=== PATIENT | male | born 1955 | race Caucasian/White ===

== ENCOUNTER 2024-10-25 09:02 | Inpatient (IN) ==
[2024-10-25] MEDS: SODIUM CHLORIDE 0.9% 1,000 ML IV SCH ×2 (09:49→10:10)
--- NOTE | 2024-10-25 09:52 | Emergency Department Note ---
History of Present Illness General Chief complaint: Flu Like Symptoms Stated complaint: SICK FOR 8 DAYS Time Seen by Provider: 10/25/24 09:17 History of Present Illness Patient is a 69-year-old male with past medical history significant for hypertension, insulin requiring diabetes, allergies and dyslipidemia who presents to the emergency department for evaluation of nausea, vomiting and diarrhea x 1 week. His is currently at a rehab facility, he was visiting her last Friday, 8 days ago when he developed stomach upset and started vomiting at the rehab hospital. Diarrhea developed shortly after. He reports multiple episodes of vomiting and diarrhea since. He only had dry heaves yesterday, but vomited last on the way to the emergency department this morning and had diarrhea today. He reports generalized mid abdominal discomfort that he rates a 3/10. He denies any blood in his vomit or stool. No fever or chills. He did not have any medications at home to try. He has not been able to take his normal home medications. He is on an insulin pump and uses a Dexcom monitor and his BSG's have been reading "high" for most of the week. He states that this is over 400 on his machine. He has tried sipping on water, he did try to eat a hoagie a couple of days ago. 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 No sick contacts, foreign travel, food or water concerns. He has treated municipal water at home. He does have a history of ulcerative colitis that was treated with a bowel resection 30 years ago. He denies any chest pain or shortness of breath. No cough, or URI symptoms. Home Medications Medication Instructions Recorded Confirmed Type lisinopril 40 mg tablet 40 mg PO DAILY ##0 04/15/06 10/25/24 History montelukast 10 mg tablet 10 mg PO DAILY ##0 04/15/06 10/25/24 History amlodipine 10 mg tablet 10 mg PO DAILY 10/25/24 10/25/24 History atorvastatin 40 mg tablet 40 mg PO DAILY 10/25/24 10/25/24 History chlorthalidone 25 mg tablet 25 mg PO DAILY 10/25/24 10/25/24 History fluticasone 250 mcg-salmeterol 50 1 inh inhalation BID 10/25/24 10/25/24 History mcg/dose blistr powdr for inhalation (Advair Diskus) ipratropium bromide 17 2 puff inhalation QID PRN 10/25/24 10/25/24 History mcg/actuation HFA aerosol inhaler SOB/WHEEZING (Atrovent HFA) Allergies Allergy/AdvReac Type Severity Reaction Status Date / Time Sulfa (Sulfonamide Allergy Verified 10/25/24 11:00 Antibiotics) Past Med/Surg History Problem List (Updated 10/25/24 @ 18:26 by Rosa Draper) ARF (acute renal failure) (Acute) Hyperkalemia (Acute) High anion gap metabolic acidosis (Acute) Medical History (Updated 10/25/24 @ 18:26 by Rosa Draper) Acoustic neuroma Moderate non-proliferative diabetic retinopathy Type 2 diabetes mellitus Stage 3b chronic kidney disease (CKD) Mild persistent asthma Environmental and seasonal allergies Dyslipidemia Hypertension Ulcerative colitis Surgical History (Updated 10/25/24 @ 13:42 by Monika Collins PA-C) History of cataract surgery Status post total colectomy age 30 for UC, has a J pouch Social History Smoking Status: Former smoker Hx Alcohol Use: No Hx Substance Use: No Preferred Language: Ghanaian Communication Ability: Effective Real Estate 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: No Beliefs That Will Affect Care: None Current Living Situation: Spouse Other Information That Helps Us Care for You: Yes Feels Safe at Home: Yes Safety Concerns: Feels Safe At This Time Assistive Devices: Denture - Upper, Glasses and Hearing Aid - Bilateral Review of Systems A total of 10 systems reviewed and were otherwise negative Physical Exam Vital Signs Vital Signs - 24 hr 10/25/24 09:09 10/25/24 09:24 10/25/24 09:50 Temperature 36.6 C Temperature Source Oral Pulse Rate 54 L Pulse Rate [Apical] 48 L Pulse Rate from SpO2 Sensor Pulse Strength [Apical] Normal Respiratory Rate 20 19 Respiratory Effort / Characteristics SOB on Exertion Non-Labored Spontaneous Respiratory Depth Normal Respiratory Pattern Regular Blood Pressure 111/46 L Blood Pressure [Right Arm] 116/38 L Blood Pressure Mean 67 Blood Pressure Mean [Right Arm] 64 Pulse Oximetry 98 99 98 Oxygen Delivery Method Room Air Room Air Room Air Sepsis Recent Fever Within 48 Hours No Sepsis New/Unexplained Change in Mental Status No Sepsis Action Taken by Nursing No Action Required 10/25/24 10:13 10/25/24 10:40 10/25/24 11:00 Temperature Temperature Source Pulse Rate 39 L Pulse Rate [Apical] 70 Pulse Rate from SpO2 Sensor Pulse Strength [Apical] Respiratory Rate 18 Respiratory Effort / Characteristics Non-Labored Spontaneous Respiratory Depth Normal Respiratory Pattern Regular Blood Pressure 109/48 L Blood Pressure [Right Arm] 121/57 L Blood Pressure Mean 63 Blood Pressure Mean [Right Arm] 78 Pulse Oximetry 98 Oxygen Delivery Method Room Air Sepsis Recent Fever Within 48 Hours Sepsis New/Unexplained Change in Mental Status Sepsis Action Taken by Nursing 10/25/24 11:09 10/25/24 11:15 10/25/24 11:15 Temperature Temperature Source Pulse Rate 123 H Pulse Rate [Apical] Pulse Rate from SpO2 Sensor 60 Pulse Strength [Apical] Respiratory Rate 17 Respiratory Effort / Characteristics Respiratory Depth Respiratory Pattern Blood Pressure 129/54 L 129/54 L Blood Pressure [Right Arm] Blood Pressure Mean 93 93 Blood Pressure Mean [Right Arm] Pulse Oximetry 99 Oxygen Delivery Method Sepsis Recent Fever Within 48 Hours Sepsis New/Unexplained Change in Mental Status Sepsis Action Taken by Nursing 10/25/24 11:18 Temperature Temperature Source Pulse Rate 108 H Pulse Rate [Apical] Pulse Rate from SpO2 Sensor 63 Pulse Strength [Apical] Respiratory Rate 31 H Respiratory Effort / Characteristics Respiratory Depth Respiratory Pattern Blood Pressure Blood Pressure [Right Arm] Blood Pressure Mean Blood Pressure Mean [Right Arm] Pulse Oximetry 100 Oxygen Delivery Method Sepsis Recent Fever Within 48 Hours Sepsis New/Unexplained Change in Mental Status Sepsis Action Taken by Nursing CONSTITUTIONAL: Patient is a well-appearing 69-year-old male who is awake and alert and in no acute distress laying on the gurney. EYES: Pupils equal, round, reactive to light and accommodation. EOMs intact without nystagmus. Sclera are anicteric. CARDIOVASCULAR: Bradycardic, regular, no murmur appreciated RESPIRATORY: Breath sounds equal and clear to auscultation. GI: Bowel sounds are present. Well-healed surgical scars are noted. Abdomen is soft, nontender, nondistended. No organomegaly. No pulsatile masses. No guarding or rebound. Insulin pump in the left lower quadrant, Dexcom on the right lower quadrant. MUSCULOSKELETAL: Full range of motion of extremities x 4 with good strength. No cyanosis, edema, joint tenderness or swelling. No deformity. INTEGUMENTARY: No lesions or rash, normal skin turgor. Course Course The patient was seen and assessed as above. External medical records were reviewed. He presents to the emergency department for evaluation of nausea, vomiting and diarrhea. Vital signs in triage noted hypotension, and bradycardia, these worsened in the exam room while I was evaluating the patient and heart rate and rhythm was irregular on the air sampling and monitoring. IV lock was initiated and laboratory studies were collected. BSG was performed and was 429. Laboratory studies included a CBC with differential, CMP, lipase, urinalysis and stool studies were ordered. EKG was obtained. CT scan of the abdomen and pelvis with IV contrast was ordered. Patient immediately reviewed with Dr. Luna, who was involved with the patient's ED evaluation and treatment. Patient was given a total of 2 L of normal saline solution IV bolus and Zofran 4 mg IV. VBG was added to blood work. Early conversation with block and case maker initiated due to likely admission. Patient became bradycardic and a second EKG was performed, again, noting a junctional rhythm, but heart rate it was in the 40s. Pacing pads were placed. There was a significant delay in CMP results, and an i-STAT BMP was obtained. Critical findings are noted below in the laboratory section. Dr. Luna immediately notified of findings including hyperkalemia, MO and hyponatremia. He ordered an hour-long DuoNeb treatment, sodium bicarbonate, calcium gluconate, Plasma-Lyte IV hydration and insulin drip. Quesada catheter placed. [facility] high anion gap metabolic acidosis/DKA/hyperkalemia. Patient discussed with Cookie Collins PA-C/Dr. Corcoran. Patient was discussed with Dr. Melchor with nephrology regarding MO, he was concerned that the patient would need emergent dialysis, and [facility] Lab Analyst team was consulted for line placement and ICU management. Dr. Melchor evaluated the patient in the emergency department. Patient also seen by the [facility] Hospitalist team. The patient was reassessed frequently in the emergency department, and while condition was guarded, he did remain stable, pending admission. He was admitted to the ICU for further care and management. I have personally spent greater than 45 minutes of critical care time in the direct management of this patient. This includes bedside care, interpretation of diagnostic studies, and testing, discussion with consultants, patient, and family members, and other required patient management activities. This 45 minutes is in excess of all separately billable procedures. Diagnostics, as interpreted by me: Laboratory studies: Normal white count at 10,000, with neutrophilic predominance. H&H 9.2 and 27.7, normal platelet count. POC BMP notes sodium 129, potassium 8.4, chloride 109, BUN greater than 140 and creatinine 10.5. Urine microscopy without signs of infection. Stool BioFire positive for norovirus. ECG: EKG #1 at 0944 junctional rhythm 89 bpm, tall, peaked T waves. No acute ischemic changes. EKG #2 at 1037 junctional rhythm with PVCs, 46 bpm, tall, peaked T waves persist. Cardiac monitoring: An order was placed for continuous cardiac monitoring. The monitor shows a junctional/sinus bradycardia, in the 50s. Differential diagnosis: Infection, dehydration, metabolic abnormality, hypo/hyperglycemia, electrolyte disturbance, anemia, hypoxia, cardiac sources, toxicologic, as well as other pathologies. Administered Medications Dextrose (Dextrose 50% 50 Ml Syringe) 25 - 50 ml IV UD PRN; Protocol PRN Reason: Hypoglycemia Protocol Stop: 11/24/24 12:44 Last Admin: 10/25/24 16:16 Dose: 25 ml Documented By: NIKI Fluticasone/Vilanterol (Fluticasone/Vilanterol 200/25mcg 14 Puffs/Inhaler) 1 puffs INH DAILY DWAINE Stop: 11/25/24 08:59 Last Admin: 10/26/24 08:03 Dose: 1 puffs Documented By: CISCO Parenteral Electrolytes (Plasma-Lyte A Ph 7.4) 1,000 mls @ 125 mls/hr IV .Q8H DWAINE Stop: 10/26/24 23:14 Last Admin: 10/26/24 08:03 Dose: 125 mls/hr Documented By: Infusion: 10/26/24 08:03 Dose: Infused Documented By: Infusion: 10/26/24 01:55 Dose: 125 mls/hr Documented By: Admin: 10/25/24 23:34 Dose: 100 mls/hr Documented By: ASHLI Insulin Aspart (Insulin Aspart Per Unit Charge) 0 units SC ACHS DWAINE Stop: 11/24/24 20:59 Last Admin: 10/26/24 08:02 Dose: 6 units Documented By: CISCO Co-signed By: KD Admin: 10/25/24 21:19 Dose: Not Given Documented By: ASHLI Miscellaneous (Icu Protocol For Hyperglycemia) 1 each N/A ACHS DWAINE Stop: 10/27/24 20:59 Last Admin: 10/26/24 08:03 Dose: Not Given Documented By: Admin: 10/25/24 21:19 Dose: 1 each Documented By: ASHLI Sodium Zirconium Cyclosilicate (Sodium Zirconium Cyclosilicate 10 Gm Packet) 10 gm PO TID DWAINE Stop: 10/27/24 09:01 Last Admin: 10/26/24 08:03 Dose: 10 gm Documented By: Admin: 10/25/24 21:19 Dose: 10 gm Documented By: Admin: 10/25/24 14:26 Dose: 10 gm Documented By: NIKI Discontinued Medications Albuterol (Albuterol 0.083% Nebu Soln 3 Ml Vial) 10 mg NEB NOW STA; Protocol Stop: 10/25/24 10:48 Last Admin: 10/25/24 10:55 Dose: 10 mg Documented By: HOA Dextrose (Dextrose 50% 50 Ml Syringe) 50 ml IV NOW STA Stop: 10/25/24 10:49 Last Admin: 10/25/24 10:55 Dose: 25 ml Documented By: HOA Dextrose (Dextrose 50% 50 Ml Syringe) 50 ml IV NOW STA Stop: 10/26/24 00:26 Last Admin: 10/26/24 00:49 Dose: 50 ml Documented By: ASHLI Sodium Chloride (Nss) 1,000 mls @ 999 mls/hr IV .Q1H1M DWAINE Stop: 10/25/24 10:43 Last Infusion: 10/25/24 10:10 Dose: Infused Documented By: Admin: 10/25/24 09:49 Dose: 999 mls/hr Documented By: FRANK Sodium Chloride (Nss) 1,000 mls @ 999 mls/hr IV .Q1H1M DWAINE Stop: 10/25/24 10:55 Last Infusion: 10/25/24 11:18 Dose: Infused Documented By: Admin: 10/25/24 10:10 Dose: 999 mls/hr Documented By: FRANK Calcium Gluconate () 1,000 mg in 60 mls @ 240 mls/hr IV Q15M DWAINE Stop: 10/25/24 11:29 Last Infusion: 10/25/24 11:49 Dose: Infused Documented By: Admin: 10/25/24 11:22 Dose: 240 mls/hr Documented By: Infusion: 10/25/24 11:22 Dose: Infused Documented By: Admin: 10/25/24 10:55 Dose: 240 mls/hr Documented By: HOA Parenteral Electrolytes (Plasma-Lyte A Ph 7.4) 1,000 mls @ 999 mls/hr IV .Q1H1M ONE Stop: 10/25/24 11:55 Last Infusion: 10/25/24 12:15 Dose: Infused Documented By: Admin: 10/25/24 11:00 Dose: 999 mls/hr Documented By: HOA Insulin Human Regular 250 (units/ Sodium Chloride) 250 mls @ 2 mls/hr IV .Q24H DWAINE; Protocol Stop: 10/25/24 19:00 Last Titration: 10/25/24 19:03 Dose: Infused Documented By: NIKI Co-signed By: ASHLI Titration: 10/25/24 16:36 Dose: 2 units/hr, 2 mls/hr Documented By: WRS Co-signed By: OPAL Titration: 10/25/24 14:34 Dose: 0 units/hr, 0 mls/hr Documented By: NIKI Co-signed By: CB Titration: 10/25/24 14:03 Dose: 2.5 units/hr, 2.5 mls/hr Documented By: NIKI Co-signed By: CB Titration: 10/25/24 13:30 Dose: 0 units/hr, 0 mls/hr Documented By: WRS Co-signed By: DONNAL Titration: 10/25/24 13:05 Dose: 4.2 units/hr, 4.2 mls/hr Documented By: WRS Co-signed By: DONNAL Titration: 10/25/24 12:35 Dose: 0 units/hr, 0 mls/hr Documented By: WRS Co-signed By: CB Titration: 10/25/24 12:32 Dose: 7 units/hr, 7 mls/hr Documented By: NIKI Co-signed By: LEA Admin: 10/25/24 11:49 Dose: 7 units/hr, 7 mls/hr Documented By: LEA Co-signed By: EMILY Sodium Bicarbonate 75 meq/ (Sodium Chloride) 1,075 mls @ 150 mls/hr IV .Q7H10M DWAINE Stop: 11/24/24 11:59 Last Infusion: 10/25/24 15:59 Dose: Infused Documented By: Admin: 10/25/24 12:40 Dose: 150 mls/hr Documented By: NIKI Parenteral Electrolytes (Plasma-Lyte A Ph 7.4) 1,000 mls @ 100 mls/hr IV .Q10H DWAINE Stop: 10/26/24 12:59 Last Infusion: 10/25/24 16:22 Dose: Infused Documented By: Infusion: 10/25/24 13:33 Dose: 100 mls/hr Documented By: Admin: 10/25/24 13:00 Dose: 200 mls/hr Documented By: NIKI Dextrose/Sodium Chloride (D5w And 1/2nss) 1,000 mls @ 100 mls/hr IV .Q10H DWAINE Stop: 11/24/24 16:29 Last Infusion: 10/25/24 23:28 Dose: Infused Documented By: Admin: 10/25/24 16:21 Dose: 100 mls/hr Documented By: NIKI Calcium Gluconate () 1,000 mg in 60 mls @ 240 mls/hr IV NOW STA Stop: 10/26/24 00:39 Last Infusion: 10/26/24 01:18 Dose: Infused Documented By: Admin: 10/26/24 00:50 Dose: 240 mls/hr Documented By: ASHLI Insulin Human Regular 5 units/ (Syringe) 5 mls @ 3 mls/sec IV ONE STA Stop: 10/26/24 00:32 Last Admin: 10/26/24 00:49 Dose: 3 mls/sec Documented By: ASHLI Co-signed By: YOLA Parenteral Electrolytes (Plasma-Lyte A Ph 7.4) 1,000 mls @ 999 mls/hr IV .Q1H1M ONE Stop: 10/26/24 01:39 Last Infusion: 10/26/24 01:56 Dose: Infused Documented By: Admin: 10/26/24 00:50 Dose: 999 mls/hr Documented By: ASHLI Insulin Aspart (Insulin Aspart Per Unit Charge) 0 units SC ACHS DWAINE Stop: 10/25/24 19:00 Last Admin: 10/25/24 16:22 Dose: Not Given Documented By: Admin: 10/25/24 12:55 Dose: Not Given Documented By: NIKI Insulin Glargine (Lantus Per Unit Charge) 10 units SC NOW ONE Stop: 10/25/24 17:01 Last Admin: 10/25/24 17:17 Dose: 10 units Documented By: NIKI Co-signed By: MATTHIAS Insulin Human Regular (Novolin-R Insulin Per Unit Charge) 10 units IV NOW STA Stop: 10/25/24 10:49 Last Admin: 10/25/24 10:54 Dose: 10 units Documented By: HOA Co-signed By: FRANK Aviles (Stat Iv/Im) 1 each N/A NOW STA Stop: 10/25/24 11:49 Last Admin: 10/25/24 13:15 Dose: Not Given Documented By: NIKI Aviles (Stop Order: Insulin Gtt) 1 each N/A ONE ONE Stop: 10/25/24 19:01 Last Admin: 10/25/24 19:03 Dose: 1 each Documented By: NIKI Ondansetron HCl (Ondansetron Inj 2 Mg/Ml 2 Ml Vial) 4 mg IV NOW STA Stop: 10/25/24 09:42 Last Admin: 10/25/24 10:10 Dose: 4 mg Documented By: FRANK Sodium Bicarbonate (Sodium Bicarb 8.4% Inj 50 Meq/50 Ml Syr) 100 meq IV NOW STA Stop: 10/25/24 10:48 Last Admin: 10/25/24 10:54 Dose: 100 meq Documented By: HOA Critical Care Time Critical Care Time: Yes Total Critical Care Time: 45 Medical Decision Making Differential Diagnosis See ED Course. Medical Records Attestation: I reviewed the patient's medical records. Home Medications Current Medication List: was personally reviewed by me Laboratory Data Attestation: I reviewed the patient's lab results. 10/26/24 03:58 10/26/24 03:58 Lab Results 10/25/24 10/25/24 10/25/24 Range/Units 09:45 09:49 10:00 WBC 10.09 (4.8-10.8) K/ul RBC 3.30 L (4.70-6.10) M/uL Hgb 9.2 L (14.0-18.0) g/dl POC Hgb (14.0-18.0) g/dl Hct 27.7 L (42.0-52.0) % POC Hct (42-52) % MCV 83.9 (80.0-100.0) fL MCH 27.9 (25.0-34.0) pg MCHC 33.2 (32.0-36.0) g/dL RDW Std Deviation 41.6 (36.4-46.3) fL RDW Coeff of Aline 13.5 (11.5-14.5) % Plt Count 359 (130-400) K/uL MPV 9.8 (9.4-12.4) fL Immature Gran % (Auto) 0.4 % Neut % (Auto) 81.9 % Lymph % (Auto) 9.0 % [place] % (Auto) 7.4 % Eos % (Auto) 1.0 % Baso % (Auto) 0.3 % Neut # (Auto) 8.26 H (1.40-6.50) K/uL Lymph # (Auto) 0.91 L (1.20-3.40) K/uL [place] # (Auto) 0.75 H (0.11-0.59) K/uL Eos # (Auto) 0.10 (0.00-0.50) K/uL Baso # (Auto) 0.03 (0.00-0.20) K/uL Immature Gran # (Auto) 0.04 (0.01-0.20) K/uL VBG pH 7.20 L (7.36-7.41) VBG pCO2 28 L (38-50) mmHg VBG pO2 40 mmHg VBG HCO3 11 mmol/L VBG O2 Saturation 70.2 % VBG Base Excess -15.6 mEq/L POC Sodium (135-144) mmol/L Sodium Cancelled POC Potassium (3.3-5.0) mmol/L Potassium Cancelled POC Chloride (101-112) mmol/L Chloride Cancelled Carbon Dioxide Cancelled POC Total CO2 (24-31) mmol/L Anion Gap Cancelled POC Anion Gap (16-25) mmol/L POC BUN (7-18) mg/dl BUN Cancelled Creatinine Cancelled POC Creatinine (0.6-1.3) mg/dl Est Cr Clr Drug Dosing Cancelled eGFR Cancelled BUN/Creatinine Ratio Cancelled Glucose Cancelled POC Glucose 429 H* (70-99) mg/dl POC Glucose (other) (70-99) mg/dl Calcium Cancelled POC Ioniz Calcium Lamine (1.12-1.32) mmol/l Total Bilirubin Cancelled AST Cancelled ALT Cancelled Alkaline Phosphatase Cancelled Total Protein Cancelled Albumin Cancelled Globulin Cancelled Albumin/Globulin Ratio Cancelled Lipase Cancelled Urine Color Urine Appearance (Clear) Urine pH (4.5-7.5) Ur Specific [place] (1.000-1.030) Urine Protein (Negative) Urine Glucose (UA) (Negative) Urine Ketones (Negative) Urine Blood (Negative) Urine Nitrite (Negative) Urine Bilirubin (Negative) Urine Urobilinogen (Negative) Ur Leukocyte Esterase (Negative) Urine WBC (Auto) (0-5) /hpf Urine RBC (Auto) (0-2) /hpf U Hyaline Cast (Auto) (0-2) /lpf U Epithel Cells (Auto) (0-2) /hpf Urine Bacteria (Auto) (None Seen) Urine Osmolality (500-800) mOsm/kg Ur Random Creatinine mg/dl Ur Random Sodium mmol/L Ur Random Potassium mmol/L Ur Random Chloride mmol/L Urine Opiates Screen (Neg) Ur Methadone, Qual (Neg) Urine Fentanyl Screen (Neg) Urine Barbiturates (Neg) Ur Phencyclidine (PCP) (Neg) U Amphetamin/Meth Scrn (Neg) MDMA (Ecstasy) Screen (Neg) U Benzodiazepines Scrn (Neg) Ur Cocaine Metabolite (Neg) U Marijuana (THC) Screen (Neg) Adenovirus (PCR) (NotDetected) B. pertussis DNA (PCR) (NotDetected) B.parapertussis DNA PCR (NotDetected) C. pneumoniae DNA (PCR) (NotDetected) Coronavirus OC43 (PCR) (NotDetected) Coronavirus HKU1 (PCR) (NotDetected) Coronavirus 229E (PCR) (NotDetected) SARS-CoV-2 (PCR) (NotDetected) Coronavirus NL63 (PCR) (NotDetected) Human Metapneumovir PCR (NotDetected) Influenza Type A (PCR) (NotDetected) Influenza Type B (PCR) (NotDetected) M. pneumoniae (PCR) (NotDetected) Parainfluenza 1 (PCR) (NotDetected) Parainfluenza 2 (PCR) (NotDetected) Parainfluenza 3 (PCR) (NotDetected) Parainfluenza 4 (PCR) (NotDetected) RSV (PCR) (NotDetected) Entero/Rhino (PCR) (NotDetected) 10/25/24 10/25/24 10/25/24 Range/Units 10:42 11:00 11:14 WBC (4.8-10.8) K/ul RBC (4.70-6.10) M/uL Hgb (14.0-18.0) g/dl POC Hgb 7.1 L (14.0-18.0) g/dl Hct (42.0-52.0) % POC Hct 21 L (42-52) % MCV (80.0-100.0) fL MCH (25.0-34.0) pg MCHC (32.0-36.0) g/dL RDW Std Deviation (36.4-46.3) fL RDW Coeff of Aline (11.5-14.5) % Plt Count (130-400) K/uL MPV (9.4-12.4) fL Immature Gran % (Auto) % Neut % (Auto) % Lymph % (Auto) % [place] % (Auto) % Eos % (Auto) % Baso % (Auto) % Neut # (Auto) (1.40-6.50) K/uL Lymph # (Auto) (1.20-3.40) K/uL [place] # (Auto) (0.11-0.59) K/uL Eos # (Auto) (0.00-0.50) K/uL Baso # (Auto) (0.00-0.20) K/uL Immature Gran # (Auto) (0.01-0.20) K/uL VBG pH (7.36-7.41) VBG pCO2 (38-50) mmHg VBG pO2 mmHg VBG HCO3 mmol/L VBG O2 Saturation % VBG Base Excess mEq/L POC Sodium 129 L (135-144) mmol/L Sodium Cancelled POC Potassium 8.4 H* (3.3-5.0) mmol/L Potassium Cancelled POC Chloride 109 (101-112) mmol/L Chloride Cancelled Carbon Dioxide Cancelled POC Total CO2 12 L (24-31) mmol/L Anion Gap Cancelled POC Anion Gap 17.0 (16-25) mmol/L POC BUN > 140 H* (7-18) mg/dl BUN Cancelled Creatinine Cancelled POC Creatinine 10.5 H* (0.6-1.3) mg/dl Est Cr Clr Drug Dosing Cancelled eGFR Cancelled BUN/Creatinine Ratio Cancelled Glucose Cancelled POC Glucose (70-99) mg/dl POC Glucose (other) 358 H* (70-99) mg/dl Calcium Cancelled POC Ioniz Calcium Lamine 1.23 (1.12-1.32) mmol/l Total Bilirubin Cancelled AST Cancelled ALT Cancelled Alkaline Phosphatase Cancelled Total Protein Cancelled Albumin Cancelled Globulin Cancelled Albumin/Globulin Ratio Cancelled Lipase Cancelled Urine Color Yellow Urine Appearance Clear (Clear) Urine pH 5.0 (4.5-7.5) Ur Specific [place] 1.015 (1.000-1.030) Urine Protein Trace H (Negative) Urine Glucose (UA) Trace H (Negative) Urine Ketones Trace H (Negative) Urine Blood Negative (Negative) Urine Nitrite Negative (Negative) Urine Bilirubin Negative (Negative) Urine Urobilinogen Negative (Negative) Ur Leukocyte Esterase Negative (Negative) Urine WBC (Auto) 0-5 (0-5) /hpf Urine RBC (Auto) 0-2 (0-2) /hpf U Hyaline Cast (Auto) >20 H (0-2) /lpf U Epithel Cells (Auto) 0-2 (0-2) /hpf Urine Bacteria (Auto) None Seen (None Seen) Urine Osmolality 360 L (500-800) mOsm/kg Ur Random Creatinine 247.1 mg/dl Ur Random Sodium < 10 mmol/L Ur Random Potassium 60.7 mmol/L Ur Random Chloride < 15 mmol/L Urine Opiates Screen Neg (Neg) Ur Methadone, Qual Neg (Neg) Urine Fentanyl Screen Neg (Neg) Urine Barbiturates Neg (Neg) Ur Phencyclidine (PCP) Neg (Neg) U Amphetamin/Meth Scrn Neg (Neg) MDMA (Ecstasy) Screen Neg (Neg) U Benzodiazepines Scrn Neg (Neg) Ur Cocaine Metabolite Neg (Neg) U Marijuana (THC) Screen Neg (Neg) Adenovirus (PCR) (NotDetected) B. pertussis DNA (PCR) (NotDetected) B.parapertussis DNA PCR (NotDetected) C. pneumoniae DNA (PCR) (NotDetected) Coronavirus OC43 (PCR) (NotDetected) Coronavirus HKU1 (PCR) (NotDetected) Coronavirus 229E (PCR) (NotDetected) SARS-CoV-2 (PCR) (NotDetected) Coronavirus NL63 (PCR) (NotDetected) Human Metapneumovir PCR (NotDetected) Influenza Type A (PCR) (NotDetected) Influenza Type B (PCR) (NotDetected) M. pneumoniae (PCR) (NotDetected) Parainfluenza 1 (PCR) (NotDetected) Parainfluenza 2 (PCR) (NotDetected) Parainfluenza 3 (PCR) (NotDetected) Parainfluenza 4 (PCR) (NotDetected) RSV (PCR) (NotDetected) Entero/Rhino (PCR) (NotDetected) 10/25/24 Range/Units 11:27 WBC (4.8-10.8) K/ul RBC (4.70-6.10) M/uL Hgb (14.0-18.0) g/dl POC Hgb (14.0-18.0) g/dl Hct (42.0-52.0) % POC Hct (42-52) % MCV (80.0-100.0) fL MCH (25.0-34.0) pg MCHC (32.0-36.0) g/dL RDW Std Deviation (36.4-46.3) fL RDW Coeff of Aline (11.5-14.5) % Plt Count (130-400) K/uL MPV (9.4-12.4) fL Immature Gran % (Auto) % Neut % (Auto) % Lymph % (Auto) % [place] % (Auto) % Eos % (Auto) % Baso % (Auto) % Neut # (Auto) (1.40-6.50) K/uL Lymph # (Auto) (1.20-3.40) K/uL [place] # (Auto) (0.11-0.59) K/uL Eos # (Auto) (0.00-0.50) K/uL Baso # (Auto) (0.00-0.20) K/uL Immature Gran # (Auto) (0.01-0.20) K/uL VBG pH (7.36-7.41) VBG pCO2 (38-50) mmHg VBG pO2 mmHg VBG HCO3 mmol/L VBG O2 Saturation % VBG Base Excess mEq/L POC Sodium (135-144) mmol/L Sodium POC Potassium (3.3-5.0) mmol/L Potassium POC Chloride (101-112) mmol/L Chloride Carbon Dioxide POC Total CO2 (24-31) mmol/L Anion Gap POC Anion Gap (16-25) mmol/L POC BUN (7-18) mg/dl BUN Creatinine POC Creatinine (0.6-1.3) mg/dl Est Cr Clr Drug Dosing eGFR BUN/Creatinine Ratio Glucose POC Glucose (70-99) mg/dl POC Glucose (other) (70-99) mg/dl Calcium POC Ioniz Calcium Lamine (1.12-1.32) mmol/l Total Bilirubin AST ALT Alkaline Phosphatase Total Protein Albumin Globulin Albumin/Globulin Ratio Lipase Urine Color Urine Appearance (Clear) Urine pH (4.5-7.5) Ur Specific [place] (1.000-1.030) Urine Protein (Negative) Urine Glucose (UA) (Negative) Urine Ketones (Negative) Urine Blood (Negative) Urine Nitrite (Negative) Urine Bilirubin (Negative) Urine Urobilinogen (Negative) Ur Leukocyte Esterase (Negative) Urine WBC (Auto) (0-5) /hpf Urine RBC (Auto) (0-2) /hpf U Hyaline Cast (Auto) (0-2) /lpf U Epithel Cells (Auto) (0-2) /hpf Urine Bacteria (Auto) (None Seen) Urine Osmolality (500-800) mOsm/kg Ur Random Creatinine mg/dl Ur Random Sodium mmol/L Ur Random Potassium mmol/L Ur Random Chloride mmol/L Urine Opiates Screen (Neg) Ur Methadone, Qual (Neg) Urine Fentanyl Screen (Neg) Urine Barbiturates (Neg) Ur Phencyclidine (PCP) (Neg) U Amphetamin/Meth Scrn (Neg) MDMA (Ecstasy) Screen (Neg) U Benzodiazepines Scrn (Neg) Ur Cocaine Metabolite (Neg) U Marijuana (THC) Screen (Neg) Adenovirus (PCR) Not Detected (NotDetected) B. pertussis DNA (PCR) Not Detected (NotDetected) B.parapertussis DNA PCR Not Detected (NotDetected) C. pneumoniae DNA (PCR) Not Detected (NotDetected) Coronavirus OC43 (PCR) Not Detected (NotDetected) Coronavirus HKU1 (PCR) Not Detected (NotDetected) Coronavirus 229E (PCR) Not Detected (NotDetected) SARS-CoV-2 (PCR) Not Detected (NotDetected) Coronavirus NL63 (PCR) Not Detected (NotDetected) Human Metapneumovir PCR Not Detected (NotDetected) Influenza Type A (PCR) Not Detected (NotDetected) Influenza Type B (PCR) Not Detected (NotDetected) M. pneumoniae (PCR) Not Detected (NotDetected) Parainfluenza 1 (PCR) Not Detected (NotDetected) Parainfluenza 2 (PCR) Not Detected (NotDetected) Parainfluenza 3 (PCR) Not Detected (NotDetected) Parainfluenza 4 (PCR) Not Detected (NotDetected) RSV (PCR) Not Detected (NotDetected) Entero/Rhino (PCR) Not Detected (NotDetected) Imaging Data Attestation: I personally reviewed and interpreted this imaging study as follows: Radiologist's Impression: Chest X-Ray 10/25/24 11:00 XR chest 1V portable CLINICAL HISTORY: dka COMPARISON STUDY: None FINDINGS: Heart size and pulmonary vasculature are normal. No effusion, consolidation, or pneumothorax. IMPRESSION: No acute findings. ACT 112: Negative or not required by law. Electronically signed by: Jean Angela M.D. 10/25/2024 12:53 PM MDM Narrative See ED Course. Impression & Plan High anion gap metabolic acidosis, Hyperkalemia, ARF (acute renal failure) Discharge Plan Visit Data Chief Complaint: Flu Like Symptoms Stated Complaint: SICK FOR 8 DAYS ED Provider: Rod Luna ED Midlevel Provider: Rosa Draper Discharge Problem: High anion gap metabolic acidosis, Hyperkalemia, ARF (acute renal failure) Patient Disposition: Admitted As Inpatient Discharge Instructions Interventions: ED Discharge Assessment Last Done: 10/25/24 12:22
[2024-10-25] MEDS: ONDANSETRON INJ 2 MG/ML 2 ML VIAL IV STA (10:10)
[2024-10-25 10:14] LABS: Basophils # (auto) 0.03 K/uL (0.00-0.20); Basophils % (auto) 0.3 %; Hematocrit (blood only) 27.7 % (42.0-52.0); Hemoglobin 9.2 g/dl (14.0-18.0); Immature Granulocytes # (auto) 0.04 K/uL (0.01-0.20); Immature Granulocytes % (auto) 0.4 %; Lymphocytes # (auto) 0.91 K/uL (1.20-3.40); Mean Corpuscular Hemoglobin 27.9 pg (25.0-34.0); Mean Corpuscular Hgb Conc 33.2 g/dL (32.0-36.0); Mean Corpuscular Volume 83.9 fL (80.0-100.0); Mean Platelet Volume 9.8 fL (9.4-12.4); Monocytes # (auto) 0.75 K/uL (0.11-0.59); Monocytes % (auto) 7.4 %; Neutrophils # (auto) 8.26 K/uL (1.40-6.50); Neutrophils % (auto) 81.9 %; Platelet Count 359 K/uL (130-400); RDW Coefficient of Variation 13.5 % (11.5-14.5); RDW Standard Deviation 41.6 fL (36.4-46.3); White Blood Count 10.09 K/ul (4.8-10.8)
[2024-10-25 10:52] LABS: Base Excess VBG -15.6 mEq/L; HCO3 VBG 11 mmol/L; Oxygen Saturation VBG 70.2 %; PCO2 VBG 28 mmHg (38-50); PO2 VBG 40 mmHg
[2024-10-25] MEDS: NovoLIN-R INSULIN PER UNIT CHARGE IV STA (10:54)
[2024-10-25] MEDS: SODIUM BICARB 8.4% INJ 50 MEQ/50 ML SYR IV STA (10:54)
[2024-10-25 10:55] LABS: iSTAT Blood Urea Nitrogen > 140 mg/dl (7-18); iSTAT Carbon Dioxide 12 mmol/L (24-31); iSTAT Chloride 109 mmol/L (101-112); iSTAT Creatinine 10.5 mg/dl (0.6-1.3); iSTAT Glucose 358 mg/dl (70-99); iSTAT Hematocrit 21 % (42-52); iSTAT Hemoglobin 7.1 g/dl (14.0-18.0); iSTAT Ionized Calcium 1.23 mmol/l (1.12-1.32); iSTAT Potassium 8.4 mmol/L (3.3-5.0); iSTAT Sodium 129 mmol/L (135-144)
[2024-10-25] MEDS: DEXTROSE 50% 50 ML SYRINGE IV STA (10:55)
[2024-10-25] MEDS: CALCIUM GLUCONATE 1,000 MG/60 ML BAG IV SCH (10:55)
[2024-10-25] MEDS: ALBUTEROL 0.083% NEBU SOLN 3 ML VIAL NEB STA (10:55)
--- NOTE | 2024-10-25 10:55 | Emergency Department Note ---
ED Visit Note Patient is a 69-year-old male who presents ER for nausea vomiting and diarrhea which has been present for the past 8 days. He notes he is still making urine. IVs were established and blood work was obtained. EKG initial appeared to be junctional. Consequently I recommended to any obtaining a VBG and a POC BMP. This eventually resulted and showed a potassium of 8. At this time dextrose, insulin, albuterol nebs and bicarb and calcium gluconate were ordered. Additional IVs were obtained. Nephrology as well as the hospitalist were consul sahara per Yokasta's note. I spoke with the grievance and appeals coordinator and they will establish central line. Also discussed with the hospitalist at bedside patient was admitted and taken to the ICU for central line placement and dialysis. Bicarb drip was also started prior to transfer. Heart rate improved significantly following calcium x 2 and bicarb x 2. EXAM: GENERAL: Sitting up in bed, alert, slightly ill-appearing EYE EXAM: normal conjunctiva. OROPHARYNX: Dry mucous membranes LUNGS: Normal chest wall mechanics UPPER EXTREMITIES: upper extremities are grossly normal. LOWER EXTREMITIES: No pitting edema. NEURO EXAM: Normal sensorium, cranial nerves II-XII grossly intact, normal speech, no gross weakness of arms, no gross weakness of legs. I was consulted by the Advanced Practice Provider. I personally made or approved the management plan for the patient. I performed a substantive portion of the visit. This includes the aspects of: MDM. I have personally spent 55 minutes of critical care time in the direct management of this patient. This includes bedside care, interpretation of diagnostic studies, and testing, discussion with consultants, patient, and family members, and other required patient management activities. This 55 minutes is in excess of all separately billable procedures. .
[2024-10-25] MEDS: PLASMA-LYTE A 1,000 ML IV ONE (11:00)
--- NOTE | 2024-10-25 11:10 | History & Physical Report ---
<Statement entered by Ronnie Corcoran, DO - 10/25/24 15:17> I have seen and examined the patient and have discussed the case with the advance practice provider. I have reviewed the advanced practitioner's documentation, and I agree with, and take responsibility for that plan of care. Patient seen while in the ED. Patient continuing with diarrhea. Reviewed updated labs, potassium and kidney function improving. Stool BioFire positive for norovirus. Patient with severe DKA and metabolic acidosis and acute kidney failure on chronic renal failure due to prerenal state and possibly ATN in the setting of severe dehydration. Personally reviewed chest x-ray, no acute cardiac pulmonary abnormalities Personally reviewed EKG, junctional rhythm, peaked T waves, bradycardia consistent with his hyperkalemia Reviewed neurology recommendations Extensive review of plan of care with ROWAN as outlined below. Frequent laboratory monitoring. I spent a total of 20 minutes coordinating, documenting, and providing care for this patient excluding time spent by another provider/QHP. Date of Service October 25, 2024 Assessment & Plan (1) High anion gap metabolic acidosis: (2) Hyperkalemia: (3) ARF (acute renal failure): (4) Type 2 diabetes mellitus: (5) Stage 3b chronic kidney disease (CKD): (6) Mild persistent asthma: (7) Dyslipidemia: (8) Hypertension: Plan This is a 69 y/o male with insulin-requiring DM2, on insulin pump, HTN, CKDb3, hx of ulcerative colitis s/p total colectomy, hypercholesterolemia, and other history as outlined below who presented to the ED today with eight days of vomiting and diarrhea. Pt reports unable to tolerate oral intake, unsure of urine output since incontinent of diarrhea. Work-up in the ED showed elevated creatinine at 10.5, elevated glucose of 429, and elevated potassium of 8.4 EKG personally reviewed and c/w junctional rhythm, peaked T-waves c/w known hyperkalemia. VBG showed pH 7.20, pCO2 28. Pt given 2L of NSS in the ED as well as insulin, dextrose, calcium gluconate, and hour long neb. We have been consult to admit the patient for further work-up and management. #MO on CKD (last outpatient creatinine around 2.3) #Hyperkalemia #Metabolic acidosis #Hyperglycemia - Admit to ICU - discussed with public safety director MITRA, appreciate assistance - Consult nephrology who came to see pt in the ED - discussed case with Dr. Melchor. Will plan for placement of dialysis catheter now, defer decision on timing of dialysis to nephrology - Insulin gtt per protocol - Serial BMP, VBG, Mg, Phos - electrolyte correction PRN - Starting bicarb gtt per discussion with nephrology #Vomiting and Diarrhea of unclear etiology - Stool PCR, stool for C diff - BioFire ordered - PRN anti-emetics #Insulin-requiring DM2 - on DexCom, insulin pump at home - Insulin gtt per protocol as above #Hypertension - has not been able to tolerate meds for the past few days, initial BPs in the ED were not significant elevated - Holding lisinopril, chlorthalidone due to MO - Monitor BP with fluid resuscitation - amlodipine currently held but will monitor closely #Mild persistent asthma #Seasonal allergies - Chronic, stable - continue Advair - Resume montelukast once taking po Pt seen and reviewed with collaborating physician, Dr. Corcoran. Plan of care discussed and as outlined above Code status: full code Ning Collins PA-C History of Present Illness Chief Complaint: vomiting and diarrhea x 8 days Primary Care Provider: Luna Ahn MD This is a 69 y/o male with insulin-requiring DM2, on insulin pump, HTN, CKDb3, hx of ulcerative colitis s/p total colectomy, hypercholesterolemia, and other history as outlined below who presented to the ED today with eight days of vomiting and diarrhea. Pt reports visiting his at [facility] when he noticed an unsettled feeling in his stomach followed shortly by vomiting then diarrhea. Since then, the vomiting and diarrhea have continued with last episode of emesis being this morning, last episode of diarrhea this morning in the ED. Symptoms were most severe the first three days but have continued to wax and wane since then. +urgency, incontinence, and nocturnal stooling. Associated abdominal cramping but no severe abdominal pain. Denies melena, hematochezia, and hematemesis. He has not check his temperature at home but has noted chills and sweats. His oral intake has been limited as he cannot keep anything down. He has not been able to take his routine medications over the last few days. His Dexcom has shown high sugars (>400) over the last few days. He reports that his insulin pump has been functioning without issue. He changed both sides yesterday. He notes some head congestion and runny nose but no cough or dyspnea. Allergies Allergy/AdvReac Type Severity Reaction Status Date / Time Sulfa (Sulfonamide Allergy Verified 10/25/24 11:00 Antibiotics) Home Medications Medication Instructions Recorded Confirmed Type lisinopril 40 mg tablet 40 mg PO DAILY ##0 04/15/06 10/25/24 History montelukast 10 mg tablet 10 mg PO DAILY ##0 04/15/06 10/25/24 History amlodipine 10 mg tablet 10 mg PO DAILY 10/25/24 10/25/24 History atorvastatin 40 mg tablet 40 mg PO DAILY 10/25/24 10/25/24 History chlorthalidone 25 mg tablet 25 mg PO DAILY 10/25/24 10/25/24 History fluticasone 250 mcg-salmeterol 50 1 inh inhalation BID 10/25/24 10/25/24 History mcg/dose blistr powdr for inhalation (Advair Diskus) ipratropium bromide 17 2 puff inhalation QID PRN 10/25/24 10/25/24 History mcg/actuation HFA aerosol inhaler SOB/WHEEZING (Atrovent HFA) Past Med/Surg History Problem List (Updated 10/25/24 @ 13:43 by Monika Collins PA-C) ARF (acute renal failure) Hyperkalemia High anion gap metabolic acidosis Medical History (Updated 10/25/24 @ 13:43 by Monika Collins PA-C) Acoustic neuroma Moderate non-proliferative diabetic retinopathy Type 2 diabetes mellitus Stage 3b chronic kidney disease (CKD) Mild persistent asthma Environmental and seasonal allergies Dyslipidemia Hypertension Ulcerative colitis Surgical History (Updated 10/25/24 @ 13:42 by Monika Collins PA-C) History of cataract surgery Status post total colectomy age 30 for UC, has a J pouch Social History Smoking Status: Former smoker Feels Safe at Home: Yes Review of Systems Review of Systems: All systems reviewed & are unremarkable except as noted in Subjective Physical Exam Physical Exam: General: awake, alert, NAD HEENT: no scleral icterus, slightly dry oral mucosa Neck: supple, trachea midline Heart: regular but tachycardic Lungs: CTA bilaterally, no W/R/R Abdomen: soft, NTND, +BS Extremities: distal pulses intact and equal, no pedal edema Skin: warm, dry, no jaundice or cyanosis Neurologic: OX3, moving all extremities, no focal deficits, no confusion or dysarthria Results & Data Results & Data Vital Signs (Past 12 Hours) Vital Signs Temp Pulse Pulse Resp BP BP Pulse Ox 10/25/24 10:40 39 L 10/25/24 10:13 70 18 121/57 L 98 10/25/24 09:50 98 10/25/24 09:24 48 L 19 116/38 L 99 10/25/24 09:09 36.6 C 54 L 20 111/46 L 98 O2 Del Method 10/25/24 10:40 10/25/24 10:13 Room Air 10/25/24 09:50 Room Air 10/25/24 09:24 Room Air 10/25/24 09:09 Room Air Laboratory Results Lab Results 10/25/24 10/25/24 10/25/24 Range/Units 09:45 09:49 10:42 WBC 10.09 (4.8-10.8) K/ul RBC 3.30 L (4.70-6.10) M/uL Hgb 9.2 L (14.0-18.0) g/dl POC Hgb 7.1 L (14.0-18.0) g/dl Hct 27.7 L (42.0-52.0) % POC Hct 21 L (42-52) % MCV 83.9 (80.0-100.0) fL MCH 27.9 (25.0-34.0) pg MCHC 33.2 (32.0-36.0) g/dL RDW Std Deviation 41.6 (36.4-46.3) fL RDW Coeff of Aline 13.5 (11.5-14.5) % Plt Count 359 (130-400) K/uL MPV 9.8 (9.4-12.4) fL Immature Gran % (Auto) 0.4 % Neut % (Auto) 81.9 % Lymph % (Auto) 9.0 % [place] % (Auto) 7.4 % Eos % (Auto) 1.0 % Baso % (Auto) 0.3 % Neut # (Auto) 8.26 H (1.40-6.50) K/uL Lymph # (Auto) 0.91 L (1.20-3.40) K/uL [place] # (Auto) 0.75 H (0.11-0.59) K/uL Eos # (Auto) 0.10 (0.00-0.50) K/uL Baso # (Auto) 0.03 (0.00-0.20) K/uL Immature Gran # (Auto) 0.04 (0.01-0.20) K/uL VBG pH (7.36-7.41) VBG pCO2 (38-50) mmHg VBG pO2 mmHg VBG HCO3 mmol/L VBG O2 Saturation % VBG Base Excess mEq/L POC Sodium 129 L (135-144) mmol/L Sodium Cancelled POC Potassium 8.4 H* (3.3-5.0) mmol/L Potassium Cancelled POC Chloride 109 (101-112) mmol/L Chloride Cancelled Carbon Dioxide Cancelled POC Total CO2 12 L (24-31) mmol/L Anion Gap Cancelled POC Anion Gap 17.0 (16-25) mmol/L POC BUN > 140 H* (7-18) mg/dl BUN Cancelled Creatinine Cancelled POC Creatinine 10.5 H* (0.6-1.3) mg/dl Est Cr Clr Drug Dosing Cancelled eGFR Cancelled BUN/Creatinine Ratio Cancelled Glucose Cancelled POC Glucose 429 H* (70-99) mg/dl POC Glucose (other) 358 H* (70-99) mg/dl Calcium Cancelled POC Ioniz Calcium Lamine 1.23 (1.12-1.32) mmol/l Total Bilirubin Cancelled AST Cancelled ALT Cancelled Alkaline Phosphatase Cancelled Total Protein Cancelled Albumin Cancelled Globulin Cancelled Albumin/Globulin Ratio Cancelled Lipase Cancelled 10/25/24 Range/Units Unknown WBC (4.8-10.8) K/ul RBC (4.70-6.10) M/uL Hgb (14.0-18.0) g/dl POC Hgb (14.0-18.0) g/dl Hct (42.0-52.0) % POC Hct (42-52) % MCV (80.0-100.0) fL MCH (25.0-34.0) pg MCHC (32.0-36.0) g/dL RDW Std Deviation (36.4-46.3) fL RDW Coeff of Aline (11.5-14.5) % Plt Count (130-400) K/uL MPV (9.4-12.4) fL Immature Gran % (Auto) % Neut % (Auto) % Lymph % (Auto) % [place] % (Auto) % Eos % (Auto) % Baso % (Auto) % Neut # (Auto) (1.40-6.50) K/uL Lymph # (Auto) (1.20-3.40) K/uL [place] # (Auto) (0.11-0.59) K/uL Eos # (Auto) (0.00-0.50) K/uL Baso # (Auto) (0.00-0.20) K/uL Immature Gran # (Auto) (0.01-0.20) K/uL VBG pH 7.20 L (7.36-7.41) VBG pCO2 28 L (38-50) mmHg VBG pO2 40 mmHg VBG HCO3 11 mmol/L VBG O2 Saturation 70.2 % VBG Base Excess -15.6 mEq/L POC Sodium (135-144) mmol/L Sodium POC Potassium (3.3-5.0) mmol/L Potassium POC Chloride (101-112) mmol/L Chloride Carbon Dioxide POC Total CO2 (24-31) mmol/L Anion Gap POC Anion Gap (16-25) mmol/L POC BUN (7-18) mg/dl BUN Creatinine POC Creatinine (0.6-1.3) mg/dl Est Cr Clr Drug Dosing eGFR BUN/Creatinine Ratio Glucose POC Glucose (70-99) mg/dl POC Glucose (other) (70-99) mg/dl Calcium POC Ioniz Calcium Lamine (1.12-1.32) mmol/l Total Bilirubin AST ALT Alkaline Phosphatase Total Protein Albumin Globulin Albumin/Globulin Ratio Lipase Medications Administered Calcium Gluconate () 1,000 mg in 60 mls @ 240 mls/hr IV Q15M [facility] Stop: 10/25/24 11:29 Last Admin: 10/25/24 10:55 Dose: 240 mls/hr Documented By: ES Parenteral Electrolytes (Plasma-Lyte A Ph 7.4) 1,000 mls @ 999 mls/hr IV .Q1H1M ONE Stop: 10/25/24 11:55 Last Admin: 10/25/24 11:00 Dose: 999 mls/hr Documented By: HOA Discontinued Medications Albuterol (Albuterol 0.083% Nebu Soln 3 Ml Vial) 10 mg NEB NOW STA; Protocol Stop: 10/25/24 10:48 Last Admin: 10/25/24 10:55 Dose: 10 mg Documented By: HOA Dextrose (Dextrose 50% 50 Ml Syringe) 50 ml IV NOW STA Stop: 10/25/24 10:49 Last Admin: 10/25/24 10:55 Dose: 25 ml Documented By: HOA Sodium Chloride (Nss) 1,000 mls @ 999 mls/hr IV .Q1H1M DWAINE Stop: 10/25/24 10:43 Last Infusion: 10/25/24 10:10 Dose: Infused Documented By: Admin: 10/25/24 09:49 Dose: 999 mls/hr Documented By: FRANK Sodium Chloride (Nss) 1,000 mls @ 999 mls/hr IV .Q1H1M DWAINE Stop: 10/25/24 10:55 Last Admin: 10/25/24 10:10 Dose: 999 mls/hr Documented By: FRANK Insulin Human Regular (Novolin-R Insulin Per Unit Charge) 10 units IV NOW STA Stop: 10/25/24 10:49 Last Admin: 10/25/24 10:54 Dose: 10 units Documented By: HOA Co-signed By: FRANK Ondansetron HCl (Ondansetron Inj 2 Mg/Ml 2 Ml Vial) 4 mg IV NOW STA Stop: 10/25/24 09:42 Last Admin: 10/25/24 10:10 Dose: 4 mg Documented By: FRANK Sodium Bicarbonate (Sodium Bicarb 8.4% Inj 50 Meq/50 Ml Syr) 100 meq IV NOW STA Stop: 10/25/24 10:48 Last Admin: 10/25/24 10:54 Dose: 100 meq Documented By: HOA (3) ARF (acute renal failure) Acute renal failure type: unspecified Qualified Code(s): N17.9 - Acute kidney failure, unspecified (4) Type 2 diabetes mellitus Diabetes mellitus nurse informaticist insulin use: with jail use Diabetes mellitus complication status: with ophthalmic complications Diabetes mellitus complication detail: with diabetic retinopathy Diabetic retinopathy severity: with moderate nonproliferative retinopathy Diabetes mellitus macular edema: with macular edema Laterality: unspecified laterality Qualified Code(s): E11.3319 - Type 2 diabetes mellitus with moderate nonproliferative diabetic retinopathy with macular edema, unspecified eye; Z79.4 - terminal computer 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
[2024-10-25] MEDS ORDERED: PHARMACY GLYCEMIC MGMT CONSULT PRN (11:28)
[2024-10-25] MEDS ORDERED: STAT IV Infusion **Titration per Protocol STA (11:28)
[2024-10-25] MEDS: INSULIN REGULAR 250 UNITS in SODIUM CHLORIDE 0.9% 247.5 ML IV SCH (11:49)
--- NOTE | 2024-10-25 11:51 | Critical Care Consultation ---
Date of Consultation October 25, 2024 Assessment & Plan (1) High anion gap metabolic acidosis: (2) Hyperkalemia: (3) ARF (acute renal failure): (4) Hypertension: (5) Dyslipidemia: (6) Diabetes: Plan Reason Critically Ill: 69-year-old male coming to the hospital for nausea, vomiting, diarrhea and generalized weakness Past medical history: Hypertension, dyslipidemia Being transferred to the ICU for possible dialysis with acute renal failure Neuro - [facility] ICU: Negative Cardiac - -- History of hypertension On amlodipine 10,chlorthalidone 25 and lisinopril 40 at home Respiratory - -- COPD with emphysema Approximately [id number] smoking history Quit at the age of 40 On Advair 250-50 at home along with montelukast GI - -- Nausea vomiting diarrhea Likely from viral illness As needed Zofran RENAL/LYTES - -- Acute renal failure Does have history of CKD Likely dehydration from poor intake for more than a week Follow-up urine lites Monitor BUN/creatinine Avoid nephrotoxic medications Strict ins and outs -- HAGMA Delta-delta: 14.5, gap plus nongap Gap is likely from elevated BUN, nongap likely from urinary source Follow up serum osm, urine osm, urine lytes VBG shows a pH of 7.2 Monitor ENDO - -- DKA Continue with insulin drip until anion gap closes Decreasing blood glucose no more than 100 in an hour Replace potassium IV when potassium level between 3.3-5.3 BMP every 4 hours Continue with IV fluids HEME - -- Normocytic anemia Monitor H&H ID - -- No clear source of infection --Prophylaxis VTE: Heparin GI: None Lines: Peripheral Diet: Renal Plan: Strict in and outs Continue with bicarb drip Unfortunately there has been issues in the chemistry lab and we are not able to get the BMP back for more than 2 hours. Whether the patient is going to need dialysis for now will be decided on the repeat BMP. When I was examining the patient he was making good amount of urine so hopefully we will be able to avoid dialysis. Continue with insulin drip Case was discussed with nephrology. I have personally spent 58 minutes of critical care time in the direct management of this patient. This is a life/limb threatening event. This includes time spent evaluating patient, direct bedside care, chart review, placing orders, interpretation of diagnostic studies, discussion with consultants, patient, and family members, as well as other required patient management activities. This time is exclusive of all separately billable procedures, and teaching time and separate from and in addition to any other critical care service time. History of Present Illness History of Present Illness 69-year-old male coming to the hospital for nausea, vomiting, diarrhea and generalized weakness Past medical history: Hypertension, dyslipidemia Being transferred to the ICU for possible dialysis with acute renal failure At the time of examination patient was not in any respiratory distress He was breathing in the mid teens, heart rate was in the 80s, systolic blood pressure in the 110s Patient's brother was in the room. Patient stated that he has not been having anything to eat or drink for approximately 8-10 days because of nausea vomiting and diarrhea No blood in the stools Denied any hematemesis Subjective chills but no fever Denies any chest pain or shortness of breath No abdominal pain. No dizziness, no lightheadedness Social history: Approximately [id number] smoking history, quit at the age of 40, no alcohol, no illicit drug use Allergies Allergy/AdvReac Type Severity Reaction Status Date / Time Sulfa (Sulfonamide Allergy Verified 10/25/24 11:00 Antibiotics) Home Medications Medication Instructions Recorded Confirmed Type lisinopril 40 mg tablet 40 mg PO DAILY ##0 04/15/06 10/25/24 History montelukast 10 mg tablet 10 mg PO DAILY ##0 04/15/06 10/25/24 History amlodipine 10 mg tablet 10 mg PO DAILY 10/25/24 10/25/24 History atorvastatin 40 mg tablet 40 mg PO DAILY 10/25/24 10/25/24 History chlorthalidone 25 mg tablet 25 mg PO DAILY 10/25/24 10/25/24 History fluticasone 250 mcg-salmeterol 50 1 inh inhalation BID 10/25/24 10/25/24 History mcg/dose blistr powdr for inhalation (Advair Diskus) ipratropium bromide 17 2 puff inhalation QID PRN 10/25/24 10/25/24 History mcg/actuation HFA aerosol inhaler SOB/WHEEZING (Atrovent HFA) Patient History Medical History Environmental and seasonal allergies Dyslipidemia Diabetes Hypertension Ulcerative colitis Surgical History History of bowel resection Social History Smoking Status: Former smoker Feels Safe at Home: Yes Review of Systems 2 Review of Systems: All systems reviewed & are unremarkable except as noted in HPI & below Physical Exam 2 Physical Exam: Constitutional: No acute distress HEENT: EOMI, PERRLA Respiratory system: Decreased air entry bilaterally, no wheeze, no rhonchi, mild crackles bilateral lower lobes CVS: S1-S2 positive, no murmurs or gallops Abdomen: Soft, nontender, nondistended, positive bowel sounds x4 Extremities: +2 pulses bilaterally radialis/ dorsalis pedis, no cyanosis, no edema Neuro: Awake alert oriented x3 Psych: Normal mood and affect G/U: Positive Quesada Skin: no rashes, warm and dry Lymphatic: no cervical or axillary lymphadenopathy Results & Data Results & Data Vital Signs (Past 12 Hours) Vital Signs Temp Pulse Pulse Resp BP BP Pulse Ox 10/25/24 11:18 108 H 31 H 100 10/25/24 11:15 129/54 L 10/25/24 11:15 129/54 L 10/25/24 11:09 123 H 17 99 10/25/24 11:00 109/48 L 10/25/24 10:40 39 L 10/25/24 10:13 70 18 121/57 L 98 10/25/24 09:50 98 10/25/24 09:24 48 L 19 116/38 L 99 10/25/24 09:09 36.6 C 54 L 20 111/46 L 98 O2 Del Method 10/25/24 11:18 10/25/24 11:15 10/25/24 11:15 10/25/24 11:09 10/25/24 11:00 10/25/24 10:40 10/25/24 10:13 Room Air 10/25/24 09:50 Room Air 10/25/24 09:24 Room Air 10/25/24 09:09 Room Air Laboratory Results 10/25/24 09:45 Coding Level of Care Code 16819 CRITICAL CARE 1ST 30-74M Diagnoses High anion gap metabolic acidosis E87.29 Hyperkalemia E87.5 ARF (acute renal failure) N17.9 Hypertension I10 Dyslipidemia E78.5 Diabetes E11.9 Time Spent (min) 58
[2024-10-25 12:15] LABS: Appearance Urine Clear (Clear); Bacteria Urine Automated None Seen (None Seen); Bilirubin Urine Negative (Negative); Blood Urine Negative (Negative); Cast Urine Automated >20 /lpf (0-2); Color Urine Yellow; Epithelial Cell Urine Auto 0-2 /hpf (0-2); Glucose Urine UA Trace (Negative); Ketones Urine Trace (Negative); Leukocyte Esterase Urine Negative (Negative); Nitrite Urine Negative (Negative); Protein Urine Trace (Negative); RBC Urine Automated 0-2 /hpf (0-2); Specific Gravity Urine 1.015 (1.000-1.030); Urobilinogen Urine Negative (Negative); WBC Urine Automated 0-5 /hpf (0-5)
--- NOTE | 2024-10-25 12:27 | Nephrology Consultation ---
Date of Consultation October 25, 2024 Assessment & Plan (1) ARF (acute renal failure): severe acute kidney injury on background CKD 3B. Patient already has known CKD 3B secondary to combination of diabetes hypertension and does have moderate proteinuria as well as [id number] hyperkalemia in the recent blood work. given his symptoms of severe nausea vomiting diarrhea for the last 8 days I would have to assume this is severe prerenal type in etiology. However even if it is related with severe volume depletion a prolonged state of volume depletion especially in patient with CKD can progress to ATN and there is no guarantee that his kidney function will actually recover. given very abnormal labs as well as critical hyperkalemia with EKG changes I would proceed with dialysis catheter and do urgent dialysis. after that we will monitor for the response and make decision whether he will need to continue dialysis or not. given his severe GI symptoms severe anemia and hyperkalemia I would rather do CT abdomen without contrast. monitor input output do UA and urine culture consider doing stool studies also including Hemoccult as well as stool culture to find the etiology of his severe GI symptoms. patient does have severe anemia with could be related with renal failure but do need to rule out occult GI bleed. check iron studies and will consider using Procrit (2) Hyperkalemia: critical hyperkalemia with a potassium of 8.4 with EKG changes and very ab normal kidney function. Patient already has baseline hyperkalemia and CKD. given this I would not want to take chance and would rather do dialysis catheter and do dialysis urgently to control the potassium. discussed in detail with admitting service and Emergency Department about hyperkalemia management including---- bicarb drip continuous at 100 mL/hour, nebulizer calcium gluconate insulin drip. he can also have Lokelma but usually this takes time to work and the current potassium is too high continue input output charting and monitor urine output closely stop lisinopril and chlorthalidone for the time being Plan Case complexity high and I was involved with a discussion regarding the plan and management with the Emergency Department as well as admitting service as well as dialysis nurse. Total time spent 82 minutes History of Present Illness Reason for Consultation: Acute renal failure on background CKD 3B with critical hyperkalemia Attending Physician: Ronnie Corcoran, DO History of Present Illness 69-year-old male who is already followed in [facility] by Dr. Berenice Lowry with the last Nephrology visit August 2024. he has baseline CKD 3B with a creatinine around 2 point 3 with mild hyperkalemia in the recent blood work with the etiology attributed to diabetes and hypertension. his other medical problems includes ulcerative pancolitis and had total colectomy at age 17. even at baseline he does have Frequent lose stools. he comes in today after 8 days history of nausea vomiting severe diarrhea and very poor oral intake. despite these symptoms he had significantly delayed coming to the hospital till he got to the point where he could not even stand. only then he came to the hospital. He was taking his regular medications which does include lisinopril and chlorthalidone. no recent NSAIDs but in the past he did take lot of NSAIDs blood work done in the Emergency Department as extremely abnormal with a creatinine of 10.5 and a potassium of 8.4 low bicarb of 12 and glucose of 450+. since being admitted he has received calcium gluconate nebulizer bicarb injection. he does have a Quesada catheter also He initially had somewhat tall T-waves as well as junctional rhythm with bradycardia but most recently does not. at this very moment blood pressure and oxygen saturation and vitals appear good. repeat labs are pending review of systems------ he had severe nausea vomiting and diarrhea and poor oral intake for the last 8 days. He was extremely weak at the time of presentation. otherwise 12 systems reviewed and negative physical examination middle-aged white male who appears ill but does not appear to be in any respiratory distress. awake alert oriented and able to give detailed account of his medical problems mucous membrane is dry neck is supple no JVD chest bilateral clear to auscultation CVS S1 and S2 regular no obvious murmur heard abdomen is soft nontender extremities without edema Allergies Allergy/AdvReac Type Severity Reaction Status Date / Time Sulfa (Sulfonamide Allergy Verified 10/25/24 11:00 Antibiotics) Home Medications Medication Instructions Recorded Confirmed Type lisinopril 40 mg tablet 40 mg PO DAILY ##0 04/15/06 10/25/24 History montelukast 10 mg tablet 10 mg PO DAILY ##0 04/15/06 10/25/24 History amlodipine 10 mg tablet 10 mg PO DAILY 10/25/24 10/25/24 History atorvastatin 40 mg tablet 40 mg PO DAILY 10/25/24 10/25/24 History chlorthalidone 25 mg tablet 25 mg PO DAILY 10/25/24 10/25/24 History fluticasone 250 mcg-salmeterol 50 1 inh inhalation BID 10/25/24 10/25/24 History mcg/dose blistr powdr for inhalation (Advair Diskus) ipratropium bromide 17 2 puff inhalation QID PRN 10/25/24 10/25/24 History mcg/actuation HFA aerosol inhaler SOB/WHEEZING (Atrovent HFA) Patient History Medical History Environmental and seasonal allergies Dyslipidemia Diabetes Hypertension Ulcerative colitis Surgical History History of bowel resection Social History Smoking Status: Former smoker Feels Safe at Home: Yes Results & Data Vital Signs (Past 12 Hours) Vital Signs Temp Pulse Pulse Resp BP BP Pulse Ox 10/25/24 12:00 79 17 141/60 H 100 10/25/24 11:18 108 H 31 H 100 10/25/24 11:15 129/54 L 10/25/24 11:15 129/54 L 10/25/24 11:09 123 H 17 99 10/25/24 11:00 109/48 L 10/25/24 10:40 39 L 10/25/24 10:13 70 18 121/57 L 98 10/25/24 09:50 98 10/25/24 09:24 48 L 19 116/38 L 99 10/25/24 09:09 36.6 C 54 L 20 111/46 L 98 O2 Del Method 10/25/24 12:00 Room Air 10/25/24 11:18 10/25/24 11:15 10/25/24 11:15 10/25/24 11:09 10/25/24 11:00 10/25/24 10:40 10/25/24 10:13 Room Air 10/25/24 09:50 Room Air 10/25/24 09:24 Room Air 10/25/24 09:09 Room Air Laboratory Results CBC renal panel reviewed
[2024-10-25] MEDS: SODIUM BICARBONATE 8.4% 75 MEQ in SODIUM CHLORIDE 0.45 % 1,000 ML IV SCH (12:40)
[2024-10-25] MEDS ORDERED: CARBOHYDRATES FOR HYPOGLYCEMIA PO PRN (12:45)
[2024-10-25] MEDS ORDERED: GLUCAGON FOR INJ 1 MG VIAL SQ PRN (12:45)
[2024-10-25] MEDS ORDERED: GLUCOSE 10 TAB/TUBE PO PRN (12:45)
[2024-10-25] MEDS ORDERED: GLUCOSE 40% GEL 15 GM TUBE PO PRN (12:45)
--- NOTE | 2024-10-25 12:54 | XRay Report ---
XR chest 1V portable CLINICAL HISTORY: dka COMPARISON STUDY: None FINDINGS: Heart size and pulmonary vasculature are normal. No effusion, consolidation, or pneumothora x. IMPRESSION: No acute findings. ACT 112: Negative or not required by law. Electronically signed by: Jean Angela M.D. 10/25/2024 12:53 PM
[2024-10-25] MEDS: INSULIN ASPART PER UNIT CHARGE SC SCH ×2 (12:55→21:19)
[2024-10-25] MEDS: PLASMA-LYTE A 1,000 ML IV SCH ×2 (13:00→23:34)
[2024-10-25 13:12] LABS: Adenovirus PCR Not Detected (NotDetected); Bordetella parapertussis PCR Not Detected (NotDetected); Bordetella pertussis PCR Not Detected (NotDetected); Chlamydia pneumoniae PCR Not Detected (NotDetected); Coronavirus 229E PCR Not Detected (NotDetected); Coronavirus CoV-2 (COVID19)PCR Not Detected (NotDetected); Coronavirus HKU1 PCR Not Detected (NotDetected); Coronavirus NL63 PCR Not Detected (NotDetected); Coronavirus OC43PCR Not Detected (NotDetected); Human Metapneumovirus PCR Not Detected (NotDetected); Influenza A PCR Not Detected (NotDetected); Influenza B PCR Not Detected (NotDetected); Mycoplasma pneumoniae PCR Not Detected (NotDetected); Parainfluenza Virus 1 PCR Not Detected (NotDetected); Parainfluenza Virus 2 PCR Not Detected (NotDetected); Parainfluenza Virus 3 PCR Not Detected (NotDetected); Parainfluenza Virus 4 PCR Not Detected (NotDetected); Respiratory Syncytial VirusPCR Not Detected (NotDetected); Rhinovirus/Enterovirus PCR Not Detected (NotDetected)
[2024-10-25] MEDS: STAT IV/IM STA (13:15)
[2024-10-25 13:32] LABS: Albumin Globulin Ratio 1.5 (0.9-2); Albumin Level 3.3 gm/dl (3.4-5.0); BUN Creatinine Ratio 19.1 (10-20); Bilirubin,Total 0.3 mg/dl (0.2-1.0); Calcium 8.8 mg/dl (8.6-10.3); Creatinine Clr Calc Pharmacy 7.2 ml/min; Globulin 2.2 gm/dl (2.5-4.0); Magnesium 2.3 mg/dl (1.7-2.4); Phosphorus 5.4 mg/dl (2.5-4.9); Potassium 6.8 mmol/L (3.5-5.1); Total Protein 5.5 gm/dl (6.0-8.3)
[2024-10-25 13:36] LABS: Adenovirus F 40/41 PCR Not Detected (NotDetected); Astrovirus PCR Not Detected (NotDetected); Campylobacter PCR Not Detected (NotDetected); Cryptosporidium PCR Not Detected (NotDetected); Cyclospora cayetanensis PCR Not Detected (NotDetected); Entamoeba histolytica PCR Not Detected (NotDetected); Enteroaggregative E.coli(EAEC) Not Detected (NotDetected); Enteropathogenic E.coli (EPEC) Not Detected (NotDetected); Enterotoxigenic E.coli (ETEC) Not Detected (NotDetected); Giardia lamblia PCR Not Detected (NotDetected); Plesiomonas shigelloides PCR Not Detected (NotDetected); Rotavirus A PCR Not Detected (NotDetected); Salmonella PCR Not Detected (NotDetected); Sapovirus PCR Not Detected (NotDetected); Shiga-like Toxin E.coli (STEC) Not Detected (NotDetected); Shigella/Enteroinvasive E.coli Not Detected (NotDetected); Vibrio cholerae PCR Not Detected (NotDetected); Vibrio species PCR Not Detected (NotDetected); Yersinia enterocolitica PCR Not Detected (NotDetected)
--- NOTE | 2024-10-25 13:39 | Pharmacy Report ---
Pharmacy Glycemic Short Note 2 - Date of Service October 25, 2024 - Glycemic Short BSG Results (Last 24 hours): 10/25/24 10/25/24 10/25/24 09:45 09:49 10:42 Glucose Cancelled POC Glucose 429 H* POC Glucose (other) 358 H* 10/25/24 10/25/24 10/25/24 11:00 11:36 12:33 Glucose Cancelled POC Glucose 325 H* 237 H POC Glucose (other) OUTPATIENT ANTIDIABETIC REGIMEN: * Novolog Omnipod Insulin pump * ~40 units/day total via pump per last documented outpatient MTM visit note HbA1c: * 8.6% (08/17/24) ASSESSMENT: * 69 yo M admitted on 10/25/24 secondary to DKA. Pharmacy has been consulted to assist with inpatient glycemic management. Patient is a Type 2 diabetic as an outpatient. Please refer to outpatient regimen and most recent HbA1c above. * Admission labs: BSG 429 mg/dL, K 8.4, SCr 10.5, AG 17, CO2 12. Patient is NPO. Started on an insulin drip for DKA. Will require emergent dialysis today for high potassium and CKD. * Will plan to continue with insulin drip throughout this evening. No basal will be ordered at this time. Can reassess basal needs in the morning. * See below for transition to subcutaneous insulin recommendations should gap close this evening. PLAN FOR INPATIENT GLYCEMIC CONTROL: * Insulin drip - goal range 150-250 mg/dL - currently at 4.2 units/hr * Transition recommendations: * Anion gap must be 12 or below, CO2 must be 15 or above, and venous pH must be above 7.30 * 2 consecutive BSGs must be below 180 mg/dL * Insulin drip rate must be 2 units/hr or below * If all the follow criteria are met, can order Lantus 10 units SC x 1 (overlap with the insulin drip for at least 2 hours) as well as Novolog with goal range 110-140 mg/dL CF 30 CR 8 * Basal insulin * Lantus [] units SQ BID * Bolus insulin * NovoLog per scale ACHS or Q6hrs while NPO * Goal Range: Low [] mg/dL - High [] mg/dL * Correction Factor: [] mg/dL/unit * Nutritional / Prandial insulin per carb ratio of 1 unit per [] grams CHO consumed
[2024-10-25 13:48] LABS: Norovirus GI/GII PCR DETECTED (NotDetected)
[2024-10-25 14:19] LABS: Acetaminophen < 3 ug/ml (10-30); Salicylate < 3.0 mg/dl (3.0-30)
[2024-10-25] MEDS: SODIUM ZIRCONIUM CYCLOSILICATE 10 GM PACKET PO SCH (14:26)
--- NOTE | 2024-10-25 14:38 | Electrocardiogram Report ---
Test Reason : Blood Pressure : */* mmHG Vent. Rate : 89 BPM Atrial Rate : 72 BPM P-R Int : * ms QRS Dur : 114 ms QT Int : 202 ms P-R-T Axes : * -2 86 degrees QTcB Int : 245 ms Junctional rhythm Incomplete left bundle block Nonspecific T wave abnormality Abnormal ECG No previous ECGs available Confirmed by Nilo Reich [id number]) on 10/25/2024 2:38:00 PM Referred By: REFERRED SELF Confirmed By: Nilo Reich
[2024-10-25 14:42] LABS: Chloride Random Urine < 15 mmol/L; Potassium Random Urine 60.7 mmol/L; Sodium Random Urine < 10 mmol/L
--- NOTE | 2024-10-25 14:45 | CT Scan Report ---
ABDOMEN AND PELVIS CT WITHOUT CONTRAST CT DOSE: 928.75 mGy.cm HISTORY: Acute kidney injury with diarrhea MO, diarrhea TECHNIQUE: Multiaxial CT images of the abdomen and pelvis were performed without contrast. A dose lo wering technique was utilized adhering to the principles of ALARA. COMPARISON STUDY: None. FINDINGS: Coronary artery calcifications. Decreased attenuation of the cardiac blood pool suggestive of anemia. 5 mm subpleural solid nodule within the posterior basal segment left lower lobe. 4 mm pawan d nodule in the right lower lobe. No pneumatosis or pneumoperitoneum. The unenhanced spleen, pancreas and adrenal glands are within normal limits. Cholelithiasis without CT evidence of acute cholecystit is. Unremarkable liver. Nonspecific bilateral perinephric stranding. There is a 9 mm hyperdense focus of the interpolar right kidney, likely a complex cyst. Decompressed urinary bladder with Quesada catheter in place. Air in the bladder lumen is noted. Prostatomegaly. Atherosclerosis of the aorta. No lymphadenopathy. Total colectomy. There is circumferential wall thickening of the rectum with surgical suture material . Borderline enlarged lymph nodes in the sigmoid mesocolon measuring up to 10 mm. No bowel obstructio n. No acute fracture. IMPRESSION: 1. Prior colectomy with nonspecific wall thickening noted within the rectum. 2. Borderline enlarged lymph nodes within the lower mesentery. 3. No bowel obstruction or pneumoperitoneum. 4. Cholelithiasis. ACT 112: Negative or not required by law. The above report was generated using voice recognition software. It may contain grammatical, syntax o r spelling errors. Electronically signed by: Miguelangel Salamanca M.D. 10/25/2024 2:43 PM
[2024-10-25 14:50] LABS: Creatinine Urine Random 247.1 mg/dl
[2024-10-25 14:52] LABS: Amphetamines+Metham, Urine Neg (Neg); Barbiturates, Urine Neg (Neg); Benzodiazepine, Urine Neg (Neg); Cocaine, Urine Neg (Neg); Fentanyl, Urine Neg (Neg); MDMA (Ecstacy), Urine Neg (Neg); Marijuana, Urine Neg (Neg); Methadone, Urine Neg (Neg); Opiate, Urine Neg (Neg); Phencyclidine, Urine Neg (Neg)
[2024-10-25 15:50] LABS: Anion Gap 10 (3-11); Calcium 8.8 mg/dl (8.6-10.3); Carbon Dioxide 16 mmol/L (21-32); Chloride 112 mmol/L (98-107); Creatinine Clr Calc Pharmacy 7.5 ml/min; Glucose 117 mg/dl (70-99(Fasting)); Magnesium 2.3 mg/dl (1.7-2.4); Phosphorus 5.5 mg/dl (2.5-4.9); Sodium 138 mmol/L (136-145)
[2024-10-25] MEDS: DEXTROSE 50% 50 ML SYRINGE IV PRN (16:16)
[2024-10-25] MEDS: D5W AND 1/2NSS 1,000 ML IV SCH (16:21)
[2024-10-25] MEDS ORDERED: ICU Protocol for HYPERglycemia SCH (16:30)
[2024-10-25 16:38] LABS: Base Excess VBG -11.3 mEq/L; HCO3 VBG 14 mmol/L; Oxygen Saturation VBG 91.4 %; PCO2 VBG 30 mmHg (38-50); PO2 VBG 58 mmHg; pH VBG 7.28 (7.36-7.41)
[2024-10-25 16:47] LABS: Potassium 6.3 mmol/L (3.5-5.1)
[2024-10-25] MEDS: LANTUS PER UNIT CHARGE SC ONE (17:17)
[2024-10-25] MEDS: STOP ORDER: INSULIN GTT ONE (19:03)
[2024-10-25 20:08] LABS: Calcium 8.6 mg/dl (8.6-10.3); Creatinine Clr Calc Pharmacy 7.9 ml/min; Magnesium 2.2 mg/dl (1.7-2.4); Phosphorus 6.1 mg/dl (2.5-4.9); Potassium 5.5 mmol/L (3.5-5.1)
[2024-10-25 20:25] LABS: BUN Creatinine Ratio 18.9 (10-20)
[2024-10-25 20:28] LABS: Blood Urea Nitrogen 164 mg/dl (6-23)
[2024-10-25] MEDS: ICU Protocol for HYPERglycemia SCH (21:19)
--- OUTSIDE RECORDS SUMMARY | 2024-10-25 22:18 | External Medical Summary | Summary of Care ---
Author Name Unknown Organization [facility] Address [address] [place] [address] Phone [phone] Care Team Providers Care Fruit And Vegetable Packer Name Role Phone Luna Montemayor MD Primary Care Prov ider Reason for Visit * Reason Comments Diabetes Follow-Up Dosage Adjustment In Person (Anticoag Cl inic) Encounter Details Date Type Department Care Team (Late st Contact Info) Description 10/14/2024 8:00 AM EDT Telemedicine Pharmacy, [address] [place] [id number] [place] [id number] Type 2 diabetes mellitus with cataract (HCC)* Allergies Active Allergy Reactions Criticality Noted Date Comments Sulfa Antibiotics 05/01/2001 documented as of this encounter (statuses as of 10/14/2024) Medications ONETOUCH LANCETS MISCIndications:D M type 2, goal A1c below 7 test 4 times a day 125 Box 5 2 Active Insulin Infusion Pump (MINIMED 630G INSULIN PUMP) KIT Use as directed. 8 Active Cholecalciferol (VITAMIN D) 50 MCG (1999) Capsule Take 2,000 Units by mouth daily. Active Ketoconazole 2 % External Shampoo (Nizoral)Indicati ons:Seborrheic dermatitis Massage into scalp. Rinse after 5 minutes. Do this 3 times a week 120 mL 1 Active OneTouch Ultra Blue In Vitro Strip (Glucose Blood)Indications :Type 2 diabetes mellitus with hemoglobin A1c goal of less than 8.0% (HCC) Test BG up to 4 times daily 100 Strip 4 1 Active OneTouch Ultra Blue In Vitro Strip (Glucose Blood)Indications :Type 2 diabetes mellitus with cataract (HCC) test blood sugar up to 3 times daily Dx: E11.9 300 Strip 3 1 Active Ketone Test In Vitro StripIndications: Type 2 diabetes mellitus with cataract (HCC) Use as needed for sick days to test for Ketones in urine. If positive - seek medical attention 1 Strip 1 2 Active Albuterol Sulfate HFA 108 (90 Base) MCG/ACT Inhalation Aerosol Solution Inhale 2 Puffs by mouth every 6 hours as needed for Shortness of Breath. 18 g 1 3 Active Omnipod 5 G6 Intro (Gen 5) Kit Use as directed. 1 Kit 4 Active Omnipod 5 G6 Pod (Gen 5) Change pod every 3 days 6 Each 4 4 Active Multi-Vitamins Oral Tablet Take 1 Tablet by mouth in the morning. Active Atrovent HFA 17 MCG/ACT Inhalation Aerosol Solution (ipratropium)Celestina cations:Mild persistent asthma, uncomplicated inhale 2 puffs 4 times daily as needed. 12.9 g 3 4 Active Montelukast Sodium 10 MG Oral Tablet (Singulair)Indica tions:Mild persistent asthma without complication TAKE ONE TABLET BY MOUTH EVERY DAY 90 Tablet 3 4 Active Additional Information Patient taking differently: HS, Reported on 08/17/2024 Atorvastatin Calcium 40 MG Oral Tablet (Lipitor)Indicati ons:Type 2 DM with CKD stage 3 and hypertension (HCC) TAKE 1 TABLET BY MOUTH EVERY MORNING 90 Tablet 3 4 Active Dexcom G6 TransmitterIndica tions:Type 2 diabetes mellitus with cataract (HCC) USE TO CHECK GLUCOSE DXE11.9 3 Each 1 4 Active Lisinopril 40 MG Oral TabletIndications :Stage 3b chronic kidney disease (HCC) TAKE ONE TABLET BY MOUTH IN THE MORNING 90 Tablet 1 4 Active Fluticasone-Salme terol 250-50 MCG/ACT Inhalation Aerosol Powder Breath Activated (Advair Diskus)Indication s:Asthma, allergic INHALE ONE PUFF BY MOUTH TWICE DAILY 180 Each 2 4 Active amLODIPine Besylate 10 MG Oral Tablet (Norvasc) TAKE ONE TABLET BY MOUTH EVERY DAY 90 Tablet 3 4 Active Insulin Aspart 100 UNIT/ML Injection Solution (NovoLOG)Indicati ons:Type 2 diabetes mellitus with hemoglobin A1c goal of less than 7.0% ([facility] [facility]) inject up to 80 units per day with insulin pump 70 mL 4 Active B-12 50 MCG Oral Tablet Take by mouth. Activ e Dexcom G6 SensorIndications :Type 2 diabetes mellitus with cataract ([facility]) use to check glucose 9 Each 1 5 Active Chlorthalidone 25 MG Oral Tablet (Hygroton)Indicat ions:Hypertension associated with stage 3b chronic kidney disease due to type 2 diabetes mellitus (HCC) TAKE ONE TABLET BY MOUTH AT BEDTIME 30 Tablet 6 5 Active documented as of this encounter (statuses as of 10/14/2024) Active Problems Problem Noted Date Diagnosed Date Mild nonproliferative diabet ic retinopathy associated with type 2 diabetes mellitus 01/30/2022 Chronic kidney disease, stage 3b 01/16/2021 Overview: Per CKD protocol Hypertension associated with stage 3b chronic kidney disease due to type 2 diabetes mellitus 12/12/2020 Overview: Per CKD protocol H/O dysplastic nevus 09/09/2020 Overview (09/11/2020): Moderately atypical nevus (R lower abdomen 09/2020) Acoustic neuroma 04/17/2020 Asymmetrical hearing loss, right 04/17/2020 Type 2 diabetes mellitus with cataract 0 Mild persistent asthma, uncomplicated 08/25/2019 Ulcerative colitis without complications 020 Uncontrolled daytime somnolence 05/03/2019 Actinic keratosis 10/01/2018 Diabetic macular edema of diana th eyes with moderate nonproliferative retinopathy associated with diabetes mellitus due to underlying condition 02/05/2018 Moderate nonproliferative di abetic retinopathy of right eye without macular edema associated with type 2 diabetes mellitus 09/19/2016 Hx of nonmelanoma skin cancer 08/07/2016 Overview (09/28/2018): BCC (central posterior neck, L lateral distal neck) Pure hypercholesterolemia 02/21/2016 Nonproliferative diabetic retinopathy 02/28/2014 Overview (02/28/2014): On both eyes per eye exam 02/14/14 HTN, goal below 140/90 03/23/2012 Overview: Per HTN Protocol #27. BENIGN NEOPLASM THYROID 05/01/2006 Anemia 06/26/2005 documented as of this encounter (statuses as of 10/14/2024) Resolved Problems Problem Noted Date Diagnosed Date Resolved Date Ulcerative colitis 08/25/2019 0 Overview (05/03/2019): S/p total colectomy 2007 Pouchitis 08/25/2019 12/25/2021 AYO inhibitor intolerance 02/18/2016 Encounter for surveillance of abnormal nevi 07/26/2015 08/20/2019 Overview (08/20/2019): Historical Moderately-severely atypical nevus (R lateral mid back) Melanoma in situ of back 03/30/2014 Overview (03/30/2014): Central upper back- 12/2013 Kidney disease, chronic, sta ge III (GFR 30-59 ml/min) 09/27/2013 08/21/2018 Overview: Per CKD protocol #1 Asthma, mild persistent 01/25/201008/05 Overview (11/13/2015): Per Asthma Taxonomy ICD-10 update of inactive term HTN, GOAL BELOW 130/80 08/30/200903/26 Overview (08/30/2009): Per HTN Taxonomy. DM type 2 causing renal disease 06/01/2009 01/07/2013 Overview (06/01/2009): Per Diabetes Taxonomy. Added per DM w/ renal complications protocol #4 Type 2 diabetes mellitus wit h hemoglobin A1c goal of less than 7.0% 06/01/2009 01/07/2013 Overview (11/28/2015): Per Diabetes Taxonomy. ICD-10 update of inactive term History of nonadherence to medical treatment 05/02/2017 DIAB RENAL MANIF ADULT 02/24/200806/01 Overview (06/01/2009): Per Diabetes Taxonomy. Added per DM w/ renal complications protocol #4 HTN, goal below 140/90 08/18/200708/30 Overview (08/30/2009): Per HTN Taxonomy. ADVANCE DIRECTIVE INFORMATION 10/14/2005 06/07/2024 Overview (10/14/2005): No, Advance Directive brochure given to patient. Asthma, allergic 01/25/2010 Type 2 diabetes mellitus wit h hemoglobin A1c goal of less than 7.0% 06/01/2009 Overview (11/28/2015): Per Diabetes Taxonomy. ICD-10 update of inactive term Allergic rhinitis 08/20/2019 Overview (08/20/2019): Historical Type 2 DM with CKD stage 3 and hypertension 12/14/2020 Overview: Per CKD protocol documented as of this encounter (statuses as of 10/14/2024) Immunizations Name Administration Dates Next Due COVID-19 mRNA, LNP-s, No Pre serve, 2-Dose Series (Moderna) 10/10/2020,09/03/2020 COVID-19, MRNA-LNP, PF, 30 M CG/0.3 mL, 12 YRS AND ABOVE, IM (PFIZER-Comirnaty) 05/09/2023 COVID-19, MRNA-LNP, PF, 50 M CG/0.5 mL, 12 YRS AND ABOVE, IM (MODERNA-Spikevax) 06/28/2024 COVID-19, mRNA, LNP-s, PF, B ooster, 100mcg/0.5mg (Moderna) 07/05/2021 Covid-19, Mrna, Lnp-s, Pf, B ivalent, 30 Mcg, IM, 12 yrs and above (Pfizer) 06/04/2022 H1N1 2009 Influenza, IM 08/04/2009 HEP A - Hepatitis A (Adult > 18 yrs) 06/22/2010, 02/13/2010 Hepatitis B Vaccine 08/23/2010 Hepatitis B, 0-19 yrs 06/22/2010 Hepatitis B, 20+ yrs 09/24/2022,08/23/2010,02/13 Pneumococcal Conjugate Vacc, 13 Valent (Prevnar) 12/27/2016 Pneumococcal Polysaccharide PPV23 (Pneumovax) 12/25/2021,06/17/2007 RSV Vac., Recomb, Adjuvant, PF,0.5 Ml (Arexvy) 06/28/2024 Season Influenza, Quad, PF, Adjuvanted, 65+ Yrs, IM (FLUAD) 05/17/2020 Seasonal Influenza Vac., MDV , IM, 0.5 mL (Fluzone) 06/28/2024,05/10/2014,05/03/2013,04/28,06/04/2011,06/22/2010,05/29/2009 ,06/17/2007,05/28/2006 Seasonal Influenza, PF, 6 M & above, IM , (FluLaval or Fluzone) 05/03/2019,05/21/2018,05/02/2017 Seasonal Influenza, Quadriva lent Hd (Fluzone Hd) 04/17/2023,05/29/2022,05/10/2021 Seasonal Influenza, Quadriva lent, No Preserve, IM 05/29/2016,06/02/2015 TDAP (age 10 and older)(Boostrix) 12/31/2018 TDAP, Age 7 and older, IM (Adacel) 07/26/2008 Varicella Zoster Vaccine (Adult) 09/07/2015 Zoster Vaccine Recombinant (Shingrix) 02/28/2020 ,08/25/2019 documented as of this encounter Social History Tobacco Use Types Packs/Day Years Used Date Smoking Tobacco: Former Cigarettes Q uit: 1982 Smokeless Tobacco: Current Snuff Comments:1 can daily x 30 yr s Alcohol Use Standard Drinks/Week Comments No 0 (1 standard drink = 0.6 oz pur e alcohol) PHQ-2 Answer Date Recorded PHQ Adult Total Score 0 02/19/2024 Hunger Vital Sign Answer Date Recorded Within the past 12 months, y ou worried that your food would run out before you got the money to buy more. Patient declined Within the past 12 months, t he food you bought just didn't last and you didn't have money to get more. Patient declined Childcare Answer Date Recorded Do you feel overwhelmed with taking care of a child, family member or friend? No 02/19/2024 Does your family need help f inding childcare? (Household - for ages 0-17 years) Not on file 02/19/2024 Clothing Answer Date Recorded Have you been unable to get clothing when it was really needed? No 02/19/2024 Is your family able to get c lothes or diapers when needed? (Household - for ages 0-17 years) Not on file 02/19/2024 Personal Safety Answer Date Recorded Do you feel unsafe or have concerns for your saf ety? No 02/19/2024 Do you have concerns for you r family's safety? (Household - for ages 0-17 years) Not on file 02/19/2024 Utilities Answer Date Recorded Do you have trouble paying y our heating, water, or electric bill? No 02/19/2024 Is your family able to pay t he heat, water, or electric bill? (Household - for ages 0-17 years) Not on file 02/19/2024 Does your family have access to good internet? (Household - for ages 0-17 years) Not on file 02/19/2024 Employment Status Answer Date Recorded Are you unemployed or without regular income? No 02/19/2024 Does the household have a re gular source of income? (Household - for ages 0-17 years) Not on file 02/19/2024 Social Connections Answer Date Recorded How often do you feel lonely or isolated from th ose around you? Never 02/19/2024 Financial Resource Strain Answer Date R ecorded Do you have any trouble payi ng for your medications, or do you think you might in the future? No 02/19/2024 Does your family have troubl e paying for medicine? (Household - for ages 0-17 years) Not on file 02/19/2024 Transportation Needs Answer Date Record ed Do you have trouble getting a ride to medical visits or work? (Adult - for ages 18 years and over) Not on file 02/19/2024 Does your family have a hard time getting a ride to doctors visits? (Household - for ages 0-17 years) Not on file 02/19/2024 Has lack of transportation k ept you from medical appointments, meetings, work, or from getting things needed for daily living? Check all that apply. No 02/19/2024 Do you (or your family) have trouble finding or paying for a ride (transportation)? (Household - for ages 0-17 years) Not on file 02/19/2024 Housing Stability Answer Date Recorded Do you currently live in a s helter or have no steady place to sleep at night? No 02/19/2024 Do you think you are at risk of becoming homeless? (Adult - for ages 18 years and over) Not on file 02/19/2024 Does your family worry about paying for your home or becoming homeless? (Household - for ages 0-17 years) Not on file 0 02/19/2024 Are you homeless or worried that you might be in the future? No 02/19/2024 Are you (or your family) isak eless or worried that you might be in the future? (Household - for ages 0-17 years) Not on file Food Insecurity Answer Date Recorded Do you need food for this week? No 02/19/2024 Are you able to get enough f ood for your family? (Household - for ages 0-17 years) Not on file 02/19/2024 Does your family need food t his week? (Household - for ages 0-17 years) Not on file 02/19/2024 Do you always have enough fo od for your family? (Household - for ages 0-17 years) Not on file 02/19/2024 Food Insecurity Answer Date Recorded Within the past 12 months, y ou worried that your food would run out before you got the money to buy more. Patient declined Within the past 12 months, t he food you bought just didn't last and you didn't have money to get more. Patient declined Do you need food for this week? No 02/19/2024 Sex and Gender Information Value Date Recorded Sex Assigned at Male 02/19/2024 2:51 PM EDT Legal Sex Male 7:04 AM EST Gender Identity Male 02/19/2024 2:51 PM EDT Sexual Orientation Straight 02/19/2024 2: 51 PM EDT Occupation Industry Job Start Date Job End Date [employer] Not on file Not on file Not o n file documented as of this encounter Progress Notes * Sheng Sue, [facility] - 10/14/2024 8:01 AM EDT Images from the original note were not included. Medication Therapy Disease Management [facility] - Diabetes Management Progress Note Shay Ann, identified by name and date of , is a 69 year old male being seen for diabetesmanagement/education. Patient presents for return diabetic visit. Patient location: HOME. I was in a hospital or clinic location. After connecting through televideo,patient was verified with two unique identifiers. Patient (or authorized legal community health program representative) was then informed that this was a Telemedicine visit and being conducted confidentially over secure lines. Methods to assure confidentiality were taken. Patient acknowledged consent and understanding of pr ivacy and security of the Telemedicine visit. The patient agreed to participate. DIABETES: Current diabetic medications: Omnipod 5 Insulin Pump Insulin: Novolog Basal rate: Midnight: 0.95 unit/hr 2AM: 1.10 unit/hr 6AM: 0.2 unit/hr 11AM: 0.55 unit/hr 6PM: 1.0 units/hr Bolus: Bolus Calculator: on and using ICR: 12AM - 12PM: 11 12PM-3PM: 13 3PM - 12AM: 11 ISF: 40 Bolus Calculator: Target B Correct above: 160 Active Insulin Time: 4 hours Medication Injection Site: Abdomen Lifestyle: Diet: unchanged He eats 90-100gms of carbs per meal based on info he gave me. He needs more insulin at breakfast and dinner. He is only entering 100gms for the whole day. History of Treatment Barriers: Lifestyle: None Therapy considerations: Renal Function Medication: None Glucose Review/SMBG: Readings obtained from patient device Hypoglycemia: Does your blood sugar go below 70 mg/dL? Yes, see above. He needs to treat and probably overcorrects Hyperglycemia symptoms present: Need to ask Recent Labs Units 08/17/24 1501 03/29/24 1555 09/24/23 1339 HEMOGLOBIN A1C - [facility] % 8.6* 7.8* 9.0* Recent Labs Units 09/10/24 1229 08/17/24 1501 03/29/24 1555 ESTIMATED GLOMERULAR FILTRATION RATE - [facility] mL/min 30* 32* 25* CREATININE - [facility] mg/dL 2.3* 2.2* 2.7* Lab Results Component Value Date/Time CREATININE - [facility] 2.3 (H) 09/10/2024 12:29 PM CREATININE - [facility] 2.2 (H) 08/17/2024 03:01 PM CREATININE - [facility] 2.7 (H) 03/29/2024 03:55 PM CREATININE - [facility] 2.16 (A) 10/03/2022 12:00 AM CREATININE - [facility] 1.6 (H) 06/03/2020 10:05 AM CREATININE - [facility] 1.6 (H) 06/03/2020 10:04 AM CREATININE - [facility] 1.6 (H) 06/03/2020 10:04 AM CREATININE, 24 HOUR URINE - [facility] 1.704 11/23/2007 10:28 AM CREATININE, 24 HOUR URINE - [facility] 11/23/2007 10:28 AM CORRECTED ON 11/24 AT 1324: PREVIOUSLY REPORTED : 1.399 CREATININE, RANDOM URINE - [facility] 97 08/17/2024 03:01 PM CREATININE, RANDOM URINE - [facility] 91 09/24/2023 01:39 PM CREATININE, RANDOM URINE - [facility] 90 09/24/2023 01:39 PM CREATININE, RANDOM URINE - [facility] 83 06/03/2020 10:04 AM CREATININE, RANDOM URINE - [facility] 46 04/30/2019 08:06 AM CREATININE, RANDOM URINE - [facility] 47 01/09/2018 03:57 PM HYPERTENSION: Patient on ACEi/ARB: yes, Lisinopril 40mg daily BP Readings from Last 3 Encounters: 08/17/24 154/64 04/13/24 110/54 03/29/24 156/64 Blood pressure at goal: yes HYPERLIPIDEMIA: Does patient have clinical ASCVD? Yes, is patient LDL less than 55 mg/dL? Yes HEALTH MAINTENANCE REVIEW: Health Maintenance Due Topic Date Due Diabetic Foot Exam 12/25/2022 ASSESSMENT & PLAN: ICD-10-CM 1. Type 2 diabetes mellitus with cataract (HCC) E11.36 BG Readings - Blood sugars uncontrolled. See above Medications - Reviewed current regimen, patient is adherent to regimen. He does not enter enough carbs for his meals (1/2 of what he is eating) and as a result his BG rises significantly after breakfast and dinner. I strengthened his carb ratios and shortened his active insulin time so he can correct more. I weakened his basal rates to avoid overnight lows. These are all starting points for more adjustments next week, if needed. Diet, Exercise, Lifestyle - No significant lifestyle changes since last visit. Discussed with patient today. Patient is agreeable to wear Dexcom CGM. Patient aware to contact clinic if any hypoglycemia before next visit. MEDICATION CHANGES: yes, see below; preferred pharmacy: [facility] Medications: Omnipod 5 Insulin Pump Insulin: Novolog Basal rate: Midnight: 0.6 (weakened) Bolus: Bolus Calculator: on and using ICR: 12AM - 12PM: 8 (strengthened) 12PM-3PM: 10 (strengthened) 3PM - 12AM: 8 (strengthened) ISF: 40 Bolus Calculator: Target B Correct above: 160 Active Insulin Time: 3 hours (shortened) HEALTH MAINTENANCE INTERVENTIONS: Labs: Up to Date Immunizations: Up to Date Foot Exam: video visit - needs completed Eye Exam: Up to Date Annual Wellness Visit: Up to Date I spent a total of 30-39 minutes (exact time 35 mins) on the date of service in preparation, delivery, and documentation of the care provided to Shay Ann excluding any time spent in the performance of separately billed services or time spent by another provider/QHP. FOLLOW UP: Video to clinic in 1 weeks 11/11/2024 Sheng Perez RPh, [facility] Clinical Pharmacist - [facility] 10/14/2024, 8:01 AM documented in this encounter Plan of Treatment Upcoming Encounters Date Type Department Care Team (Late st Contact Info) Description 10/20/2024 7:30 AM EDT Telemedicine Pharmacy, [address] [place] [id number] [place] [id number] 11/11/2024 8:30 AM EDT Telemedicine Pharmacy, [address] [place] [address] [place] [id number] 04/14/2025 3:00 PM EDT Office Visit Nephrology [address] [place] [id number] Berenice Schroeder MD [address] [place], [place] [address] [id number] Scheduled Procedures Name Priority Associated Diagnoses Date/Ti me SIGMOIDOSCOPY FLEXIBLE DIAGNOSTIC Recall Ulcerative colitis (HCC) Health Maintenance Due Date Last Done Comments Cologuard 2000 Colonoscopy 2000 Fecal Occult Blood Test 2000 Diabetic Foot Exam 12/25/2022 12/25/2021, 0 09/04/2020 (Declined), 05/03/2019, Additional history exists COVID-19 Vaccine ( season) 2024 06/28/2024, 05/09/2023, 06/04/2022, Additional history exists Diabetic Eye Exam 01/18/2025 01/19/2024, , 02/03/2023, Additional history exists HbA1c 02/14/2025 08/17/2024, 03/05, 09/24/2023, Additional history exists Depression Screening 02/18/2025 02/19/2024 GFR 03/10/2025 09/10/2024, 08/04, 03/29/2024, Additional history exists CKD HGB USE SMARTSET 11092 03/29/202503/29, 12/03/2023, 10/03/2022, Additional history exists Albumin/Creatinine Ratio 08/17/2025 025, 09/24/2023, 03/10/2023, Additional history exists CKD PHOS USE SMARTSET 04464 08/17/202508/04, 09/24/2023, 06/04/2022, Additional history exists Colorectal Cancer Screening 11/12/2027 Sigmoidoscopy 11/12/2027 11/11/2022, 03/30/2004 DTap/Tdap Vaccines (3 - Td or Tdap) 12/31/2028 12/31/2018, 07/26/2008 Lipid Panel 08/17/2029 08/17/2024, 08/0 02/2023, 10/11/2021, Additional history exists AAA Screening Completed 09/01/2019, 09/02/2016 Zoster Vaccines Completed 02/28/2020, 08/05, 09/07/2015 Pneumococcal Vaccine: 50+ Years Completed 12/25/2021, 12/27/2016, 06/17/2007, Additional history exists Hepatitis B Vaccine Completed 09/24/2022, 08/23/2010, 08/23/2010, Additional history exists Influenza Vaccine (FLU shot) Completed 06/28/2024, 04/17/2023, 05/29/2022, Additional history exists DXA Scan Discontinued HPV (Gardasil) Vaccine Aged Out No lo nger eligible based on patient's age to complete this topic MENINGOCOCCAL (MENACTRA/MENVEO) Aged Out No longer eligible based on patient's age to complete this topic Meningitis B Vaccine (Bexsero/Trumemba) Aged Out No longer eligible based on patient's age to complete this topic documented as of this encounter Medical Devices Not on filedocumented as of this encounter Visit Diagnoses Diagnosis Type 2 diabetes mellitus with cataract (HCC)- Primary documented in this encounter Care Teams Fruit And Vegetable Packer Relationship Specialty Start Date End Date Luna Montemayor MD [address] [place] [address] [place] [phone] PCP - General Family Medicine 06/30/19 documented as of this encounter
--- OUTSIDE RECORDS SUMMARY | 2024-10-25 22:18 | External Medical Summary | Summary of Care ---
Author Name Unknown Organization [facility] Address [address] [place] [address] Phone [phone] Care Team Providers Care Television Repairer Name Role Phone Luna Montemayor MD Primary Care Prov ider Reason for Visit * Reason Comments Diabetes Follow-Up Dosage Adjustment Via Phone (anticoag Cl inic) Encounter Details Date Type Department Care Team (Late st Contact Info) Description 09/30/2024 8:30 AM [facility] Telemedicine Pharmacy, [address] [place] [address] [place] [address] Hypertension associated with stage 3b chronic kidney disease due to type 2 diabetes mellitus (HCC)* Allergies Active Allergy Reactions Criticality Noted Date Comments Sulfa Antibiotics 05/01/2001 documented as of this encounter (statuses as of 09/30/2024) Medications ONETOUCH LANCETS MISCIndications:D M type 2, goal A1c below 7 test 4 times a day 125 [address] 5 2 Active Insulin Infusion Pump (MINIMED 630G INSULIN PUMP) KIT Use as directed. 8 Active Cholecalciferol (VITAMIN D) 50 MCG (1999 UT) Capsule Take 2,000 Units by mouth daily. [...] hemoglobin A1c goal of less than 7.0% ([facility]) inject up to 80 units per day with insulin pump 70 mL 4 Active B-12 50 MCG Oral Tablet Take by mouth. Activ e Dexcom G6 SensorIndications :Type 2 diabetes mellitus with cataract ([facility]) use to check glucose 9 Each 1 5 Active Chlorthalidone 25 MG Oral Tablet (Hygroton)Indicat ions:Hypertension associated with stage 3b chronic kidney disease due to type 2 diabetes mellitus (HCC) TAKE ONE TABLET BY MOUTH AT BEDTIME 30 Tablet 6 5 Active documented as of this encounter (statuses as of 09/30/2024) Active Problems Problem Noted Date Diagnosed Date [...] as of this encounter (statuses as of 09/30/2024) Resolved Problems Problem Noted Date Diagnosed Date [...] as of this encounter (statuses as of 09/30/2024) Immunizations Name Administration Dates Next Due COVID-19 [...] Date Smoking Tobacco: Former Cigarettes Q uit: 1983 Smokeless Tobacco: Current Snuff Comments:1 can daily [...] 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 Spoke to patient at 8:36 AM As per patient preference, connection with the patient via audio only occurred. The patient was informed this was a phone call only visit and was identified by name and date of . The patient agreed to participate. Total call duration was 7 minutes. HPI: Shay Ann is a 69 year old year old male. Referred for HTN management by Dr. Russell Lopez. From Dr. Schroeder visit 09/15: Recommend: -veltassa 8.4 gm daily or lokelma 10 gm daily depending which is covered (had lokelma for a bit in past; never had veltassa that I can see > try lokelma first) -verify is he taking chlorthalidone or not?? If taking should continue; if not, resume it -if already on chlorthalidone, start also torsemide 5 mg daily; if not on chlorthal, do not start torse but resume chlor thal instead -ensure no high K salt substitutes -repeat bmp and SMBP log on 09/27 -pls f/u w/ [facility] around that time > follows w/ them for HTN Blood pressure goal: 140/90 Does patient monitor BP at home? yes Home BP log results: did mot have written down. From memory 137/57, 126/62 Does patient monitor HR at home? no Diet review: no changes Stress review: increased since is in the hospital. 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 retinopathy associated with diabetes mellitus due to underlying condition (HCC) Actinic keratosis Uncontrolled daytime somnolence Type 2 diabetes mellitus with cataract (HCC) Mild persistent asthma, uncomplicated Ulcerative colitis without complications (HCC) Acoustic neuroma (HCC) Asymmetrical hearing loss, right H/O dysplastic nevus Hypertension associated with stage 3b chronic kidney disease due to type 2 diabetes mellitus (HCC) Chronic kidney disease, stage 3b (HCC) Mild nonproliferative diabetic retinopathy associated with type 2 diabetes mellitus (HCC) Review of patient's allergies indicates: Allergen Reactions Sulfa Antibiotics Objective: BP Readings from Last 3 Encounters: 08/17/24 154/64 04/13/24 110/54 03/29/24 156/64 Pulse Readings from Last 3 Encounters: 08/17/24 68 04/13/24 71 03/29/24 65 Wt Readings from Last 3 Encounters: 08/17/24 75.8 kg (167 lb) 04/08/24 68.5 kg (151 lb) 03/29/24 73 kg (161 lb) No results found for: "MICROALBUMIN" Current Hypertension Medication(s): Lisinopril 40mg daily Chlorthalidone 25mg daily Amlodipine 10mg (increased by nephro 03/29) at night Assessment & Plan: Spoke to patient and he had limited BP - none written down. The ones he gave me were at goal. He will write down any he gets in the next 2 weeks and give them to me at DM appointment in 2 weeks. Medication Changes: None Labs Due: up to date Follow up: in 2 weeks and 6 weeks I spent a total of 20-29 minutes (exact time 25 mins) on the date of service in preparation, delivery, and documentation of the care provided to Shay Clark Marissa excluding any time spent in the performance of separately billed services or time spent by another provider/QHP. Sheng Perez [facility] Clinical Pharmacist 8:22 AM, 09/30/24 documented in this encounter Plan of Treatment Upcoming Encounters Date Type Department Care Team (Late st Contact Info) Description 10/14/2024 8:00 AM EDT Telemedicine Pharmacy, [address] [place] [address] [place] [address] 11/11/2024 8:30 AM EDT Telemedicine Pharmacy, [address] [place] [address] [place] [address] 04/14/2025 3:00 PM EDT Office Visit Nephrology [address] [place] [address] Berenice Schroeder MD [address] [facility] [place] [address] Scheduled Procedures Name Priority Associated Diagnoses Date/Ti [...] 02/03/2023, Additional history exists HbA1c 02/14/2025 08/17/2024, 08/01/2024, 09/24/2023, Additional history exists Depression Screening 02/18/2025 02/19/2024 GFR 03/10/2025 09/10/2024, 08/04, 03/29/2024, Additional history exists CKD HGB USE SMARTSET 66830 03/29/202503/29, 12/03/2023, 10/03/2022, Additional history exists Albumin/Creatinine Ratio 08/17/2025 025, 09/24/2023, 03/10/2023, Additional history exists CKD PHOS USE SMARTSET 31375 08/17/202508/04, 09/24/2023, 06/04/2022, Additional history exists Colorectal [...] as of this encounter Visit Diagnoses Diagnosis Hypertension associated with stage 3b chronic kidney disease due to type 2 diabetes mellitus (HCC)- Primary documented in this encounter Care Teams Television Repairer Relationship Specialty Start Date End Date Luna Montemayor MD [address] [place] [address] [place] [address] PCP - General Family Medicine 06/30/19 documented as of this encounter
--- OUTSIDE RECORDS SUMMARY | 2024-10-25 22:18 | External Medical Summary | Summary of Care ---
Author Name Unknown Organization [facility] Address [address] [place] [address] Phone [phone] Care Team Providers Care Manager Occupational Name Role Phone Luna Montemayor MD Primary Care Prov ider Reason for Visit * Reason Comments eRx-Medication Refill Encounter Details Date Type Department Care Team (Late st Contact Info) Description 09/28/2024 Refill Nephrology, [facility] [address] [place] [address] Radha Villareal MD [address] [place] [address] Hypertension associated with stage 3b chronic kidney disease due to type 2 diabetes mellitus (HCC) Allergies Active Allergy Reactions Criticality Noted Date Comments Sulfa Antibiotics 05/01/2001 documented as of this encounter (statuses as of 09/29/2024) Medications ONETOUCH LANCETS MISCIndications: DM type 2, goal A1c below 7 test 4 times a day 125 [address] 5 04/16/20 12 Active Insulin Infusion Pump (MINIMED 630G INSULIN PUMP) KIT Use as directed. 10/11/19 18 Active Cholecalciferol (VITAMIN D) 50 MCG (1999 UT) Capsule Take 2,000 Units by mouth daily. Active Ketoconazole 2 % External Shampoo (Nizoral)Indicat ions:Seborrheic dermatitis Massage into scalp. Rinse after 5 minutes. Do this 3 times a week 120 mL 05/02/20 21 Active OneTouch Ultra Blue In Vitro Strip (Glucose Blood)Indication s:Type 2 diabetes mellitus with hemoglobin A1c goal of less than 8.0% (HCC) Test BG up to 4 times daily 100 Strip 4 05/02/20 21 Active OneTouch Ultra Blue In Vitro Strip (Glucose Blood)Indication s:Type 2 diabetes mellitus with cataract (HCC) test blood sugar up to 3 times daily Dx: E11.9 300 Strip 3 05/02/20 21 Active Ketone Test In Vitro StripIndications :Type 2 diabetes mellitus with cataract (HCC) Use as needed for sick days to test for Ketones in urine. If positive - seek medical attention 1 Strip 1 11/16/19 22 Active Albuterol Sulfate HFA 108 (90 Base) MCG/ACT Inhalation Aerosol Solution Inhale 2 Puffs by mouth every 6 hours as needed for Shortness of Breath. 18 g 1 05/13/20 23 Active Omnipod 5 G6 Intro (Gen 5) Kit Use as directed. 1 Kit 09/03/19 24 Active Omnipod 5 G6 Pod (Gen 5) Change pod every 3 days 6 Each 4 09/03/19 24 Active Multi-Vitamins Oral Tablet Take 1 Tablet by mouth in the morning. Active Atrovent HFA 17 MCG/ACT Inhalation Aerosol Solution (ipratropium)Ind ications:Mild persistent asthma, uncomplicated inhale 2 puffs 4 times daily as needed. 12.9 g 3 11/18/19 24 Active Montelukast Sodium 10 MG Oral Tablet (Singulair)Indic ations:Mild persistent asthma without complication TAKE ONE TABLET BY MOUTH EVERY DAY 90 Tablet 3 12/09/19 24 Active Additional Information Patient taking differently: HS, Reported on 08/17/2024 Atorvastatin Calcium 40 MG Oral Tablet (Lipitor)Indicat ions:Type 2 DM with CKD stage 3 and hypertension (HCC) TAKE 1 TABLET BY MOUTH EVERY MORNING 90 Tablet 3 12/09/19 24 Active Dexcom G6 TransmitterIndic ations:Type 2 diabetes mellitus with cataract (HCC) USE TO CHECK GLUCOSE DXE11.9 3 Each 1 04/01/20 24 Active Lisinopril 40 MG Oral TabletIndication s:Stage 3b chronic kidney disease (HCC) TAKE ONE TABLET BY MOUTH IN THE MORNING 90 Tablet 1 05/12/20 24 Active Fluticasone-Salm eterol 250-50 MCG/ACT Inhalation Aerosol Powder Breath Activated (Advair Diskus)Indicatio ns:Asthma, allergic INHALE ONE PUFF BY MOUTH TWICE DAILY 180 Each 2 05/20/20 24 Active amLODIPine Besylate 10 MG Oral Tablet (Norvasc) TAKE ONE TABLET BY MOUTH EVERY DAY 90 Tablet 3 06/10/20 24 Active Insulin Aspart 100 UNIT/ML Injection Solution (NovoLOG)Indicat ions:Type 2 diabetes mellitus with hemoglobin A1c goal of less than 7.0% ([facility]) inject up to 80 units per day with insulin pump 70 mL 07/17/20 24 Active B-12 50 MCG Oral Tablet Take by mouth. Activ e Dexcom G6 SensorIndication s:Type 2 diabetes mellitus with cataract ([facility]) use to check glucose 9 Each 1 09/14/19 25 Active Chlorthalidone 25 MG Oral Tablet (Hygroton)Indica tions:Hypertensi on associated with stage 3b chronic kidney disease due to type 2 diabetes mellitus ([facility]) TAKE ONE TABLET BY MOUTH AT BEDTIME 30 Tablet 6 09/29/19 25 Active Chlorthalidone 25 MG Oral Tablet (Hygroton)Indica tions:in pm Take 1 Tablet by mouth at bedtime. 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 Not on file Not on file Not o n file documented as of this encounter Miscellaneous Notes * Telephone Encounter - Radha Villareal MD - 09/29/2024 1:25 PM ESTSigned Prescriptions: Disp Refills Chlorthalidone 25 MG Oral Tablet (Hygroton)30 Tab*6 Sig: TAKE ONE TABLET BY MOUTH AT BEDTIME Authorizing Provider: RADHA VILLAREAL * Telephone Encounter - Fatimah Manrique RN - 09/28/2024 12:20 PM ESTPending Prescriptions: Disp Refills Chlorthalidone 25 MG Oral Tablet (Hygroton)30 Tab*6 Sig: TAKE ONE TABLET BY MOUTH AT BEDTIME * Telephone Encounter - Fatimah Manrique RN - 09/28/2024 12:19 PM EST Prescription request received from pharmacy pending. Please authorize. Last OV 08/17/24 Next OV 04/14/25 documented in this encounter Plan of Treatment Upcoming Encounters Date Type Department Care Team (Late st Contact Info) Description 09/30/2024 8:30 AM EST Telemedicine Pharmacy, [address] [place] [address] [place] [address] 10/14/2024 8:00 AM EDT Telemedicine Pharmacy, [address] [place] [address] [place] [address] 04/14/2025 3:00 PM EDT Office Visit Nephrology [address] [place] [address] Radha Villareal MD [address] [place] [address] [place] [address] Scheduled Procedures Name Priority Associated Diagnoses Date/Ti [...] Additional history exists CKD HGB USE SMARTSET 66020 03/29/202503/29, 12/03/2023, 10/03/2022, Additional history exists Albumin/Creatinine Ratio 08/17/2025 025, 09/24/2023, 03/10/2023, Additional history exists CKD PHOS USE SMARTSET 74715 08/17/202508/04, 09/24/2023, 06/04/2022, Additional history exists Colorectal [...] due to type 2 diabetes mellitus (HCC) documented in this encounter Care Teams Manager Occupational Relationship Specialty Start Date End Date Luna Montemayor MD [address] [place] [address] [place] [address] PCP - General Family Medicine 06/30/19 documented as of this encounter
--- OUTSIDE RECORDS SUMMARY | 2024-10-25 22:19 | External Medical Summary | Summary of Care ---
Author Name Unknown Organization [facility] Address [address] [place] [address] Phone [phone] Care Team Providers Care [employer] Agriculture Teacher Name Role Phone Thelma Wilkinson MD Primary Care Prov ider Reason for Visit * Reason Comments eRx-Medication Refill Encounter Details Date Type Department Care Team (Late st Contact Info) Description 09/14/2024 Refill Pharmacy, [address] [place] [address] [place] [address] Type 2 diabetes mellitus with cataract (HCC) Allergies Active Allergy Reactions Criticality Noted Date Comments Sulfa Antibiotics 05/01/2001 documented as of this encounter (statuses as of 09/15/2024) Medications ONETOUCH LANCETS MISCIndications: DM type 2, [...] hemoglobin A1c goal of less than 8.0% ([facility]) Test BG up to 4 times daily 100 Strip 4 05/02/20 21 Active OneTouch Ultra Blue In Vitro Strip (Glucose Blood)Indication s:Type 2 diabetes mellitus with cataract (HCC) test blood sugar up to 3 times daily Dx: E11.9 300 Strip 3 05/02/20 21 Active Ketone Test In Vitro StripIndications :Type 2 diabetes mellitus with cataract ([facility]) Use as needed for sick days to [...] MORNING 90 Tablet 3 12/09/19 24 Active Chlorthalidone 25 MG Oral Tablet (Hygroton)Indica tions:in pm Take 1 Tablet by mouth at bedtime. 30 Tablet 5 03/30/20 24 Active Dexcom G6 TransmitterIndic ations:Type 2 [...] hemoglobin A1c goal of less than 7.0% (HCC) inject up to 80 units per day with insulin pump 70 mL 07/17/20 24 Active B-12 50 MCG Oral Tablet Take by mouth. Activ e Dexcom G6 SensorIndication s:Type 2 diabetes mellitus with cataract (HCC) use to check glucose 9 Each 1 09/14/19 25 Active Dexcom G6 SensorIndication s:Type 2 diabetes mellitus with cataract (HCC) use to check glucose 9 Each 1 03/19/20 24 2024 Discontinued documented as of this encounter (statuses as of 09/15/2024) Active Problems Problem Noted Date Diagnosed Date [...] as of this encounter (statuses as of 09/15/2024) Resolved Problems Problem Noted Date Diagnosed Date [...] as of this encounter (statuses as of 09/15/2024) Immunizations Name Administration Dates Next Due COVID-19 [...] 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 Not on file Not o n file documented as of this encounter Miscellaneous Notes * Telephone Encounter - hCuck Yun [facility] - 09/14/2024 4:46 PM ESTSigned Prescriptions: Disp Refills Dexcom G6 Sensor 9 Each 1 Sig: use to check glucoseAuthorizing Provider: THELMA WILKINSON User: CHUCK YUN documented in this encounter Plan of Treatment Upcoming Encounters Date Type Department Care Team (Late st Contact Info) Description 09/30/2024 8:30 AM EST Telemedicine Pharmacy, [address] [place] [address] [place] [address] 10/14/2024 8:00 AM EDT Telemedicine Pharmacy, [address] [place] [address] [place] [address] 04/14/2025 3:00 PM EDT Office Visit Nephrology [address] [place] [address] Berenice Schroeder MD [address] [place] [address] Scheduled Procedures Name Priority Associated Diagnoses Date/Ti me SIGMOIDOSCOPY FLEXIBLE DIAGNOSTIC Recall Ulcerative colitis (HCC) Health Maintenance Due Date Last Done Comments Cologuard 2000 Colonoscopy 2000 Fecal Occult Blood Test 2000 Adult Wellness Visit 2021 Diabetic Foot Exam 12/25/2022 12/25/2021, 0 09/04/2020 (Declined), 05/03/2019, Additional history exists Diabetic Eye Exam 01/18/2025 01/19/2024, , 02/03/2023, Additional history exists HbA1c 02/14/2025 08/17/2024, 03/05, 09/24/2023, Additional history exists Depression Screening 02/18/2025 02/19/2024 GFR 03/10/2025 09/10/2024, 08/04, 03/29/2024, Additional history exists CKD HGB USE SMARTSET 94137 03/29/202503/29, 12/03/2023, 10/03/2022, Additional history exists Albumin/Creatinine Ratio 08/17/2025 025, 09/24/2023, 03/10/2023, Additional history exists CKD PHOS USE SMARTSET 15080 08/17/202508/04, 09/24/2023, 06/04/2022, Additional history exists Colorectal [...] Completed 09/24/2022, 08/23/2010, 08/23/2010, Additional history exists COVID-19 Vaccine Completed 06/28/2024, 01/2023, 06/04/2022, Additional history exists Influenza Vaccine (FLU shot) [...] Diagnosis Type 2 diabetes mellitus with cataract (HCC) documented in this encounter Care Teams [employer] Agriculture Teacher Relationship Specialty Start Date End Date Thelma Wilkinson MD [address] [place] [address] [place] [id number] PCP - General Family Medicine 06/30/19 documented as of this encounter
--- OUTSIDE RECORDS SUMMARY | 2024-10-25 22:19 | External Medical Summary | Summary of Care ---
Author Name Unknown Organization [facility] Address [address] [place] [address] Phone [phone] Care Team Providers Care Pharmacy Technician Per Diem Name Role Phone Luna Montemayor MD Primary Care Prov ider Reason for Visit * Reason Comments Outpatient Testing Encounter Details Date Type Department Care Team (Late st Contact Info) Description 09/10/2024 12:30 PM EST Laboratory Laboratory [address] [place] [phone] [place] [address] Stage 3b chronic kidney disease (HCC) Allergies Active Allergy Reactions Criticality Noted Date Comments Sulfa Antibiotics 05/01/2001 documented as of this encounter (statuses as of 09/10/2024) Medications ONETOUCH LANCETS MISCIndications:D M type 2, [...] 90 Tablet 3 4 Active Dexcom G6 SensorIndications :Type 2 diabetes mellitus with cataract (HCC) use to check glucose 9 Each 1 4 Active Chlorthalidone 25 MG Oral Tablet (Hygroton)Indicat ions:in pm Take 1 Tablet by mouth at bedtime. 30 Tablet 5 4 Active Dexcom G6 TransmitterIndica tions:Type 2 [...] hemoglobin A1c goal of less than 7.0% ([facility]) inject up to 80 units per day with insulin pump 70 mL 4 Active B-12 50 MCG Oral Tablet Take by mouth. 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 on file Not on file Not o n file documented as of this encounter Plan of Treatment Upcoming Encounters Date Type Department Care Team (Late st Contact Info) Description 09/30/2024 8:30 AM EST Telemedicine Pharmacy, [address] [place] [address] [place] [address] 10/14/2024 8:00 AM EDT Telemedicine Pharmacy, [address] [place] [address] [place] [address] 04/14/2025 3:00 PM EDT Office Visit Nephrology [address] [place] [address] Berenice Schroeder MD [address] [place], [place] [address] [address] Pending Results Name Type Priority Associated Diagnoses Date /Time BASIC METABOLIC PANEL Lab Routine Stage 3b chronic kidney disease (HCC) 09/10/2024 12:29 PM EST Scheduled Procedures Name Priority Associated Diagnoses Date/Ti me SIGMOIDOSCOPY FLEXIBLE DIAGNOSTIC Recall Ulcerative colitis (HCC) Health Maintenance Due Date Last Done Comments Cologuard 2000 Colonoscopy 2000 Fecal Occult Blood Test 2000 Adult Wellness Visit 2021 Diabetic Foot Exam 12/25/2022 12/25/2021, 0 09/04/2020 (Declined), 05/03/2019, Additional history exists Diabetic Eye Exam 01/18/2025 01/19/2024, , 02/03/2023, Additional history exists GFR 02/14/2025 08/17/2024, 03/05, 12/03/2023, Additional history exists HbA1c 02/14/2025 08/17/2024, 03/05, 09/24/2023, Additional history exists Depression Screening 02/18/2025 02/19/2024 CKD HGB USE SMARTSET 92162 03/29/202503/29, 12/03/2023, 10/03/2022, Additional history exists Albumin/Creatinine Ratio 08/17/2025 025, 09/24/2023, 03/10/2023, Additional history exists CKD PHOS USE SMARTSET 84630 08/17/202508/04, 09/24/2023, 06/04/2022, Additional history exists Colorectal [...] as of this encounter Visit Diagnoses Diagnosis Stage 3b chronic kidney disease (HCC) documented in this encounter Care Teams Pharmacy Technician Per Diem Relationship Specialty Start Date End Date Luna Montemayor MD [address] [place] [address] [place] [address] PCP - General Family Medicine 06/30/19 documented as of this encounter
--- OUTSIDE RECORDS SUMMARY | 2024-10-25 22:19 | External Medical Summary | Summary of Care ---
Author Name Unknown Organization [facility] Address [address] [place] [address] Phone [phone] Care Team Providers Care Backup Administrator Name Role Phone Luna Montemayor MD Primary Care Prov ider Reason for Visit * Reason Comments Outpatient Testing Encounter Details Date Type Department Care Team (Late st Contact Info) Description 09/10/2024 12:30 PM EST Laboratory Laboratory [address] [place] [phone] [place] [address] Stage 3b chronic kidney disease (HCC) Allergies [...] hemoglobin A1c goal of less than 8.0% ([facility]) Test BG up to 4 times daily 100 Strip 4 05/02/20 21 Active OneTouch Ultra Blue In Vitro Strip (Glucose Blood)Indication s:Type 2 diabetes mellitus with cataract (HCC) test blood sugar up to 3 times daily Dx: E11.9 300 Strip 3 05/02/20 21 Active Ketone Test In Vitro StripIndications :Type 2 diabetes mellitus with cataract ([facility]) Use as needed for sick days to [...] hemoglobin A1c goal of less than 7.0% ([facility]) inject up to 80 units per day with insulin pump 70 mL 07/17/20 24 Active B-12 50 MCG Oral Tablet Take by mouth. Activ e Dexcom G6 SensorIndication s:Type 2 diabetes mellitus with cataract ([facility]) use to check glucose 9 Each 1 [...] yrs 06/22/2010 Hepatitis B, 20+ yrs 09/24/2022,08/23/2010,02/13 Influenza, Whole Virus 08/14/2000 Pneumococcal Conjugate Vacc, 13 Valent (Prevnar) 12/27/2016 Pneumococcal Polysaccharide PPV23 (Pneumovax) 12/25/2021,06/17/2007,04/22/2003 RSV Vac., Recomb, Adjuvant, PF,0.5 Ml (Arexvy) 06/28/2024 Season Influenza, Quad, PF, Adjuvanted, 65+ Yrs, IM (FLUAD) 05/17/2020 Seasonal Influenza Vac., MDV , IM, 0.5 mL (Fluzone) 06/28/2024,05/10/2014,05/03/2013,04/05,06/04/2011,06/22/2010,05/29/20 09,06/17/2007,05/28/2006,06/17/2005,1 ,06/24/2003,06/14/2002 06/24/2004 Seasonal Influenza, PF, 6 M & above, [...] Industry Job Start Date Job End Date [employer] Not on file Not on file Not o n file documented as of this encounter Progress Notes * Luna Montemayor MD - 09/15/2024 2:23 PM EST Labs show persistent hyperkalemia in setting of CKD 3b. Would you recommend reducing/stopping the lisinopril and/or alternative measures? documented in this encounter Plan of Treatment Upcoming Encounters Date Type Department Care Team (Late st Contact Info) Description 09/30/2024 8:30 AM EST Telemedicine Pharmacy, [address] [place] [phone] [place] [address] 10/14/2024 8:00 AM EDT Telemedicine Pharmacy, [address] [place] [address] [place] [address] 04/14/2025 3:00 PM EDT Office Visit Nephrology [address] [place] [phone] Berenice Schroeder MD [address] [place] [phone] Scheduled Procedures Name Priority Associated Diagnoses Date/Ti [...] Additional history exists CKD HGB USE SMARTSET 44691 03/29/202503/29, 12/03/2023, 10/03/2022, Additional history exists Albumin/Creatinine Ratio 08/17/2025 025, 09/24/2023, 03/10/2023, Additional history exists CKD PHOS USE SMARTSET 89880 08/17/202508/04, 09/24/2023, 06/04/2022, Additional history exists Colorectal Cancer Screening 11/12/2027 Sigmoidoscopy 11/12/2027 11/11/2022, 03/30/2004 DTap/Tdap Vaccines (3 - Td or Tdap) 12/31/2028 12/31/2018, 07/26/2008 Lipid Panel 08/17/2029 08/17/2024, 08/02/2023, 10/11/2021, Additional history exists AAA Screening Completed [...] Not on filedocumented as of this encounter Procedures Procedure Name Priority Date/Time Associated Diagnosis Comments BASIC METABOLIC PANEL Routine 09/10/2024 12:29 PM EST Stage 3b chronic kidney disease (HCC) documented in this encounter Results * (ABNORMAL) BASIC METABOLIC PANEL (09/10/2024 12:29 PM EST) BUN 36(H) 6 - 20 mg/dL 09/11/2024 6:49 AM EST [facility] CREATININE 2.3(H) 0.6 - 1.2 mg/dL 09/11/2024 6:49 AM EST [facility] EGFR 30(L) >=60 mL/min 09/11/2024 6:49 AM EST [facility] Comment:eGFR is calculated b ased on the CKD-EPI 2020 equation. SODIUM 137 135 - 146 mmol/L 09/11/2024 6:49 AM EST [facility] POTASSIUM 5.4(H) 3.5 - 5.1 mmol/L 09/11/2024 6:49 AM EST [facility] CHLORIDE 105 98 - 107 mmol/L 09/11/2024 6:49 AM EST [facility] CO2 22 22 - 32 mmol/L 09/11/2024 6:49 AM EST [facility] ANION GAP 10 7 - 15 mmol/L 09/11/2024 6:49 AM EST [facility] GLUCOSE 138(H) 70 - 120 mg/dL 09/11/2024 6:49 AM EST [facility] CALCIUM 9.0 8.4 - 10.2 mg/dL 09/11/2024 6:49 AM EST [facility]ORY [facility] Blood Venous blood specimen / Unknown Venipuncture / Unknown 09/10/2024 12:29 PM EST 09/10/2024 12:29 PM EST us Luna Lopez MD LAB BLOOD ORDERABL ES Final Result [facility] [address] [facility] [place] [id number] documented in this encounter Visit Diagnoses Diagnosis Stage 3b chronic kidney disease (HCC) documented in this encounter Care Teams Backup Administrator Relationship Specialty Start Date End Date Luna Montemayor MD [address] [place] [address] [place] [address] PCP - General Family Medicine 06/30/19 documented as of this encounter
--- OUTSIDE RECORDS SUMMARY | 2024-10-25 22:19 | External Medical Summary ---
Author Name Unknown Address Unknown Organization [id number]:[facility] - [address] [facility] [address] Laboratory Report Ordering Provider Test Date Status MARIPOSA RENEE 09/10/2024 12:29:21 Final Observation Date Value Abnormality Reference (Units ) Status BUN 09/10/2024 12:29:21 36 Above high normal 6-20 (mg/dL) Final Creatinine 09/10/2024 12:29:21 2.3 Above high normal 0.6-1.2 (mg/dL) Final Glomerular filtration rate/1.73 sq M.predicted [Volume Rate/Area] in Serum, Plasma or Blood by Creatinine-based formula (CKD-EPI) 09/10/2024 12:29:21 30 Below low normal >=60 (mL/min) Final eGFR is calculated based on the CKD-EPI 2020 equation. Sodium 09/10/2024 12:29:21 137 135-146 (m mol/L) Final Potassium 09/10/2024 12:29:21 5.4 Above high normal 3. 5-5.1 (mmol/L) Final Cl 09/10/2024 12:29:21 105 98-107 (mm ol/L) Final CO2 09/10/2024 12:29:21 22 22-32 (mmo l/L) Final Anion gap 09/10/2024 12:29:21 10 7-15 (mmol /L) Final Glucose 09/10/2024 12:29:21 138 Above high normal 70 -120 (mg/dL) Final Calcium 09/10/2024 12:29:21 9.0 8.4-10.2 ( mg/dL) Final Performing Location [facility] - [address] [place] [address]
--- OUTSIDE RECORDS SUMMARY | 2024-10-25 22:19 | External Medical Summary | Summary of Care ---
Author Name Unknown Organization [facility] Address [address] [place] [address] Phone [phone] Care Team Providers Care Car Icer Name Role Phone Luna Montemayor MD Primary Care Prov ider Reason for Visit * Reason Comments Chronic Kidney Disease (CKD) Encounter Details Date Type Department Care Team (Late st Contact Info) Description 08/17/2024 2:30 PM EST Office Visit Nephrology [address] [place] [phone] Marilee Blackwood PA-C [address] [facility] [place] [address] Uncontrolled hypertension*; Stage 3b chronic kidney disease (HCC); Hypertension associated with stage 3b chronic kidney disease due to type 2 diabetes mellitus (HCC); Hyperkalemia; Hyponatremia Allergies Active Allergy Reactions Criticality Noted Date Comments Sulfa Antibiotics 05/01/2001 documented as of this encounter (statuses as of 08/27/2024) Medications ONETOUCH LANCETS MISCIndications:D M type 2, goal A1c below 7 test 4 times a day [address] 2 Active Insulin Infusion Pump ([employer] 630G INSULIN PUMP) KIT Use as directed. 8 Active Cholecalciferol (VITAMIN D) 50 MCG (2000 UT) Capsule Take 2,000 Units by mouth daily. Active Ketoconazole 2 % External Shampoo (Nizoral)Indicati ons:Seborrheic dermatitis Massage into scalp. Rinse after 5 minutes. Do this 3 times a week 120 mL 1 Active OneTouch Ultra Blue In Vitro Strip (Glucose Blood)Indications :Type 2 diabetes mellitus with hemoglobin A1c goal of less than 8.0% ([facility]) Test BG up to 4 times daily 100 Strip 4 1 Active OneTouch Ultra Blue In Vitro Strip (Glucose Blood)Indications :Type 2 diabetes mellitus with cataract (HCC) test blood sugar up to 3 times daily Dx: E11.9 300 Strip 3 1 Active Ketone Test In Vitro StripIndications: Type 2 diabetes mellitus with cataract ([facility]) Use as needed for sick [...] hemoglobin A1c goal of less than 7.0% ([facility]) inject up to 80 units per day with insulin pump 70 mL 4 Active B-12 50 MCG Oral Tablet Take by mouth. Activ e documented as of this encounter (statuses as of 08/27/2024) Active Problems Problem Noted Date Diagnosed Date [...] as of this encounter (statuses as of 08/27/2024) Resolved Problems Problem Noted Date Diagnosed Date Resolved Date Ulcerative colitis 08/25/2019 0 Overview (05/03/2019): S/p total colectomy 2007 Pouchitis 08/25/2019 12/25/2021 TANO inhibitor intolerance 02/18/2016 Encounter for surveillance of [...] as of this encounter (statuses as of 08/27/2024) Immunizations Name Administration Dates Next Due COVID-19 [...] ages 0-17 years) Not on file 02/19/2024 Sex and Gender Information Value Date Recorded Sex Assigned at Male 02/19/2024 2:51 PM EDT Legal Sex Male 7:04 AM EST Gender Identity Male 02/19/2024 2:51 PM EDT Sexual Orientation Straight 02/19/2024 2: 51 PM EDT Occupation Industry Job Start Date Job End Date [employer] Not on file Not on file Not o n file documented as of this encounter Last Filed Vital Signs Vital Sign Reading Time Taken Comments Blood Pressure 154/64 08/17/2024 2:33 PM EST Pulse 68 08/17/2024 2:33 PM EST Temperature 36.9 C (98.4 F) 08/17/2024 2:29 PM ES T Respiratory Rate 18 08/17/2024 2:29 PM EST Oxygen Saturation 99% 08/17/2024 2:29 PM EST Inhaled Oxygen Concentration - - Weight 75.8 kg (167 lb) 08/17/2024 2:29 PM EST Height - - Body Mass Index 26.95 04/08/2024 8:38 AM EDT documented in this encounter Progress Notes * Marilee Blackwood PA-C - 08/17/2024 2:30 PM EST NEPHROLOGY CLINIC NOTE Nephrology [address] [place] [address] Patient Name: Shay Ann Patient Active Problem List Diagnosis Anemia BENIGN [...] associated with type 2 diabetes mellitus (HCC) BACKGROUND: 69 year old male presents for f/u o CKD 3B with 100-500mg albuminuria attributed to HTN, DM and Nsaid Past Medical history includes HTN since 2002. DM since early with mild retinopathy and has underlying proteinuria. Pt with ulcerative pancolitis and had total colectomy at age 17. Frequent stools with loose bowels chronic. Needs no meds; did have flex sig 08/2019 and no acitve issues for repeat scan in 2021. 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 Previously taking Aleve about every 2 weeks for his back pain Chews tobacco daily. Remote 35 pk yr hx. Drinks a lot of water >> about 1-1.5 gallons/day [employer]; active doing this. Works 2 jobs. Averages 14-15 K steps/day Home blood pressure checks: does have a cuff at home NSAID use: no Herbals/supplements: Vit D , MV History of stones: no TODAY 03/29/2024: no acute interval events. Still avergeing 14K steps / day; 25 K on Friday while mowing. BP high today ; had some high sodium diet yesterday Follows w/ [facility] for DM; has yumiko Today 08/17/24 Denies any recent hospitalizations, procedures or infections. BP at home has been doing well. Continues to follow up with [facility] Current Hypertension Medication(s): Lisinopril 40mg daily Chlorthalidone 25mg daily Amlodipine 10mg (increased by nephro 03/29) at night Patient reports drinking 1 G of water daily. Drinks coffee. Milk at super. No soda intake REVIEW OF SYSTEMS General: No fatigue, Head: No significant headache Respiratory: No wheezing, No shortness of breath Cardiovascular:No chest pain, No palpitations, and No syncope, no falls Gastrointestinal: No nausea, vomiting, diarrhea No blood in stools Urinary: No dysuira, No hematuria. No flank pain Musculoskeletal: No edema Skin: No itching Current Outpatient Medications Medication Sig Dispense Refill Cholecalciferol (VITAMIN D) 50 MCG (2000 UT) Capsule Take 2,000 Units by mouth daily. Multi-Vitamins Oral Tablet Take 1 Tablet by mouth in the morning. Montelukast Sodium 10 MG Oral Tablet (Singulair) TAKE ONE TABLET BY MOUTH EVERY DAY (Patient takingdifferently: at bedtime.) 90 Tablet 3 Atorvastatin Calcium 40 MG Oral Tablet (Lipitor) TAKE 1 TABLET BY MOUTH EVERY MORNING 90 Tablet 3 Chlorthalidone 25 MG Oral Tablet (Hygroton) Take 1 Tablet by mouth at bedtime. 30 Tablet 5 Lisinopril 40 MG Oral Tablet TAKE ONE TABLET BY MOUTH IN THE MORNING 90 Tablet 1 Fluticasone-Salmeterol 250-50 MCG/ACT Inhalation Aerosol Powder Breath Activated (Advair Diskus) INHALE ONE PUFF BY MOUTH TWICE DAILY 180 Each 2 amLODIPine Besylate 10 MG Oral Tablet (Norvasc) TAKE ONE TABLET BY MOUTH EVERY DAY 90 Tablet 3 Insulin Aspart 100 UNIT/ML Injection Solution (NovoLOG) inject up to 80 units per day with insulin pump 70 mL 0 B-12 50 MCG Oral Tablet Take by mouth. ONETOUCH LANCETS MISC test 4 times a day 125 Box 5 Insulin Infusion Pump ([employer] 630G INSULIN PUMP) KIT Use as directed. Ketoconazole 2 % External Shampoo (Nizoral) Massage into scalp. Rinse after 5 minutes. Do this 3 times a week 120 mL 0 OneTouch Ultra Blue In Vitro Strip (Glucose Blood) Test BG up to 4 times daily 100 Strip 4 OneTouch Ultra Blue In Vitro Strip (Glucose Blood) test blood sugar up to 3 times daily Dx: E11.9 300 Strip 3 Ketone Test In Vitro Strip Use as needed for sick days to test for Ketones in urine. If positive - seek medical attention 1 Strip 1 Albuterol Sulfate HFA 108 (90 Base) MCG/ACT Inhalation Aerosol Solution Inhale 2 Puffs by mouth every 6 hours as needed for Shortness of Breath. 18 g 1 Omnipod 5 G6 Intro (Gen 5) Kit Use as directed. 1 Kit 0 Omnipod 5 G6 Pod (Gen 5) Change pod every 3 days 6 Each 4 Atrovent HFA 17 MCG/ACT Inhalation Aerosol Solution (ipratropium) inhale 2 puffs 4 times daily as needed. 12.9 g 3 Dexcom G6 Sensor use to check glucose 9 Each 1 Dexcom G6 Transmitter USE TO CHECK GLUCOSE DXE11.9 3 Each 1 No current facility-administered medications for this visit. PHYSICAL EXAMINATION Last 4 BP Readings: BP Readings from Last 4 Encounters: 08/17/24 154/64 04/13/24 110/54 03/29/24 156/64 02/19/24 120/60 Last 3 Weights: Wt Readings from Last 3 Encounters: 08/17/24 75.8 kg (167 lb) 04/08/24 68.5 kg (151 lb) 03/29/24 73 kg (161 lb) BP 154/64 | Pulse 68 | Temp 36.9 C (98.4 F) | Resp 18 | Wt 75.8 kg (167 lb) | SpO2 99% | BMI 26.95 kg/m | BSA 1.88 m Wt Readings from Last 1 Encounters: 08/17/24 75.8 kg (167 lb) General appearance: alert, no apparent distress. HEAD: Normocephalic, No masses, lesions, tenderness Respiratory: clear to auscultation, no wheezes, and no crackles Heart: regular rate and regular rhythm Abdomen: abdomen soft, non-tender, and no CVA tenderness EXTREMITIES: No cyanosis or clubbing Skin: skin color, texture, turgor are normal NEURO: alert & oriented x 3 with fluent speech, no focal motor/sensory deficits No tremor Patient is a reliable historian of events LABS: Latest Reference Range & Units 10/11/21 15:58 06/04/22 08:51 10/03/22 00:00 03/10/23 08:38 09/24/23 13:39 12/03/23 15:39 03/29/24 15:55 SODIUM 135 - 146 mmol/L 137 138 137 133 (L) 138 136 POTASSIUM 3.5 - 5.1 mmol/L 5.2 (H) 4.9 4.6 (E) 5.0 5.0 5.3 (H) 5.5 (H) CHLORIDE 98 - 107 mmol/L 107 104 105 101 108 (H) 105 CO2 22 - 32 mmol/L 21 (L) 25 21 (L) 18 (L) 20 (L) 22 BUN 6 - 20 mg/dL 37 (H) 31 (H) 38 (H) 72 (H) 49 (H) 34 (H) CREATININE 0.6 - 1.2 mg/dL 2.1 (H) 1.9 (H) 2.16 ! (E) 2.2 (H) 2.7 (H) 2.2 (H) 2.7 (H) EGFR >=60 mL/min 34 (L) 39 (L) 33 (E) 33 (L) 25 (L) 32 (L) 25 (L) ANION GAP 7 - 15 mmol/L 9 9 11 14 10 9 GLUCOSE 70 - 120 mg/dL 54 (L) 252 (H) 191 ! (E) 222 (H) 296 (H) 64 (L) 186 (H) CALCIUM 8.4 - 10.2 mg/dL 8.9 9.1 9.1 8.7 9.1 9.4 (L): Data is abnormally low (H): Data is abnormally high !: Data is abnormal (E): External lab result Latest Reference Range & Units 01/09/18 15:57 04/30/19 08:06 10/11/21 15:58 09/24/22 18:27 03/10/23 08:38 09/24/23 13:39 Albumin / Creatinine Ratio, Urine <30 mg/g Creat 173 (H) 864 (H) 81 (H) 140 (H) 97 (H) 141 (H) Protein/ Creatinine Ratio, Urine <150 mg/g 145 275 (H) (H): Data is abnormally high IMAGING: EXAM 09/01/2019 3:23 pmUS RENAL HISTORY CKD TECHNIQUE Sonographic images were obtained. COMPARISON Renal ultrasound 09/02/2016 FINDINGS Right Kidney: Renal parenchyma is diffusely increased in echogenicity. No hydronephrosis or nephrolithiasis. The right kidney measures 10.7 x 5.3 x 4.8 cm. Left Kidney: Renal parenchyma is diffusely increased in echogenicity. No hydronephrosis or nephrolithiasis. The left kidney measures 10.4 x 4.9 x 5.3 cm. Bladder: Partially distended. No evidence of intraluminal mass. Aorta: Limited visualization. Imaged abdominal aorta is normal in caliber. IMPRESSION IMPRESSION 1. Increased echogenicity of renal parenchyma bilaterally is suggestive of medical renal disease. Kidneys are normal in size. 2. No hydronephrosis or nephrolithiasis. 3. Limited evaluation of abdominal aorta. ASSESSMENT/PLAN: The patient's most recent labs (from 5+ months ago) were reviewed and the assessment/plan is as follows: CKD w/ eGFR hovering at about 30 ml/min based and ACR about 200 Pt at high risk in setting of uncontrolled HTN. Volume status good. Chemistries with ongoing hx of hyponatremia Stage 3b chronic kidney disease (HCC) - RENAL FUNCTION PANEL; Future; Expected date: 08/17/2024 Uncontrolled hypertension (Primary) Hypertension associated with stage 3b chronic kidney disease due to type 2 diabetes mellitus (HCC) - RENAL FUNCTION PANEL; Future; Expected date: 08/17/2024 - NEPHROLOGY FOLLOW UP APPT (DEPARTMENT USE ONLY); Future; Expected date: 02/14/2025 - URINALYSIS WITH MICROSCOPIC EXAM; Future; Expected date: 08/17/2024 - ALBUMIN / CREATININE RATIO, URINE; Future; Expected date: 08/17/2024 Hyperkalemia Elevated in the pass few months pt with Tano but also with Chlorthalidone Will discuss monitoring potassium diet - RENAL FUNCTION PANEL; Future; Expected date: 08/17/2024 Hyponatremia Ongoing hx stable with most recent labs- will cont to monitor and discuss fluid levels - RENAL FUNCTION PANEL; Future; Expected date: 08/17/2024 Labs placed for further evaluation No changes to meds Cont to monitor fluids Monitor potassium rich foods lifestyle measures strongly encouraged vicki low Na diet; stay active Avoid medicines like aleve, advil, ibuprofen, aspirin more than 81 mg daily and other NSAIDS which are not good for kidney patients. Take only tylenol (acetaminophen) up to 2000 mg daily as needed for pain or as directed by your primary care provider. Reviewed previous status of kidney function and goals of care. All questions were answered. Marilee Blackwood PA-C Nephrology [address] [place] [address] documented in this encounter Nursing Notes * Fatimah Manrique RN - 08/17/2024 2:32 PM EST Follow up visit today. Monitors blood pressures at home and states they are running 130s/60s. documented in this encounter Plan of Treatment Upcoming Encounters Date Type Department Care Team (Late st Contact Info) Description 09/30/2024 8:30 AM EST Telemedicine Pharmacy, [address] [place] [address] [place] [address] 10/14/2024 8:00 AM EDT Telemedicine Pharmacy, [address] [place] [address] [place] [address] 04/14/2025 3:00 PM EDT Office Visit Nephrology [address] [place] [address] Berenice Schroeder MD [address] [place] [address] Scheduled Procedures Name Priority Associated Diagnoses Date/Ti [...] Screening 02/18/2025 02/19/2024 CKD HGB USE SMARTSET 36025 03/29/202503/29, 12/03/2023, 10/03/2022, Additional history exists Albumin/Creatinine Ratio 08/17/2025 025, 09/24/2023, 03/10/2023, Additional history exists CKD PHOS USE SMARTSET 53942 08/17/202508/04, 09/24/2023, 06/04/2022, Additional history exists Colorectal Cancer Screening 11/12/2027 Sigmoidoscopy 11/12/2027 11/11/2022, 03/30/2004 DTap/Tdap Vaccines (3 - Td or Tdap) 12/31/2028 12/31/2018, 07/26/2008 Lipid Panel 08/17/2029 08/17/2024, 02/2023, 10/11/2021, Additional history exists AAA Screening [...] Not on filedocumented as of this encounter Results * (ABNORMAL) ALBUMIN / CREATININE RATIO, URINE (08/17/2024 3:01 PM EST) Albumin, Random Urine 20.00 mg/dL 08/18/2024 12:15 AM EST [facility] Creatinine, Random Urine 97 mg/dL 08/18/2024 12:15 AM EST [facility] Albumin / Creatinine Ratio, Urine 206(H) <30 mg/g Creat 08/18/2024 12:15 AM EST [facility] Urine Urine specimen / Unknown Non-blood Collection / Unknown 08/17/2024 3:01 PM EST 08/17/2024 3:01 PM EST [facility] - 08/18/2024 12:15 AM EST Normal: <30 mg/g creatinine High: 30-300 mg/g creatinine Very High: >300 mg/g creatinine Nephrotic: >2200 mg/g creatinine Marilee Blackwood PA-C LAB URINE ORDERABLES Final Result [facility] [address] [place] [address] * (ABNORMAL) URINALYSIS WITH MICROSCOPIC EXAM (08/17/2024 3:01 PM EST) Color, Urine Light Yellow Colorless, Light Yellow, Yellow, Dark Yellow 08/17/2024 11:53 PM EST [facility] Clarity, Urine Clear Clear 08/17/2024 11:53 PM EST [facility] Glucose, Urine Negative Negative mg/dL 08/17/2024 11:53 PM EST [facility] Bilirubin, Urine Negative Negative 08/17/2024 11:53 PM EST [facility] Ketone, Urine Negative Negative mg/dL 08/17/2024 11:53 PM EST [facility] Specific [place], Urine 1.014 1.003 - 1.030 08/17/2024 11:53 PM EST [facility] Blood, Urine Negative Negative 08/17/2024 11:53 PM EST [facility] pH, Urine 5.5 5.0 - 7.5 Units 08/17/2024 11:53 PM EST [facility] Protein, Urine 30(A) Negative mg/dL 08/17/2024 11:53 PM EST [facility] Urobilinogen, Urine Normal Normal mg/dL 08/17/2024 11:53 PM EST [facility] Nitrite, Urine Negative Negative 08/17/2024 11:53 PM EST [facility] Esterase, Urine Negative Negative 08/17/2024 11:53 PM EST [facility] RBC, Urine 0-2 0 - 2 /HPF 08/17/2024 11:53 PM EST [facility] WBC, Urine 0-2 0 - 2 /HPF 08/17/2024 11:53 PM EST [facility] Bacteria, Urine 0-25 0 - 25 /HPF 08/17/2024 11:53 PM EST [facility] Hyaline, Cast, Urine 5-9(A) None /LPF 08/17/2024 11:53 PM EST [facility] Urine Urine specimen / Unknown Non-blood Collection / Unknown 08/17/2024 3:01 PM EST 08/17/2024 3:01 PM EST Marilee Blackwood PA-C LAB URINE ORDERABLES Final Result [facility] [address] [facility] [address] [place] [address] documented in this encounter Visit Diagnoses Diagnosis Uncontrolled hypertension- Primary Unspecified essential hypertension Stage 3b chronic kidney disease (HCC) Hypertension associated with stage 3b chronic kidney disease due to type 2 diabetes mellitus (HCC) Hyperkalemia Hyperpotassemia Hyponatremia Hyposmolality and/or hyponatremia documented in this encounter Care Teams Car Icer Relationship Specialty Start Date End Date Luna Montemayor MD [address] [place] [address] [place] [id number] PCP - General Family Medicine 06/30/19 documented as of this encounter"
--- OUTSIDE RECORDS SUMMARY | 2024-10-25 22:19 | External Medical Summary | Summary of Care ---
Author Name Unknown Organization [facility] Address [address] [place] [address] Phone [phone] Care Team Providers Care Form Coverer Name Role Phone Luna Montemayor MD Primary Care Prov ider Encounter Details Date Type Department Care Team (Late st Contact Info) Description 09/15/2024 Telephone Family [address] [address] Luna Montemayor MD [address] [place] [address] [place] [address] Allergies Active Allergy Reactions Criticality Noted Date Comments Sulfa Antibiotics 05/01/2001 documented as of this encounter (statuses as of 09/20/2024) Medications ONETOUCH LANCETS MISCIndications:D M type 2, [...] hemoglobin A1c goal of less than 8.0% ([facility]) Test BG up to 4 times daily 100 Strip 4 1 Active OneTouch Ultra Blue In Vitro Strip (Glucose Blood)Indications :Type 2 diabetes mellitus with cataract ([facility]) test blood sugar up to 3 times daily Dx: E11.9 300 Strip 3 1 Active Ketone Test In Vitro StripIndications: Type 2 diabetes mellitus with cataract ([facility]) Use as needed for sick days [...] EVERY MORNING 90 Tablet 3 4 Active Chlorthalidone 25 MG Oral Tablet (Hygroton)Indicat ions:in pm Take 1 Tablet by mouth at bedtime. 30 Tablet 5 4 Active Dexcom G6 TransmitterIndica tions:Type 2 diabetes mellitus with cataract ([facility]) USE TO CHECK GLUCOSE DXE11.9 3 Each [...] goal of less than 7.0% ([facility]) inject up to 80 units per day with insulin pump 70 mL 4 Active B-12 50 MCG Oral Tablet Take by mouth. 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 Will plan to follow up 09/30 as scheduled. If K binder is needed, patient currently has [facility] Commercial insurance. Can look towards utilizing copay/savings card. Isaura Herzog RPh, PharmD Clinical Pharmacist - Assistant Sales Manager [facility] 09/20/2024, 10:27 AM [phone] * Telephone Encounter - Berenice Schroeder MD - 09/17/2024 3:22 PM EST 200 mg albuminuria, CKD 3B; K 5.4; bp consistently uncontrolled; BG ok mostly On amlodipine 10, lisinopril 40, chlorthalidone 25 Has valid home cuff Recommend: -veltassa 8.4 gm daily or lokelma [...] time > follows w/ them for HTN >>MTDM pt may need help getting K binder Dr JIMENEZ, [facility] FYI * Telephone Encounter - Luna Montemayor MD - 09/15/2024 2:25 PM EST Labs show persistent hyperkalemia in setting of CKD 3b. Would you recommend reducing/stopping the lisinopril and/or alternative measures? documented in this encounter Plan of Treatment Upcoming Encounters Date Type Department Care Team (Late st Contact Info) Description 09/30/2024 8:30 AM EST Telemedicine Pharmacy, [address] [place] [address] [place] [address] 10/14/2024 8:00 AM EDT Telemedicine Pharmacy, [address] [place] [address] [place] [address] 04/14/2025 3:00 PM EDT Office Visit Nephrology [address] [place] [address] Berenice Schroeder MD [address] [place] [address] [place] [address] Scheduled Procedures Name Priority Associated Diagnoses Date/Ti [...] Additional history exists CKD HGB USE SMARTSET 47272 03/29/202503/29, 12/03/2023, 10/03/2022, Additional history exists Albumin/Creatinine Ratio 08/17/2025 025, 09/24/2023, 03/10/2023, Additional history exists CKD PHOS USE SMARTSET 98781 08/17/202508/04, 09/24/2023, 06/04/2022, Additional history exists Colorectal [...] as of this encounter Visit Diagnoses Diagnosis Uncontrolled hypertension- Primary Unspecified essential hypertension Hyperkalemia Hyperpotassemia Albuminuria Proteinuria documented in this encounter Care Teams Form Coverer Relationship Specialty Start Date End Date Luna Montemayor MD [address] [place] [address] [place] [phone] PCP - General Family Medicine 06/30/19 documented as of this encounter
--- OUTSIDE RECORDS SUMMARY | 2024-10-25 22:19 | External Medical Summary | Summary of Care ---
Author Name Unknown Organization [facility] Address [address] [place] [address] Phone [phone] Care Team Providers Care School Transportation Supervisor Name Role Phone Luna Montemayor MD Primary Care Prov ider Encounter Details Date Type Department Care Team (Late st Contact Info) Description 09/15/2024 Telephone Family [address] [address] Luna Montemayor MD [address] [place] [address] [place] [address] Allergies Active Allergy Reactions Criticality Noted Date Comments Sulfa Antibiotics 05/01/2001 documented as of this encounter (statuses as of 09/23/2024) Medications ONETOUCH LANCETS MISCIndications:D M type 2, [...] hemoglobin A1c goal of less than 8.0% ([facility]) Test BG up to 4 times daily 100 Strip 4 1 Active OneTouch Ultra Blue In Vitro Strip (Glucose Blood)Indications :Type 2 diabetes mellitus with cataract ([facility]) test blood sugar up to 3 times daily Dx: E11.9 300 Strip 3 1 Active Ketone Test In Vitro StripIndications: Type 2 diabetes mellitus with cataract ([facility]) Use as needed for sick days to [...] TransmitterIndica tions:Type 2 diabetes mellitus with cataract ([facility]) USE TO CHECK GLUCOSE DXE11.9 3 Each [...] hemoglobin A1c goal of less than 7.0% ([facility]) inject up to 80 units per day with insulin pump 70 mL 4 Active B-12 50 MCG Oral Tablet Take by mouth. 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 Will plan to follow up 09/30 as scheduled. If K binder is needed, patient currently has P Commercial insurance. Can look towards utilizing copay/savings card. Isaura Herzog RPh, PharmD Clinical Pharmacist - Public Health Technologist [facility] 09/20/2024, 10:27 AM [phone] * Telephone Encounter - Berenice Schroeder MD [...] need help getting K binder Dr JIMENEZ, [facility] FYI * Telephone Encounter - Luna Montemayor MD - 09/15/2024 2:25 PM EST Labs show persistent hyperkalemia in setting of CKD 3b. Would you recommend reducing/stopping the lisinopril and/or alternative measures? documented in this encounter Plan of Treatment Upcoming Encounters Date Type Department Care Team (Late st Contact Info) Description 09/30/2024 8:30 AM EST Telemedicine Pharmacy, [address] [place] [address] [place] [address] 10/14/2024 8:00 AM EDT Telemedicine Pharmacy, [address] [place] [address] [place] [address] 04/14/2025 3:00 PM EDT Office Visit Nephrology [place] [address] [place] [address] Berenice Schroeder MD [address] [place] [address] Scheduled Orders Name Type Priority Associated Diagnoses Orde r Schedule BASIC METABOLIC PANEL Lab Routine Uncontrolled hypertension Hyperkalemia Albuminuria Expected: 09/23/2024 (Approximate), Expires: 09/23/2025 Scheduled Procedures Name Priority Associated Diagnoses Date/Ti [...] Additional history exists CKD HGB USE SMARTSET 93793 03/29/202503/29, 12/03/2023, 10/03/2022, Additional history exists Albumin/Creatinine Ratio 08/17/2025 025, 09/24/2023, 03/10/2023, Additional history exists CKD PHOS USE SMARTSET 61064 08/17/202508/04, 09/24/2023, 06/04/2022, Additional history exists Colorectal [...] Proteinuria documented in this encounter Care Teams School Transportation Supervisor Relationship Specialty Start Date End Date Luna Montemayor MD [address] [place] [address] [place] [address] PCP - General Family Medicine 06/30/19 documented as of this encounter
--- OUTSIDE RECORDS SUMMARY | 2024-10-25 22:19 | External Medical Summary | Summary of Care ---
Author Name Unknown Organization [facility] Address [address] [place] [address] Phone [phone] Care Team Providers Care Biochemistry Technologist Name Role Phone Luna Montemayor MD Primary Care Prov ider Reason for Visit * Reason Comments Outpatient Testing Encounter Details Date Type Department Care Team (Late st Contact Info) Description 09/10/2024 12:30 PM EST Laboratory Laboratory [address] [place] [phone] [place] [address] Stage 3b chronic kidney disease (HCC) Allergies [...] goal of less than 8.0% ([facility]) Test BG up to 4 times daily 100 Strip 4 05/02/20 21 Active OneTouch Ultra Blue In Vitro Strip (Glucose Blood)Indication s:Type 2 diabetes mellitus with cataract (HCC) test blood sugar up to 3 times daily Dx: E11.9 300 Strip 3 05/02/20 21 Active Ketone Test In Vitro StripIndications :Type 2 diabetes mellitus with cataract ([facility]) Use as needed for sick days [...] goal of less than 7.0% ([facility]) inject up to 80 units per day with insulin pump 70 mL 07/17/20 24 Active B-12 50 MCG Oral Tablet Take by mouth. 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 Not on [...] Description 09/30/2024 8:30 AM EST Telemedicine Pharmacy, [address] [place] [address] [place] [address] 10/14/2024 8:00 AM EDT Telemedicine Pharmacy, [address] [place] [address] [place] [address] 04/14/2025 3:00 PM EDT Office Visit Nephrology [address] [place] [address] Berenice Schroeder MD [address] [place] [address] Scheduled Procedures Name Priority Associated Diagnoses Date/Ti [...] Additional history exists CKD HGB USE SMARTSET 81342 03/29/202503/29, 12/03/2023, 10/03/2022, Additional history exists Albumin/Creatinine Ratio 08/17/2025 025, 09/24/2023, 03/10/2023, Additional history exists CKD PHOS USE SMARTSET 43411 08/17/202508/04, 09/24/2023, 06/04/2022, Additional history exists Colorectal [...] ES Final Result [facility] [address] [facility] [place] [address] documented in this encounter Visit Diagnoses Diagnosis Stage 3b chronic kidney disease (HCC) documented in this encounter Care Teams Biochemistry Technologist Relationship Specialty Start Date End Date Luna Montemayor MD [address] [place] [address] [place] [address] PCP - General Family Medicine 06/30/19 documented as of this encounter
--- OUTSIDE RECORDS SUMMARY | 2024-10-25 22:19 | External Medical Summary | Summary of Care ---
Author Name Unknown Organization [facility] Address [address] [place] [address] Phone [phone] Care Team Providers Care Cokeman Name Role Phone Luna Montemayor MD Primary Care Prov ider Encounter Details Date Type Department Care Team (Late st Contact Info) Description 09/15/2024 Telephone Family [address] [address] Luna Montemayor MD [address] [place] [address] [place] [address] Allergies Active Allergy Reactions Criticality [...] goal of less than 8.0% ([facility]) Test BG up to 4 times daily 100 Strip 4 1 Active OneTouch Ultra Blue In Vitro Strip (Glucose Blood)Indications :Type 2 diabetes mellitus with cataract ([facility]) test blood sugar up to 3 times daily Dx: E11.9 300 Strip 3 1 Active Ketone Test In Vitro StripIndications: Type 2 diabetes mellitus with cataract ([facility]) Use as needed for sick days [...] 2 diabetes mellitus with cataract ([facility]) USE TO CHECK GLUCOSE DXE11.9 3 [...] goal of less than 7.0% ([facility]) inject up to 80 units per day with insulin pump 70 mL 4 Active B-12 50 MCG Oral Tablet Take by mouth. 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 Will plan to follow up 09/30 as scheduled. If K binder is needed, patient currently has [facility] Commercial insurance. Can look towards utilizing copay/savings card. Isaura Herzog RPh, PharmD Clinical Pharmacist - Recreational Resort Manager [facility] 09/20/2024, 10:27 AM [phone] * Telephone Encounter - Berenice Schroeder MD [...] need help getting K binder Dr JIMENEZ, [facility] FYI * Telephone Encounter - Luna Montemayor MD - 09/15/2024 2:25 PM EST Labs show persistent hyperkalemia in setting of CKD 3b. Would you recommend reducing/stopping the lisinopril and/or alternative measures? documented in this encounter Plan of Treatment Upcoming Encounters Date Type Department Care Team (Late st Contact Info) Description 09/30/2024 8:30 AM EST Telemedicine Pharmacy, [address] [place] [address] [place] [address] 10/14/2024 8:00 AM EDT Telemedicine Pharmacy, [address] [place] [address] [place] [address] 04/14/2025 3:00 PM EDT Office Visit Nephrology [address] [place] [address] Berenice Schroeder MD [address] [place] [address] [place] [address] Scheduled Procedures Name Priority Associated Diagnoses Date/Ti [...] Additional history exists CKD HGB USE SMARTSET 02535 03/29/202503/29, 12/03/2023, 10/03/2022, Additional history exists Albumin/Creatinine Ratio 08/17/2025 025, 09/24/2023, 03/10/2023, Additional history exists CKD PHOS USE SMARTSET 99335 08/17/202508/04, 09/24/2023, 06/04/2022, Additional history exists Colorectal [...] Proteinuria documented in this encounter Care Teams Cokeman Relationship Specialty Start Date End Date Luna Montemayor MD [address] [place] [address] [place] [phone] PCP - General Family Medicine 06/30/19 documented as of this encounter
--- OUTSIDE RECORDS SUMMARY | 2024-10-25 22:20 | External Medical Summary ---
Author Name Unknown Address Unknown Organization K01:[facility] [address] [facility] [address] Laboratory Report Ordering Provider Test Date Status NAVDEEP TOLBERTITIS 08/17/2024 15:01:18 Final Observation Date Value Abnormality Reference (Units ) Status Color of Urine by Auto 08/17/2024 15:01:18 Light Yellow Colorless, Light Yellow, Yellow, Dark Yellow Final Clarity, Urine 08/17/2024 15:01:18 Clear Clear Final Glucose [Mass/volume] in Urine by Automated test strip 08/17/2024 15:01:18 Negative Negative (mg/dL) Final Bilirubin.total [Presence] in Urine by Automated test strip 08/17/2024 15:01:18 Negative Negative Final Ketones [Mass/volume] in Urine by Automated test strip 08/17/2024 15:01:18 Negative Negative (mg/dL) Final Specific gravity, Urine 08/17/2024 15:01:18 1.014 1.003-1.030 Final Hemoglobin [Presence] in Urine by Automated test strip 08/17/2024 15:01:18 Negative Negative Final pH, Urine 08/17/2024 15:01:18 5.5 5.0-7.5 (Units) Final Protein [Mass/volume] in Urine by Automated test strip 08/17/2024 15:01:18 30 Abnormal Negative (mg/dL) Final Urobilinogen [Mass/volume] in Urine by Automated test strip 08/17/2024 15:01:18 Normal Normal (mg/dL) Final Nitrite [Presence] in Urine by Automated test strip 08/17/2024 15:01:18 Negative Negative Final Leukocyte esterase [Presence] in Urine by Automated test strip 08/17/2024 15:01:18 Negative Negative Final RBC, Urine 08/17/2024 15:01:18 0-2 0-2 (/HPF) Final WBC, Urine 08/17/2024 15:01:18 0-2 0-2 (/HPF) Final Bacteria [#/area] in Urine sediment by Microscopy high power field 08/17/2024 15:01:18 0-25 0-25 (/HPF) Final Hyaline casts, Urine 08/17/2024 15:01:18 5-9 Abnormal None (/LPF) Final Performing Location [facility] [place] [address] [facility] [address]
--- OUTSIDE RECORDS SUMMARY | 2024-10-25 22:20 | External Medical Summary ---
Author Name Unknown Address Unknown Organization : Laboratory Report Ordering Provider Test Date Status MARIPOSA RENEE 08/17/2024 15:01:18 Final Observation Date Value Abnormality Reference (Units ) Status ERYTHROPOIETIN (EPO) 08/17/2024 15:01:18 7.0 2.6-18.5 (mIU/mL) Final Test Performed at:
[employer] [facility]
[address] [facility]
[place] [address]
Jose Ferrera M.D., Ph.D.,Director of Laboratories Performing Location
--- OUTSIDE RECORDS SUMMARY | 2024-10-25 22:20 | External Medical Summary ---
Author Name Unknown Address Unknown Organization K01:[facility] - [address] [place] [address] Laboratory Report Ordering Provider Test Date Status WILFRED TOLBERT 08/17/2024 15:01:18 Final Normal: <30 mg/g creatinine< br/>High: 30-300 mg/g creatinine
Very High: >300 mg/g creatinine
Nephrotic: >2200 mg/g creatinine Observation Date Value Abnormality Reference (Units ) Status Albumin, Urine 08/17/2024 15:01:18 20.00 (mg/dL) Final Creatinine, Urine 08/17/2024 15:01:18 97 (mg/dL) Final Albumin/Creatinine [Mass Ratio] in Urine 08/17/2024 15:01:18 206 Above high normal <30 (mg/g Creat) Final Performing Location [facility] - [address] [place] [address]
--- OUTSIDE RECORDS SUMMARY | 2024-10-25 22:20 | External Medical Summary | Summary of Care ---
Author Name Unknown Organization [facility] Address [address] [place] [address] Phone [phone] Care Team Providers Care Supervisor Bakery Sanitation Name Role Phone Luna Montemayor MD Primary Care Prov ider Reason for Visit * Reason Comments Dosage Adjustment In Person (Anticoag Cl inic) Diabetes Follow-Up Encounter Details Date Type Department Care Team (Late st Contact Info) Description 08/11/2024 8:00 AM [facility] Telemedicine Pharmacy, [address] [place] [address] [place] [address] Type 2 diabetes mellitus with cataract (HCC)* Allergies Active Allergy Reactions Criticality Noted Date Comments Sulfa Antibiotics 05/01/2001 documented as of this encounter (statuses as of 08/11/2024) Medications ONETOUCH LANCETS MISCIndications:D M type 2, [...] Information Patient taking differently: HS, Reported on 04/08/2024 Atorvastatin Calcium 40 MG Oral Tablet (Lipitor)Indicati [...] hemoglobin A1c goal of less than 7.0% ([facility]) inject up to 80 units per day with insulin pump 70 mL 4 Active documented as of this encounter (statuses as of 08/11/2024) Active Problems Problem Noted Date Diagnosed Date [...] as of this encounter (statuses as of 08/11/2024) Resolved Problems Problem Noted Date Diagnosed Date [...] as of this encounter (statuses as of 08/11/2024) Immunizations Name Administration Dates Next Due COVID-19 [...] 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 Patient location: HOME. I was in a hospital or clinic location. After connecting through [employer],patient was verified with two unique identifiers. Patient (or authorized legal service representative) was then informed that this was a Telemedicine visit and being conducted confidentially over secure lines. Methods to assure confidentiality were taken. Patient acknowledged consent and understanding of pr ivacy and security of the Telemedicine visit. The patient agreed to participate. Medication Therapy Disease Management - CSII Follow-up Interval History: Shay Ann is an 69 year old year old male returning to the [facility] for a diabetes insulin pump follow-up visit. Blood glucose control since last visit: Discussed below Medication intolerance: no Medication compliance: yes Hospitalization or ED Utilization since last visit: no Hypoglycemia requiring assistance since last visit: no Activity mode Breakfast for supper Pizza Current Diabetes Medications: Omnipod 5 Insulin Pump Insulin: Novolog Basal rate: Midnight: 0.95 unit/hr 2AM: 1.10 unit/hr 6AM: 0.225 unit/hr 11AM: 0.575 unit/hr 6PM: 1.0 units/hr Bolus: Bolus Calculator: on and using ICR: 12AM - 12PM: 11 12PM-3PM: 13 3PM - 12AM: 11 ISF: 40 Bolus Calculator: Target B Correct above: 160 Active Insulin Time: 4 hours [place] Blood Glucose Review: s (mg/dL) Hypoglycemia Assessment: 1. Do you know what the symptoms of hypoglycemia are? Yes 2. How often can you tell by your symptoms if your blood sugar is low? Often 3. In a typical week, how many times will your blood sugar go below 70 mg/dL? Patient Active Problem List Diagnosis Anemia BENIGN [...] patient's allergies indicates: Allergen Reactions Sulfa Antibiotics Current Outpatient Medications Medication Sig Dispense Refill ONETOUCH LANCETS MISC test 4 times a day 125 Box 5 Insulin Infusion Pump (MINIMCustomcells 630G INSULIN PUMP) KIT Use as directed. Cholecalciferol (VITAMIN D) 50 MCG (2000 UT) Capsule Take 2,000 Units by mouth daily. Ketoconazole 2 % External Shampoo (Nizoral) Massage [...] pod every 3 days 6 Each 4 Multi-Vitamins Oral Tablet Take 1 Tablet by mouth in the morning. Atrovent HFA 17 MCG/ACT Inhalation Aerosol Solution (ipratropium) inhale 2 puffs 4 times daily as needed. 12.9 g 3 Montelukast Sodium 10 MG Oral Tablet (Singulair) TAKE ONE TABLET BY MOUTH EVERY DAY (Patient takingdifferently: at bedtime.) 90 Tablet 3 Atorvastatin Calcium 40 MG Oral Tablet (Lipitor) TAKE 1 TABLET BY MOUTH EVERY MORNING 90 Tablet 3 Dexcom G6 Sensor use to check glucose 9 Each 1 Chlorthalidone 25 MG Oral Tablet (Hygroton) Take 1 Tablet by mouth at bedtime. 30 Tablet 5 Dexcom G6 Transmitter USE TO CHECK GLUCOSE DXE11.9 3 Each 1 Lisinopril 40 MG Oral Tablet TAKE ONE [...] day with insulin pump 70 mL 0 No current facility-administered medications for this visit. Objective: The 10-year ASCVD risk score (Priya DK, et al., 2019) is: 22% Values used to calculate the score: Age: 69 years Sex: Male Is Non- : No Diabetic: Yes Tobacco smoker: No Systolic Blood Pressure: 110 mmHg Is BP treated: Yes HDL Cholesterol: 51 mg/dL Total Cholesterol: 131 mg/dL Estimated body mass index is 24.37 kg/m as calculated from the following: Height as of 04/08/24: 1.676 m (5' 6"). Weight as of 04/08/24: 68.5 kg (151 lb). BP Readings from Last 3 Encounters: 04/13/24 110/54 03/29/24 156/64 02/19/24 120/60 No components found for: "[id number]" No results found for: "MICROALBUMIN" Lab Results Component Value Date/Time LDL CHOLESTEROL (CALCULATED) - [facility] 03/10/2023 08:38 AM LDL CHOLESTEROL (CALCULATED) - [facility] 71 06/03/2020 10:05 AM LDL CHOLESTEROL (DIRECT MEASURE) - [facility] NOT APPLICABLE 06/03/2020 10:05 AM LDL CHOLESTEROL (DIRECT MEASURE) - [facility] 111 12/06/2010 01:34 PM Lab Results Component Value Date/Time ALT - [facility] 21 06/03/2020 10:05 AM Assessment & Plan: Reviewed BG readings with patient. Improvement in overall average noted, specifically throughout the day. However increased in hypoglycemia observed. Reviewed with patient who attributes this to dayswhen he was out shoveling snow all day. Reviewed activity mode. Reviewed how to navigate to this onOmnipod candy cooker helper with patient over video. Encouraged to utilize when working hard outside. Patient expressed understanding and was agreeable. Patient averaging about 1.7 entries/day. Reviewed the importance of entering each meal into insulinpump. Of note, patient often eating 50-70 grams of carbs with supper. Usually goes to bed right after, leading to overnight hyperglycemia and early AM hypoglycemia. Explained the plate method in detail and discussed the importance of eating a balanced diet with CHO and protein. Discussed how CHO, proteins and fats effect her blood sugar. Patient expressed understanding and is agreeable to work onthis. Patient to SMBG at least 4 times daily, before each meal and at bedtime. Patient aware to contact clinic if any hypoglycemia before next visit. Reviewed rule of 15s. Reviewed appropriate management of hyperglycemia as noted in pump start documentation. Diabetes Medications: Omnipod 5 Insulin Pump Insulin: Novolog Basal rate: Midnight: 0.95 unit/hr 2AM: 1.10 unit/hr 6AM: 0.225 unit/hr 11AM: 0.575 unit/hr 6PM: 1.0 units/hr Bolus: Bolus Calculator: on and using ICR: 12AM - 12PM: 11 12PM-3PM: 13 3PM - 12AM: 11 ISF: 40 Bolus Calculator: Target B Correct above: 160 Active Insulin Time: 4 hours Diabetes Health Maintenance: Updated labs ordered for patient to obtain, expressed understanding Return to Clinic: 8 week(s) (video visit, patient preference) 09/30/24 Isaura Herzog RPh, PharmD Clinical Pharmacist - Sterile Technician [facility] 08/11/2024, 2:44 PM [phone] documented in this encounter Plan of Treatment Upcoming Encounters Date Type Department Care Team (Late st Contact Info) Description 08/17/2024 2:30 PM EST Office Visit Nephrology [address] [place] [address] Marilee Blackwood PA-C [facility] [place] [address] 09/30/2024 8:30 AM EST Telemedicine Pharmacy, [address] [place] [address] [place] [address] 10/14/2024 8:00 AM EDT Telemedicine Pharmacy, [address] [place] [address] [place] [address] Scheduled Procedures Name Priority Associated Diagnoses Date/Ti me SIGMOIDOSCOPY FLEXIBLE DIAGNOSTIC Recall Ulcerative colitis (HCC) Health Maintenance Due Date Last Done Comments Cologuard 2000 Colonoscopy 2000 Fecal Occult Blood Test 2000 Adult Wellness Visit 2021 Diabetic Foot Exam 12/25/2022 12/25/2021, 0 09/04/2020 (Declined), 05/03/2019, Additional history exists Albumin/Creatinine Ratio 09/24/2024 024, 03/10/2023, 09/24/2022, Additional history exists CKD PHOS USE SMARTSET 68493 09/24/202409/05, 06/04/2022, 10/11/2021, Additional history exists GFR 09/29/2024 03/29/2024, 05/0 08/2023, 09/24/2023, Additional history exists HbA1c 09/29/2024 03/29/2024, 09/05, 03/10/2023, Additional history exists Diabetic Eye Exam 01/18/2025 01/19/2024, , 02/03/2023, Additional history exists Depression Screening 02/18/2025 02/19/2024 CKD HGB USE SMARTSET 57408 03/29/202503/29, 12/03/2023, 10/03/2022, Additional history exists Colorectal Cancer Screening 11/12/2027 Sigmoidoscopy 11/12/2027 11/11/2022, 03/30/2004 Lipid Panel 03/10/2028 03/10/2023, 10/02, 06/03/2020, Additional history exists DTap/Tdap Vaccines (3 - Td or Tdap) 12/31/2028 12/31/2018, 07/26/2008 AAA Screening Completed 09/01/2019, 09/02/2016 Zoster Vaccines [...] Primary documented in this encounter Care Teams Supervisor Bakery Sanitation Relationship Specialty Start Date End Date Luna Montemayor MD [address] [place] [address] [place] [address] PCP - General Family Medicine 06/30/19 documented as of this encounter
--- OUTSIDE RECORDS SUMMARY | 2024-10-25 22:20 | External Medical Summary ---
Author Name Unknown Address Unknown Organization [id number][place] [place] [address] [facility] [address] Laboratory Report Ordering Provider Test Date Status MARIPOSA RENEE 08/17/2024 15:01:18 Final Observation Date Value Abnormality Reference (Units ) Status BUN 08/17/2024 15:01:18 40 Above high normal 6-20 (mg/dL) Final Creatinine 08/17/2024 15:01:18 2.2 Above high normal 0.6-1.2 (mg/dL) Final Glomerular filtration rate/1.73 sq M.predicted [Volume Rate/Area] in Serum, Plasma or Blood by Creatinine-based formula (CKD-EPI) 08/17/2024 15:01:18 32 Below low normal >=60 (mL/min) Final eGFR is calculated based on the CKD-EPI 2020 equation. Sodium 08/17/2024 15:01:18 133 Below low normal 135 -146 (mmol/L) Final Potassium 08/17/2024 15:01:18 5.6 Above high normal 3. 5-5.1 (mmol/L) Final Cl 08/17/2024 15:01:18 104 98-107 (mm ol/L) Final CO2 08/17/2024 15:01:18 19 Below low normal 22- 32 (mmol/L) Final Anion gap 08/17/2024 15:01:18 10 7-15 (mmol /L) Final Glucose 08/17/2024 15:01:18 225 Above high normal 70 -120 (mg/dL) Final Albumin 08/17/2024 15:01:18 3.9 3.8-5.0 (g /dL) Final AST (Aspartate aminotransferase) 08/17/2024 15:01:18 17 10-50 (U/L) Fin al Alk Phos 08/17/2024 15:01:18 81 35-130 (U/ L) Final Bilirubin, Total 08/17/2024 15:01:18 <0.2 <=1 .2 (mg/dL) Final Calcium 08/17/2024 15:01:18 9.0 8.4-10.2 ( mg/dL) Final Protein 08/17/2024 15:01:18 6.4 6.0-8.3 (g /dL) Final ALT (Alanine aminotransferase) 08/17/2024 15:01:18 18 10-50 (U/L) Zan hauser Performing Location [facility] [place] [address] [facility] [address]
--- OUTSIDE RECORDS SUMMARY | 2024-10-25 22:20 | External Medical Summary | Summary of Care ---
Author Name Unknown Organization [facility] Address [address] [place] [address] Phone [phone] Care Team Providers Care Distance Education Teacher Name Role Phone Luna Montemayor MD Primary Care Prov ider Encounter Details Date Type Department Care Team (Late st Contact Info) Description 08/21/2024 Telephone Family [address] [address] Luna Montemayor MD [address] [place] [address] [place] [address] Allergies Active Allergy Reactions Criticality Noted Date Comments Sulfa Antibiotics 05/01/2001 documented as of this encounter (statuses as of 08/23/2024) Medications ONETOUCH LANCETS MISCIndications:D M type 2, [...] hemoglobin A1c goal of less than 8.0% ([facility]) Test BG up to 4 times daily 100 Strip 4 1 Active OneTouch Ultra Blue In Vitro Strip (Glucose Blood)Indications :Type 2 diabetes mellitus with cataract ([facility]) test blood sugar up to 3 times daily Dx: E11.9 300 Strip 3 1 Active Ketone Test In Vitro StripIndications: Type 2 diabetes mellitus with cataract ([facility]) Use as needed for sick [...] hemoglobin A1c goal of less than 7.0% ([facility]) inject up to 80 units per day with insulin pump 70 mL 4 Active B-12 50 MCG Oral Tablet Take by mouth. 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 As discussed at previous visits, recommend patient to continue to work on entering CHOs consumed into insulin pump in order to bolus appropriately. Isaura Herzog RPh, PharmD Clinical Pharmacist - Motor Vehicle Escort Driver [facility] 08/23/2024, 12:20 PM [phone] * Telephone Encounter - Luna Montemayor MD - 08/21/2024 1:18 PM EST See recent lab results: MTM: A1C 8.6 Electrolytes are also abnormal and I will have him repeat before adjusting meds. Just sending a heads up on his A1C so you can adjust insulin accordingly. NURSING: Please advise patient to return for repeat labs. documented in this encounter Plan of Treatment Upcoming Encounters Date Type Department Care Team (Late st Contact Info) Description 09/30/2024 8:30 AM EST Telemedicine Pharmacy, [address] [place] [address] [place] [address] 10/14/2024 8:00 AM EDT Telemedicine Pharmacy, [address] [place] [address] [place] [address] 04/14/2025 3:00 PM EDT Office Visit Nephrology [address] [place] [address] Berenice Schroeder MD 200 [facility] [place] [address] Scheduled Orders Name Type Priority Associated Diagnoses Orde r Schedule BASIC METABOLIC PANEL Lab Routine Stage 3b chronic kidney disease (HCC) Expected: 08/21/2024 (Approximate), Expires: 08/21/2025 Scheduled Procedures Name Priority Associated Diagnoses Date/Ti [...] 12/03/2023, Additional history exists HbA1c 02/14/2025 08/17/2024, 0801/2024, 09/24/2023, Additional history exists Depression Screening 02/18/2025 02/19/2024 CKD HGB USE SMARTSET 34266 03/29/202503/29, 12/03/2023, 10/03/2022, Additional history exists Albumin/Creatinine Ratio 08/17/2025 025, 09/24/2023, 03/10/2023, Additional history exists CKD PHOS USE SMARTSET 04813 08/17/202508/04, 09/24/2023, 06/04/2022, Additional history exists Colorectal [...] Diagnoses Diagnosis Stage 3b chronic kidney disease (HCC)- Primary documented in this encounter Care Teams Distance Education Teacher Relationship Specialty Start Date End Date Luna Montemayor MD [address] [place] [address] [place] [address] PCP - General Family Medicine 06/30/19 documented as of this encounter
--- OUTSIDE RECORDS SUMMARY | 2024-10-25 22:20 | External Medical Summary | Summary of Care ---
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 Not on file Not o n file documented as of this encounter Plan of Treatment Upcoming Encounters Date Type Department Care Team (Late st Contact Info) Description 09/30/2024 8:30 AM EST Telemedicine Pharmacy, [address] [place] [address] [place] [address] 10/14/2024 8:00 AM EDT Telemedicine Pharmacy, [address] [place] [address] [place] [address] 04/14/2025 3:00 PM EDT Office Visit Nephrology [address] [place] [address] Berenice Schroeder MD 200 [facility] [place] [address] Scheduled Procedures Name Priority Associated Diagnoses Date/Ti [...] Screening 02/18/2025 02/19/2024 CKD HGB USE SMARTSET 43962 03/29/202503/29, 12/03/2023, 10/03/2022, Additional history exists Albumin/Creatinine Ratio 08/17/2025 025, 09/24/2023, 03/10/2023, Additional history exists CKD PHOS USE SMARTSET 50967 08/17/202508/04, 09/24/2023, 06/04/2022, Additional history exists Colorectal [...] Not on filedocumented as of this encounter Care Teams Edging Catcher Relationship Specialty Start Date End Date Luna Montemayor MD [address] [place] [address] [place] [address] PCP - General Family Medicine 06/30/19 documented as of this encounter
--- OUTSIDE RECORDS SUMMARY | 2024-10-25 22:20 | External Medical Summary ---
Author Name Unknown Address Unknown Organization K01:[facility] [place] [address] [place] [address] Laboratory Report Ordering Provider Test Date Status MARIPOSA RENEE 08/17/2024 15:01:18 Final Observation Date Value Abnormality Reference (Units ) Status LDL, (direct) 08/17/2024 15:01:18 58 <=129 (mg/dL) Final LDL Cholesterol Reference Ra nges (mg/dL):
<70 Target level for high risk ASCVD patient
<100 Optimal for general population
100-129 Near optimal for general population
130-159 Borderline high
160-189 High
>=190 Very high Performing Location LABORATORY [facility] - [address] [place] [address]
--- OUTSIDE RECORDS SUMMARY | 2024-10-25 22:20 | External Medical Summary ---
Author Name Unknown Address Unknown Organization K01:[facility] [place] - [address] [facility] [address] [facility] [address] Laboratory Report Ordering Provider Test Date Status MARIPOSA RENEE 08/17/2024 15:01:18 Final Observation Date Value Abnormality Reference (Units ) Status Triglyceride 08/17/2024 15:01:18 195 Above high normal <=174 (mg/dL) Final Triglyceride Reference Range s (mg/dL):
<150 Acceptable
150-174 Borderline high
175-499 High
>=500 Very high Cholesterol 08/17/2024 15:01:18 115 <200 (mg /dL) Final Total Cholesterol Reference Ranges (mg/dL):
<200 Desirable
200-239 Borderline high
>=240 High HDL 08/17/2024 15:01:18 38 Below low normal >39 (mg/dL) Final HDL Cholesterol Reference Ra nges (mg/dL):
>=60 High (Desirable)
<50 Low (Undesirable) For Females
<40 Low (Undesirable) For Males NON-HDL CHOLESTEROL 08/17/2024 15:01:18 77 <=159 (mg/dL) Final Non-HDL Cholesterol Referenc e Range (mg/dL):
<100 Target level for high risk ASCVD patient
<130 Optimal for general population
130-159 Near optimal for general population
160-189 Borderline High
190-219 High
>=220 Very High Performing Location LAB[facility] [place] - [address] [place] [address]
--- OUTSIDE RECORDS SUMMARY | 2024-10-25 22:20 | External Medical Summary ---
Author Name Unknown Address Unknown Organization K01:[facility] [place] - [address] [facility] [address] [facility] [address] Laboratory Report Ordering Provider Test Date Status THELMAMARIPOSA 08/17/2024 15:01:18 Final Observation Date Value Abnormality Reference (Units ) Status HbA1C 08/17/2024 15:01:18 8.6 Above high normal 4. 0-5.6 (%) Final The use of HbA1c to monitor glycemic status is based on normal hemoglobin and HbA composition. This test should not be used in patients with abnormal hemoglobin that affects the half life of the red blood cell or the in vivo glycation rates. Glucose, estimated average 08/17/2024 15:01:18 200 Above high normal <126 (mg/dL) Zan hauser Performing Location [facility] [place] - [address] [facility] [address]
--- OUTSIDE RECORDS SUMMARY | 2024-10-25 22:20 | External Medical Summary | Summary of Care ---
Author Name Unknown Organization [facility] Address [address] [place] [address] Phone [phone] Care Team Providers Care Workforce Specialist Name Role Phone Luna Montemayor MD Primary Care Prov ider Reason for Visit * Reason Comments Dosage Adjustment Via Phone (anticoag Cl inic) Hypertension Encounter Details Date Type Department Care Team (Late st Contact Info) Description 08/05/2024 8:00 AM [facility] Telemedicine Pharmacy, [address] [place] [address] [place] [address] Hypertension associated with stage 3b chronic kidney disease due to type 2 diabetes mellitus (HCC)* Allergies Active Allergy Reactions Criticality Noted Date Comments Sulfa Antibiotics 05/01/2001 documented as of this encounter (statuses as of 08/05/2024) Medications ONETOUCH LANCETS MISCIndications:D M type 2, [...] StripIndications: Type 2 diabetes mellitus with cataract ([facility]) Use as needed for sick [...] hemoglobin A1c goal of less than 7.0% ([facility]) inject up to 80 units per day with insulin pump 70 mL 4 Active documented as of this encounter (statuses as of 08/05/2024) Active Problems Problem Noted Date Diagnosed Date [...] as of this encounter (statuses as of 08/05/2024) Resolved Problems Problem Noted Date Diagnosed Date [...] as of this encounter (statuses as of 08/05/2024) Immunizations Name Administration Dates Next Due COVID-19 [...] Industry Job Start Date Job End Date [employer] Not on file Not on file Not o n file documented as of this encounter Progress Notes * Isaura Herzog, [facility] - 08/05/2024 8:00 AM EST After connecting to the patient via telephone, the patient was identified by name and date of . Patient was then informed that this was a telephone call only visit. The patient agreed to participate. Visit Disposition: Routine follow-up Total call duration was 15 minutes. PHARMACY CHRONIC DISEASE MANAGEMENT - HYPERTENSION HPI: Shay Ann is a 69 year old year old male. Referred for HTN management by Luna Ahn MD . Blood pressure goal: < 130/80 Diet review: Low sodium diet education completed Exercise review: Extremely busy/active during the day The 10-year ASCVD risk score (Priya MINAYA, et al., 2019) is: 22% Values used to calculate the score: Age: 69 years Sex: Male Is Non- : No Diabetic: Yes Tobacco smoker: No Systolic Blood Pressure: 110 mmHg Is BP treated: Yes HDL Cholesterol: 51 mg/dL Total Cholesterol: 131 mg/dL Does patient monitor BP at home? Yes Home BP log results: See below Systolic Diastolic Pulse Systolic Diastolic 138 73 Average 138 73 High 73 73 Low 73 73 Range 0 0 Count 1 1 Does patient monitor HR at home? no Home HR log results: Patient Active Problem List Diagnosis Anemia BENIGN [...] Objective: BP Readings from Last 3 Encounters: 04/13/24 110/54 03/29/24 156/64 02/19/24 120/60 Pulse Readings from Last 3 Encounters: 04/13/24 71 03/29/24 65 02/19/24 74 Wt Readings from Last 3 Encounters: 04/08/24 68.5 kg (151 lb) 03/29/24 73 kg (161 lb) 02/19/24 71.2 kg (157 lb) No results found for: "MICROALBUMIN" Current Hypertension Medication(s): Lisinopril 40mg daily Chlorthalidone 25mg daily Amlodipine 10mg (increased by nephro 03/29) at night Assessment & Plan: Recent BMP showed mild potassium elevation. Per 04/07 TE, patient had been out of chlorthalidone while labs were obtained. Successfully restarted, updated BMP ordered to obtain. This was discussed at last visit however patient has still not obtained. Encouraged to have drawn prior to 08/17 nephrology OV. BP log limited. Singular reading slightly above goal. Of note, last BP in clinic 110/54. Reviewed with patient. Continuing to work on limiting caffeine intake as able. Encouraged to continue. Confirmed medications as well as adherence. Upcoming nephrology OV on 08/17. Will defer changes until this time when inperson BP and labs can be obtained. Telephonic f/u scheduled x8 weeks. Medication Changes: None Labs Due: Repeat BMP ordered Follow up: 8 weeks I spent a total of 20-29 minutes (exact time 25 mins) on the date of service in preparation, delivery, and documentation of the care provided to Shay Ann excluding any time spent in the performance of separately billed services or time spent by another provider/QHP. Isaura Herzog RPh, PharmD Clinical Pharmacist - Shake Out Worker Medication Therapy [facility] 08/05/2024, 3:59 PM [phone] documented in this encounter Plan of Treatment Upcoming Encounters Date Type Department Care Team (Late st Contact Info) Description 08/11/2024 8:00 AM EST Telemedicine Pharmacy, [address] [place] [address] [place] [address] 08/17/2024 2:30 PM EST Office Visit Nephrology [address] [place] [address] Zemaitis, Marilee Bishop PA-C [address] [place] [address] 09/30/2024 8:30 AM EST Telemedicine Pharmacy, [address] [place] [address] [place] [address] Scheduled Procedures Name Priority Associated Diagnoses Date/Ti me SIGMOIDOSCOPY FLEXIBLE DIAGNOSTIC Recall Ulcerative colitis (HCC) Health Maintenance Due Date Last Done Comments Cologuard 2000 Colonoscopy 2000 Fecal Occult Blood Test 2000 Adult Wellness Visit 2021 Diabetic Foot Exam 12/25/2022 12/25/2021, 0 09/04/2020 (Declined), 05/03/2019, Additional history exists Albumin/Creatinine Ratio 09/24/2024 024, 03/10/2023, 09/24/2022, Additional history exists CKD PHOS USE SMARTSET 03512 09/24/202409/05, 06/04/2022, 10/11/2021, Additional history exists GFR 09/29/2024 03/29/2024, 05/0 08/2023, 09/24/2023, Additional history exists HbA1c 09/29/2024 03/29/2024, 09/05, 03/10/2023, Additional history exists Diabetic Eye Exam 01/18/2025 01/19/2024, , 02/03/2023, Additional history exists Depression Screening 02/18/2025 02/19/2024 CKD HGB USE SMARTSET 29937 03/29/202503/29, 12/03/2023, 10/03/2022, Additional history exists Colorectal [...] Primary documented in this encounter Care Teams Workforce Specialist Relationship Specialty Start Date End Date Luna Montemayor MD [address] [place] [address] [place] [address] PCP - General Family Medicine 06/30/19 documented as of this encounter
--- OUTSIDE RECORDS SUMMARY | 2024-10-25 22:20 | External Medical Summary ---
Author Name Unknown Address Unknown Organization K01:[facility] [address] [place] [address] Laboratory Report Ordering Provider Test Date Status NAVDEEP TOLBERTITIS 08/17/2024 15:01:18 Final Observation Date Value Abnormality Reference (Units ) Status Phosphate 08/17/2024 15:01:18 3.3 2.5-4.8 (m g/dL) Final Performing Location [facility] [address] [place] [address]
--- OUTSIDE RECORDS SUMMARY | 2024-10-25 22:20 | External Medical Summary | Summary of Care ---
Author Name Unknown Organization [facility] Address [address] [place] [address] Phone [phone] Care Team Providers Care Presentation Specialist Name Role Phone Luna Montemayor MD Primary Care Prov ider Reason for Visit * Reason Comments Outpatient Testing Encounter Details Date Type Department Care Team (Late st Contact Info) Description 08/17/2024 3:00 PM EST Laboratory Laboratory [address] [place] [phone] [place] [address] Type 2 diabetes mellitus with cataract (HCC); Stage 3b chronic kidney disease (HCC); Iron deficiency anemia, unspecified iron deficiency anemia type; Hypertension associated with stage 3b chronic kidney disease due to type 2 diabetes mellitus (HCC); Hyperkalemia Allergies Active Allergy Reactions Criticality Noted Date Comments Sulfa Antibiotics 05/01/2001 documented as of this encounter (statuses as of 08/17/2024) Medications ONETOUCH LANCETS MISCIndications:D M type 2, goal A1c below 7 test 4 times a day [address] 2 Active Insulin Infusion Pump (MINIMTelePharm 630G INSULIN PUMP) KIT Use as directed. [...] as of this encounter (statuses as of 08/17/2024) Active Problems Problem Noted Date Diagnosed Date [...] as of this encounter (statuses as of 08/17/2024) Resolved Problems Problem Noted Date Diagnosed Date [...] as of this encounter (statuses as of 08/17/2024) Immunizations Name Administration Dates Next Due COVID-19 [...] Industry Job Start Date Job End Date [employer] Not on file Not on file Not o n file documented as of this encounter Plan of Treatment Upcoming Encounters Date Type Department Care Team (Late st Contact Info) Description 09/30/2024 8:30 AM EST Telemedicine Pharmacy, [address] [place] [address] [place] [address] 10/14/2024 8:00 AM EDT Telemedicine Pharmacy, [address] [place] [address] [place] [address] 04/14/2025 3:00 PM EDT Office Visit Nephrology [address] [place] [address] Berenice Schroeder MD [address] [place], [place] [address] [address] Pending Results Name Type Priority Associated Diagnoses Date /Time COMPREHENSIVE METABOLIC PANEL Lab Routine Type 2 diabetes mellitus with cataract (HCC) 08/17/2024 3:01 PM EST LIPID PANEL WITH DIRECT LDL IF TG IS HIGH Lab Routine Type 2 diabetes mellitus with cataract (HCC) 08/17/2024 3:01 PM EST HEMOGLOBIN A1C Lab Routine Type 2 diabetes mellitus with cataract ([facility]) 08/17/2024 3:01 PM EST ERYTHROPOIETIN (EPO) Lab Routine Stage 3b chronic kidney disease (HCC) Iron deficiency anemia, unspecified iron deficiency anemia type 08/17/2024 3:01 PM EST URINALYSIS WITH MICROSCOPIC EXAM Lab Routine Hypertension associated with stage 3b chronic kidney disease due to type 2 diabetes mellitus (HCC) 08/17/2024 3:01 PM EST ALBUMIN / CREATININE RATIO, URINE Lab Routine Hypertension associated with stage 3b chronic kidney disease due to type 2 diabetes mellitus (HCC) 08/17/2024 3:01 PM EST PHOSPHORUS Lab Routine Stage 3b chronic kidney disease (HCC) Hyperkalemia 08/17/2024 3:01 PM EST Scheduled Procedures Name Priority Associated Diagnoses Date/Ti me SIGMOIDOSCOPY FLEXIBLE DIAGNOSTIC Recall Ulcerative colitis (HCC) Health Maintenance Due Date Last Done Comments Cologuard 2000 Colonoscopy 2000 Fecal Occult Blood Test 2000 Adult Wellness Visit 2021 Diabetic Foot Exam 12/25/2022 12/25/2021, 0 09/04/2020 (Declined), 05/03/2019, Additional history exists Albumin/Creatinine Ratio 09/24/2024 024, 03/10/2023, 09/24/2022, Additional history exists CKD PHOS USE SMARTSET 97231 09/24/202409/05, 06/04/2022, 10/11/2021, Additional history exists GFR 09/29/2024 03/29/2024, 05/0 08/2023, 09/24/2023, Additional history exists HbA1c 09/29/2024 03/29/2024, 09/05, 03/10/2023, Additional history exists Diabetic Eye Exam 01/18/2025 01/19/2024, , 02/03/2023, Additional history exists Depression Screening 02/18/2025 02/19/2024 CKD HGB USE SMARTSET 25659 03/29/202503/29, 12/03/2023, 10/03/2022, Additional history exists Colorectal [...] Type 2 diabetes mellitus with cataract (HCC) Stage 3b chronic kidney disease (HCC) Iron deficiency anemia, unspecified iron deficiency anemia type Hypertension associated with stage 3b chronic kidney disease due to type 2 diabetes mellitus (HCC) Hyperkalemia Hyperpotassemia documented in this encounter Care Teams Presentation Specialist Relationship Specialty Start Date End Date Luna Montemayor MD [address] [place] [address] [place] [phone] PCP - General Family Medicine 06/30/19 documented as of this encounter
--- OUTSIDE RECORDS SUMMARY | 2024-10-25 22:20 | External Medical Summary | Summary of Care ---
Author Name Unknown Organization [facility] Address [address] [place] [address] Phone [phone] Care Team Providers Care Printer'S Devil Name Role Phone Luna Montemayor MD Primary Care Prov ider Encounter Details Date Type Department Care Team (Late st Contact Info) Description 08/23/2024 Orders Only PATIENT PORTAL DO NOT DELETE THIS DEPT USED BY [place] [id number] Allergies Active Allergy Reactions Criticality Noted Date Comments Sulfa Antibiotics 05/01/2001 documented as of this encounter (statuses as of 08/23/2024) Medications ONETOUCH LANCETS MISCIndications:D M type 2, goal A1c below 7 test 4 times a day [address] 2 Active Insulin Infusion Pump (MINIMroomlinx 630G INSULIN PUMP) KIT Use as directed. [...] times daily 100 Strip 4 1 Active Kloudcouch Ultra Blue In Vitro Strip (Glucose Blood)Indications [...] No 02/19/2024 Does the household have a [facility] source of income? (Household - for ages [...] Industry Job Start Date Job End Date [employer] Not on file Not on file Not o n file documented as of this encounter Plan of Treatment Upcoming Encounters Date Type Department Care Team (Late st Contact Info) Description 09/30/2024 8:30 AM EST Telemedicine Pharmacy, [address] [place] [address] [place] [address] 10/14/2024 8:00 AM EDT Telemedicine Pharmacy, [address] [place] [address] [place] [address] 04/14/2025 3:00 PM EDT Office Visit Nephrology [address] [place] [address] Berenice Schroeder MD [address] [place] [address] Scheduled Procedures Name Priority Associated Diagnoses Date/Ti [...] Screening 02/18/2025 02/19/2024 CKD HGB USE SMARTSET 24791 03/29/202503/29, 12/03/2023, 10/03/2022, Additional history exists Albumin/Creatinine Ratio 08/17/2025 025, 09/24/2023, 03/10/2023, Additional history exists CKD PHOS USE SMARTSET 16575 08/17/202508/04, 09/24/2023, 06/04/2022, Additional history exists Colorectal [...] filedocumented as of this encounter Care Teams Printer'S Devil Relationship Specialty Start Date End Date Luna Montemayor MD [address] [place] [address] [place] [address] PCP - General Family Medicine 06/30/19 documented as of this encounter
--- OUTSIDE RECORDS SUMMARY | 2024-10-25 22:20 | External Medical Summary | Summary of Care ---
Author Name Unknown Organization [facility] Address [address] [place] [address] Phone [phone] Care Team Providers Care Marketing Research Analyst Name Role Phone Thelma Wilkinson MD Primary Care Prov ider Reason for Visit * Reason Comments eRx-Medication Refill Encounter Details Date Type Department Care Team (Late st Contact Info) Description 07/16/2024 Refill Family Medicine [address] [phone] Thelma Wilkinson MD [address] [place] [address] [place] [id number] Type 2 diabetes mellitus with hemoglobin A1c goal of less than 7.0% ([facility]) Allergies Active Allergy Reactions Criticality Noted Date Comments Sulfa Antibiotics 05/01/2001 documented as of this encounter (statuses as of 07/17/2024) Medications ONETOUCH LANCETS MISCIndications: DM type 2, [...] 3 times a week 120 mL 05/02/20 Active OneTouch Ultra Blue In Vitro Strip (Glucose Blood)Indication s:Type 2 diabetes mellitus with hemoglobin A1c goal of less than 8.0% ([facility]) Test BG up to 4 times daily 100 Strip 4 05/02/20 21 Active OneTouch Ultra Blue In Vitro Strip (Glucose Blood)Indication s:Type 2 diabetes mellitus with cataract ([facility]) test blood sugar up to 3 times daily Dx: E11.9 300 Strip 3 05/02/20 21 Active Ketone Test In Vitro StripIndications :Type 2 diabetes mellitus with cataract ([facility]) Use as needed for sick days to [...] 04/08/2024 Atorvastatin Calcium 40 MG Oral Tablet (Lipitor)Indicat ions:Type 2 DM with CKD stage 3 and hypertension (HCC) TAKE 1 TABLET BY MOUTH EVERY MORNING 90 Tablet 3 12/09/19 24 Active Dexcom G6 SensorIndication s:Type 2 diabetes mellitus with cataract ([facility]) use to check glucose 9 Each 1 03/19/20 24 Active Chlorthalidone 25 MG Oral Tablet [...] insulin pump 70 mL 07/17/20 24 Active Insulin Aspart 100 UNIT/ML Injection Solution (NovoLOG)Indicat ions:Type 2 diabetes mellitus with hemoglobin A1c goal of less than 7.0% (HCC) inject up to 80 units per day with insulin pump 70 mL 1 11/04/19 24 2023 Discontinued documented as of this encounter (statuses as of 07/17/2024) Active Problems Problem Noted Date Diagnosed Date [...] as of this encounter (statuses as of 07/17/2024) Resolved Problems Problem Noted Date Diagnosed Date [...] as of this encounter (statuses as of 07/17/2024) Immunizations Name Administration Dates Next Due COVID-19 [...] encounter Miscellaneous Notes * Telephone Encounter - Luna Stokes RPh - 07/17/2024 6:43 PM ESTSigned Prescriptions: Disp Refills Insulin Aspart 100 UNIT/ML Injection Solut*70 mL 0 Sig: inject up to 80 units per day with insulin pumpAuthorizing Provider: THELMA WILKINSON User: LUNA STOKES * Telephone Encounter - Luna Stokes RPh - 07/17/2024 6:42 PM EST Patient managed by [facility]. Refills authorized. Luna Stokes RPH Clinical Pharmacist 07/17/2024, 6:43 PM documented in this encounter Plan of Treatment Upcoming Encounters Date Type Department Care Team (Late st Contact Info) Description 07/21/2024 8:30 AM EST Telemedicine Pharmacy, [address] [place] [address] [place] [address] 08/11/2024 8:00 AM EST Telemedicine Pharmacy, [address] [place] [address] [place] [address] 08/17/2024 2:30 PM EST Office Visit Nephrology [address] [place] [address] ZeMarilee jack PA-C [address] [place] [address] Scheduled Procedures Name Priority Associated Diagnoses Date/Ti me SIGMOIDOSCOPY FLEXIBLE DIAGNOSTIC Recall Ulcerative colitis (HCC) Health Maintenance Due Date Last Done Comments Cologuard 2000 Colonoscopy 2000 Fecal Occult Blood Test 2000 Adult Wellness Visit 2021 Diabetic Foot Exam 12/25/2022 12/25/2021, 0 09/04/2020 (Declined), 05/03/2019, Additional history exists Albumin/Creatinine Ratio 09/24/2024 024, 03/10/2023, 09/24/2022, Additional history exists CKD PHOS USE SMARTSET 65475 09/24/202409/05, 06/04/2022, 10/11/2021, Additional history exists GFR 09/29/2024 03/29/2024, 05/0 08/2023, 09/24/2023, Additional history exists HbA1c 09/29/2024 03/29/2024, 09/05, 03/10/2023, Additional history exists Diabetic Eye Exam 01/14/2025 01/15/2024, , 11/05/2022, Additional history exists Depression Screening 02/18/2025 02/19/2024 CKD HGB USE SMARTSET 10451 03/29/202503/29, 12/03/2023, 10/03/2022, Additional history exists Colorectal Cancer Screening 11/12/2027 Sigmoidoscopy 11/12/2027 11/11/2022, 03/30/2004 Lipid Panel 03/10/2028 03/10/2023, 10/02, 06/03/2020, Additional history exists DTap/Tdap Vaccines (3 - Td or Tdap) 12/31/2028 12/31/2018, 07/26/2008 AAA Screening Completed 09/01/2019, 09/02/2016 Zoster Vaccines Completed 02/28/2020, 08/05, 09/07/2015 Pneumococcal Vaccine: 65+ Years Completed 12/25/2021, 12/27/2016, 06/17/2007, Additional history [...] Diagnoses Diagnosis Type 2 diabetes mellitus with hemoglobin A1c goal of less than 7.0% (HCC) documented in this encounter Care Teams Marketing Research Analyst Relationship Specialty Start Date End Date Thelma Wilkinson MD [address] [place] [address] [place] [address] PCP - General Family Medicine 06/30/19 documented as of this encounter
--- OUTSIDE RECORDS SUMMARY | 2024-10-25 22:21 | External Medical Summary | Summary of Care ---
Author Name Unknown Organization [facility] Address [address] [place] [address] Phone [phone] Care Team Providers Care Home Health Lpn Name Role Phone Thelma Wilkinson MD Primary Care Prov ider Reason for Visit * Reason Comments eRx-Medication Refill Encounter Details Date Type Department Care Team (Late st Contact Info) Description 05/10/2024 Refill Family Medicine [address] [phone] Thelma Wilkinson MD [address] [place] [address] [place] [phone] Stage 3b chronic kidney disease (HCC) Allergies Active Allergy Reactions Criticality Noted Date Comments Sulfa Antibiotics 05/01/2001 documented as of this encounter (statuses as of 05/12/2024) Medications Medication Sig Dispensed Refills Start Date End Date Status ONETOUCH LANCETS MISCIndications:DM type 2, goal A1c below 7 test 4 times a day 125 [address] 04/16/2012 Active Insulin Infusion Pump (MINIMED 630G INSULIN PUMP) KIT Use as directed. 10/10/2017 A ctive Cholecalciferol (VITAMIN D) 50 MCG (2000 UT) Capsule Take 2,000 Units by mouth daily. Active Ketoconazole 2 % External Shampoo (Nizoral)Indicatio ns:Seborrheic dermatitis Massage into scalp. Rinse after 5 minutes. 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 If positive - seek medical attention 1 Strip 1 11/15/2021 Active Albuterol Sulfate HFA 108 (90 Base) MCG/ACT Inhalation Aerosol Solution Inhale 2 Puffs by mouth every 6 hours as needed for Shortness of Breath. 18 g 1 05/13/2023 Active Omnipod 5 G6 Intro (Gen 5) Kit Use as directed. 1 Kit 09/03/2023 Active Omnipod 5 G6 Pod (Gen 5) Change pod every 3 days 6 Each 4 09/03/2023 Active Insulin Aspart 100 UNIT/ML Injection Solution (NovoLOG)Indicatio ns:Type 2 diabetes mellitus with hemoglobin A1c goal of less than 7.0% (HCC) inject up to 80 units per day with insulin pump 70 mL 1 11/04/2023 Active Multi-Vitamins Oral Tablet Take 1 Tablet by mouth in the morning. Active Atrovent HFA 17 MCG/ACT Inhalation Aerosol Solution (ipratropium)Indic ations:Mild persistent asthma, uncomplicated inhale 2 puffs 4 times daily as needed. 12.9 g 3 11/18/2023 Active Fluticasone-Salmet pat 250-50 MCG/ACT Inhalation Aerosol Powder Breath Activated (Advair Diskus)Indications :Asthma, allergic INHALE ONE PUFF BY MOUTH TWICE DAILY 180 Each 1 11/24/2023 Active Montelukast Sodium 10 MG Oral Tablet (Singulair)Indicat ions:Mild persistent asthma without complication TAKE ONE TABLET BY MOUTH EVERY DAY 90 Tablet 3 12/09/2023 Active Additional Information Patient taking differently: HS, Reported on 04/08/2024 Atorvastatin Calcium 40 MG Oral Tablet (Lipitor)Indicatio ns:Type 2 DM with CKD stage 3 and hypertension (HCC) TAKE 1 TABLET BY MOUTH EVERY MORNING 90 Tablet 3 12/09/2023 Active Dexcom G6 SensorIndications: 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 03/29/2024 Active Chlorthalidone 25 MG Oral Tablet (Hygroton)Indicati ons:in pm Take 1 Tablet by mouth at bedtime. 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) USE TO CHECK GLUCOSE DXE11.9 3 Each 1 04/01/2024 Active Lisinopril 40 MG Oral TabletIndications: Stage 3b chronic kidney disease (HCC) TAKE ONE TABLET BY MOUTH IN THE MORNING 90 Tablet 1 05/12/2024 Active Lisinopril 40 MG Oral TabletIndications: Stage 3b chronic kidney disease (HCC) TAKE ONE TABLET BY MOUTH IN THE MORNING 90 Tablet 1 11/18/2023 05/12/20 24 Discontinued documented as of this encounter (statuses as of 05/12/2024) Active Problems Problem Noted Date Diagnosed Date Mild nonproliferative diabet ic retinopathy associated with type 2 diabetes mellitus 01/30/2022 Chronic kidney disease, stage 3b 01/16/2021 Overview: Per CKD protocol Hypertension associated with stage 3b chronic kidney disease due to type 2 diabetes mellitus 12/12/2020 Overview: Per CKD protocol H/O dysplastic nevus 09/09/2020 Overview: Moderately atypical nevus (R lower abdomen 09/2020) [...] 09/19/2016 Hx of nonmelanoma skin cancer 08/07/2016 Overview: BCC (central posterior neck, L lateral distal neck) Pure hypercholesterolemia 02/21/2016 Nonproliferative diabetic retinopathy 02/28/2014 Overview: On both eyes per eye exam 02/14/14 HTN, goal below 140/90 03/23/2012 Overview: Per HTN Protocol #27. BENIGN NEOPLASM THYROID 05/01/2006 ADVANCE DIRECTIVE INFORMATION 10/14/2005 Overview: No, Advance Directive brochure given to patient. Anemia 06/26/2005 documented as of this encounter (statuses as of 05/12/2024) Resolved Problems Problem Noted Date Diagnosed Date Resolved Date Ulcerative colitis 08/25/2019 0 Overview: S/p total colectomy 2007 Pouchitis 08/25/2019 12/25/2021 AYO inhibitor intolerance 02/18/2016 Encounter for surveillance of abnormal nevi 07/26/2015 08/20/2019 Overview: Historical Moderately-severely atypical nevus (R lateral mid back) Melanoma in situ of back 03/30/2014 Overview: Central upper back- 12/2013 Kidney disease, chronic, sta ge III (GFR 30-59 ml/min) 09/27/2013 08/21/2018 Overview: Per CKD protocol #1 Asthma, mild persistent 01/25/201008/05 Overview: Per Asthma Taxonomy ICD-10 update of inactive term HTN, GOAL BELOW 130/80 08/30/200903/26 Overview: Per HTN Taxonomy. DM type 2 causing renal disease 06/01/2009 01/07/2013 Overview: Per Diabetes Taxonomy. Added per DM w/ renal complications protocol #4 Type 2 diabetes mellitus wit h hemoglobin A1c goal of less than 7.0% 06/01/2009 01/07/2013 Overview: Per Diabetes Taxonomy. ICD-10 update of inactive term History of nonadherence to medical treatment 9 05/02/2017 DIAB RENAL MANIF ADULT 02/24/200806/01 Overview: Per Diabetes Taxonomy. Added per DM w/ renal complications protocol #4 HTN, goal below 140/90 08/18/200708/30 Overview: Per HTN Taxonomy. Asthma, allergic 01/25/2010 Type 2 diabetes mellitus wit h hemoglobin A1c goal of less than 7.0% 06/01/2009 Overview: Per Diabetes Taxonomy. ICD-10 update of inactive term Allergic rhinitis 08/20/2019 Overview: Historical Type 2 DM with CKD stage 3 and hypertension 12/14/2020 Overview: Per CKD protocol documented as of this encounter (statuses as of 05/12/2024) Immunizations Name Administration Dates Next Due COVID-19 mRNA, LNP-s, No Pre serve, 2-Dose Series (Moderna) 10/10/2020,09/03/2020 COVID-19, MRNA-LNP, 23-24, P F, 30 MCG/0.3 mL, 12 YRS AND ABOVE, IM (PFIZER-Comirnaty) 05/09/2023 COVID-19, mRNA, LNP-s, PF, B ooster, 100mcg/0.5mg [...] (Prevnar) 12/27/2016 Pneumococcal Polysaccharide PPV23 (Pneumovax) 12/25/2021,06/17/2007 Season Influenza, Quad, PF, Adjuvanted, 65+ Yrs, IM (FLUAD) 05/17/2020 Seasonal Influenza Vac., MDV , IM, 0.5 mL (Fluzone) 05/10/2014,05/03/2013,04/28/2012,06/04,06/22/2010,05/29/2009,06/17/2007 ,05/28/2006 Seasonal Influenza, PF, 6 M & above, [...] 02/19/2024 Does the household have a re lar source of income? (Household - for ages [...] Assigned at Male 02/19/2024 2:51 PM EDT Gender Identity Male 02/19/2024 2:51 PM EDT Sexual Orientation Straight 02/19/2024 2: 51 PM EDT Job Start Date Occupation Industry Not on file Not on file Not on file documented as of this encounter Miscellaneous Notes * Telephone Encounter - Thelma Wilkinson MD - 05/12/2024 1:06 PM EDT Signed Prescriptions: Disp Refills Lisinopril 40 MG Oral Tablet 90 Tab*1 Sig: TAKE ONE TABLET BY MOUTH IN THE MORNING Authorizing Provider: THELMA WILKINSON * Telephone Encounter - [facility] - 05/12/2024 6:01 AM EDT Pending Prescriptions: Disp Refills Lisinopril 40 MG Oral Tablet 90 Tab*1 Sig: TAKE ONE TABLET BY MOUTH IN THE MORNING * Telephone Encounter - [facility] - 05/11/2024 5:31 PM EDTPending Prescriptions: Disp Refills Lisinopril 40 MG Oral Tablet 90 Tab*1 Sig: TAKE ONE TABLET BY MOUTH IN THE MORNING * Telephone Encounter - [facility] - 05/11/2024 5:31 PM EDT Pending Prescriptions: Disp Refills Lisinopril 40 MG Oral Tablet 90 Tab*1 Sig: TAKE ONE TABLET BY MOUTH IN THE MORNING Last Visit: 02/19/2024 (in office), Visit date not found (telemedicine) Next Visit: Visit date not found If no future appointments scheduled, and last appointment is greater than a year ago, please schedule patient for a follow-up appointment Last date the medication was ordered: 11-18-23 Pharmacy: [facility] [id number] Is this request for a controlled substance?No Urine Drug Screen:No results found. However, due to the size of the patient record, not all encounters were searched. Please check Results Review for a complete set of results. Patient Phone Numbers Labs: Lab Results Component Value Date/Time CREAT 2.7 (H) 03/29/2024 03:55 PM CREAT 2.16 (A) 10/03/2022 12:00 AM CREAT 1.6 (H) 06/03/2020 10:05 AM POTASSIUM 5.5 (H) 03/29/2024 03:55 PM POTASSIUM 4.6 10/03/2022 12:00 AM POTASSIUM 5.4 (H) 06/03/2020 10:05 AM TSH 2.51 03/10/2023 08:38 AM TSH 1.87 04/30/2019 08:06 AM LDL 66 03/10/2023 08:38 AM LDL 71 06/03/2020 10:05 AM LDL NOT APPLICABLE 06/03/2020 10:05 AM ALT 21 06/03/2020 10:05 AM HGBA1C 7.8 (H) 03/29/2024 03:55 PM HGBA1C 7.8 (H) 06/03/2020 10:05 AM Fely SwansonPh. Clinical Pharmacist [facility] [address] [place] [address], [address] [address] MC: [phone] [id number] 05/11/2024,5:31 PM documented in this encounter Plan of Treatment Upcoming Encounters Date Type Department Care Team (Late st Contact Info) Description 05/19/2024 8:00 AM EDT Telemedicine Pharmacy, [address] [place] [address] [place] [address] 06/07/2024 8:30 AM EST Telemedicine Pharmacy, [address] [place] [address] [place] [address] 08/17/2024 2:30 PM EST Office Visit Nephrology Rica Mahmood[address] [place] [address] Marilee Blackwood PA-C [address] [place] [address] Scheduled Procedures Name Priority Associated Diagnoses Date/Ti me SIGMOIDOSCOPY FLEXIBLE DIAGNOSTIC Recall Ulcerative colitis (HCC) Health Maintenance Due Date Last Done Comments Cologuard 2000 Colonoscopy 2000 Fecal Occult Blood Test 2000 Adult Wellness Visit 2021 Diabetic Foot Exam 12/25/2022 12/25/2021, 0 09/04/2020 (Declined), 05/03/2019, Additional history exists COVID-19 Vaccine ( season) 2024 05/09/2023, 06/04/2022, 07/05/2021, Additional history exists Influenza Vaccine (FLU shot) (#1) 2024 04/17/2023, 05/29/2022, 05/10/2021, Additional history exists Albumin/Creatinine Ratio 09/24/2024 024, 03/10/2023, 09/24/2022, Additional history exists CKD PHOS USE SMARTSET 07633 09/24/202409/05, 06/04/2022, 10/11/2021, Additional history exists GFR 09/29/2024 03/29/2024, 05/0 08/2023, 09/24/2023, Additional history exists HbA1c 09/29/2024 03/29/2024, 09/05, 03/10/2023, Additional history exists Diabetic Eye Exam 01/14/2025 01/15/2024, , 11/05/2022, Additional history exists Depression Screening 02/18/2025 02/19/2024 CKD HGB USE SMARTSET 91045 03/29/202503/29, 12/03/2023, 10/03/2022, Additional history exists Colorectal [...] Completed 09/24/2022, 08/23/2010, 08/23/2010, Additional history exists DXA Scan Discontinued HPV [...] (HCC) documented in this encounter Care Teams Home Health Lpn Relationship Specialty Start Date End Date Thelma Wilkinson MD [address] [place] [address] [place] [address] PCP - General Family Medicine 06/30/19 documented as of this encounter
--- OUTSIDE RECORDS SUMMARY | 2024-10-25 22:21 | External Medical Summary | Summary of Care ---
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)* Allergies Active Allergy Reactions Criticality Noted Date Comments Sulfa Antibiotics 05/01/2001 documented as of this encounter (statuses as of 06/30/2024) Medications ONETOUCH LANCETS MISCIndications:D M type 2, [...] 3 days 6 Each 4 4 Active Insulin Aspart 100 UNIT/ML Injection Solution (NovoLOG)Indicati ons:Type 2 diabetes mellitus with hemoglobin A1c goal of less than 7.0% ([facility]) inject up to 80 units per day with insulin pump 70 mL 1 4 Active Multi-Vitamins Oral Tablet Take 1 [...] EVERY DAY 90 Tablet 3 4 Active documented as of this encounter (statuses as of 06/30/2024) Active Problems Problem Noted Date Diagnosed Date [...] as of this encounter (statuses as of 06/30/2024) Resolved Problems Problem Noted Date Diagnosed Date [...] as of this encounter (statuses as of 06/30/2024) Immunizations Name Administration Dates Next Due COVID-19 [...] this encounter Progress Notes * Isaura Herzog, [facility] - 06/30/2024 8:02 AM EST Images from the original note were not included. Patient location: HOME. I was in a hospital or clinic location. After connecting through [employer],patient was verified with two unique identifiers. 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) was then informed that this was [...] Hypoglycemia requiring assistance since last visit: no Current Diabetes Medications: Omnipod 5 Insulin Pump [...] retinopathy associated with type 2 diabetes mellitus ([facility]) Review of patient's allergies indicates: Allergen Reactions Sulfa Antibiotics Current Outpatient Medications Medication Sig Dispense Refill ONETOUCH LANCETS MISC test 4 times a day 125 [address] 5 Insulin Infusion Pump (MINIMED 630G INSULIN PUMP) [...] pod every 3 days 6 Each 4 Insulin Aspart 100 UNIT/ML Injection Solution (NovoLOG) inject up to 80 units per day with insulin pump 70 mL 1 Multi-Vitamins Oral Tablet Take 1 Tablet by [...] BY MOUTH EVERY DAY 90 Tablet 3 No current facility-administered medications for this visit. [...] 156/64 02/19/24 120/60 No components found for: "[id number]" No results found for: "MICROALBUMIN" Lab Results Component Value Date/Time LDL CHOLESTEROL (CALCULATED) - [facility] 66 03/10/2023 08:38 AM LDL CHOLESTEROL (CALCULATED) - [facility] 71 06/03/2020 10:05 AM LDL CHOLESTEROL (DIRECT MEASURE) - [facility] NOT APPLICABLE 06/03/2020 10:05 AM LDL CHOLESTEROL (DIRECT MEASURE) - [facility] 111 12/06/2010 01:34 PM Lab Results Component Value Date/Time ALT - [facility] 21 06/03/2020 10:05 AM Assessment & Plan: BG readings continuing to remain uncontrolled. Significantly variable. Of note, patient rising overnight. Specifically reviewed this weekend. Reviewed that readings become significantly elevated, pump then switching into manual mode. Patient states Friday night his daughter made cake, he did not bolus. Reviewed importance of inputting CHOs every time he eats. Patient expressed understanding. Patient to SMBG at least 4 times [...] to obtain, expressed understanding Return to Clinic: 6 week(s) (video visit, patient preference) 08/11/2024 Isaura Herzog RPh, PharmD Clinical Pharmacist - Web Producer Medication Therapy [facility] 06/30/2024, 8:29 AM [phone] documented in this encounter Plan of Treatment Upcoming Encounters Date Type Department Care Team (Late st Contact Info) Description 07/21/2024 8:30 AM EST Telemedicine Pharmacy, [address] [place] [address] [place] [address] 08/11/2024 8:00 AM EST Telemedicine Pharmacy, [address] [place] [address] [place] [address] 08/17/2024 2:30 PM EST Office Visit Nephrology [address] [place] [address] Marilee Blackwood PA-C [address] [place] [address] [place] [address] Scheduled Procedures Name Priority Associated Diagnoses Date/Ti me SIGMOIDOSCOPY FLEXIBLE DIAGNOSTIC Recall Ulcerative colitis (HCC) Health Maintenance Due Date Last Done Comments Cologuard 2000 Colonoscopy 2000 Fecal Occult Blood Test 2000 Adult Wellness Visit 2021 Diabetic Foot Exam 12/25/2022 12/25/2021, 0 09/04/2020 (Declined), 05/03/2019, Additional history exists Albumin/Creatinine Ratio 09/24/2024 024, 03/10/2023, 09/24/2022, Additional history exists CKD PHOS USE SMARTSET 64119 09/24/202409/05, 06/04/2022, 10/11/2021, Additional history exists GFR 09/29/2024 03/29/2024, 05/0 08/2023, 09/24/2023, Additional history exists HbA1c 09/29/2024 03/29/2024, 09/05, 03/10/2023, Additional history exists Diabetic Eye Exam 01/14/2025 01/15/2024, , 11/05/2022, Additional history exists Depression Screening 02/18/2025 02/19/2024 CKD HGB USE SMARTSET 64870 03/29/202503/29, 12/03/2023, 10/03/2022, Additional history exists Colorectal [...] Primary documented in this encounter Care Teams Transformer Tester Relationship Specialty Start Date End Date Luna Montemayor MD [address] [place] [address] [place] [address] PCP - General Family Medicine 06/30/19 documented as of this encounter
--- OUTSIDE RECORDS SUMMARY | 2024-10-25 22:21 | External Medical Summary | Summary of Care ---
Author Name Unknown Organization [facility] Address [address] [place] [address] Phone [phone] Care Team Providers Care Pathology Technician Name Role Phone Luna Montemayor MD Primary Care Prov ider Reason for Visit * Reason Comments eRx-Medication Refill Encounter Details Date Type Department Care Team (Late st Contact Info) Description 05/19/2024 Refill Family Medicine [address] [phone] Luna Montemayor MD [address] [place] [address] [phone] EXT ASTHMA W/O STATUS ASTHMATIC OR AC EXACER Allergies Active Allergy Reactions Criticality Noted Date Comments Sulfa Antibiotics 05/01/2001 documented as of this encounter (statuses as of 05/20/2024) Medications Medication Sig Dispensed Refills Start Date End Date Status ONETOUCH LANCETS MISCIndications:DM type 2, goal A1c below 7 test 4 times a day 125 [address] 04/16/2012 Active Insulin Infusion Pump (MINIMED 630G INSULIN PUMP) KIT Use as directed. 10/10/2017 A ctive Cholecalciferol (VITAMIN D) 50 MCG (1999 UT) Capsule Take 2,000 Units by mouth daily. Active Ketoconazole 2 % External Shampoo (Nizoral)Indicatio ns:Seborrheic dermatitis Massage into scalp. Rinse after 5 minutes. Do this 3 times a week 120 mL 05/02/2021 Active OneTouch Ultra Blue In Vitro Strip (Glucose Blood)Indications: Type 2 diabetes mellitus with hemoglobin A1c goal of less than 8.0% ([facility]) Test BG up to 4 times daily 100 Strip 4 05/02/2021 Active OneTouch Ultra Blue In Vitro Strip (Glucose Blood)Indications: Type 2 diabetes mellitus with cataract ([facility]) test blood sugar up to 3 times [...] as needed. 12.9 g 3 11/18/2023 Active Montelukast Sodium 10 MG Oral Tablet [...] THE MORNING 90 Tablet 1 05/12/2024 Active Fluticasone-Salmet pat 250-50 MCG/ACT Inhalation Aerosol Powder Breath Activated (Advair Diskus)Indications :Asthma, allergic INHALE ONE PUFF BY MOUTH TWICE DAILY 180 Each 2 05/20/2024 Active Fluticasone-Salmet pat 250-50 MCG/ACT Inhalation Aerosol Powder Breath Activated (Advair Diskus)Indications :Asthma, allergic INHALE ONE PUFF BY MOUTH TWICE DAILY 180 Each 1 11/24/2023 05/20/20 24 Discontinued documented as of this encounter (statuses as of 05/20/2024) Active Problems Problem Noted Date Diagnosed Date [...] as of this encounter (statuses as of 05/20/2024) Resolved Problems Problem Noted Date Diagnosed Date [...] treatment 05/02/2017 DIAB RENAL MANIF ADULT 02/24/200806/01 Overview: [...] as of this encounter (statuses as of 05/20/2024) Immunizations Name Administration Dates Next Due COVID-19 [...] encounter Miscellaneous Notes * Telephone Encounter - Melvin Craft [facility] - 05/20/2024 1:19 PM EDTSigned Prescriptions: Disp Refills Fluticasone-Salmeterol 250-50 MCG/ACT Inha*180 Ea*2 Sig: INHALE ONE PUFF BY MOUTH TWICE DAILYAuthorizing Provider: JHONY GRIMALDO User: MELVIN CRAFT documented in this encounter Plan of Treatment Upcoming Encounters Date Type Department Care Team (Late st Contact Info) Description 06/07/2024 8:30 AM EST Telemedicine Pharmacy, [address] [place] [address] [place] [address] 06/30/2024 8:00 AM EST Telemedicine Pharmacy, [address] [place] [address] [place] [address] 08/17/2024 2:30 PM EST Office Visit Nephrology [address] [place] [address] ZemaMarilee gary PA-C [address] [facility] [place] [address] Scheduled Procedures Name Priority Associated Diagnoses Date/Ti [...] Additional history exists CKD PHOS USE SMARTSET 18900 09/24/202409/05, 06/04/2022, 10/11/2021, Additional history exists GFR 09/29/2024 03/29/2024, 05/0 08/2023, 09/24/2023, Additional history exists HbA1c 09/29/2024 03/29/2024, 09/05, 03/10/2023, Additional history exists Diabetic Eye Exam 01/14/2025 01/15/2024, , 11/05/2022, Additional history exists Depression Screening 02/18/2025 02/19/2024 CKD HGB USE SMARTSET 51497 03/29/202503/29, 12/03/2023, 10/03/2022, Additional history exists Colorectal [...] as of this encounter Visit Diagnoses Diagnosis EXT ASTHMA W/O STATUS ASTHMATIC OR AC EXACER Unspecified asthma documented in this encounter Care Teams Pathology Technician Relationship Specialty Start Date End Date Luna Montemayor MD [address] [place] [address] [place] [phone] PCP - General Family Medicine 06/30/19 documented as of this encounter
--- OUTSIDE RECORDS SUMMARY | 2024-10-25 22:21 | External Medical Summary | Summary of Care ---
Author Name Unknown Organization [facility] Address [address] [place] [address] Phone [phone] Care Team Providers Care Tower Excavator Operator Name Role Phone Thelma Wilkinson MD Primary Care Prov ider Reason for Visit * Reason Comments eRx-Medication Refill Encounter Details Date Type Department Care Team (Late st Contact Info) Description 06/09/2024 Refill Family Medicine [address] [phone] Thelma Wilkinson MD [address] [place] [address] [id number] Allergies Active Allergy Reactions Criticality Noted Date Comments Sulfa Antibiotics 05/01/2001 documented as of this encounter (statuses as of 06/10/2024) Medications Medication Sig Dispensed Refills Start Date [...] hemoglobin A1c goal of less than 8.0% ([facility]) Test BG up to 4 times daily 100 Strip 4 05/02/2021 Active OneTouch Ultra Blue In Vitro Strip (Glucose Blood)Indications: Type 2 diabetes mellitus with cataract ([facility]) test blood sugar up to 3 times daily Dx: E11.9 300 Strip 3 05/02/2021 Active Ketone Test In Vitro StripIndications:T ype 2 diabetes mellitus with cataract ([facility]) Use as needed for sick days to [...] hemoglobin A1c goal of less than 7.0% ([facility]) inject up to 80 units per day [...] DM with CKD stage 3 and hypertension ([facility]) TAKE 1 TABLET BY MOUTH EVERY MORNING 90 Tablet 3 12/09/2023 Active Dexcom G6 SensorIndications: Type 2 diabetes mellitus with cataract (HCC) use to check glucose 9 Each 1 03/19/2024 Active Chlorthalidone 25 MG Oral Tablet (Hygroton)Indicati [...] TWICE DAILY 180 Each 2 05/20/2024 Active amLODIPine Besylate 10 MG Oral Tablet (Norvasc) TAKE ONE TABLET BY MOUTH EVERY DAY 90 Tablet 3 06/10/2024 Active amLODIPine Besylate 10 MG Oral Tablet (Norvasc) Take 1 Tablet by mouth in the morning. 03/29/2024 06/10/20 24 Discontinued documented as of this encounter (statuses as of 06/10/2024) Active Problems Problem Noted Date Diagnosed Date [...] as of this encounter (statuses as of 06/10/2024) Resolved Problems Problem Noted Date Diagnosed Date [...] below 140/90 08/18/200708/30 Overview: Per HTN Taxonomy. ADVANCE DIRECTIVE INFORMATION 10/14/2005 06/07/2024 Overview: No, Advance Directive brochure given to patient. Asthma, allergic 01/25/2010 Type 2 diabetes mellitus wit h hemoglobin A1c goal of less than 7.0% 06/01/2009 Overview: Per Diabetes Taxonomy. ICD-10 update of inactive term Allergic rhinitis 08/20/2019 Overview: Historical Type 2 DM with CKD stage 3 and hypertension 12/14/2020 Overview: Per CKD protocol documented as of this encounter (statuses as of 06/10/2024) Immunizations Name Administration Dates Next Due COVID-19 [...] No 02/19/2024 Does the household have a [facility] source [facility] income? (Household - for ages [...] Telephone Encounter - Thelma Wilkinson MD - 06/10/2024 10:26 AM ESTSigned Prescriptions: Disp Refills amLODIPine Besylate 10 MG Oral Tablet (Nor*90 Tab*3 Sig: TAKE ONE TABLET BY MOUTH EVERY DAY Authorizing Provider: THELMA WILKINSON * Telephone Encounter - Ana Maria Botello [facility] - 06/10/2024 9:40 AM EST Pending Prescriptions: Disp Refills amLODIPine Besylate 10 MG Oral Tablet (Nor*90 Tab*3 Sig: TAKE ONE TABLET BY MOUTH EVERY DAY * Telephone Encounter - Ana Maria Botello [facility] - 06/10/2024 9:40 AM EST Pharmacists cannot authorize refills for meds listed as "historical" in chart. Please approve if appropriate. Pending Prescriptions: Disp Refills amLODIPine Besylate 10 MG Oral Tablet (Nor*90 Tab*3 Sig: TAKE ONE TABLET BY MOUTH EVERY DAY Last Visit: 02/19/2024 (in office), Visit date not found (telemedicine) Visit date not found If no future appointments scheduled, and last appointment is greater than a year ago, please schedule patient for a follow-up appointment Last date the medication was ordered: historical Pharmacy: [facility] [id number] Is this request for a controlled [...] PM HGBA1C 7.8 (H) 06/03/2020 10:05 AM Ana Maria Brooks PharmD Clinical Pharmacist [facility] ([facility]) (formerly Telepharmacy) [phone] 06/10/2024,9:40 AM documented in this encounter Plan of Treatment Upcoming Encounters Date Type Department Care Team (Late st Contact Info) Description 06/30/2024 8:00 AM EST Telemedicine Pharmacy, [address] [place] [id number] [place] [address] 08/17/2024 2:30 PM EST Office Visit Nephrology [address] [place] [address] ZemaitisMarilee PA-C [facility] [place] [address] Scheduled Procedures Name Priority Associated Diagnoses Date/Ti [...] Additional history exists CKD PHOS USE SMARTSET 83480 09/24/202409/05, 06/04/2022, 10/11/2021, Additional history exists GFR 09/29/2024 03/29/2024, 05/0 08/2023, 09/24/2023, Additional history exists HbA1c 09/29/2024 03/29/2024, 09/05, 03/10/2023, Additional history exists Diabetic Eye Exam 01/14/2025 01/15/2024, , 11/05/2022, Additional history exists Depression Screening 02/18/2025 02/19/2024 CKD HGB USE SMARTSET 39139 03/29/202503/29, 12/03/2023, 10/03/2022, Additional history exists Colorectal [...] filedocumented as of this encounter Care Teams Tower Excavator Operator Relationship Specialty Start Date End Date Thelma Wilkinson MD [address] [place] [address] [place] [address] PCP - General Family Medicine 06/30/19 documented as of this encounter
--- OUTSIDE RECORDS SUMMARY | 2024-10-25 22:21 | External Medical Summary | Summary of Care ---
Author Name Unknown Organization [facility] Address [address] [place] [address] Phone [phone] Care Team Providers Care Valuation Consultant Name Role Phone Luna Montemayor MD Primary Care Prov ider Reason for Visit * Reason Comments Dosage Adjustment In Person (Anticoag Cl inic) Diabetes Follow-Up Encounter Details Date Type Department Care Team (Late st Contact Info) Description 05/19/2024 8:00 AM EDT Telemedicine Pharmacy, [address] [place] [id number] [place] [address] Type 2 diabetes mellitus with cataract (HCC)* Allergies Active Allergy Reactions Criticality Noted Date Comments Sulfa Antibiotics 05/01/2001 documented as of this encounter (statuses as of 05/19/2024) Medications Medication Sig Dispensed Refills Start Date End Date Status ONETOUCH LANCETS MISCIndications:DM type 2, goal A1c below 7 test 4 times a day [address] 04/16/2012 Active Insulin Infusion Pump (MINIMED 630G INSULIN PUMP) KIT Use as directed. 10/10/2017 A ctive Cholecalciferol (VITAMIN D) 50 MCG (1999 UT) Capsule Take 2,000 Units by mouth daily. Active Ketoconazole 2 % External Shampoo (Nizoral)Indications :Seborrheic dermatitis Massage into scalp. Rinse after 5 minutes. Do this 3 times a week 120 mL 05/02/2021 Active OneTouch Ultra Blue In Vitro Strip (Glucose Blood)Indications:Ty pe 2 diabetes mellitus with hemoglobin A1c goal of less than 8.0% ([facility]) Test BG up to 4 times daily 100 Strip 4 05/02/2021 Active OneTouch Ultra Blue In Vitro Strip (Glucose Blood)Indications:Ty pe 2 diabetes mellitus with cataract ([facility]) test blood sugar up to 3 times daily Dx: E11.9 300 Strip 3 05/02/2021 Active Ketone Test In Vitro StripIndications:Typ e 2 diabetes mellitus with cataract ([facility]) Use as needed for sick [...] Active Insulin Aspart 100 UNIT/ML Injection Solution (NovoLOG)Indications :Type 2 diabetes mellitus with hemoglobin A1c goal of less than 7.0% ([facility]) inject up to 80 units per day with insulin pump 70 mL 1 11/04/2023 Active Multi-Vitamins Oral Tablet Take 1 Tablet by mouth in the morning. Active Atrovent HFA 17 MCG/ACT Inhalation Aerosol Solution (ipratropium)Indicat ions:Mild persistent asthma, uncomplicated inhale 2 puffs 4 times daily as needed. 12.9 g 3 11/18/2023 Active Fluticasone-Salmeter ol 250-50 MCG/ACT Inhalation Aerosol Powder Breath Activated (Advair Diskus)Indications:A sthma, allergic INHALE ONE PUFF BY MOUTH TWICE DAILY 180 Each 1 11/24/2023 Active Montelukast Sodium 10 MG Oral Tablet (Singulair)Indicatio ns:Mild persistent asthma without complication TAKE ONE TABLET BY MOUTH EVERY DAY 90 Tablet 3 12/09/2023 Active Additional Information Patient taking differently: HS, Reported on 04/08/2024 Atorvastatin Calcium 40 MG Oral Tablet (Lipitor)Indications :Type 2 DM with CKD stage 3 and hypertension (HCC) TAKE 1 TABLET BY MOUTH EVERY MORNING 90 Tablet 3 12/09/2023 Active Dexcom G6 SensorIndications:Ty pe 2 diabetes mellitus with cataract (HCC) use to check glucose 9 Each 1 03/19/2024 Active amLODIPine Besylate 10 MG Oral Tablet (Norvasc) Take 1 Tablet by mouth in the morning. 03/29/2024 Active Chlorthalidone 25 MG Oral Tablet (Hygroton)Indication s:in pm Take 1 Tablet by mouth at bedtime. 30 Tablet 5 03/30/2024 Active Dexcom G6 TransmitterIndicatio ns:Type 2 diabetes mellitus with cataract (HCC) USE TO CHECK GLUCOSE DXE11.9 3 Each 1 04/01/2024 Active Lisinopril 40 MG Oral TabletIndications:St age 3b chronic kidney disease (HCC) TAKE ONE TABLET BY MOUTH IN THE MORNING 90 Tablet 1 05/12/2024 Active documented as of this encounter (statuses as of 05/19/2024) Active Problems Problem Noted Date Diagnosed Date [...] as of this encounter (statuses as of 05/19/2024) Resolved Problems Problem Noted Date Diagnosed Date [...] as of this encounter (statuses as of 05/19/2024) Immunizations Name Administration Dates Next Due COVID-19 [...] No 02/19/2024 Does the household have [facility]? (Household - for [...] on file documented as of this encounter Progress Notes * Isaura Herzog, [facility] - 05/19/2024 8:02 AM EDT Images from the original note were not included. Patient location: HOME. I was in a hospital or clinic location. After connecting through televideo,patient was verified with two unique identifiers. Patient (or authorized legal factory representative) was then informed that this was a Telemedicine visit and being conducted confidentially over secure lines. Methods to assure confidentiality were taken. Patient acknowledged consent and understanding of pr ivacy and security of the Telemedicine visit. The patient agreed to participate. Medication Therapy Disease Management - CSII Follow-up Interval History: Shay Kellysathish is an 69 year old year old [...] ICR: 12AM - 12PM: 11 12PM-3PM: 13 (weakened) 3PM - 12AM: 11 ISF: 40 Bolus [...] mg/dL? Patient Active Problem List Diagnosis Anemia ADVANCE DIRECTIVE INFORMATION BENIGN NEOPLASM THYROID HTN, goal below 140/90 [...] times daily as needed. 12.9 g 3 Fluticasone-Salmeterol 250-50 MCG/ACT Inhalation Aerosol Powder Breath Activated (Advair Diskus) INHALE ONE PUFF BY MOUTH TWICE DAILY 180 Each 1 Montelukast Sodium 10 MG Oral Tablet (Singulair) TAKE ONE TABLET BY MOUTH EVERY DAY (Patient takingdifferently: at bedtime.) 90 Tablet 3 Atorvastatin Calcium 40 MG Oral Tablet (Lipitor) TAKE 1 TABLET BY MOUTH EVERY MORNING 90 Tablet 3 Dexcom G6 Sensor use to check glucose 9 Each 1 amLODIPine Besylate 10 MG Oral Tablet (Norvasc) Take 1 Tablet by mouth in the morning. Chlorthalidone 25 MG Oral Tablet (Hygroton) Take 1 Tablet by mouth at bedtime. 30 Tablet 5 Dexcom G6 Transmitter USE TO CHECK GLUCOSE DXE11.9 3 Each 1 Lisinopril 40 MG Oral Tablet TAKE ONE TABLET BY MOUTH IN THE MORNING 90 Tablet 1 No current facility-administered medications for this visit. Objective: The 10-year ASCVD risk score (Priya MINAYA, [...] 156/64 02/19/24 120/60 No components found for: "[id number]" No results found for: "MICROALBUMIN" Lab Results Component Value Date/Time LDL CHOLESTEROL (CALCULATED) - [facility] 66 03/10/2023 08:38 AM LDL CHOLESTEROL (CALCULATED) - [facility] 71 06/03/2020 10:05 AM LDL CHOLESTEROL (DIRECT MEASURE) - [facility] NOT APPLICABLE 06/03/2020 10:05 AM LDL CHOLESTEROL (DIRECT MEASURE) - [facility] 111 12/06/2010 01:34 PM Lab Results Component Value Date/Time ALT - [facility] 21 06/03/2020 10:05 AM Assessment & Plan: BG readings continuing to remain uncontrolled. Significantly variable. Of note, several lows still occurring. Patient has struggled with appropriate bolus timing in the past. Notes that he is still struggling with this. Often giving once already into meal leading to hypoglycemia after the meal. Further discussed and reviewed the importance of this with patient. He expressed understanding. Additionally, patient often bolusing for CHO > 70g. Reviewed DM diet. Patient to SMBG at least 4 times [...] Insulin Time: 4 hours Diabetes Health Maintenance: up-to-date Return to Clinic: 6 week(s) (video visit, patient preference) 06/30/24 Isaura Herzog [facility], PharmD Clinical Pharmacist - [employer] Techn[employer] Medication Therapy Disease Management Clinic 05/19/2024, 4:16 PM [phone] documented in this encounter Plan of Treatment Upcoming Encounters Date Type Department Care Team (Late st Contact Info) Description 06/07/2024 8:30 AM EST Telemedicine Pharmacy, [address] [place] [address] [place] [address] 06/30/2024 8:00 AM EST Telemedicine Pharmacy, [address] [place] [address] [place] [address] 08/17/2024 2:30 PM EST Office Visit Nephrology [address] [place] [address] ZemaitisMarilee PA-C [facility] [place] [address] Scheduled Procedures Name Priority Associated Diagnoses Date/Ti [...] Additional history exists CKD PHOS USE SMARTSET 02283 09/24/202409/05, 06/04/2022, 10/11/2021, Additional history exists GFR 09/29/2024 03/29/2024, 05/0 08/2023, 09/24/2023, Additional history exists HbA1c 09/29/2024 03/29/2024, 09/05, 03/10/2023, Additional history exists Diabetic Eye Exam 01/14/2025 01/15/2024, , 11/05/2022, Additional history exists Depression Screening 02/18/2025 02/19/2024 CKD HGB USE SMARTSET 43223 03/29/202503/29, 12/03/2023, 10/03/2022, Additional history exists Colorectal [...] Primary documented in this encounter Care Teams Valuation Consultant Relationship Specialty Start Date End Date Luna Montemayor MD [address] [place] [address] [place] [phone] PCP - General Family Medicine 06/30/19 documented as of this encounter
[2024-10-26 00:09] LABS: BUN Creatinine Ratio 19.3 (10-20); Calcium 8.3 mg/dl (8.6-10.3); Creatinine Clr Calc Pharmacy 8.2 ml/min; Magnesium 2.1 mg/dl (1.7-2.4); Phosphorus 6.5 mg/dl (2.5-4.9)
[2024-10-26] MEDS: DEXTROSE 50% 50 ML SYRINGE IV STA (00:49)
[2024-10-26] MEDS: INSULIN HUMAN REGULAR PER UNIT 5 UNITS in SYRINGE 4.95 ML IV STA (00:49)
[2024-10-26] MEDS: CALCIUM GLUCONATE 1,000 MG/60 ML BAG IV STA (00:50)
[2024-10-26] MEDS: PLASMA-LYTE A 1,000 ML IV ONE (00:50)
[2024-10-26 04:39] LABS: Hematocrit (blood only) 20.9 % (42.0-52.0); Hemoglobin 7.3 g/dl (14.0-18.0); Mean Corpuscular Hemoglobin 28.7 pg (25.0-34.0); Mean Corpuscular Hgb Conc 34.9 g/dL (32.0-36.0); Mean Corpuscular Volume 82.3 fL (80.0-100.0); Mean Platelet Volume 9.8 fL (9.4-12.4); Platelet Count 271 K/uL (130-400); RDW Coefficient of Variation 13.4 % (11.5-14.5); RDW Standard Deviation 40.8 fL (36.4-46.3); Red Blood Count 2.54 M/uL (4.70-6.10); White Blood Count 6.32 K/ul (4.8-10.8)
[2024-10-26 04:42] LABS: Basophils # (auto) 0.02 K/uL (0.00-0.20); Basophils % (auto) 0.3 %; Eosinophils # (auto) 0.21 K/uL (0.00-0.50); Eosinophils % (auto) 3.3 %; Immature Granulocytes # (auto) 0.02 K/uL (0.01-0.20); Immature Granulocytes % (auto) 0.3 %; Lymphocytes # (auto) 1.11 K/uL (1.20-3.40); Lymphocytes % (auto) 17.6 %; Monocytes # (auto) 0.58 K/uL (0.11-0.59); Monocytes % (auto) 9.2 %; Neutrophils # (auto) 4.38 K/uL (1.40-6.50); Neutrophils % (auto) 69.3 %; RBC Morphology Unremarkable
[2024-10-26 04:46] LABS: BUN Creatinine Ratio 19.5 (10-20); Calcium 8.4 mg/dl (8.6-10.3); Creatinine Clr Calc Pharmacy 8.9 ml/min; Magnesium 2.1 mg/dl (1.7-2.4); Phosphorus 6.3 mg/dl (2.5-4.9); Potassium 5.7 mmol/L (3.5-5.1)
--- NOTE | 2024-10-26 07:33 | Critical Care Progress Note ---
Date of Service October 26, 2024 Assessment & Plan (1) High anion gap metabolic acidosis: (2) Hyperkalemia: (3) ARF (acute renal failure): (4) Hypertension: (5) Dyslipidemia: (6) Diabetes: Plan Reason Critically Ill: 69-year-old male coming to the hospital for nausea, vomiting, diarrhea and generalized weakness Past medical history: Hypertension, dyslipidemia Being transferred to the ICU for possible dialysis with acute renal failure Neuro - [facility] ICU: Negative Cardiac - -- History of hypertension On amlodipine 10,chlorthalidone 25 and lisinopril 40 at home Respiratory - -- COPD with emphysema Approximately 96-cbfp-iwsk smoking history Quit at the age of 40 On Advair 250-50 at home along with montelukast GI - -- Nausea vomiting diarrhea Likely from viral illness As needed Zofran -- History of ulcerative colitis S/p colectomy Does have chronic loose stools because of the RENAL/LYTES - -- Acute renal failure --> improving Does have history of CKD Likely dehydration from poor intake for more than a week Follow-up urine lites Monitor BUN/creatinine Avoid nephrotoxic medications Strict ins and outs -- S/p HAGMA Delta-delta: 14.5, gap plus nongap Gap is likely from elevated BUN, nongap likely from urinary source Serum osmolality 349 VBG shows a pH of 7.2 Monitor ENDO - -- Status post DKA Insulin drip has been off HEME - -- Normocytic anemia Monitor H&H ID - -- No clear source of infection --Prophylaxis VTE: IPC GI: None Lines: Peripheral Diet: Renal Plan: In/out: +4 L, urine output 2027 Patient's urine output is decent, his BUN and creatinine are trending down, potassium is 5.7 Continue with Lokelma Hemoglobin is trending down, repeat H&H later today If it is less than 7 then transfuse 1 unit of PRBC Patient hemodynamically stable to be downgraded to medical floor Case was discussed with primary team Please note the above document was generated using voice recognition software. It may contain grammatical, syntax or spelling errors.Any formal questions or concerns about the content, text or information contained within the body of this dictation should be directly addressed to the provider for clarification. Admission and Anticipated Discharge Date Admission Date: October 25, 2024 Subjective Patient seen and examined at bedside. No acute distress, no dose events overnight Has been diuresing well Denies any nausea vomiting Is diarrhea has also decreased in frequency He does have chronic diarrhea because of colectomy from ulcerative colitis Denies any chest pain, no shortness of breath Review of Systems 2 Review of Systems: All systems reviewed & are unremarkable except as noted in Subjective Physical Exam 2 Physical Exam: Constitutional: No acute distress HEENT: EOMI, PERRLA Respiratory system: Decreased air entry bilaterally, no wheeze, no rhonchi, no crackles CVS: S1-S2 positive, no murmurs or gallops Abdomen: Soft, nontender, nondistended, positive bowel sounds x4 Extremities: +2 pulses bilaterally radialis/ dorsalis pedis, no cyanosis, no edema Neuro: Awake alert oriented x3 Psych: Normal mood and affect G/U: Positive [place] Skin: no rashes, warm and dry Lymphatic: no cervical or axillary lymphadenopathy Results & Data Results & Data Vital Signs (Past 12 Hours) Vital Signs Temp Pulse Resp BP Pulse Ox O2 Del Method 10/26/24 06:09 75 15 98 10/26/24 06:00 121/59 L 10/26/24 06:00 121/59 L 10/26/24 06:00 121/59 L 10/26/24 06:00 121/59 L 10/26/24 06:00 121/59 L 10/26/24 06:00 121/59 L 10/26/24 06:00 121/59 L 10/26/24 05:54 68 10 L 97 10/26/24 05:09 67 11 L 97 10/26/24 05:00 124/58 L 10/26/24 05:00 124/58 L 10/26/24 05:00 124/58 L 10/26/24 05:00 124/58 L 10/26/24 05:00 124/58 L 10/26/24 05:00 124/58 L 10/26/24 05:00 124/58 L 10/26/24 05:00 124/58 L 10/26/24 05:00 124/58 L 10/26/24 05:00 124/58 L 10/26/24 05:00 124/58 L 10/26/24 05:00 124/58 L 10/26/24 05:00 124/58 L 10/26/24 05:00 124/58 L 10/26/24 05:00 124/58 L 10/26/24 04:36 70 5 L 98 10/26/24 04:18 71 2 L 97 10/26/24 04:00 127/59 L 10/26/24 04:00 127/59 L 10/26/24 04:00 127/59 L 10/26/24 04:00 127/59 L 10/26/24 04:00 127/59 L 10/26/24 04:00 127/59 L 10/26/24 04:00 127/59 L 10/26/24 04:00 127/59 L 10/26/24 04:00 36.9 C 10/26/24 03:51 71 14 96 10/26/24 03:09 73 16 91 10/26/24 03:00 106/49 L 10/26/24 03:00 106/49 L 10/26/24 03:00 106/49 L 10/26/24 03:00 106/49 L 10/26/24 03:00 106/49 L 10/26/24 03:00 106/49 L 10/26/24 03:00 106/49 L 10/26/24 03:00 106/49 L 10/26/24 03:00 106/49 L 10/26/24 03:00 106/49 L 10/26/24 03:00 106/49 L 10/26/24 03:00 106/49 L 10/26/24 03:00 106/49 L 10/26/24 03:00 106/49 L 10/26/24 03:00 106/49 L 10/26/24 03:00 106/49 L 10/26/24 03:00 106/49 L 10/26/24 03:00 106/49 L 10/26/24 03:00 106/49 L 10/26/24 03:00 106/49 L 10/26/24 03:00 106/49 L 10/26/24 03:00 106/49 L 10/26/24 03:00 106/49 L 10/26/24 02:57 79 20 90 10/26/24 02:21 71 15 94 10/26/24 02:00 111/48 L 10/26/24 02:00 111/48 L 10/26/24 02:00 111/48 L 10/26/24 02:00 111/48 L 10/26/24 02:00 111/48 L 10/26/24 02:00 111/48 L 10/26/24 02:00 111/48 L 10/26/24 02:00 111/48 L 10/26/24 02:00 111/48 L 10/26/24 02:00 111/48 L 10/26/24 02:00 111/48 L 10/26/24 02:00 111/48 L 10/26/24 02:00 111/48 L 10/26/24 02:00 111/48 L 10/26/24 00:25 74 10/26/24 00:12 85 20 95 10/26/24 00:00 131/67 10/26/24 00:00 131/67 10/26/24 00:00 131/67 10/26/24 00:00 131/67 10/26/24 00:00 131/67 10/26/24 00:00 131/67 10/26/24 00:00 131/67 10/26/24 00:00 131/67 10/26/24 00:00 131/67 10/26/24 00:00 131/67 10/26/24 00:00 131/67 10/26/24 00:00 131/67 10/26/24 00:00 131/67 10/26/24 00:00 131/67 10/26/24 00:00 131/67 10/26/24 00:00 131/67 10/26/24 00:00 131/67 10/26/24 00:00 131/67 10/26/24 00:00 131/67 10/26/24 00:00 36.8 C 10/25/24 23:54 76 10 L 97 10/25/24 23:44 77 10/25/24 23:15 69 3 L 96 10/25/24 23:00 12110/25/24 23:00 121/10/25/24 23:00 121/10/25/24 23:00 121/10/25/24 23:00 121/10/25/24 23:00 121/10/25/24 23:00 121/10/25/24 23:00 121/10/25/24 23:00 121/69 10/25/24 23:00 121/69 10/25/24 23:00 121/69 10/25/24 23:00 121/69 10/25/24 23:00 121/69 10/25/24 23:00 121/69 10/25/24 23:00 121/69 10/25/24 22:57 78 18 88 L 10/25/24 22:03 73 10 L 96 10/25/24 22:00 118/53 L 10/25/24 22:00 118/53 L 10/25/24 22:00 118/53 L 10/25/24 22:00 118/53 L 10/25/24 22:00 118/53 L 10/25/24 22:00 118/53 L 10/25/24 22:00 118/53 L 10/25/24 22:00 118/53 L 10/25/24 22:00 118/53 L 10/25/24 22:00 118/53 L 10/25/24 22:00 118/53 L 10/25/24 22:00 118/53 L 10/25/24 22:00 118/53 L 10/25/24 22:00 118/53 L 10/25/24 22:00 118/53 L 10/25/24 22:00 118/53 L 10/25/24 22:00 118/53 L 10/25/24 22:00 118/53 L 10/25/24 22:00 118/53 L 10/25/24 21:57 74 6 L 97 10/25/24 21:03 80 19 100 10/25/24 21:00 143/60 H 10/25/24 21:00 143/60 H 10/25/24 21:00 143/60 H 10/25/24 21:00 143/60 H 10/25/24 21:00 143/60 H 10/25/24 21:00 143/60 H 10/25/24 21:00 143/60 H 10/25/24 20:57 82 14 99 10/25/24 20:00 Room Air 10/25/24 20:00 149/67 H 10/25/24 20:00 149/67 H 10/25/24 20:00 149/67 H 10/25/24 20:00 149/67 H 10/25/24 20:00 149/67 H 10/25/24 20:00 149/67 H 10/25/24 20:00 149/67 H 10/25/24 20:00 149/67 H 10/25/24 20:00 149/67 H 10/25/24 20:00 149/67 H 10/25/24 20:00 149/67 H 10/25/24 20:00 149/67 H 10/25/24 20:00 149/67 H 10/25/24 20:00 149/67 H 10/25/24 20:00 149/67 H 10/25/24 20:00 149/67 H 10/25/24 20:00 149/67 H 10/25/24 20:00 149/67 H 10/25/24 20:00 149/67 H 10/25/24 20:00 149/67 H 10/25/24 20:00 149/67 H 10/25/24 20:00 149/67 H 10/25/24 20:00 149/67 H 10/25/24 20:00 149/67 H 10/25/24 20:00 149/67 H 10/25/24 20:00 149/67 H 10/25/24 20:00 149/67 H 10/25/24 20:00 149/67 H 10/25/24 20:00 149/67 H 10/25/24 20:00 149/67 H 10/25/24 20:00 149/67 H 10/25/24 20:00 149/67 H 10/25/24 20:00 149/67 H 10/25/24 20:00 77 17 100 10/25/24 20:00 36.8 C Laboratory Results 10/26/24 03:58 10/26/24 03:58 Coding Level of Care Code 97872 SUB INP/OBS CARE 3/50MIN Diagnoses High anion gap metabolic acidosis E87.29 Hyperkalemia E87.5 Acute renal failure, unspecified acute renal failure type N17.9 Hypertension, unspecified type I10 Hypertension type: unspecified Dyslipidemia E78.5 Diabetes E11.9 (4) Hypertension Hypertension type: unspecified Qualified Code(s): I10 - Essential (primary) hypertension
[2024-10-26] MEDS: FLUTICASONE/VILANTEROL 200/25MCG 14 PUFFS/INHALER INH SCH (08:03)
[2024-10-26 09:12] LABS: Estimated Average Glucose 223 mg/dl; Hemoglobin A1C 9.4 % (4.5-5.6)
[2024-10-26 09:14] LABS: Calcium 8.4 mg/dl (8.6-10.3); Magnesium 2.2 mg/dl (1.7-2.4); Potassium 5.5 mmol/L (3.5-5.1)
[2024-10-26 09:23] LABS: Creatinine Clr Calc Pharmacy 9.3 ml/min; Phosphorus 6.2 mg/dl (2.5-4.9)
[2024-10-26 09:58] LABS: BUN Creatinine Ratio 19.6 (10-20)
--- NOTE | 2024-10-26 11:09 | Pharmacy Report ---
Pharmacy Glycemic Short Note 2 - Date of Service October 26, 2024 - Glycemic Short BSG Results (Last 24 hours): 10/25/24 10/25/24 10/25/24 11:00 11:36 12:02 Glucose Cancelled 254 H POC Glucose 325 H* 10/25/24 10/25/24 10/25/24 12:33 13:30 14:34 Glucose POC Glucose 237 H 171 H 122 H 10/25/24 10/25/24 10/25/24 14:40 14:50 15:49 Glucose 117 H POC Glucose 121 H 93 10/25/24 10/25/24 10/25/24 16:05 16:31 17:27 Glucose POC Glucose 94 153 H 145 H 10/25/24 10/25/24 10/25/24 18:24 19:29 20:26 Glucose 119 H POC Glucose 134 H 91 10/25/24 10/25/24 10/26/24 23:01 23:15 00:53 Glucose 165 H POC Glucose 190 H 172 H 10/26/24 10/26/24 10/26/24 01:16 03:56 03:58 Glucose 167 H POC Glucose 275 H 183 H 10/26/24 10/26/24 10/26/24 07:23 07:41 10:55 Glucose 113 H POC Glucose 125 H 174 H OUTPATIENT ANTIDIABETIC REGIMEN: * Novolog Omnipod Insulin pump * ~40 units/day total via pump per last documented outpatient MTM visit note HbA1c: * 8.6% (08/17/24) ASSESSMENT: 10/26: * Transitioned off insulin drip last evening. BSGs [phone]/dL the last 24h. Received 10 units SQ basal last evening for transition. * Tolerating diet, SCr down-trending (8.69-->7.66-->6.75mg/dL, HD held). * Lantus 13 units daily (~80% pump basal rate) to begin today at lunch. Continue Novolog 02/04 home parameters ACHS. 10/25: * 69 yo M admitted on 10/25/24 secondary to DKA. Pharmacy has been consulted to assist with inpatient glycemic management. Patient is a Type 2 diabetic as an outpatient. Please refer to outpatient regimen and most recent HbA1c above. * Admission labs: BSG 429 mg/dL, K 8.4, SCr 10.5, AG 17, CO2 12. Patient is NPO. Started on an insulin drip for DKA. Will require emergent dialysis today for high potassium and CKD. * Will plan to continue with insulin drip throughout this evening. No basal will be ordered at this time. Can reassess basal needs in the morning. * See below for transition to subcutaneous insulin recommendations should gap close this evening. PLAN FOR INPATIENT GLYCEMIC CONTROL: * Basal insulin * Lantus 13 units SQ daily * Bolus insulin * NovoLog per scale ACHS or Q6hrs while NPO * Goal Range: Low 110 mg/dL - High 140 mg/dL * Correction Factor: 30 mg/dL/unit * Nutritional / Prandial insulin per carb ratio of 1 unit per 8 grams CHO consumed
--- NOTE | 2024-10-26 11:16 | Nephrology Progress Note ---
Date of Service October 26, 2024 Assessment & Plan Admission and Anticipated Discharge Date Admission Date: October 25, 2024 Subjective Assessment & Plan (1) ARF (acute renal failure): severe acute kidney injury on background CKD 3B. Patient already has known CKD 3B secondary to combination of diabetes hypertension and does have moderate proteinuria as well as [id number] hyperkalemia in the recent blood work. given his symptoms of severe nausea vomiting diarrhea for the last 8 days I would have to assume this is severe prerenal type in etiology. However even if it is related with severe volume depletion a prolonged state of volume depletion especially in patient with CKD can progress to ATN and there is no guarantee that his kidney function will actually recover. renal function and K started to improve right on time to avoid dialysis.Now good urine output creat coming down and K down also. NO need of Dialysis and likely will not need . Will do full irons studies in AM tomorrow. consider doing stool studies also including Hemoccult as well as stool culture to find the etiology of his severe GI symptoms. patient does have severe anemia which could be related with renal failure but do need to rule out occult GI bleed. check iron studies and will consider using Procrit +/- IV iron. (2) Hyperkalemia: critical hyperkalemia with a potassium of 8.4 with EKG changes and very abnormal kidney function. Patient already has baseline hyperkalemia and CKD. given this I would not want to take chance and would rather do dialysis catheter and do dialysis urgently to control the potassium. discussed in detail with admitting service and Emergency Department about hyperkalemia management including---- bicarb drip continuous at 100 mL/hour, nebulizer calcium gluconate insulin drip. Continue Lokelma continue input output charting and monitor urine output closely stop lisinopril and chlorthalidone for the time being time spent 38 mins S--feels much better. Diarrhea is less. very good dilute urine now and labs much better. physical examination middle-aged white male who appears ill but does not appear to be in any respiratory distress. awake alert oriented and able to give detailed account of his medical problems mucous membrane is dry neck is supple no JVD chest bilateral clear to auscultation CVS S1 and S2 regular no obvious murmur heard abdomen is soft nontender extremities without edema Results & Data Vital Signs (Past 12 Hours) Vital Signs Temp Pulse Pulse Resp BP BP Pulse Ox 10/26/24 11:03 36.4 C L 62 20 129/68 99 10/26/24 09:09 68 14 98 10/26/24 09:00 144/60 H 10/26/24 08:19 129/55 L 10/26/24 08:19 129/55 L 10/26/24 08:00 70 27 H 96 10/26/24 08:00 36.9 C 10/26/24 07:12 66 12 97 10/26/24 07:00 139/69 10/26/24 06:09 75 15 98 10/26/24 06:00 121/59 L 10/26/24 06:00 121/59 L 10/26/24 06:00 121/59 L 10/26/24 06:00 121/59 L 10/26/24 06:00 121/59 L 10/26/24 06:00 121/59 L 10/26/24 06:00 121/59 L 10/26/24 05:54 68 10 L 97 10/26/24 05:09 67 11 L 97 10/26/24 05:00 124/58 L 10/26/24 05:00 124/58 L 10/26/24 05:00 124/58 L 10/26/24 05:00 124/58 L 10/26/24 05:00 124/58 L 10/26/24 05:00 124/58 L 10/26/24 05:00 124/58 L 10/26/24 05:00 124/58 L 10/26/24 05:00 124/58 L 10/26/24 05:00 124/58 L 10/26/24 05:00 124/58 L 10/26/24 05:00 124/58 L 10/26/24 05:00 124/58 L 10/26/24 05:00 124/58 L 10/26/24 05:00 124/58 L 10/26/24 04:36 70 5 L 98 10/26/24 04:18 71 2 L 97 10/26/24 04:00 127/59 L 10/26/24 04:00 127/59 L 10/26/24 04:00 127/59 L 10/26/24 04:00 127/59 L 10/26/24 04:00 127/59 L 10/26/24 04:00 127/59 L 10/26/24 04:00 127/59 L 10/26/24 04:00 127/59 L 10/26/24 04:00 36.9 C 10/26/24 03:51 71 14 96 10/26/24 03:09 73 16 91 10/26/24 03:00 106/49 L 10/26/24 03:00 106/49 L 10/26/24 03:00 106/49 L 10/26/24 03:00 106/49 L 10/26/24 03:00 106/49 L 10/26/24 03:00 106/49 L 10/26/24 03:00 106/49 L 10/26/24 03:00 106/49 L 10/26/24 03:00 106/49 L 10/26/24 03:00 106/49 L 10/26/24 03:00 106/49 L 10/26/24 03:00 106/49 L 10/26/24 03:00 106/49 L 10/26/24 03:00 106/49 L 10/26/24 03:00 106/49 L 10/26/24 03:00 106/49 L 10/26/24 03:00 106/49 L 10/26/24 03:00 106/49 L 10/26/24 03:00 106/49 L 10/26/24 03:00 106/49 L 10/26/24 03:00 106/49 L 10/26/24 03:00 106/49 L 10/26/24 03:00 106/49 L 10/26/24 02:57 79 20 90 10/26/24 02:21 71 15 94 10/26/24 02:00 111/48 L 10/26/24 02:00 111/48 L 10/26/24 02:00 111/48 L 10/26/24 02:00 111/48 L 10/26/24 02:00 111/48 L 10/26/24 02:00 111/48 L 10/26/24 02:00 111/48 L 10/26/24 02:00 111/48 L 10/26/24 02:00 111/48 L 10/26/24 02:00 111/48 L 10/26/24 02:00 111/48 L 10/26/24 02:00 111/48 L 10/26/24 02:00 111/48 L 10/26/24 02:00 111/48 L 10/26/24 00:25 74 10/26/24 00:12 85 20 95 10/26/24 00:00 10/26/24 00:00 10/26/24 00:00 10/26/24 00:00 10/26/24 00:00 10/26/24 00:00 10/26/24 00:00 10/26/24 00:00 10/26/24 00:00 10/26/24 00:00 10/26/24 00:00 10/26/24 00:00 10/26/24 00:00 10/26/24 00:00 10/26/24 00:00 10/26/24 00:00 10/26/24 00:00 10/26/24 00:00 10/26/24 00:00 10/26/24 00:00 36.8 C 10/25/24 23:54 76 10 L 97 10/25/24 23:44 77 10/25/24 23:15 69 3 L 96 O2 Del Method 10/26/24 11:03 Room Air 10/26/24 09:09 10/26/24 09:00 10/26/24 08:19 10/26/24 08:19 10/26/24 08:00 10/26/24 08:00 10/26/24 07:12 10/26/24 07:00 10/26/24 06:09 10/26/24 06:00 10/26/24 06:00 10/26/24 06:00 10/26/24 06:00 10/26/24 06:00 10/26/24 06:00 10/26/24 06:00 10/26/24 05:54 10/26/24 05:09 10/26/24 05:00 10/26/24 05:00 10/26/24 05:00 10/26/24 05:00 10/26/24 05:00 10/26/24 05:00 10/26/24 05:00 10/26/24 05:00 10/26/24 05:00 10/26/24 05:00 10/26/24 05:00 10/26/24 05:00 10/26/24 05:00 10/26/24 05:00 10/26/24 05:00 10/26/24 04:36 10/26/24 04:18 10/26/24 04:00 10/26/24 04:00 10/26/24 04:00 10/26/24 04:00 10/26/24 04:00 10/26/24 04:00 10/26/24 04:00 10/26/24 04:00 10/26/24 04:00 10/26/24 03:51 10/26/24 03:09 10/26/24 03:00 10/26/24 03:00 10/26/24 03:00 10/26/24 03:00 10/26/24 03:00 10/26/24 03:00 10/26/24 03:00 10/26/24 03:00 10/26/24 03:00 10/26/24 03:00 10/26/24 03:00 10/26/24 03:00 10/26/24 03:00 10/26/24 03:00 10/26/24 03:00 10/26/24 03:00 10/26/24 03:00 10/26/24 03:00 10/26/24 03:00 10/26/24 03:00 10/26/24 03:00 10/26/24 03:00 10/26/24 03:00 10/26/24 02:57 10/26/24 02:21 10/26/24 02:00 10/26/24 02:00 10/26/24 02:00 10/26/24 02:00 10/26/24 02:00 10/26/24 02:00 10/26/24 02:00 10/26/24 02:00 10/26/24 02:00 10/26/24 02:00 10/26/24 02:00 10/26/24 02:00 10/26/24 02:00 10/26/24 02:00 10/26/24 00:25 10/26/24 00:12 10/26/24 00:00 10/26/24 00:00 10/26/24 00:00 10/26/24 00:00 10/26/24 00:00 10/26/24 00:00 10/26/24 00:00 10/26/24 00:00 10/26/24 00:00 10/26/24 00:00 10/26/24 00:00 10/26/24 00:00 10/26/24 00:00 10/26/24 00:00 10/26/24 00:00 10/26/24 00:00 10/26/24 00:00 10/26/24 00:00 10/26/24 00:00 10/26/24 00:00 10/25/24 23:54 10/25/24 23:44 10/25/24 23:15
[2024-10-26] MEDS: LANTUS PER UNIT CHARGE SC SCH (11:49)
[2024-10-26 12:12] LABS: Hematocrit (blood only) 23.5 % (42.0-52.0); Hemoglobin 8.2 g/dl (14.0-18.0)
--- NOTE | 2024-10-26 14:21 | Electrocardiogram Report ---
Test Reason : Blood Pressure : */* mmHG Vent. Rate : 71 BPM Atrial Rate : 71 BPM P-R Int : 266 ms QRS Dur : 98 ms QT Int : 360 ms P-R-T Axes : 90 21 46 degrees QTcB Int : 391 ms Sinus rhythm with 1st degree A-V block Otherwise normal ECG When compared with ECG of 25-Oct-2024 10:37, (unconfirmed) Sinus rhythm has replaced Junctional rhythm Vent. rate has increased by 25 bpm Incomplete left bundle block is no longer Present Confirmed by Nilo Reich ([id number]) on 10/26/2024 2:20:58 PM Referred By: REFERRED SELF Confirmed By: Nilo Reich
--- NOTE | 2024-10-26 14:56 | Hospitalist Progress Note ---
Date of Service October 26, 2024 Assessment & Plan (1) High anion gap metabolic acidosis: (2) Hyperkalemia: (3) ARF (acute renal failure): (4) Type 2 diabetes mellitus: (5) Stage 3b chronic kidney disease (CKD): (6) Mild persistent asthma: (7) Dyslipidemia: (8) Hypertension: Plan 69 y/o male with insulin-requiring DM2, on insulin pump, HTN, CKDb3, hx of ulcerative colitis s/p total colectomy, hypercholesterolemia, and other history as outlined below who presented to the ED with eight days of vomiting and diarrhea. Pt reports unable to tolerate oral intake, unsure of urine output since incontinent of diarrhea. Work-up in the ED showed elevated creatinine at 10.5, elevated glucose of 429, and elevated potassium of 8.4 EKG c/w junctional rhythm, peaked T-waves c/w known hyperkalemia. VBG showed pH 7.20, pCO2 28. Pt was admitted in ICU. He is being managed for the following: #MO on CKD (last outpatient creatinine around 2.3) #Hyperkalemia #Metabolic acidosis;likely High anion gap metabolic acidosis (iso renal failure) without DKA #Hyperglycemia Severe acute kidney injury ISO CKD stage IIIb, likely prerenal etiology given nausea and vomiting and diarrhea for 8 days prior to arrival. Potassium level and creatinine getting better, on Lokelma. Nephrology on board, patient getting IV fluids and lokelma. Chlorthalidone and lisinopril on hold. Status post insulin drip, glycemic pharmacy on board to help with hyperglycemia/diabetes. 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 Patient does have baseline diarrhea due to history of total colectomy. continue with supportive care, patient reports decreasing frequency of diarrhea. Monitor and replete electrolytes. Likely acute on chronic anemia: Admitting hemoglobin of 9.2, hemoglobin dropped to 7.3 today and repeat hemoglobin of 8.2. chronic anemia in the setting of CKD likely acutely exacerbated by GI bleed. FOBT positive. Will get iron studies tomorrow. Monitor H&H closely. Blood transfusion consent obtained. Will get GI consult, IV PPI twice daily. Insulin-requiring DM2 - on DexCom, insulin pump at home, Glycemic pharmacy on board to help with management. 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 #Mild persistent asthma #Seasonal allergies - Chronic, stable - continue Advair - Resumed montelukast Code status: full code Admission and Anticipated Discharge Date Admission Date: October 25, 2024 Subjective Patient seen and examined at bedside. No acute distress, no acute events overnight Has been diuresing well, denies N, V, abd pain. Reports decreasing freq of diarrhea. Denies any chest pain, no shortness of breath Of note, he does have chronic diarrhea because of colectomy from ulcerative colitis Physical Exam Physical Exam: General: awake, alert, NAD HEENT: no scleral icterus, moist oral mucosa Neck: supple, trachea midline Heart: RRR, no murmur Lungs: CTA bilaterally, no W/R/R Abdomen: soft, NTND, +BS Extremities: distal pulses intact and equal, no pedal edema Skin: warm, dry, no jaundice or cyanosis Neurologic: OX3, moving all extremities, no focal deficits, no confusion or dysarthria Results & Data Results & Data Vital Signs (Past 12 Hours) Vital Signs Temp Pulse Pulse Resp BP BP Pulse Ox 10/26/24 11:03 36.4 C L 62 20 129/68 99 10/26/24 09:09 68 14 98 10/26/24 09:00 144/60 H 10/26/24 08:45 10/26/24 08:19 129/55 L 10/26/24 08:19 129/55 L 10/26/24 08:00 70 10/26/24 08:00 10/26/24 08:00 70 27 H 96 10/26/24 08:00 36.9 C 10/26/24 07:12 66 12 97 10/26/24 07:00 139/69 10/26/24 06:09 75 15 98 10/26/24 06:00 121/59 L 10/26/24 06:00 121/59 L 10/26/24 06:00 121/59 L 10/26/24 06:00 121/59 L 10/26/24 06:00 121/59 L 10/26/24 06:00 121/59 L 10/26/24 06:00 121/59 L 10/26/24 05:54 68 10 L 97 10/26/24 05:09 67 11 L 97 10/26/24 05:00 124/58 L 10/26/24 05:00 124/58 L 10/26/24 05:00 124/58 L 10/26/24 05:00 124/58 L 10/26/24 05:00 124/58 L 10/26/24 05:00 124/58 L 10/26/24 05:00 124/58 L 10/26/24 05:00 124/58 L 10/26/24 05:00 124/58 L 10/26/24 05:00 124/58 L 10/26/24 05:00 124/58 L 10/26/24 05:00 124/58 L 10/26/24 05:00 124/58 L 10/26/24 05:00 124/58 L 10/26/24 05:00 124/58 L 10/26/24 04:36 70 5 L 98 10/26/24 04:18 71 2 L 97 10/26/24 04:00 127/59 L 10/26/24 04:00 127/59 L 10/26/24 04:00 127/59 L 10/26/24 04:00 127/59 L 10/26/24 04:00 127/59 L 10/26/24 04:00 127/59 L 10/26/24 04:00 127/59 L 10/26/24 04:00 127/59 L 10/26/24 04:00 36.9 C 10/26/24 03:51 71 14 96 10/26/24 03:09 73 16 91 10/26/24 03:00 106/49 L 10/26/24 03:00 106/49 L 10/26/24 03:00 106/49 L 10/26/24 03:00 106/49 L 10/26/24 03:00 106/49 L 10/26/24 03:00 106/49 L 10/26/24 03:00 106/49 L 10/26/24 03:00 106/49 L 10/26/24 03:00 106/49 L 10/26/24 03:00 106/49 L 10/26/24 03:00 106/49 L 10/26/24 03:00 106/49 L 10/26/24 03:00 106/49 L 10/26/24 03:00 106/49 L 10/26/24 03:00 106/49 L 10/26/24 03:00 106/49 L 10/26/24 03:00 106/49 L 10/26/24 03:00 106/49 L 10/26/24 03:00 106/49 L 10/26/24 03:00 106/49 L 10/26/24 03:00 106/49 L 10/26/24 03:00 106/49 L 10/26/24 03:00 106/49 L 10/26/24 02:57 79 20 90 O2 Del Method 10/26/24 11:03 Room Air 10/26/24 09:09 10/26/24 09:00 10/26/24 08:45 Room Air 10/26/24 08:19 10/26/24 08:19 10/26/24 08:00 10/26/24 08:00 Room Air 10/26/24 08:00 10/26/24 08:00 10/26/24 07:12 10/26/24 07:00 10/26/24 06:09 10/26/24 06:00 10/26/24 06:00 10/26/24 06:00 10/26/24 06:00 10/26/24 06:00 10/26/24 06:00 10/26/24 06:00 10/26/24 05:54 10/26/24 05:09 10/26/24 05:00 10/26/24 05:00 10/26/24 05:00 10/26/24 05:00 10/26/24 05:00 10/26/24 05:00 10/26/24 05:00 10/26/24 05:00 10/26/24 05:00 10/26/24 05:00 10/26/24 05:00 10/26/24 05:00 10/26/24 05:00 10/26/24 05:00 10/26/24 05:00 10/26/24 04:36 10/26/24 04:18 10/26/24 04:00 10/26/24 04:00 10/26/24 04:00 10/26/24 04:00 10/26/24 04:00 10/26/24 04:00 10/26/24 04:00 10/26/24 04:00 10/26/24 04:00 10/26/24 03:51 10/26/24 03:09 10/26/24 03:00 10/26/24 03:00 10/26/24 03:00 10/26/24 03:00 10/26/24 03:00 10/26/24 03:00 10/26/24 03:00 10/26/24 03:00 10/26/24 03:00 10/26/24 03:00 10/26/24 03:00 10/26/24 03:00 10/26/24 03:00 10/26/24 03:00 10/26/24 03:00 10/26/24 03:00 10/26/24 03:00 10/26/24 03:00 10/26/24 03:00 10/26/24 03:00 10/26/24 03:00 10/26/24 03:00 10/26/24 03:00 10/26/24 02:57 (4) Type 2 diabetes mellitus Diabetes mellitus termite helper insulin use: with custodial use Diabetes mellitus complication status: with ophthalmic complications Diabetes mellitus complication detail: with diabetic retinopathy Diabetic retinopathy severity: with moderate nonproliferative retinopathy Diabetes mellitus macular edema: with macular edema Laterality: unspecified laterality Qualified Code(s): E11.3319 - Type 2 diabetes mellitus with moderate nonproliferative diabetic retinopathy with macular edema, unspecified eye; Z79.4 - terminal computer 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
--- NOTE | 2024-10-26 15:06 | Gastrointestinal Consultation ---
Date of Consultation October 26, 2024 Assessment & Plan (1) Anemia: -Iron panel ordered given suspicion for chronic iron deficiency anemia -Currently without overt GI bleeding and just with heme positive stool. In the setting of high anion gap metabolic acidosis with hyperkalemia/peaked T waves, acute renal failure, & norovirus--would not plan any acute GI intervention at present. He does have scopes to monitor his pouch every 2 years with [facility]. Supervising Physician Co-Signing Physician Notes Patient with a history of UC. Post proctocolectomy and ileoanal pouch. 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 The thickening of the rectum actually is his J-pouch. He has a small anal strip of mucosa left which gets surveillance about every 2 years. This is typical, ..... he is currently admitted with multiple medical problems as well outlined above. Patient with a J-pouch history of pouchitis and remaining anal strip negative mucosa, heme positivity is somewhat expected. His anemia is likely mult ifactorial including his renal failure and acute illness. We should rule out iron deficiency. At this point we do not plan any endoscopic intervention. History of Present Illness Reason for Consultation: Anemia, fecal occult blood positive Attending Physician: Alena Naranjo MD History of Present Illness Patient is a 69 yo male currently admitted to the ICU for high anion gap metabolic acidosis and acute on chronic renal failure in the setting of Norovirus. H/H 8.2/23.5. MCV 82.3. No overt GI bleeding. Unclear when last colonoscopy/EGD occurred as patient has not been scoped in our system but he does note that he had a scope of his rectum within 6 months. Of note, due to a history of UC, patient had a colectomy. No pertinent family history. BUN 19.6, Cr 6.75. Nephrology following. Hgb was 9.2 on 10/25/24. K has been elevated and he has had peaked T waves on EKG. CT scan abdomen/pelvis as follows: 1. Prior colectomy with nonspecific wall thickening noted within the rectum. 2. Borderline enlarged lymph nodes within the lower mesentery. 3. No bowel obstruction or pneumoperitoneum. 4. Cholelithiasis. Allergies Allergy/AdvReac Type Severity Reaction Status Date / Time Sulfa (Sulfonamide Allergy Verified 10/25/24 11:00 Antibiotics) Home Medications Medication Instructions Recorded Confirmed Type lisinopril 40 mg tablet 40 mg PO DAILY ##0 04/15/06 10/25/24 History montelukast 10 mg tablet 10 mg PO DAILY ##0 04/15/06 10/25/24 History amlodipine 10 mg tablet 10 mg PO DAILY 10/25/24 10/25/24 History atorvastatin 40 mg tablet 40 mg PO DAILY 10/25/24 10/25/24 History chlorthalidone 25 mg tablet 25 mg PO DAILY 10/25/24 10/25/24 History fluticasone 250 mcg-salmeterol 50 1 inh inhalation BID 10/25/24 10/25/24 History mcg/dose blistr powdr for inhalation (Advair Diskus) ipratropium bromide 17 2 puff inhalation QID PRN 10/25/24 10/25/24 History mcg/actuation HFA aerosol inhaler SOB/WHEEZING (Atrovent HFA) Patient History Medical History Acoustic neuroma Moderate non-proliferative diabetic retinopathy Type 2 diabetes mellitus Stage 3b chronic kidney disease (CKD) Mild persistent asthma Environmental and seasonal allergies Dyslipidemia Hypertension Ulcerative colitis Surgical History History of cataract surgery Status post total colectomy age 30 for UC, has a J pouch Social History Smoking Status: Former smoker Hx Alcohol Use: No Hx Substance Use: No Preferred Language: Danish Communication Ability: Effective Investigator Operator Required: No Beliefs That Will Affect Care: None Current Living Situation: Spouse Other Information That Helps Us Care for You: Yes Feels Safe at Home: Yes Safety Concerns: Feels Safe At This Time Assistive Devices: None Results & Data Vital Signs (Past 12 Hours) Vital Signs Temp Pulse Pulse Resp BP BP Pulse Ox 10/26/24 11:03 36.4 C L 62 20 129/68 99 10/26/24 09:09 68 14 98 10/26/24 09:00 144/60 H 10/26/24 08:45 10/26/24 08:19 129/55 L 10/26/24 08:19 129/55 L 10/26/24 08:00 70 10/26/24 08:00 10/26/24 08:00 70 27 H 96 10/26/24 08:00 36.9 C 10/26/24 07:12 66 12 97 10/26/24 07:00 139/69 10/26/24 06:09 75 15 98 10/26/24 06:00 121/59 L 10/26/24 06:00 121/59 L 10/26/24 06:00 121/59 L 10/26/24 06:00 121/59 L 10/26/24 06:00 121/59 L 10/26/24 06:00 121/59 L 10/26/24 06:00 121/59 L 10/26/24 05:54 68 10 L 97 10/26/24 05:09 67 11 L 97 10/26/24 05:00 124/58 L 10/26/24 05:00 124/58 L 10/26/24 05:00 124/58 L 10/26/24 05:00 124/58 L 10/26/24 05:00 124/58 L 10/26/24 05:00 124/58 L 10/26/24 05:00 124/58 L 10/26/24 05:00 124/58 L 10/26/24 05:00 124/58 L 10/26/24 05:00 124/58 L 10/26/24 05:00 124/58 L 10/26/24 05:00 124/58 L 10/26/24 05:00 124/58 L 10/26/24 05:00 124/58 L 10/26/24 05:00 124/58 L 10/26/24 04:36 70 5 L 98 10/26/24 04:18 71 2 L 97 10/26/24 04:00 127/59 L 10/26/24 04:00 127/59 L 10/26/24 04:00 127/59 L 10/26/24 04:00 127/59 L 10/26/24 04:00 127/59 L 10/26/24 04:00 127/59 L 10/26/24 04:00 127/59 L 10/26/24 04:00 127/59 L 10/26/24 04:00 36.9 C 10/26/24 03:51 71 14 96 10/26/24 03:09 73 16 91 O2 Del Method 10/26/24 11:03 Room Air 10/26/24 09:09 10/26/24 09:00 10/26/24 08:45 Room Air 10/26/24 08:19 10/26/24 08:19 10/26/24 08:00 10/26/24 08:00 Room Air 10/26/24 08:00 10/26/24 08:00 10/26/24 07:12 10/26/24 07:00 10/26/24 06:09 10/26/24 06:00 10/26/24 06:00 10/26/24 06:00 10/26/24 06:00 10/26/24 06:00 10/26/24 06:00 10/26/24 06:00 10/26/24 05:54 10/26/24 05:09 10/26/24 05:00 10/26/24 05:00 10/26/24 05:00 10/26/24 05:00 10/26/24 05:00 10/26/24 05:00 10/26/24 05:00 10/26/24 05:00 10/26/24 05:00 10/26/24 05:00 10/26/24 05:00 10/26/24 05:00 10/26/24 05:00 10/26/24 05:00 10/26/24 05:00 10/26/24 04:36 10/26/24 04:18 10/26/24 04:00 10/26/24 04:00 10/26/24 04:00 10/26/24 04:00 10/26/24 04:00 10/26/24 04:00 10/26/24 04:00 10/26/24 04:00 10/26/24 04:00 10/26/24 03:51 10/26/24 03:09 PG Care Time/CCT Total # of Minutes Spent Total Time Spent with Patient: Total time spent is greater than 50% in coordination of care (as documented) at patient's floor/unit and/or counseling patient: Coding Level of Care Code 96352 INT INP/OBS CARE 2/55MIN Diagnoses Anemia D64.9
[2024-10-26 16:30] LABS: Iron 130 mcg/dl (35-175); Total Iron Binding Cap Calc 288 mcg/dl (250-450); Transferrin 206 mg/dl (200-360); Transferrin (FE) Percent Satur 45 % (20-50)
[2024-10-26 21:01] LABS: Hemoglobin 7.7 g/dl (14.0-18.0)
[2024-10-27 07:34] LABS: Hematocrit (blood only) 25.8 % (42.0-52.0); Hemoglobin 9.1 g/dl (14.0-18.0); Mean Corpuscular Hemoglobin 28.9 pg (25.0-34.0); Mean Corpuscular Hgb Conc 35.3 g/dL (32.0-36.0); Mean Corpuscular Volume 81.9 fL (80.0-100.0); Mean Platelet Volume 9.7 fL (9.4-12.4); Platelet Count 314 K/uL (130-400); RDW Coefficient of Variation 13.5 % (11.5-14.5); RDW Standard Deviation 40.4 fL (36.4-46.3); Red Blood Count 3.15 M/uL (4.70-6.10); White Blood Count 7.51 K/ul (4.8-10.8)
[2024-10-27 07:58] LABS: Albumin Level 3.4 gm/dl (3.4-5.0); BUN Creatinine Ratio 21.2 (10-20); Calcium 8.6 mg/dl (8.6-10.3); Magnesium 1.9 mg/dl (1.7-2.4); Phosphorus 5.4 mg/dl (2.5-4.9); Potassium 5.3 mmol/L (3.5-5.1)
[2024-10-27 08:21] LABS: Folate (Folic Acid),Ser orPlas > 22.30 ng/ml (>5.38); Vitamin B12 > 1500 pg/ml (180-914)
[2024-10-27] MEDS: ATORVASTATIN 40 MG TAB PO SCH (08:37)
[2024-10-27] MEDS: amLODIPine BESYLATE 5 MG TAB PO SCH (08:37)
[2024-10-27] MEDS: MONTELUKAST SODIUM 10 MG TABLET PO SCH (08:37)
--- NOTE | 2024-10-27 10:32 | Nephrology Progress Note ---
Date of Service October 27, 2024 Assessment & Plan Admission and Anticipated Discharge Date Admission Date: October 25, 2024 Subjective Assessment & Plan (1) ARF (acute renal failure): severe acute kidney injury on background CKD 3B. Patient already has known CKD 3B secondary to combination of diabetes hypertension and does have moderate proteinuria as well as [id number] hyperkalemia in the recent blood work. given his symptoms of severe nausea vomiting diarrhea for the last 8 days I would have to assume this is severe prerenal type in etiology. However even if it is related with severe volume depletion a prolonged state of volume depletion especially in patient with CKD can progress to ATN and there is no guarantee that his kidney function will actually recover or fully reover renal function and K started to improve right on time to avoid dialysis. Now good urine output creat coming down and K down also. No need of Dialysis and likely will not need . Reviewed GI note--patient has Norovirus as the cause of Severe Diarrhea Will do procrit 40507 units sub q x 1 today. Also Venofer 300 mg x 1 to help anemia. he will need Anemia clinic referral post discharge. BP starting to be high so Amlodipine already added. If still high tomorrow will add hydralazine. Avoid AYO/ARB/Diuretics for now. (2) Hyperkalemia: critical hyperkalemia with a potassium of 8.4 with EKG changes and very abnormal kidney function. Patient already has baseline hyperkalemia and CKD. Luckily he recovered just in time to avoid Dialysis Continue Lokelma for 6 more doses as K is still 5.3 continue input output charting and monitor urine output closely stop lisinopril and chlorthalidone for the time being. time spent 38 mins S--feels much better. Diarrhea is less. very good dilute urine now and labs much better. physical examination middle-aged white male who appears ill but does not appear to be in any respiratory distress. awake alert oriented and able to give detailed account of his medical problems mucous membrane is dry neck is supple no JVD chest bilateral clear to auscultation CVS S1 and S2 regular no obvious murmur heard abdomen is soft nontender extremities without edema Results & Data Vital Signs (Past 12 Hours) Vital Signs Temp Pulse Pulse Resp BP Pulse Ox O2 Del Method 10/27/24 08:00 71 10/27/24 06:59 36.6 C 72 18 162/67 H 98 Room Air 10/27/24 02:38 36.6 C 68 18 140/64 96 Room Air 10/26/24 22:50 74 10/26/24 22:35 36.9 C 70 18 143/68 H 96 Room Air
[2024-10-27] MEDS: IRON SUCROSE 300 MG in SODIUM CHLORIDE 0.9% 250 ML IV ONE (11:08)
[2024-10-27] MEDS: EPOETIN ALFA 10,000 UNITS/ML VIAL SQ ONE (11:08)
[2024-10-27] MEDS: INSULIN ASPART PER UNIT CHARGE SC SCH (12:37)
--- NOTE | 2024-10-27 14:45 | Pharmacy Report ---
Pharmacy Glycemic Short Note 2 - Date of Service October 27, 2024 - Glycemic Short BSG Results (Last 24 hours): 10/26/24 10/26/24 10/26/24 15:33 16:24 20:01 Glucose POC Glucose 74 107 H 97 10/27/24 10/27/24 10/27/24 07:02 07:06 11:06 Glucose 159 H POC Glucose 159 H 228 H OUTPATIENT ANTIDIABETIC REGIMEN: * Novolog Omnipod Insulin pump * ~40 units/day total via pump per last documented outpatient MTM visit note HbA1c: * 8.6% (08/17/24) ASSESSMENT: 10/27 * Shay received 29 units of insulin yesterday (13 were basal) * Fasting BSG this AM within goal range, continue current basal regimen * Novolog CF loosened as BSGs slightly below goal range yesterday evening, tightened CR with breakfast starting tomorrow as lunchtime BSGs tend to be elevated 10/26: * Transitioned off insulin drip last evening. BSGs [id number]/dL the last 24h. Received 10 units SQ basal last evening for transition. * Tolerating diet, SCr down-trending (8.69-->7.66-->6.75mg/dL, HD held). * Lantus 13 units daily (~80% pump basal rate) to begin today at lunch. Continue Novolog 30/ home parameters ACHS. 10/25: * 69 yo M admitted on 10/25/24 secondary to DKA. Pharmacy has been consulted to assist with inpatient glycemic management. Patient is a Type 2 diabetic as an outpatient. Please refer to outpatient regimen and most recent HbA1c above. * Admission labs: BSG 429 mg/dL, K 8.4, SCr 10.5, AG 17, CO2 12. Patient is NPO. Started on an insulin drip for DKA. Will require emergent dialysis today for high potassium and CKD. * Will plan to continue with insulin drip throughout this evening. No basal will be ordered at this time. Can reassess basal needs in the morning. * See below for transition to subcutaneous insulin recommendations should gap close this evening. PLAN FOR INPATIENT GLYCEMIC CONTROL: * Basal insulin * Lantus 13 units SQ daily * Bolus insulin- with breakfast * NovoLog per scale QDL, QDD, and HS or Q6hrs while NPO * Goal Range: Low 120 mg/dL - High 160 mg/dL * Correction Factor: 30 mg/dL/unit * Nutritional / Prandial insulin per carb ratio of 1 unit per 7 grams CHO consumed * Bolus insulin- with lunch, dinner and bedtime * NovoLog per scale QDL, QDD, and HS or Q6hrs while NPO * Goal Range: Low 120 mg/dL - High 160 mg/dL * Correction Factor: 35 mg/dL/unit * Nutritional / Prandial insulin per carb ratio of 1 unit per 8 grams CHO consumed
--- NOTE | 2024-10-27 15:31 | Hospitalist Progress Note ---
Date of Service October 27, 2024 Assessment & Plan (1) High anion gap metabolic acidosis: (2) Hyperkalemia: (3) ARF (acute renal failure): (4) Type 2 diabetes mellitus: (5) Stage 3b chronic kidney disease (CKD): (6) Mild persistent asthma: (7) Dyslipidemia: (8) Hypertension: Plan 69 y/o male with insulin-requiring DM2, on insulin pump, HTN, CKDb3, hx of ulcerative colitis s/p total colectomy, hypercholesterolemia, and other history as outlined below who presented to the ED with eight days of vomiting and diarrhea. Pt reports unable to tolerate oral intake, unsure of urine output since incontinent of diarrhea. Work-up in the ED showed elevated creatinine at 10.5, elevated glucose of 429, and elevated potassium of 8.4 EKG c/w junctional rhythm, peaked T-waves c/w known hyperkalemia. VBG showed pH 7.20, pCO2 28. Pt was admitted in ICU. He is being managed for the following: #MO on CKD (last outpatient creatinine around 2.3) #Hyperkalemia #Metabolic acidosis;likely High anion gap metabolic acidosis (iso renal failure) without DKA #Hyperglycemia Severe acute kidney injury ISO CKD stage IIIb, likely prerenal etiology given nausea and vomiting and diarrhea for 8 days prior to arrival. Potassium level and creatinine getting better, on Lokelma. Nephrology on board, patient getting IV fluids and lokelma. Chlorthalidone and lisinopril on hold. Status post insulin drip, glycemic pharmacy on board to help with hyperglycemia/diabetes. Potassium remains elevated to 5.3 Discussed with the automotive parts counter associate and will give Lokelma 6 more doses as per recommendation from the automotive parts counter associate Will monitor PRP- creatinine has been improving and as of today it is 103 over/4.85 Norovirus related gastroenteritis: Patient with increased episodes of diarrhea per day for 8 days [employer]. Patient does have baseline diarrhea due to history of total colectomy. continue with supportive care, patient reports decreasing frequency of diarrhea. Monitor and replete electrolytes. Denies any abdominal pain and/or diarrhea Likely acute on chronic anemia: Admitting hemoglobin of 9.2, hemoglobin dropped to 7.3 today and repeat hemoglobin of 8.2. chronic anemia in the setting of CKD likely acutely exacerbated by GI bleed. FOBT positive. Iron level has been normal but he will receive 1 dose of Venofer as per nephrologistMonitor H&H closely. Blood transfusion consent obtained. Will get GI consult, IV PPI twice daily. Insulin-requiring DM2 - on DexCom, insulin pump at home, Glycemic pharmacy on board to help with management. [id number] at 9.4 Hypertension - has not been able to tolerate meds for the past few days [employer], initial BPs in the ED were not significant elevated - Holding lisinopril, chlorthalidone due to MO - Monitor BP with fluid resuscitation - c/w home amlodipine. #Mild persistent asthma #Seasonal allergies - Chronic, stable - continue Advair - Resumed montelukast DVT -Prophylaxis SCDs Code status: full code Admission and Anticipated Discharge Date Admission Date: October 25, 2024 Subjective 10/27/2024 The patient was seen and examined in telemetry unit He has been feeling much better and making out enough urine with improvement of kidney function Has been drinking enough fluid and denies any significant symptoms even with ambulation He will likely need to observe for the next day or 2 before discharge Review of Systems Review of Systems: All systems reviewed and are unremarkable except as noted below Physical Exam Physical Exam: Sitting at the edge of the bed without any acute distress Constitutional: well developed, well nourished and + ill appearing Eyes: PERRL, conjunctivae normal, anicteric sclerae ENMT: external ear and nose normal, oropharynx normal Neck: trachea midline, no thyromegaly Respiratory: normal respiratory effort; no respiratory distress Auscultation: lungs clear to auscultation bilaterally Cardiovascular: Rate/Rhythm: regular rate and regular rhythm; not tachycardic Heart Sounds: normal S1 and normal S2; no murmur Gastrointestinal (Abdomen): Inspection/Auscultation: abdomen normal to inspection and normal bowel sounds; abdomen not distended Percussion/Palpation: abdomen soft; abdomen nontender Musculoskeletal: No acute arthritis involving hip joint Neurologic: normal touch/pain/proprioception and moves all extremities; no focal motor deficits Psychiatric: A+Ox3, euthymic affect Lymphatic: no cervical or axillary lymphadenopathy Results & Data Results & Data Vital Signs (Past 12 Hours) Vital Signs Temp Pulse Pulse Resp BP Pulse Ox O2 Del Method 10/27/24 15:17 36.4 C L 73 18 164/70 H 97 Room Air 10/27/24 14:07 75 10/27/24 10:29 36.5 C 71 17 144/73 H 97 Room Air 10/27/24 08:00 71 10/27/24 06:59 36.6 C 72 18 162/67 H 98 Room Air Laboratory Results Short CBC 10/26/24 10/27/24 Range/Units 20:11 07:02 WBC 7.51 (4.8-10.8) K/ul Hgb 7.7 L 9.1 L (14.0-18.0) g/dl Hct 22.0 L 25.8 L (42.0-52.0) % Plt Count 314 (130-400) K/uL BMP 10/27/24 07:02 Sodium 141 Potassium 5.3 H Chloride 111 H Carbon Dioxide 22 BUN 103 H D Creatinine 4.85 H* D Glucose 159 H Calcium 8.6 Liver Function 10/27/24 Range/Units 07:02 Albumin 3.4 (3.4-5.0) gm/dl Medications Administered Current Inpatient Medications Amlodipine Besylate (Amlodipine Besylate 5 Mg Tab) 10 mg PO DAILY DWAINE Stop: 11/26/24 08:59 Last Admin: 10/27/24 08:37 Dose: 10 mg Atorvastatin Calcium (Atorvastatin 40 Mg Tab) 40 mg PO DAILY DWAINE Stop: 11/26/24 08:59 Last Admin: 10/27/24 08:37 Dose: 40 mg Dextrose (Dextrose 50% 50 Ml Syringe) 25 - 50 ml IV UD PRN; Protocol PRN Reason: Hypoglycemia Protocol Stop: 11/24/24 12:44 Last Admin: 10/25/24 16:16 Dose: 25 ml Fluticasone/Vilanterol (Fluticasone/Vilanterol 200/25mcg 14 Puffs/Inhaler) 1 puffs INH DAILY DWAINE Stop: 11/25/24 08:59 Last Admin: 10/27/24 08:36 Dose: 1 puffs Glucagon (Glucagon For Inj 1 Mg Vial) 1 mg SQ UD PRN; Protocol PRN Reason: Hypoglycemia Protocol Stop: 11/24/24 12:44 Glucose (Glucose 40% Gel 15 Gm Tube) 15 - 30 gm PO UD PRN; Protocol PRN Reason: Hypoglycemia Protocol Stop: 11/24/24 12:44 Glucose (Glucose 10 Tab/Tube) 4 - 8 tab PO UD PRN; Protocol PRN Reason: Hypoglycemia Protocol Stop: 11/24/24 12:44 Insulin Aspart (Insulin Aspart Per Unit Charge) 0 units SC TID@1130,1630,2100 [facility] Stop: 11/26/24 11:29 Last Admin: 10/27/24 12:37 Dose: 7 units Insulin Aspart (Insulin Aspart Per Unit Charge) 0 units SC QDB [facility] Stop: 11/27/24 07:29 Insulin Glargine (Lantus Per Unit Charge) 13 units SC DAILY [facility] Stop: 11/25/24 11:29 Last Admin: 10/27/24 08:30 Dose: 13 units Miscellaneous (Carbohydrates For Hypoglycemia ) 15 - 30 gm PO UD PRN PRN Reason: Hypoglycemia Treatment Stop: 11/24/24 12:44 Miscellaneous Information (Pharmacy Glycemic Mgmt Consult) 1 each N/A UD PRN PRN Reason: Consult Stop: 11/24/24 11:27 Montelukast Sodium (Montelukast Sodium 10 Mg Tablet) 10 mg PO DAILY [facility] Stop: 11/26/24 08:59 Last Admin: 10/27/24 08:37 Dose: 10 mg (4) Type 2 diabetes mellitus 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 Diabetes mellitus complication status: with ophthalmic complications Diabetes mellitus complication detail: with diabetic retinopathy Diabetic retinopathy severity: with moderate nonproliferative retinopathy Diabetes mellitus macular edema: with macular edema Laterality: unspecified laterality Qualified Code(s): E11.3319 - Type 2 diabetes mellitus with moderate nonproliferative diabetic retinopathy with macular edema, unspecified eye; Z79.4 - FDC (current) use of insulin (6) Mild persistent asthma Asthma complication type: uncomplicated Qualified Code(s): J45.30 - Mild persistent asthma, uncomplicated (8) Hypertension Hypertension type: unspecified Qualified Code(s): I10 - Essential (primary) hypertension
[2024-10-27] MEDS: SODIUM ZIRCONIUM CYCLOSILICATE 10 GM PACKET PO SCH (20:06)
[2024-10-28 07:57] LABS: Albumin Level 3.7 gm/dl (3.4-5.0); BUN Creatinine Ratio 20.4 (10-20); Calcium 8.8 mg/dl (8.6-10.3); Creatinine Clr Calc Pharmacy 15.8 ml/min; Magnesium 1.7 mg/dl (1.7-2.4); Phosphorus 4.7 mg/dl (2.5-4.9); Potassium 4.8 mmol/L (3.5-5.1)
[2024-10-28] MEDS: INSULIN ASPART PER UNIT CHARGE SC SCH (08:06)
[2024-10-28] MEDS: hydrALAZINE HCL 25 MG TAB PO SCH (09:34)
[2024-10-28] MEDS: COUGH DROP (SUGAR FREE) LOZ 24 LOZ/1 BOX BUCCAL ONE (09:42)
--- NOTE | 2024-10-28 09:56 | Nephrology Progress Note ---
Date of Service October 28, 2024 Assessment & Plan Admission and Anticipated Discharge Date Admission Date: October 25, 2024 Subjective Assessment & Plan (1) ARF (acute renal failure): severe acute kidney injury on background CKD 3B. Patient already has known CKD 3B secondary to combination of diabetes hypertension and does have moderate proteinuria as well as [id number] hyperkalemia in the recent blood work. given his symptoms of severe nausea vomiting diarrhea for the last 8 days I would have to assume this is severe prerenal type in etiology. However even if it is related with severe volume depletion a prolonged state of volume depletion especially in patient with CKD can progress to ATN and there is no guarantee that his kidney function will actually recover or fully recover renal function and K started to improve right on time to avoid dialysis. Now good urine output creat coming down and K down also. Reviewed GI note--patient has Norovirus as the cause of Severe Diarrhea I did give procrit 75341 units sub q x 1 and also Venofer 300 mg x 1 to help anemia. he will need Anemia clinic referral post discharge. BP starting to be high so Amlodipine already added. Will add hydralazine 25 tid. Avoid AYO/ARB/Diuretics for now. Hopefully can be discharged tomorrow based on the current trend. For D/c recommend: Will need nephrology within 1-[address] Schroeder as she has seen him in clinic before. Will need CBC, renal Panel, Iron screen, PTH and Vit D and ACR next week as outpt. Discharge on Hydralazine and Amlodipine for BP. stop lisinopril and chlorthalidone for the time being. (2) Hyperkalemia: critical hyperkalemia with a potassium of 8.4 with EKG changes and very abnormal kidney function. Patient already has baseline hyperkalemia and CKD. Luckily he recovered just in time to avoid Dialysis Will Continue Lokelma while inpatient. continue input output charting and monitor urine output closely stop lisinopril and chlorthalidone for the time being. time spent 38 mins S--feels much better. Diarrhea is less. very good dilute urine now and labs much better. physical examination middle-aged white male who appears ill but does not appear to be in any respiratory distress. awake alert oriented and able to give detailed account of his medical problems mucous membrane is dry neck is supple no JVD chest bilateral clear to auscultation CVS S1 and S2 regular no obvious murmur heard abdomen is soft nontender extremities without edema Results & Data Vital Signs (Past 12 Hours) Vital Signs Temp Pulse Pulse Resp BP Pulse Ox O2 Del Method 10/28/24 07:08 72 10/28/24 07:02 36.6 C 80 19 176/85 H 96 Room Air 10/28/24 03:59 36.7 C 76 18 146/70 H 95 Room Air 10/27/24 23:08 36.7 C 76 18 154/75 H 95 Room Air 10/27/24 22:00 74
[2024-10-28] MEDS: LANTUS PER UNIT CHARGE SC SCH (11:50)
[2024-10-29 07:58] LABS: Albumin Level 3.3 gm/dl (3.4-5.0); BUN Creatinine Ratio 19.6 (10-20); Calcium 8.3 mg/dl (8.6-10.3); Magnesium 1.5 mg/dl (1.7-2.4); Phosphorus 4.3 mg/dl (2.5-4.9)
[2024-10-29] MEDS ORDERED: INSULIN ASPART 100 UNITS/ML VIAL SC PRN (10:15)
--- NOTE | 2024-10-29 10:28 | Nephrology Progress Note ---
Date of Service October 29, 2024 Assessment & Plan Admission and Anticipated Discharge Date Admission Date: October 25, 2024 Subjective Assessment & Plan (1) ARF (acute renal failure): severe acute kidney injury on background CKD 3B. Patient already has known CKD 3B secondary to combination of diabetes hypertension and does have moderate proteinuria as well as [id number] hyperkalemia in the recent blood work. given his symptoms of severe nausea vomiting diarrhea for the last 8 days I would have to assume this is severe prerenal type in etiology. However even if it is related with severe volume depletion a prolonged state of volume depletion especially in patient with CKD can progress to ATN and there is no guarantee that his kidney function will actually recover or fully recover renal function and K started to improve right on time to avoid dialysis. Now good urine output creat coming down and K down also. Reviewed GI note--patient has Norovirus as the cause of Severe Diarrhea I did give procrit 59696 units sub q x 1 and also Venofer 300 mg x 1 to help anemia. he will need Anemia clinic referral post discharge. BP starting to be high so Amlodipine already added. Will add hydralazine 25 tid. Avoid AYO/ARB/Diuretics for now. Hopefully can be discharged tomorrow based on the current trend. For D/c recommend: Can be discharged today. Renal function getting close to baseline. Creat is 3.3 now and downtrending nicely but baseline is 2.3 Will need nephrology within 1-[address] Schroeder In [place] as she has seen him in clinic before. Will need CBC, renal Panel, Iron screen, PTH and Vit D and ACR next week as outpt. Discharge on Hydralazine and Amlodipine for BP. stop lisinopril and chlorthalidone for the time being. (2) Hyperkalemia: critical hyperkalemia with a potassium of 8.4 with EKG changes and very abnormal kidney function. Patient already has baseline hyperkalemia and CKD. Luckily he recovered just in time to avoid Dialysis Will Continue Lokelma while inpatient. Decide outpt use based on labs next week. continue input output charting and monitor urine output closely stop lisinopril and chlorthalidone for the time being. time spent 38 mins S--feels much better. Diarrhea is less. very good dilute urine now and labs much better. physical examination middle-aged white male who appears ill but does not appear to be in any respiratory distress. awake alert oriented and able to give detailed account of his medical problems mucous membrane is dry neck is supple no JVD chest bilateral clear to auscultation CVS S1 and S2 regular no obvious murmur heard abdomen is soft nontender extremities without edema Results & Data Vital Signs (Past 12 Hours) Vital Signs Temp Pulse Pulse Resp BP Pulse Ox O2 Del Method 10/29/24 07:25 74 10/29/24 06:59 36.6 C 81 16 128/67 96 Room Air 10/29/24 02:58 36.7 C 69 18 132/67 96 Room Air
[2024-10-29 10:58] VITALS: BP 114/67; RESP 19; TEMP 98.2; O2SAT 98
[2024-10-29] MEDS ORDERED: INSULIN, Rapid-Acting PUMP SCH (11:30)
--- NOTE | 2024-10-29 13:08 | Hospitalist Progress Note ---
Date of Service October 29, 2024 Delayed note for 10/28/2024 Assessment & Plan (1) High anion gap metabolic acidosis: (2) Hyperkalemia: (3) ARF (acute renal failure): (4) Type 2 diabetes mellitus: (5) Stage 3b chronic kidney disease (CKD): (6) Mild persistent asthma: (7) Dyslipidemia: (8) Hypertension: Plan 69 y/o male with insulin-requiring DM2, on insulin pump, HTN, CKDb3, hx of ulcerative colitis s/p total colectomy, hypercholesterolemia, and other history as outlined below who presented to the ED with eight days of vomiting and diarrhea. Pt reports unable to tolerate oral intake, unsure of urine output since incontinent of diarrhea. Work-up in the ED showed elevated creatinine at 10.5, elevated glucose of 429, and elevated potassium of 8.4 EKG c/w junctional rhythm, peaked T-waves c/w known hyperkalemia. VBG showed pH 7.20, pCO2 28. Pt was admitted in ICU. He is being managed for the following: #MO on CKD (last outpatient creatinine around 2.3) #Hyperkalemia #Metabolic acidosis;likely High anion gap metabolic acidosis (iso renal failure) without DKA #Hyperglycemia Severe acute kidney injury ISO CKD stage IIIb, likely prerenal etiology given nausea and vomiting and diarrhea for 8 days prior to arrival. Potassium level and creatinine getting better, on Lokelma. Nephrology on board, patient getting IV fluids and lokelma. Chlorthalidone and lisinopril on hold. Status post insulin drip, glycemic pharmacy on board to help with hyperglycemia/diabetes. 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 Patient does have baseline diarrhea due to history of total colectomy. continue with supportive care, patient reports decreasing frequency of diarrhea. Monitor and replete electrolytes. Denies any abdominal pain and/or diarrhea Likely acute on chronic anemia: Admitting hemoglobin of 9.2, hemoglobin dropped to 7.3 today and repeat hemoglobin of 8.2. chronic anemia in the setting of CKD likely acutely exacerbated by GI bleed. FOBT positive. Iron level has been normal but he will receive 1 dose of Venofer as per nephrologistMonitor H&H closely. Blood transfusion consent obtained. Will get GI consult, IV PPI twice daily. Hemoglobin remained stable Insulin-requiring DM2 - on DexCom, insulin pump at home, Glycemic pharmacy on board to help with management. 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 #Mild persistent asthma #Seasonal allergies - Chronic, stable - continue Advair - Resumed montelukast DVT -Prophylaxis SCDs Code status: full code Admission and Anticipated Discharge Date Admission Date: October 25, 2024 Subjective 10/27/2024 The patient was seen and examined in telemetry unit He has been feeling much better and making out enough urine with improvement of kidney function Has been drinking enough fluid and denies any significant symptoms even with ambulation He will likely need to observe for the next day or 2 before discharge 10/28/2024 The patient was seen and examined in telemetry unit He has been feeling much better and has been ambulating without any difficulties Review of Systems Review of Systems: All systems reviewed and are unremarkable except as noted below Physical Exam Physical Exam: Sitting at the edge of the bed without any acute distress Constitutional: well developed, well nourished and + ill appearing Eyes: PERRL, conjunctivae normal, anicteric sclerae ENMT: external ear and nose normal, oropharynx normal Neck: trachea midline, no thyromegaly Respiratory: normal respiratory effort; no respiratory distress Auscultation: lungs clear to auscultation bilaterally Cardiovascular: Rate/Rhythm: regular rate and regular rhythm; not tachycardic Heart Sounds: normal S1 and normal S2; no murmur Gastrointestinal (Abdomen): Inspection/Auscultation: abdomen normal to inspection and normal bowel sounds; abdomen not distended Percussion/Palpat ion: abdomen soft; abdomen nontender Neurologic: normal touch/pain/proprioception and moves all extremities; no focal motor deficits Psychiatric: A+Ox3, euthymic affect Lymphatic: no cervical or axillary lymphadenopathy Results & Data Results & Data Vital Signs (Past 12 Hours) Vital Signs Temp Pulse Pulse Resp BP Pulse Ox O2 Del Method 10/29/24 10:57 36.8 C 77 19 114/67 98 Room Air 10/29/24 07:25 74 10/29/24 06:59 36.6 C 81 16 128/67 96 Room Air 10/29/24 02:58 36.7 C 69 18 132/67 96 Room Air (4) Type 2 diabetes mellitus Diabetes mellitus complication detail: with diabetic retinopathy Diabetes mellitus complication status: with ophthalmic complications Diabetes mellitus prison insulin use: with prison use Diabetes mellitus macular edema: with macular edema Diabetic retinopathy severity: with moderate nonproliferative retinopathy Laterality: unspecified laterality Qualified Code(s): E11.3319 - Type 2 diabetes mellitus with moderate nonproliferative diabetic retinopathy with macular edema, unspecified eye; Z79.4 - watermelon inspector (current) use of insulin (6) Mild persistent asthma Asthma complication type: uncomplicated Qualified Code(s): J45.30 - Mild persistent asthma, uncomplicated (8) Hypertension Hypertension type: unspecified Qualified Code(s): I10 - Essential (primary) hypertension
--- NOTE | 2024-10-29 13:12 | Hospitalist Progress Note ---
Date of Service October 29, 2024 Assessment & Plan (1) High anion gap metabolic acidosis: (2) Hyperkalemia: (3) ARF (acute renal failure): (4) Type 2 diabetes mellitus: (5) Stage 3b chronic kidney disease (CKD): (6) Mild persistent asthma: (7) Dyslipidemia: (8) Hypertension: Plan 69 y/o male with insulin-requiring DM2, on insulin pump, HTN, CKDb3, hx of ulcerative colitis s/p total colectomy, hypercholesterolemia, and other history as outlined below who presented to the ED with eight days of vomiting and diarrhea. Pt reports unable to tolerate oral intake, unsure of urine output since incontinent of diarrhea. Work-up in the ED showed elevated creatinine at 10.5, elevated glucose of 429, and elevated potassium of 8.4 EKG c/w junctional rhythm, peaked T-waves c/w known hyperkalemia. VBG showed pH 7.20, pCO2 28. Pt was admitted in ICU. He is being managed for the following: #MO on CKD (last outpatient creatinine around 2.3) #Hyperkalemia #Metabolic acidosis;likely High anion gap metabolic acidosis (iso renal failure) without DKA #Hyperglycemia Severe acute kidney injury ISO CKD stage IIIb, likely prerenal etiology given nausea and vomiting and diarrhea for 8 days prior to arrival. Potassium level and creatinine getting better, on Lokelma. Nephrology on board, patient getting IV fluids and lokelma. Chlorthalidone and lisinopril on hold. Status post insulin drip, glycemic pharmacy on board to help with hyperglycemia/diabetes. 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 Patient does have baseline diarrhea due to history of total colectomy. continue with supportive care, patient reports decreasing gia quency of diarrhea. Monitor and replete electrolytes. Denies any abdominal pain and/or diarrhea Likely acute on chronic anemia: Admitting hemoglobin of 9.2, hemoglobin dropped to 7.3 today and repeat hemoglobin of 8.2. chronic anemia in the setting of CKD likely acutely exacerbated by GI bleed. FOBT positive. Iron level has been normal but he will receive 1 dose of Venofer as per nephrologistMonitor H&H closely. Blood transfusion consent obtained. Will get GI consult, IV PPI twice daily. Hemoglobin remained stable Insulin-requiring DM2 - on DexCom, insulin pump at home, Glycemic pharmacy on board to help with management. [id number] at 9.4 Blood sugar is maintaining He cannot have his insulin pump to bring by somebody into the hospital The risk of not having insulin following discharge was explained to him and he is willing to take the risk of not having insulin following discharge and skilled application of his insulin pump This was expressed and was advised for the patient to stay in the hospital for another night until somebody can bring the pump He was adamant to go and took the risk of not having insulin as mentioned earlier He will be discharged this afternoon Hypertension - has not been able to tolerate meds for the past few days 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 #Mild persistent asthma #Seasonal allergies - Chronic, stable - continue Advair - Resumed montelukast DVT -Prophylaxis SCDs Code status: full code Admission and Anticipated Discharge Date Admission Date: October 25, 2024 Subjective 10/27/2024 The patient was seen and examined in telemetry unit He has been feeling much better and making out enough urine with improvement of kidney function Has been drinking enough fluid and denies any significant symptoms even with ambulation He will likely need to observe for the next day or 2 before discharge 10/28/2024 The patient was seen and examined in telemetry unit He has been feeling much better and has been ambulating without any difficulties 10/29/2024 The patient was seen and examined in telemetry unit He has been feeling much better and is not having any symptoms Ambulating in the hallway without difficulties He wants to go home today Review of Systems Review of Systems: All systems reviewed and are unremarkable except as noted below Physical Exam Physical Exam: Sitting at the edge of the bed without any acute distress Constitutional: well developed, well nourished and + ill appearing Eyes: PERRL, conjunctivae normal, anicteric sclerae ENMT: external ear and nose normal, oropharynx normal Neck: trachea midline, no thyromegaly Respiratory: normal respiratory effort; no respiratory distress Au scultation: lungs clear to auscultation bilaterally Cardiovascular: Rate/Rhythm: regular rate and regular rhythm; not tachycardic Heart Sounds: normal S1 and normal S2; no murmur Gastrointestinal (Abdomen): Inspection/Auscultation: abdomen normal to ins pection and normal bowel sounds; abdomen not distended Percussion/Palpation: abdomen soft; abdomen nontender Neurologic: normal touch/pain/proprioception and moves all extremities; no focal motor deficits Psychiatric: A+Ox3, euthymic affect Lymphatic: no cervical or axillary lymphadenopathy Results & Data Results & Data Vital Signs (Past 12 Hours) Vital Signs Temp Pulse Pulse Resp BP Pulse Ox O2 Del Method 10/29/24 10:57 36.8 C 77 19 114/67 98 Room Air 10/29/24 07:25 74 10/29/24 06:59 36.6 C 81 16 128/67 96 Room Air 10/29/24 02:58 36.7 C 69 18 132/67 96 Room Air Laboratory Results [facility] 10/29/24 06:20 Sodium 140 Potassium 4.0 Chloride 106 Carbon Dioxide 24 BUN 65 H Creatinine 3.31 H D Glucose 112 H Calcium 8.3 L Liver Function 10/29/24 Range/Units 06:20 Albumin 3.3 L (3.4-5.0) gm/dl Medications Administered Current Inpatient Medications Amlodipine Besylate (Amlodipine Besylate 5 Mg Tab) 10 mg PO DAILY DWAINE Stop: 11/26/24 08:59 Last Admin: 10/29/24 09:37 Dose: 10 mg Atorvastatin Calcium (Atorvastatin 40 Mg Tab) 40 mg PO DAILY DWAINE Stop: 11/26/24 08:59 Last Admin: 10/29/24 09:38 Dose: 40 mg Dextrose (Dextrose 50% 50 Ml Syringe) 25 - 50 ml IV UD PRN; Protocol PRN Reason: Hypoglycemia Protocol Stop: 11/24/24 12:44 Last Admin: 10/25/24 16:16 Dose: 25 ml Fluticasone/Vilanterol (Fluticasone/Vilanterol 200/25mcg 14 Puffs/Inhaler) 1 puffs INH DAILY DWAINE Stop: 11/25/24 08:59 Last Admin: 10/29/24 09:35 Dose: 1 puffs Glucagon (Glucagon For Inj 1 Mg Vial) 1 mg SQ UD PRN; Protocol PRN Reason: Hypoglycemia Protocol Stop: 11/24/24 12:44 Glucose (Glucose 40% Gel 15 Gm Tube) 15 - 30 gm PO UD PRN; Protocol PRN Reason: Hypoglycemia Protocol Stop: 11/24/24 12:44 Glucose (Glucose 10 Tab/Tube) 4 - 8 tab PO UD PRN; Protocol PRN Reason: Hypoglycemia Protocol Stop: 11/24/24 12:44 Hydralazine HCl (Hydralazine Hcl 25 Mg Tab) 25 mg PO TID [facility] Stop: 11/27/24 09:29 Last Admin: 10/29/24 13:49 Dose: 25 mg Insulin Aspart (Insulin Aspart Per Unit Charge) 0 units SC TID@1130,1630,2100 [facility] Stop: 11/26/24 11:29 Last Admin: 10/28/24 20:38 Dose: Not Given Insulin Aspart (Insulin Aspart Per Unit Charge) 0 units SC QDB [facility] Stop: 11/27/24 07:29 Last Admin: 10/29/24 09:34 Dose: Not Given Insulin Aspart (Insulin, Rapid-Acting Pump) 1 each N/A ACHS [facility]; Protocol Stop: 11/28/24 11:29 Insulin Aspart (Insulin Aspart 100 Units/Ml Vial) 0 units SC PRN PRN PRN Reason: Pump Refill Use ONLY Stop: 11/28/24 10:14 Miscellaneous (Carbohydrates For Hypoglycemia ) 15 - 30 gm PO UD PRN PRN Reason: Hypoglycemia Treatment Stop: 11/24/24 12:44 Montelukast Sodium (Montelukast Sodium 10 Mg Tablet) 10 mg PO DAILY [facility] Stop: 11/26/24 08:59 Last Admin: 10/29/24 09:37 Dose: 10 mg (4) Type 2 diabetes mellitus Diabetes mellitus complication detail: with diabetic retinopathy Diabetes mellitus complication status: with ophthalmic complications Diabetes mellitus salvage determiner insulin use: with salvage determiner use Diabetes mellitus macular edema: with macular edema Diabetic retinopathy severity: with moderate nonproliferative retinopathy Laterality: unspecified laterality Qualified Code(s): E11.3319 - Type 2 diabetes mellitus with moderate nonproliferative diabetic retinopathy with macular edema, unspecified eye; Z79.4 - half-way (current) use of insulin (6) Mild persistent asthma Asthma complication type: uncomplicated Qualified Code(s): J45.30 - Mild persistent asthma, uncomplicated (8) Hypertension Hypertension type: unspecified Qualified Code(s): I10 - Essential (primary) hypertension
[2024-10-29] MEDS: INSULIN ASPART PER UNIT CHARGE SC STA (13:47)
[2024-10-29 15:13] VITALS: PULSE 88
--- NOTE | 2024-10-30 07:22 | Discharge Summary ---
Date of Service October 30, 2024 Admission HPI Per Admitting Provider This is a 69 y/o male with insulin-requiring DM2, on insulin pump, HTN, CKDb3, hx of ulcerative colitis s/p total colectomy, hypercholesterolemia, and other history as outlined below who presented to the ED today with eight days of vomiting and diarrhea. Pt reports visiting his at [facility] when he noticed an unsettled feeling in his stomach followed shortly by vomiting then diarrhea. Since then, the vomiting and diarrhea have continued with last episode of emesis being this morning, last episode of diarrhea this morning in the ED. Symptoms were most severe the first three days but have continued to wax and wane since then. +urgency, incontinence, and nocturnal stooling. Associated abdominal cramping but no severe abdominal pain. Denies melena, hematochezia, and hematemesis. He has not check his temperature at home but has noted chills and sweats. His oral intake has been limited as he cannot keep anything down. He has not been able to take his routine medications over the last few days. His Dexcom has shown high sugars (>400) over the last few days. He reports that his insulin pump has been functioning without issue. He changed both sides yesterday. He notes some head congestion and runny nose but no cough or dyspnea. Admission Exam Per Admitting Provider Physical Exam: General: awake, alert, NAD HEENT: no scleral icterus, slightly dry oral mucosa Neck: supple, trachea midline Heart: regular but tachycardic Lungs: CTA bilaterally, no W/R/R Abdomen: soft, NTND, +BS Extremities: distal pulses intact and equal, no pedal edema Skin: warm, dry, no jaundice or cyanosis Neurologic: OX3, moving all extremities, no focal deficits, no confusion or dysarthria Principal Diagnosis MO on CKD, chronic anemia, uncontrolled diabetes with hyperglycemia Discharge Exam Sitting at the edge of the bed without any acute distress Constitutional well developed, well nourished and + ill appearing Eyes PERRL, conjunctivae normal, anicteric sclerae ENMT external ear and nose normal, oropharynx normal Neck trachea midline, no thyromegaly Respiratory normal respiratory effort; no respiratory distress Auscultation: lungs clear to auscultation bilaterally Cardiovascular Rate/Rhythm: regular rate and regular rhythm; not tachycardic Heart Sounds: normal S1 and normal S2; no murmur Gastrointestinal (Abdomen) Inspection/Auscultation: abdomen normal to inspection and normal bowel sounds; abdomen not distended Percussion/Palpation: abdomen soft; abdomen nontender Neurologic normal touch/pain/proprioception and moves all extremities; no focal motor deficits Psychiatric A+Ox3, euthymic affect Lymphatic no cervical or axillary lymphadenopathy Discharge Data Allergies Allergy/AdvReac Type Severity Reaction Status Date / Time Sulfa (Sulfonamide Allergy Verified 10/25/24 11:00 Antibiotics) Consultations 10/25/24 11:19 ED Decision to Admit Stat 10/25/24 11:43 Consult Nephrology Stat 10/25/24 12:14 Consult Sample Shoe Inspector And Reworker Routine 10/26/24 14:52 Consult Gastroenterology Routine Ordered Studies 10/25/24 11:45 US point of care ultrasound Urgent 10/25/24 12:35 CT Abd and Pelvis [CT abd pelvis wo con] Stat Hospital Course (1) High anion gap metabolic acidosis: (2) Hyperkalemia: (3) ARF (acute renal failure): (4) Type 2 diabetes mellitus: (5) Stage 3b chronic kidney disease (CKD): (6) Mild persistent asthma: (7) Dyslipidemia: (8) Hypertension: Plan 69 y/o male with insulin-requiring DM2, on insulin pump, HTN, CKDb3, hx of ulcerative colitis s/p total colectomy, hypercholesterolemia, and other history as outlined below who presented to the ED with eight days of vomiting and diarrhea. Pt reports unable to tolerate oral intake, unsure of urine output since incontinent of diarrhea. Work-up in the ED showed elevated creatinine at 10.5, elevated glucose of 429, and elevated potassium of 8.4 EKG c/w junctional rhythm, peaked T-waves c/w known hyperkalemia. VBG showed pH 7.20, pCO2 28. Pt was admitted in ICU. He is being managed for the following: #MO on CKD (last outpatient creatinine around 2.3) #Hyperkalemia #Metabolic acidosis;likely High anion gap metabolic acidosis (iso renal failure) without DKA #Hyperglycemia Severe acute kidney injury ISO CKD stage IIIb, likely prerenal etiology given nausea and vomiting and diarrhea for 8 days prior to arrival. Potassium level and creatinine getting better, on Lokelma. Nephrology on board, patient getting IV fluids and lokelma. Chlorthalidone and lisinopril on hold. Status post insulin drip, glycemic pharmacy on board to help with hyperglycemia/diabetes. Potassium remains elevated to 5.3 Discussed with the green energy marketing analyst and will give Lokelma 6 more doses as per recommendation from the green energy marketing analyst Will monitor PRP- creatinine has been improving and as of today it is 103 over/4.85 Creatinine has been improving gradually Creatinine has improved almost to his baseline and the potassium level is normalized He will be discharged this afternoon and with the follow-up of lab in 1 week and will see green energy marketing analyst as an outpatient Norovirus related gastroenteritis: Patient with increased episodes of diarrhea per day for 8 days 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 Patient does have baseline diarrhea due to history of total colectomy. continue with supportive care, patient reports decreasing frequency of diarrhea. Monitor and replete electrolytes. Denies any abdominal pain and/or diarrhea Likely acute on chronic anemia: Admitting hemoglobin of 9.2, hemoglobin dropped to 7.3 today and repeat hemoglobin of 8.2. chronic anemia in the setting of CKD likely acutely exacerbated by GI bleed. FOBT positive. Iron level has been normal but he will receive 1 dose of Venofer as per nephrologistMonitor H&H closely. Blood transfusion consent obtained. Will get GI consult, IV PPI twice daily. Hemoglobin remained stable Insulin-requiring DM2 - on DexCom, insulin pump at home, Glycemic pharmacy on board to help with management. [id number] at 9.4 Blood sugar is maintaining He cannot have his insulin pump to bring by somebody into the hospital The risk of not having insulin following discharge was explained to him and he is willing to take the risk of not having insulin following discharge and skil led application of his insulin pump This was expressed and was advised for the patient to stay in the hospital for another night until somebody can bring the pump He was adamant to go and took the risk of not having insulin as mentioned earlier He will be discharged this afternoon Hypertension - has not been able to tolerate meds for the past few days PSYCHOLOGY TECHNICIAN, initial BPs in the ED were not significant elevated - Holding lisinopril, chlorthalidone due to MO - Monitor BP with fluid resuscitation - c/w home amlodipine. #Mild persistent asthma #Seasonal allergies - Chronic, stable - continue Advair - Resumed montelukast DVT -Prophylaxis SCDs Code status: full code Total Time Total Time Spent Total Time Spent (In Minutes): 45 minutes Discharge Plan Discharge Items Patient Disposition: Home - Self-Care Reason For Visit: DKA, MO Discharge Diagnosis: MO on CKD, chronic anemia, uncontrolled diabetes with hyperglycemia Condition on Discharge: Good Activity: Resume your previous activity Non-emergency contact: Primary Care Provider Call non-emergency contact if: you have any medication questions and your symptoms worsen Follow-up/Referrals: Berenice Schroeder MD, PhD [Physician] - (The office will call you with a follow up appointment.) Luna Ahn MD [Primary Care Provider] - (Date & Time 11/03/2024 9:20 AM Provider: Luna Montemayor MD [facility] ) Diet: Carb Consistent or DM2 Addtl Attending Provider Instructions: Please take precautions to avoid falls Take your medications as advised- your lisinopril and chlorthalidone have been discontinued. Hydralazine is being your new medicine Please have your CBC, renal panel, iron screen, PTH level, vitamin D and ACR next week when you see your primary care provider and the report should go to the green energy marketing analyst Dr. Lowry Please follow diabetic diet strictly and try to drink more fluid Continue insulin pump as before Keep appointments with the healthcare providers Pending Studies at Discharge: No Stand-Alone Forms: My [facility] [employer], Smoking Cessation Medications and DC Order Prescriptions: New hydralazine 25 mg Tablet 25 mg PO TID Qty: 90 0RF Continued montelukast 10 mg Tablet 10 mg PO DAILY Qty: 0 atorvastatin 40 mg Tablet 40 mg PO DAILY fluticasone propion-salmeterol [Advair Diskus] 250-50 mcg/dose Blister With Device 1 inh INHALATION BID amlodipine 10 mg Tablet 10 mg PO DAILY Atrovent HFA 17 mcg/actuation Hfa Aerosol Inhaler 2 puff INHALATION QID PRN (Reason: SOB/WHEEZING) Discontinued lisinopril 40 mg Tablet 40 mg PO DAILY Qty: 0 chlorthalidone 25 mg Tablet 25 mg PO DAILY Discharge Orders: Discharge Order (Routine); Ordered 10/29/24 Ordered By: Casandra Padgett Admission Data Admit Date/Time: 10/25/24 11:33 Attending Provider: Casandra Padgett Admit Provider: Ronnie Corcoran Primary Care Provider: Luna Ahn Other Providers: Ronnie Corcoran; Rickie Melchor; Frederick Sin; Jimenez Verduzco; Alena Naranjo Other Interventions: Discharge Summary Assessment (RN) Last Done: 10/29/24 14:38
== END 2024-10-29 15:46 | disposition home or self-care (01) | DRG 641 ==
LOC: ED 09:02 → SUATTDRO 11:33 → 1E 11:33 → 2S 10-26 16:06

== ENCOUNTER 2024-11-04 10:20 | Inpatient (IN) ==
--- NOTE | 2024-11-04 10:53 | Emergency Department Note ---
Impression & Plan ARF (acute renal failure), Anemia, Hyperkalemia, Acute hyperglycemia ED Provider Note NAME: ABHIJEET GONZALEZ AGE: 69 SEX: M : 1955 ARRIVES VIA: Walk-In INFORMANT: Patient ED PROVIDER(S): Rod Luna DO CHIEF COMPLAINT: Chest pain and back pain HPI: Patient is a 69-year-old male who presents to the ER with a past medical history of hypertension and hyperlipidemia for chest pain and back pain which has been present since Friday. He notes is worse with twisting, turning, and bending. It is also worse when he pushes on his sternum. He denies any headache or change in vision. No weakness or numbness in the arms or legs. No belly pain. No nausea, vomiting, or diarrhea. No dysuria, urgency, or frequency. No other exacerbating or remitting factors. ADDITIONAL HISTORY OBTAINED: Per HPI Chronic Medical/Social Conditions Affecting Care: Per HPI PAST MEDICAL HISTORY:See Below PAST SURGICAL HISTORY:See Below FAMILY HISTORY:See Below SOCIAL HISTORY:See Below HOME MEDICATIONS:See Below ALLERGIES:See Below VITALS:See Below PHYSICAL EXAMINATION: GENERAL: Sitting up in bed, alert, well appearing, well nourished, no distress, non-toxic EYE EXAM: normal conjunctiva. PERRL and EOM's grossly intact. OROPHARYNX: no exudate, no erythema, lips, buccal mucosa, and tongue normal and mucous membranes are moist NECK: supple, no nuchal rigidity, no adenopathy, non-tender CHEST: Reproducible tenderness of the mid sternum. LUNGS: Clear to auscultation. Normal chest wall mechanics HEART: no murmurs, S1 normal and S2 normal ABDOMEN: abdomen soft, non-tender, normo-active bowel sounds, no masses, no rebound or guarding. BACK: Back is symmetrical on inspection and there is no deformity, no midline tenderness, no CVA tenderness. UPPER EXTREMITIES: upper extremities are grossly normal. LOWER EXTREMITIES: No pitting edema. Calves are equal bilaterally NEURO EXAM: Normal sensorium, cranial nerves II-XII grossly intact, normal speech, no gross weakness of arms, no gross weakness of legs. MEDICAL DECISION MAKING: Patient is a 69-year-old male who presents ER with above-stated complaint. Recently just recovering from norovirus. IV was established and blood work was obtained. Labs show no significant leukocytosis. Anemia at 7.5 down from 9. BMP with a creatinine of 4.1 up from a baseline of 3.3. Glucose was slightly elevated at 309. LFTs and bilirubin were unremarkable. Bicarb was low at 18 which I favor secondary to the CKD. There is no Gap to suggest DKA. Chest x- ray was clean. Patient was given IV fluids updated at bedside and discussed with the hospitalist for further evaluation management treatment. Consults/Care Managements Discussions: Per MDM Triage Nursing notes reviewed. Limited review of prior medical records performed Vital Signs: reviewed and remarkable for no significant abnormalities Differential diagnosis: Cardiac ischemia, aortic dissection, pulmonary embolism, pneumothorax, pneumonia, pericarditis, myocarditis, esophageal rupture, GERD, cholecystitis, pancreatitis, musculoskeletal, as well as other pathologies. ER treatment provided: See below Diagnostics interpreted by me include EKG and cardiac monitoring as listed below: -Cardiac Monitoring: An order was placed for continuous cardiac monitoring. The monitor shows a rate of 80 with sinus rhythm. -ECG: Sinus rhythm rate is 85 Normal axis No PVCs QTc 411 -Laboratory studies:Interpreted by me as stated above in MDM and shown below. Imaging studies: Xrays: As interpreted by me: Portable AP upright 1 view of the chest shows no focal infiltrate CTs show: none Procedures:none Critical Care: None Past Med/Surg History Problem List (Updated 11/04/24 @ 13:33 by Rod Luna DO) Acute hyperglycemia (Acute) Anemia (Acute) ARF (acute renal failure) (Acute) Hyperkalemia (Acute) High anion gap metabolic acidosis (Acute) Medical History Acoustic neuroma Moderate non-proliferative diabetic retinopathy Type 2 diabetes mellitus Stage 3b chronic kidney disease (CKD) Mild persistent asthma Environmental and seasonal allergies Dyslipidemia Hypertension Ulcerative colitis Surgical History History of cataract surgery Status post total colectomy age 30 for UC, has a J pouch Social History Smoking Status: Former smoker Hx Alcohol Use: No Hx Substance Use: No Preferred Language: Croatian Communication Ability: Effective General Helper Required: No Beliefs That Will Affect Care: None Current Living Situation: Spouse Feels Safe at Home: Yes Assistive Devices: None Allergies Allergies Allergy/AdvReac Type Severity Reaction Status Date / Time Sulfa (Sulfonamide Allergy Verified 11/04/24 11:45 Antibiotics) Home Meds Home Medications Medication Instructions Recorded Confirmed montelukast 10 mg tablet 10 mg PO DAILY ##0 04/15/06 11/04/24 amlodipine 10 mg tablet 10 mg PO DAILY 10/25/24 11/04/24 atorvastatin 40 mg tablet 40 mg PO DAILY 10/25/24 11/04/24 fluticasone 250 mcg-salmeterol 50 1 inh inhalation BID 10/25/24 11/04/24 mcg/dose blistr powdr for inhalation (Advair Diskus) ipratropium bromide 17 2 puff inhalation QID PRN 10/25/24 11/04/24 mcg/actuation HFA aerosol inhaler SOB/WHEEZING (Atrovent HFA) insulin aspart U-100 100 unit/mL 1 sliding scale dose subcut 11/04/24 11/04/24 subcutaneous solution (Novolog USEASDIRECTD U-100 Insulin aspart) Previous Rx's Medication Instructions Recorded hydralazine 25 mg tablet 25 mg PO TID #90 tabs 10/29/24 Results & Data (ED) Vital Signs Vital Signs - 24 hr 11/04/24 10:22 11/04/24 10:36 11/04/24 10:36 Temperature 37.3 C Temperature Source Temporal Artery Scan Pulse Rate 88 Pulse Rate from SpO2 Sensor Respiratory Rate 18 Blood Pressure 129/58 L 126/57 L 126/57 L Blood Pressure Mean 81 88 88 Pulse Oximetry 95 Oxygen Delivery Method Room Air Sepsis New/Unexplained Change in Mental Status No Sepsis Action Taken by Nursing No Action Required 11/04/24 10:36 11/04/24 10:36 11/04/24 10:36 Temperature Temperature Source Pulse Rate Pulse Rate from SpO2 Sensor Respiratory Rate Blood Pressure 126/57 L 126/57 L 126/57 L Blood Pressure Mean 88 88 88 Pulse Oximetry Oxygen Delivery Method Sepsis New/Unexplained Change in Mental Status Sepsis Action Taken by Nursing 11/04/24 10:36 11/04/24 10:36 11/04/24 10:36 Temperature Temperature Source Pulse Rate Pulse Rate from SpO2 Sensor Respiratory Rate Blood Pressure 126/57 L 126/57 L 126/57 L Blood Pressure Mean 88 88 88 Pulse Oximetry Oxygen Delivery Method Sepsis New/Unexplained Change in Mental Status Sepsis Action Taken by Nursing 11/04/24 10:38 11/04/24 10:39 11/04/24 10:39 Temperature Temperature Source Pulse Rate 84 84 Pulse Rate from SpO2 Sensor 85 Respiratory Rate 21 Blood Pressure Blood Pressure Mean Pulse Oximetry 97 Oxygen Delivery Method Room Air Sepsis New/Unexplained Change in Mental Status Sepsis Action Taken by Nursing 11/04/24 10:41 11/04/24 10:42 11/04/24 10:51 Temperature Temperature Source Pulse Rate 85 79 Pulse Rate from SpO2 Sensor 85 79 Respiratory Rate 17 15 Blood Pressure Blood Pressure Mean Pulse Oximetry 97 96 Oxygen Delivery Method Room Air Sepsis New/Unexplained Change in Mental Status Sepsis Action Taken by Nursing 11/04/24 10:57 11/04/24 11:00 11/04/24 11:00 Temperature Temperature Source Pulse Rate 80 Pulse Rate from SpO2 Sensor 80 Respiratory Rate 23 Blood Pressure 128/56 L 128/56 L Blood Pressure Mean 89 89 Pulse Oximetry 98 Oxygen Delivery Method Sepsis New/Unexplained Change in Mental Status Sepsis Action Taken by Nursing 11/04/24 11:00 11/04/24 11:00 11/04/24 11:00 Temperature Temperature Source Pulse Rate Pulse Rate from SpO2 Sensor Respiratory Rate Blood Pressure 128/56 L 128/56 L 128/56 L Blood Pressure Mean 89 89 89 Pulse Oximetry Oxygen Delivery Method Sepsis New/Unexplained Change in Mental Status Sepsis Action Taken by Nursing 11/04/24 11:09 11/04/24 11:12 11/04/24 11:30 Temperature Temperature Source Pulse Rate 81 78 Pulse Rate from SpO2 Sensor 81 78 Respiratory Rate 16 16 Blood Pressure 130/55 L Blood Pressure Mean 89 Pulse Oximetry 96 97 Oxygen Delivery Method Sepsis New/Unexplained Change in Mental Status Sepsis Action Taken by Nursing 11/04/24 11:30 11/04/24 11:30 11/04/24 11:30 Temperature Temperature Source Pulse Rate Pulse Rate from SpO2 Sensor Respiratory Rate Blood Pressure 130/55 L 130/55 L 130/55 L Blood Pressure Mean 89 89 89 Pulse Oximetry Oxygen Delivery Method Sepsis New/Unexplained Change in Mental Status Sepsis Action Taken by Nursing 11/04/24 11:30 11/04/24 11:30 11/04/24 11:30 Temperature Temperature Source Pulse Rate Pulse Rate from SpO2 Sensor Respiratory Rate Blood Pressure 130/55 L 130/55 L 130/55 L Blood Pressure Mean 89 89 89 Pulse Oximetry Oxygen Delivery Method Sepsis New/Unexplained Change in Mental Status Sepsis Action Taken by Nursing 11/04/24 11:57 11/04/24 12:00 11/04/24 12:00 Temperature Temperature Source Pulse Rate 77 Pulse Rate from SpO2 Sensor Respiratory Rate 20 Blood Pressure 115/57 L 115/57 L Blood Pressure Mean 83 83 Pulse Oximetry Oxygen Delivery Method Sepsis New/Unexplained Change in Mental Status Sepsis Action Taken by Nursing 11/04/24 12:00 11/04/24 12:00 11/04/24 12:00 Temperature Temperature Source Pulse Rate Pulse Rate from SpO2 Sensor Respiratory Rate Blood Pressure 115/57 L 115/57 L 115/57 L Blood Pressure Mean 83 83 83 Pulse Oximetry Oxygen Delivery Method Sepsis New/Unexplained Change in Mental Status Sepsis Action Taken by Nursing 11/04/24 12:00 11/04/24 12:00 11/04/24 12:00 Temperature Temperature Source Pulse Rate Pulse Rate from SpO2 Sensor Respiratory Rate Blood Pressure 115/57 L 115/57 L 115/57 L Blood Pressure Mean 83 83 83 Pulse Oximetry Oxygen Delivery Method Sepsis New/Unexplained Change in Mental Status Sepsis Action Taken by Nursing 11/04/24 12:00 11/04/24 12:00 11/04/24 12:09 Temperature Temperature Source Pulse Rate 79 Pulse Rate from SpO2 Sensor 80 Respiratory Rate 12 Blood Pressure 115/57 L 115/57 L Blood Pressure Mean 83 83 Pulse Oximetry 97 Oxygen Delivery Method Sepsis New/Unexplained Change in Mental Status Sepsis Action Taken by Nursing 11/04/24 12:15 11/04/24 12:27 11/04/24 12:30 Temperature Temperature Source Pulse Rate 77 76 Pulse Rate from SpO2 Sensor 77 76 Respiratory Rate 18 19 Blood Pressure 121/57 L Blood Pressure Mean 86 Pulse Oximetry 98 98 Oxygen Delivery Method Sepsis New/Unexplained Change in Mental Status Sepsis Action Taken by Nursing 11/04/24 12:30 11/04/24 12:30 11/04/24 12:30 Temperature Temperature Source Pulse Rate Pulse Rate from SpO2 Sensor Respiratory Rate Blood Pressure 121/57 L 121/57 L 121/57 L Blood Pressure Mean 86 86 86 Pulse Oximetry Oxygen Delivery Method Sepsis New/Unexplained Change in Mental Status Sepsis Action Taken by Nursing 11/04/24 12:30 11/04/24 12:30 11/04/24 12:30 Temperature Temperature Source Pulse Rate Pulse Rate from SpO2 Sensor Respiratory Rate Blood Pressure 121/57 L 121/57 L 121/57 L Blood Pressure Mean 86 86 86 Pulse Oximetry Oxygen Delivery Method Sepsis New/Unexplained Change in Mental Status Sepsis Action Taken by Nursing 11/04/24 12:30 11/04/24 12:30 11/04/24 12:30 Temperature Temperature Source Pulse Rate Pulse Rate from SpO2 Sensor Respiratory Rate Blood Pressure 121/57 L 121/57 L 121/57 L Blood Pressure Mean 86 86 86 Pulse Oximetry Oxygen Delivery Method Sepsis New/Unexplained Change in Mental Status Sepsis Action Taken by Nursing 11/04/24 12:30 11/04/24 12:30 11/04/24 12:33 Temperature Temperature Source Pulse Rate 75 Pulse Rate from SpO2 Sensor 75 Respiratory Rate 14 Blood Pressure 121/57 L 121/57 L Blood Pressure Mean 86 86 Pulse Oximetry 98 Oxygen Delivery Method Sepsis New/Unexplained Change in Mental Status Sepsis Action Taken by Nursing 11/04/24 12:42 11/04/24 12:48 11/04/24 13:00 Temperature Temperature Source Pulse Rate 75 75 Pulse Rate from SpO2 Sensor 75 75 Respiratory Rate 23 18 Blood Pressure 129/78 Blood Pressure Mean 104 Pulse Oximetry 98 99 Oxygen Delivery Method Sepsis New/Unexplained Change in Mental Status Sepsis Action Taken by Nursing 11/04/24 13:00 11/04/24 13:00 11/04/24 13:03 Temperature Temperature Source Pulse Rate 78 Pulse Rate from SpO2 Sensor 78 Respiratory Rate Blood Pressure 129/78 129/78 Blood Pressure Mean 104 104 Pulse Oximetry 99 Oxygen Delivery Method Sepsis New/Unexplained Change in Mental Status Sepsis Action Taken by Nursing 11/04/24 13:12 Temperature Temperature Source Pulse Rate 79 Pulse Rate from SpO2 Sensor 80 Respiratory Rate Blood Pressure Blood Pressure Mean Pulse Oximetry 98 Oxygen Delivery Method Sepsis New/Unexplained Change in Mental Status Sepsis Action Taken by Nursing Laboratory Data 11/04/24 10:37 11/04/24 10:37 Lab Results 11/04/24 11/04/24 Range/Units 10:37 13:11 WBC 10.32 (4.8-10.8) K/ul RBC 2.63 L (4.70-6.10) M/uL Hgb 7.5 L (14.0-18.0) g/dl Hct 22.0 L (42.0-52.0) % MCV 83.7 (80.0-100.0) fL MCH 28.5 (25.0-34.0) pg MCHC 34.1 (32.0-36.0) g/dL RDW Std Deviation 39.2 (36.4-46.3) fL RDW Coeff of Aline 12.9 (11.5-14.5) % Plt Count 413 H (130-400) K/uL MPV 9.3 L (9.4-12.4) fL Immature Gran % (Auto) 0.3 % Neut % (Auto) 81.8 % Lymph % (Auto) 5.9 % [place] % (Auto) 10.0 % Eos % (Auto) 1.6 % Baso % (Auto) 0.4 % Neut # (Auto) 8.44 H (1.40-6.50) K/uL Lymph # (Auto) 0.61 L (1.20-3.40) K/uL [place] # (Auto) 1.03 H (0.11-0.59) K/uL Eos # (Auto) 0.17 (0.00-0.50) K/uL Baso # (Auto) 0.04 (0.00-0.20) K/uL Immature Gran # (Auto) 0.03 (0.01-0.20) K/uL Ovalocytes 1+ Schistocytes 1+ Sodium 131 L (136-145) mmol/L Potassium 4.5 (3.5-5.1) mmol/L Chloride 103 (98-107) mmol/L Carbon Dioxide 18 L (21-32) mmol/L Anion Gap 10 (3-11) BUN 105 H (6-23) mg/dl Creatinine 4.14 H (0.6-1.4) mg/dl Est Cr Clr Drug Dosing 15.2 ml/min eGFR 14.81 BUN/Creatinine Ratio 25.4 H (10-20) Glucose 309 H* (70-99(Fasting)) mg/dl POC Glucose 209 H (70-99) mg/dl Calcium 8.6 (8.6-10.3) mg/dl Total Bilirubin 0.3 (0.2-1.0) mg/dl AST 13 (13-39) U/L ALT 14 (7-52) U/L Alkaline Phosphatase 51 (34-104) U/L Troponin I High Sens 12.1 (0-20) pg/ml Total Protein 6.4 (6.0-8.3) gm/dl Albumin 3.3 L (3.4-5.0) gm/dl Globulin 3.1 (2.5-4.0) gm/dl Albumin/Globulin Ratio 1.1 (0.9-2) Lipase 21 (11-82) U/L Administered Medications Discontinued Medications Sodium Chloride (Nss) 1,000 mls @ 999 mls/hr IV .Q1H1M ONE Stop: 11/04/24 12:40 Last Infusion: 11/04/24 13:13 Dose: Infused Documented By: Admin: 11/04/24 11:42 Dose: 999 mls/hr Documented By: CHARISSE Imaging Data Radiologist's Impression: Chest X-Ray 11/04/24 10:40 XR chest 1V portable CLINICAL HISTORY: Chest pain, nonspecific COMPARISON STUDY: 10/25/2024 FINDINGS: Single view portable chest is unchanged. There is no acute cardiopulmonary process identified. There is no airspace opacity or pleural effusion. There is no pneumothorax. Heart size and pulmonary vascularity are unremarkable for technique. IMPRESSION: Stable exam; no acute findings ACT 112: Negative or not required by law. Electronically signed by: Naila Coleman M.D. 11/04/2024 11:06 AM Discharge Plan Visit Data Chief Complaint: Chest Pain Stated Complaint: CHEST/BACK PAIN ED Provider: Rod Luna Discharge Problem: ARF (acute renal failure), Anemia, Hyperkalemia, Acute hyperglycemia Forms Stand Alone Forms: My [facility] [employer] Prescriptions Prescriptions: No Action montelukast 10 mg Tablet 10 mg PO DAILY Qty: 0 atorvastatin 40 mg Tablet 40 mg PO DAILY fluticasone propion-salmeterol [Advair Diskus] 250-50 mcg/dose Blister With Device 1 inh INHALATION BID amlodipine 10 mg Tablet 10 mg PO DAILY Atrovent HFA 17 mcg/actuation Hfa Aerosol Inhaler 2 puff INHALATION QID PRN (Reason: SOB/WHEEZING) hydralazine 25 mg Tablet 25 mg PO TID Qty: 90 0RF insulin aspart U-100 [Novolog U-100 Insulin aspart] 100 unit/mL Solution 1 sliding scale dose SUBCUT USEASDIRECTD Rx Instructions: Pt on insulin pump, pt unsure of max daily units. Referrals Referrals: Luna Ahn MD [Primary Care Provider] - Discharge Problem: ARF (acute renal failure) Qualifiers: Acute renal failure type: unspecified Qualified Code(s): N17.9 - Acute kidney failure, unspecified Anemia Qualifiers: Anemia type: unspecified type Qualified Code(s): D64.9 - Anemia, unspecified
[2024-11-04 10:55] LABS: Basophils # (auto) 0.04 K/uL (0.00-0.20); Basophils % (auto) 0.4 %; Eosinophils # (auto) 0.17 K/uL (0.00-0.50); Eosinophils % (auto) 1.6 %; Hemoglobin 7.5 g/dl (14.0-18.0); Immature Granulocytes # (auto) 0.03 K/uL (0.01-0.20); Immature Granulocytes % (auto) 0.3 %; Lymphocytes # (auto) 0.61 K/uL (1.20-3.40); Lymphocytes % (auto) 5.9 %; Mean Corpuscular Hemoglobin 28.5 pg (25.0-34.0); Mean Corpuscular Hgb Conc 34.1 g/dL (32.0-36.0); Mean Corpuscular Volume 83.7 fL (80.0-100.0); Mean Platelet Volume 9.3 fL (9.4-12.4); Monocytes # (auto) 1.03 K/uL (0.11-0.59); Neutrophils # (auto) 8.44 K/uL (1.40-6.50); Neutrophils % (auto) 81.8 %; Platelet Count 413 K/uL (130-400); RDW Coefficient of Variation 12.9 % (11.5-14.5); RDW Standard Deviation 39.2 fL (36.4-46.3); Red Blood Count 2.63 M/uL (4.70-6.10); White Blood Count 10.32 K/ul (4.8-10.8)
--- NOTE | 2024-11-04 11:08 | XRay Report ---
XR chest 1V portable CLINICAL HISTORY: Chest pain, nonspecific COMPARISON STUDY: 10/25/2024 FINDINGS: Single view portable chest is unchanged. There is no acute cardiopulmonary process identifi ed. There is no airspace opacity or pleural effusion. There is no pneumothorax. Heart size and pulmon jennifer vascularity are unremarkable for technique. IMPRESSION: Stable exam; no acute findings ACT 112: Negative or not required by law. Electronically signed by: Naila Coleman M.D. 11/04/2024 11:06 AM
[2024-11-04 11:17] LABS: Albumin Globulin Ratio 1.1 (0.9-2); Albumin Level 3.3 gm/dl (3.4-5.0); BUN Creatinine Ratio 25.4 (10-20); Bilirubin,Total 0.3 mg/dl (0.2-1.0); Calcium 8.6 mg/dl (8.6-10.3); Creatinine Clr Calc Pharmacy 15.2 ml/min; Globulin 3.1 gm/dl (2.5-4.0); Potassium 4.5 mmol/L (3.5-5.1); Total Protein 6.4 gm/dl (6.0-8.3)
[2024-11-04 11:20] LABS: Troponin I High Sensitivity 12.1 pg/ml (0-20)
[2024-11-04 11:23] LABS: Ovalocytes 1+; Schistocytes 1+
[2024-11-04] MEDS: SODIUM CHLORIDE 0.9% 1,000 ML IV ONE (11:42)
--- NOTE | 2024-11-04 11:50 | History & Physical Report ---
Date of Service November 04, 2024 Assessment & Plan (1) ARF (acute renal failure): (2) Anemia: Plan Pt is a 69 y/o male with insulin-requiring DM2, on insulin pump, HTN, CKDb3, hx of ulcerative colitis s/p total colectomy, hypercholesterolemia, asthma, chronic anemia presenting from home with concerning chest pain and back pain. Pt was recently discharged after an extended hospital course. Atypical chest Pain Back pain EKG without signs of ischemia Trop normal, continue trend Chest XRAY unremarkable Suspect MSK in nature PRN pain meds Continue to monitor Acute on Chronic Anemia Pt's hemoglobin on discharge was 9.1 Hgb back down to 7.5 notes he's been having nosebleeds recently, not on anticoagulation. No current nosebleeds. AM anemia panel FOBT pending Evaluated by GI during the last admission, GI consulted once more, appreciate further recs H and h q4h transfuse as needed for hgb <7 Consider hematology consult Continue to monitor Acute on Chronic Kidney Disease Cr 4.14 on admission Avoid nephrotoxins as able- holding home AYO Nephrology consulted, pt's Cr was as high as 8 during the prior recent admission Appreciate further nephro recs Hypertension Continue home amlodipine Hold home lisinopril as above Hold home chlorthalidone nephrology consulted as above Monitor BP Hx of UC s/p colectomy Pt notes chronic diarrhea as a result States BMs are not bloody GI consulted as above, appreciate recs DMII hgba1c of 9.4 on 10/26/24 Glucose levels appear uncontrolled Pt with insulin pump but agreeable to basal/bolus per protocol Glycemic consult Continue other home meds as ordered Diet: NPO at this time DVT prophylaxis: SCDs at this time Dispo: admit to PCU/tele History of Present Illness Chief Complaint: Chest pain Primary Care Provider: Luna Ahn MD Pt is a 69 y/o male with insulin-requiring DM2, on insulin pump, HTN, CKDb3, hx of ulcerative colitis s/p total colectomy, hypercholesterolemia, asthma, chronic anemia presenting from home with concerning chest pain and back pain. Pt was recently discharged after an extended hospital course. pt states he has not yet had hospital followup after his last admission. States that the pain feels like it starts in the back and goes to his chest. Worse with positioning. Denies chest pain or SOB or palpitations. States the pain is constant Has chronic diarrhea symptoms, states non bloody. Notes he has been having frequent nosebleeds recently but thought the air was just dry. Denies melena/ hematochezia, hematuria, hemoptysis or hematemesis episodes. Agreeable to a blood transfusion if needed. Allergies Allergy/AdvReac Type Severity Reaction Status Date / Time Sulfa (Sulfonamide Allergy Verified 11/04/24 11:45 Antibiotics) Home Medications Medication Instructions Recorded Confirmed Type montelukast 10 mg tablet 10 mg PO DAILY ##0 04/15/06 11/04/24 History amlodipine 10 mg tablet 10 mg PO DAILY 10/25/24 11/04/24 History atorvastatin 40 mg tablet 40 mg PO DAILY 10/25/24 11/04/24 History fluticasone 250 mcg-salmeterol 50 1 inh inhalation BID 10/25/24 11/04/24 History mcg/dose blistr powdr for inhalation (Advair Diskus) ipratropium bromide 17 2 puff inhalation QID PRN 10/25/24 11/04/24 History mcg/actuation HFA aerosol inhaler SOB/WHEEZING (Atrovent HFA) chlorthalidone 25 mg tablet 25 mg PO DAILY 11/04/24 11/04/24 History insulin aspart U-100 100 unit/mL 1 sliding scale dose subcut 11/04/24 11/04/24 History subcutaneous solution (Novolog USEASDIRECTD U-100 Insulin aspart) lisinopril 40 mg tablet 40 mg PO DAILY 11/04/24 11/04/24 History Past Med/Surg History Problem List (Updated 11/04/24 @ 13:33 by Rod Luna DO) Acute hyperglycemia (Acute) Anemia (Acute) ARF (acute renal failure) (Acute) Hyperkalemia (Acute) High anion gap metabolic acidosis (Acute) Medical History Acoustic neuroma Moderate non-proliferative diabetic retinopathy Type 2 diabetes mellitus Stage 3b chronic kidney disease (CKD) Mild persistent asthma Environmental and seasonal allergies Dyslipidemia Hypertension Ulcerative colitis Surgical History History of cataract surgery Status post total colectomy age 30 for UC, has a J pouch Social History Smoking Status: Former smoker Hx Alcohol Use: No Hx Substance Use: No Preferred Language: Kyrgyz Communication Ability: Effective Multi Site 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 No acute distress Psych: Appropriate mood and affect HEENT: NC/AT CV: RRR Resp: Breath sounds clear bilaterally, no increased effort of breathing Abdomen: Soft, nontender Extremities: No edema in lower extremities bilaterally. Results & Data Results & Data Vital Signs (Past 12 Hours) Vital Signs Temp Pulse Resp BP Pulse Ox O2 Del Method 11/04/24 11:09 81 16 96 11/04/24 11:00 128/56 L 11/04/24 11:00 128/56 L 11/04/24 11:00 128/56 L 11/04/24 11:00 128/56 L 11/04/24 11:00 128/56 L 11/04/24 10:57 80 23 98 11/04/24 10:51 79 15 96 11/04/24 10:42 85 17 97 11/04/24 10:41 Room Air 11/04/24 10:39 84 21 97 11/04/24 10:39 Room Air 11/04/24 10:38 84 11/04/24 10:36 126/57 L 11/04/24 10:36 126/57 L 11/04/24 10:36 126/57 L 11/04/24 10:36 126/57 L 11/04/24 10:36 126/57 L 11/04/24 10:36 126/57 L 11/04/24 10:36 126/57 L 11/04/24 10:36 126/57 L 11/04/24 10:22 37.3 C 88 18 129/58 L 95 Room Air Diagnostic Findings Chest X-Ray 11/04/24 10:40 XR chest 1V portable CLINICAL HISTORY: Chest pain, nonspecific COMPARISON STUDY: 10/25/2024 FINDINGS: Single view portable chest is unchanged. There is no acute cardiop ulmonary process identified. There is no airspace opacity or pleural effusion. There is no pneumothorax. Heart size and pulmonary vascularity are unremarkable for technique. IMPRESSION: Stable exam; no acute findings ACT 112: Negative or not required by law. Electronically signed by: Naila Coleman M.D. 11/04/2024 11:06 AM (1) ARF (acute renal failure) Acute renal failure type: unspecified Qualified Code(s): N17.9 - Acute kidney failure, unspecified (2) Anemia Anemia type: unspecified type Qualified Code(s): D64.9 - Anemia, unspecified
--- NOTE | 2024-11-04 14:46 | Electrocardiogram Report ---
Test Reason : Blood Pressure : */* mmHG Vent. Rate : 85 BPM Atrial Rate : 85 BPM P-R Int : 222 ms QRS Dur : 94 ms QT Int : 346 ms P-R-T Axes : 76 29 49 degrees QTcB Int : 411 ms Sinus rhythm with 1st degree A-V block Otherwise normal ECG When compared with ECG of 26-Oct-2024 06:11, No significant change was found Confirmed by Lio Thompson ([id number]) on 11/04/2024 2:45:47 PM Referred By: Confirmed By: Lio Thompson
[2024-11-04] MEDS ORDERED: IPRATROPIUM BROMIDE HFA INHALER INH PRN (14:59)
[2024-11-04] MEDS ORDERED: MoRPHine SULFATE 2 MG/ML CARP IV PRN (15:05)
[2024-11-04] MEDS ORDERED: PHARMACY GLYCEMIC MGMT CONSULT PRN (15:23)
[2024-11-04 15:30] LABS: Hematocrit (blood only) 20.7 % (42.0-52.0)
[2024-11-04 16:21] LABS: Prothrombin Time 10.8 Seconds (9.0-12.0)
--- NOTE | 2024-11-04 16:24 | Pharmacy Report ---
Pharmacy Glycemic Short Note 2 - Date of Service November 04, 2024 - Glycemic Short BSG Results (Last 24 hours): 11/04/24 11/04/24 10:37 13:11 Glucose 309 H* POC Glucose 209 H OUTPATIENT ANTIDIABETIC REGIMEN: * Novolog Omnipod Insulin pump * ~40 units/day total via pump per last documented outpatient MTM visit note HbA1c: * 9.4% (10/26/24) ASSESSMENT: * 69 yo M who presented with chest and back pain as well as severe hyperglycemia. * Pharmacy has been consulted to assist with inpatient glycemic management and transition to basal + bolus insulin. Initial dosing will be based on recent hospital admission data + home insulin pump usage. Will empirically reduce dosing for NPO status. PLAN FOR INPATIENT GLYCEMIC CONTROL: * Remove insulin pump * Basal insulin * Lantus 8-10 units SQ now (8 units for BSG less than 120 mg/dL) * Bolus insulin * NovoLog per scale ACHS or Q6hrs while NPO * Goal Range: Low 120 mg/dL - High 150 mg/dL * Correction Factor: 30 mg/dL/unit * Nutritional / Prandial insulin per carb ratio of 1 unit per 8 grams CHO consumed
[2024-11-04] MEDS ORDERED: LANTUS PER UNIT CHARGE SC ONE (16:30)
[2024-11-04] MEDS ORDERED: CARBOHYDRATES FOR HYPOGLYCEMIA PO PRN (16:45)
[2024-11-04] MEDS ORDERED: DEXTROSE 50% 50 ML SYRINGE IV PRN (16:45)
[2024-11-04] MEDS ORDERED: GLUCOSE 40% GEL 15 GM TUBE PO PRN (16:45)
[2024-11-04] MEDS ORDERED: GLUCOSE 10 TAB/TUBE PO PRN (16:45)
[2024-11-04] MEDS ORDERED: GLUCAGON FOR INJ 1 MG VIAL SQ PRN (16:45)
--- OUTSIDE RECORDS SUMMARY | 2024-11-04 16:53 | External Medical Summary | Summary of Care ---
Author Name Unknown Organization [facility] Address [address] [place] [address] Phone [phone] Care Team Providers Care Wastewater Technician Name Role Phone Luna Montemayor MD Primary Care Prov ider Encounter Details Date Type Department Care Team (Late st Contact Info) Description 11/02/2024 Orders Only Family Medicine [address] [phone] Luna Montemayor MD [address] [place] [address] [place] [address] Allergies Active Allergy Reactions Criticality Noted Date Comments Sulfa Antibiotics 05/01/2001 documented as of this encounter (statuses as of 11/02/2024) Medications ONETOUCH LANCETS MISCIndications:D M type 2, [...] Blood)Indications :Type 2 diabetes mellitus with cataract ([facility]) test blood sugar up to [...] SensorIndications :Type 2 diabetes mellitus with cataract ([facility]) use to check glucose 9 Each 1 5 Active Chlorthalidone 25 MG Oral Tablet (Hygroton)Indicat ions:Hypertension associated with stage 3b chronic kidney disease due to type 2 diabetes mellitus ([facility]) TAKE ONE TABLET BY MOUTH AT BEDTIME 30 Tablet 6 5 Active documented as of this encounter (statuses as of 11/02/2024) Active Problems Problem Noted Date Diagnosed Date [...] as of this encounter (statuses as of 11/02/2024) Resolved Problems Problem Noted Date Diagnosed Date [...] as of this encounter (statuses as of 11/02/2024) Immunizations Name Administration Dates Next Due COVID-19 [...] Care Team (Late st Contact Info) Description 11/09/2024 3:40 PM EDT Office Visit Family Medicine [address] [place] [phone] [place] [address] 11/11/2024 8:30 AM EDT Telemedicine Pharmacy, [address] [place] [address] [place] [address] 04/14/2025 3:00 PM EDT Office Visit Nephrology [address] [place] [address] Berenice Schroeder MD [address] [place], [place] [address] [address] Scheduled Procedures Name Priority Associated Diagnoses Date/Ti [...] history exists Depression Screening 02/18/2025 02/19/2024 GFR 04/29/2025 10/27/2024, 02/2025, 08/17/2024, Additional history exists Albumin/Creatinine Ratio 08/17/2025 025, 09/24/2023, 03/10/2023, Additional history exists CKD PHOS USE SMARTSET 30312 08/17/202508/04, 09/24/2023, 06/04/2022, Additional history exists CKD HGB USE SMARTSET 98311 10/27/202510/27, 03/29/2024, 12/03/2023, Additional history exists Colorectal Cancer Screening 11/12/2027 Sigmoidoscopy 11/12/2027 11/11/2022, 03/30/2004 DTap/Tdap Vaccines (3 - Td or Tdap) 12/31/2028 12/31/2018, 07/26/2008 Lipid Panel 08/17/2029 08/17/2024, 080 02/2023, 10/11/2021, Additional history exists AAA Screening Completed 10/25/2024, 08/05, 09/02/2016 Zoster Vaccines Completed 02/28/2020, 08/05, 09/07/2015 [...] Procedure Name Priority Date/Time Associated Diagnosis Comments CT ABD/PELVIS WO IV CONTRAST - W ORAL CONTRAST Routine 10/25/2024 documented in this encounter Results * CT ABD/PELVIS WO IV CONTRAST - W ORAL CONTRAST (10/25/2024) Anatomical Region Laterality Modality Body, Abdomen, Pelvis Other 10/25/2024 us History Per Patient RAD CT Final Result documented in this encounter Care Teams Wastewater Technician Relationship Specialty Start Date End Date Luna Montemayor MD [address] [place] [address] [place] [address] PCP - General Family Medicine 06/30/19 documented as of this encounter
--- OUTSIDE RECORDS SUMMARY | 2024-11-04 16:54 | External Medical Summary | Summary of Care ---
Author Name Unknown Organization [facility] Address [address] [place] [address] Phone [phone] Care Team Providers Care Psychologist Experimental Name Role Phone Luna Montemayor MD Primary Care Prov ider Encounter Details Date Type Department Care Team (Late st Contact Info) Description 10/25/2024 Result Scan Unspecified Department <No scans attached> Allergies Active Allergy Reactions Criticality Noted Date [...] goal of less than 8.0% ([facility]) Test BG up to 4 times daily [...] goal of less than 7.0% ([facility]) inject up to 80 units per day with insulin pump 70 mL 4 Active B-12 50 MCG Oral Tablet Take by mouth. Activ e Dexcom G6 SensorIndications :Type 2 diabetes mellitus with cataract ([facility]) use to check glucose 9 Each 1 5 Active Chlorthalidone 25 MG Oral Tablet (Hygroton)Indicat ions:Hypertension associated with stage 3b chronic kidney disease due to type 2 diabetes mellitus ([facility]) TAKE ONE TABLET BY MOUTH AT BEDTIME [...] No 02/19/2024 Does the household have a [facility] source of income? (Household - for ages [...] Industry Job Start Date Job End Date [employer] Not on file Not on file Not o n file documented as of this encounter Plan of Treatment Upcoming Encounters Date Type Department Care Team (Late st Contact Info) Description 11/09/2024 3:40 PM EDT Office Visit Family Medicine [address] [place] [phone] Marisela [address] [place] [address] 11/11/2024 8:30 AM EDT Telemedicine Pharmacy, [address] [place] [address] [place] [address] 04/14/2025 3:00 PM EDT Office Visit Nephrology [address] [place] [address] [facility] [address] [facility] [address] Scheduled Procedures Name Priority Associated Diagnoses Date/Ti [...] Additional history exists CKD PHOS USE SMARTSET 61379 08/17/202508/04, 09/24/2023, 06/04/2022, Additional history exists CKD HGB USE SMARTSET 27160 10/27/202510/27, 03/29/2024, 12/03/2023, Additional history exists Colorectal [...] Procedure Name Priority Date/Time Associated Diagnosis Comments OUTSIDE LAB RESULTS 10/25/2024 documented in this encounter Results * OUTSIDE LAB RESULTS (10/25/2024) 10/25/2024 us No Physician Data Unknown LABORATORY Final Result documented in this encounter Care Teams Psychologist Experimental Relationship Specialty Start Date End Date Luna Montemayor MD [address] [place] [address] [place] [address] PCP - General Family Medicine 06/30/19 documented as of this encounter
--- OUTSIDE RECORDS SUMMARY | 2024-11-04 16:54 | External Medical Summary | Summary of Care ---
Author Name Unknown Organization [facility] Address [address] [place] [address] Phone [phone] Care Team Providers Care Treasury Accountant Name Role Phone Luna Montemayor MD Primary Care Prov ider Encounter Details Date Type Department Care Team (Late st Contact Info) Description 11/02/2024 Orders Only Family Medicine [address] [phone] Luna Montemayor MD [address] [place] [address] [place] [address] Allergies Active Allergy Reactions Criticality [...] goal of less than 8.0% ([facility]) Test BG up to 4 times daily 100 Strip 4 1 Active OneTouch Ultra Blue In Vitro Strip (Glucose Blood)Indications :Type 2 diabetes mellitus with cataract ([facility]) test blood sugar up to 3 times [...] goal of less than 7.0% ([facility]) inject up to 80 units per day with insulin pump 70 mL 4 Active B-12 50 MCG Oral Tablet Take by mouth. 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 Not on file Not on file Not o n file documented as of this encounter Plan of Treatment Upcoming Encounters Date Type Department Care Team (Late st Contact Info) Description 11/09/2024 3:40 PM EDT Office Visit Family Medicine [address] [place] [phone] [place] [address] 11/11/2024 8:30 AM EDT Telemedicine Pharmacy, [address] [place] [address] [place] [address] 04/14/2025 3:00 PM EDT Office Visit Nephrology [address] [place] [address] Berenice Schroeder MD [address] [place], [place] [address] [address] Scheduled Procedures Name Priority Associated Diagnoses Date/Ti [...] Additional history exists CKD PHOS USE SMARTSET 13046 08/17/202508/04, 09/24/2023, 06/04/2022, Additional history exists CKD HGB USE SMARTSET 22249 10/27/202510/27, 03/29/2024, 12/03/2023, Additional history exists Colorectal [...] Procedure Name Priority Date/Time Associated Diagnosis Comments CHEMISTRY-OUTSIDE Routine 10/27/2024 documented in this encounter Results * (ABNORMAL) CHEMISTRY-OUTSIDE (10/27/2024) Not all results display below - see scan for full detail OUTSIDE LAB (SEE SCANNED REPORT) Comment:SCAN INCL: INPT LABS : CBCD,RENAL, MG CREATININE 3.31(A) 0.6 - 1.4 MG/DL OUTSIDE LAB (SEE SCANNED REPORT) EGFR 19.37 OUTSIDE LA B (SEE SCANNED REPORT) POTASSIUM 4.0 3.5 - 5.1 MMOL/L OUTSIDE LAB (SEE SCANNED REPORT) GLUCOSE 112(A) 70 - 99 MG/DL OUTSIDE LAB (SEE SCANNED REPORT) HOURS FASTING OUTSID E LAB (SEE SCANNED REPORT) TRIGLYCERIDES-OUT SIDE LAB OUTSIDE LAB (SEE SCANNED REPORT) CHOLESTEROL-OUTSI DE LAB OUTSIDE LAB (SEE SCANNED REPORT) HDL-OUTSIDE LAB OUTS DEVANTE LAB (SEE SCANNED REPORT) CHOL/HDL RATIO-OUTSIDE LAB OUTSIDE LA B (SEE SCANNED REPORT) LDL (CALCULATED)-OUTS DEVANTE LAB OUTSIDE LAB (SEE SCANNED REPORT) LDL (DIRECT MEASURE)-OUTSIDE LAB OUTSIDE LAB (SEE SCANNED REPORT) HEMOGLOBIN, U2U-[id number] LAB OUTSIDE LAB (SEE SCANNED REPORT) PHOSPHORUS-OUTSID E LAB OUTSIDE LAB (SEE SCANNED REPORT) PTH-OUTSIDE LAB OUTS DEVANTE LAB (SEE SCANNED REPORT) MICROALBUMIN RATIO-OUTSIDE LAB OUTSIDE LA B (SEE SCANNED REPORT) PROTEIN, UA-OUTSIDE LAB OUTSIDE LAB (SEE SCANNED REPORT) HGB 9.1(A) 14.0 - 18.0 G/DL OUTSIDE LAB (SEE SCANNED REPORT) 10/27/2024 us History Per Patient LABORATORY Final Result OUTSIDE LAB (SEE SCANNED REPORT) documented in this encounter Care Teams Treasury Accountant Relationship Specialty Start Date End Date Luna Montemayor MD [address] [place] [address] [place] [address] PCP - General Family Medicine 06/30/19 documented as of this encounter
[2024-11-04] MEDS: INSULIN ASPART PER UNIT CHARGE SC SCH (18:42)
[2024-11-04] MEDS: LANTUS PER UNIT CHARGE SC ONE (18:46)
[2024-11-04 19:16] LABS: Hematocrit (blood only) 20.2 % (42.0-52.0); Hemoglobin 7.1 g/dl (14.0-18.0)
[2024-11-04] MEDS: FLUTICASONE/VILANTEROL 200/25MCG 14 PUFFS/INHALER INH SCH (20:05)
--- NOTE | 2024-11-04 22:28 | CT Scan Report ---
EXAM: CT abd pelvis wo con CLINICAL HISTORY: Back pain radiating to chest, anemia. TECHNIQUE: Non-contrast CT of the abdomen and pelvis was performed, with the following protocol: axial images, and reconstructed coronal and sagittal images. No contrast was administered, One of the following dose reduction techniques was utilized for this exam: Automated exposure control, adjustment of the mA and/or kV according to patient size, and use of iterative reconstruction. COMPARISON: 10/25/2024 CT. FINDINGS: Abdomen: Liver: Normal in size, shape, and density. No focal lesions, cysts, or masses were identified. Gallbladder and Biliary System: The gallbladder is normal in size and shape. Few hyperdense calculi are noted in the gallbladder one measures 6.2 mm in size. No wall thickening, pericholecystic fluid, were identified. Pancreas: Pancreatic head, body, and tail are visualized and appear normal in size and density. No pancreatic masses or calcifications were noted. Spleen: Normal in size, shape, and density. No splenic lesions or masses were identified. Kidneys and Adrenal Glands: Both kidneys are normal in size, shape, and position. Cortical thickness is within normal limits. No renal calculi or hydronephrosis. A small 8 mm hyperdensity is appreciated in the mid-region of the right kidney. Mildly prominent bilateral renal pelvis are appreciated that could be due to back pressure of the distended urinary bladder. Bilateral mild perirenal fat stranding is appreciated. Adrenal glands are unremarkable. Abdominal Aorta and Vessels: The abdominal aorta and major branches are patent without evidence of an aneurysm. Atherosclerotic calcific changes are appreciated in the abdominal aorta. Pelvis: Urinary Bladder: Normal in contour and wall thickness. No intraluminal lesions. Prostate: It measures 33 ml. No masses or abnormal thickening. Seminal Vesicles: Normal appearance without abnormal enlargement or mass. Peritoneal and Retroperitoneal Structures: No free fluid or abnormal fluid collections were identified within the abdomen or pelvis. Few mesenteric lymph nodes are noted adjacent to the sigmoid colon, the larger 1 measures 9.4 mm. Bowel: Mild mucosal edema is noted in the second part of the duodenum along with mild mesenteric fat stranding. Colectomy with mild mucosal edema of the rectum and surgical sutures in place. The visualized rest of the bowel loops are normal in caliber and appearance. No evidence of bowel obstruction. Bones and Soft Tissues: Pelvic bones and soft tissues are unremarkable. No fractures or abnormal masses were identified. Degenerative changes are appreciated in the visualized spine with reduced intervertebral disc space at L2- L3 level with posterior and plate disc complex causes mild thecal compression. Vacuum phenomena is appreciated at multiple levels. A small fat-containing umbilical hernia is appreciated. Mild levoscoliosis in the lumbar spine Mild pleural thickening with atelectatic changes are appreciated in the basal segments of bilateral lower lobes, predominantly on the left side. The previously seen pulmonary nodules are not appreciated in the visualized images/cuts IMPRESSION: 1. No evidence of acute intra-abdominal pathology in the current non-contrast study. 2. Interval stable mild rectal wall mucosal thickening. S/p colectomy. 3. Interval new finding of mild mucosal edema in the second part of the duodenum with mild mesenteric fat stranding. Clinical correlation is suggested to rule out infective/inflammatory etiology. Follow-up is advised. 4. Cholelithiasis without any signs of inflammation. 5. Interval stable small hyperdense focus in the right renal parenchyma that may suggest a complex cyst. Ultrasound correlation is suggested. 6. The rest of the findings are as detailed above. Electronically signed by Riley Baxter 11-04-2024 10:27 PM
[2024-11-05 01:45] LABS: Hematocrit (blood only) 19.5 % (42.0-52.0); Hemoglobin 6.6 g/dl (14.0-18.0)
[2024-11-05] MEDS ORDERED: SODIUM CHLORIDE 0.9% 100 ML IV PRN (01:52)
[2024-11-05 04:32] LABS: Albumin Globulin Ratio 1.1 (0.9-2); BUN Creatinine Ratio 26.5 (10-20); Bilirubin,Total 0.4 mg/dl (0.2-1.0); Calcium 8.2 mg/dl (8.6-10.3); Creatinine Clr Calc Pharmacy 17.7 ml/min; Globulin 2.7 gm/dl (2.5-4.0); Magnesium 1.7 mg/dl (1.7-2.4); Phosphorus 4.4 mg/dl (2.5-4.9); Potassium 4.9 mmol/L (3.5-5.1); Total Protein 5.7 gm/dl (6.0-8.3)
[2024-11-05 05:02] LABS: Hematocrit (blood only) 20.2 % (42.0-52.0); Hemoglobin 6.7 g/dl (14.0-18.0); Mean Corpuscular Hemoglobin 28.2 pg (25.0-34.0); Mean Corpuscular Hgb Conc 33.2 g/dL (32.0-36.0); Mean Corpuscular Volume 84.9 fL (80.0-100.0); Mean Platelet Volume 9.1 fL (9.4-12.4); Platelet Count 374 K/uL (130-400); RDW Coefficient of Variation 12.9 % (11.5-14.5); RDW Standard Deviation 39.3 fL (36.4-46.3); Red Blood Count 2.38 M/uL (4.70-6.10); White Blood Count 7.35 K/ul (4.8-10.8)
[2024-11-05 05:03] LABS: Basophils # (auto) 0.04 K/uL (0.00-0.20); Basophils % (auto) 0.5 %; Eosinophils # (auto) 0.28 K/uL (0.00-0.50); Eosinophils % (auto) 3.8 %; Immature Granulocytes # (auto) 0.02 K/uL (0.01-0.20); Immature Granulocytes % (auto) 0.3 %; Lymphocytes # (auto) 0.75 K/uL (1.20-3.40); Lymphocytes % (auto) 10.2 %; Monocytes # (auto) 0.95 K/uL (0.11-0.59); Monocytes % (auto) 12.9 %; Neutrophils # (auto) 5.31 K/uL (1.40-6.50); Neutrophils % (auto) 72.3 %; Ovalocytes 1+
[2024-11-05] MEDS ORDERED: PANTOPRAZOLE BOLUS/DRIP IV STA (05:45)
[2024-11-05 05:47] LABS: Ferritin 190.2 ng/ml (8-388)
[2024-11-05] MEDS: PANTOprazole 80 MG in DEXTROSE 5% 100 ML IV ONE (06:28)
[2024-11-05] MEDS: PANTOprazole 40 MG in DEXTROSE 5% MINI-B 100 ML IV SCH (06:45)
[2024-11-05 06:53] LABS: Folate (Folic Acid),Ser orPlas > 22.30 ng/ml (>5.38)
[2024-11-05 06:54] LABS: Vitamin B12 784 pg/ml (180-914)
[2024-11-05] MEDS: amLODIPine BESYLATE 5 MG TAB PO SCH (08:02)
[2024-11-05] MEDS: MONTELUKAST SODIUM 10 MG TABLET PO SCH (08:02)
[2024-11-05] MEDS: ATORVASTATIN 40 MG TAB PO SCH (08:02)
[2024-11-05] MEDS: ACETAMINOPHEN 1,000 MG/100 ML VIAL IV PRN (08:18)
[2024-11-05] MEDS ORDERED: CHLORTHALIDONE 25 MG TAB PO SCH (09:00)
[2024-11-05] MEDS ORDERED: lisinopril 40 MG TAB PO SCH (09:00)
--- NOTE | 2024-11-05 09:44 | Nephrology Consultation ---
Date of Consultation November 05, 2024 Assessment & Plan (1) ARF (acute renal failure): Improving stage 1 prerenal MO in the setting of recent severe stage 3 prerenal MO. Baseline creatinine 2.3, although he was admitted 10/25 to 10/30 with stage III prerenal acute kidney injury with presenting creatinine 8.7 and improved to 3.3 by hospital discharge without dialysis. Presenting creatinine November 04 was 4.1, improved to 3.6 this morning with 1 L of normal saline. - Ordered urinalysis with microscopy No indication for urgent dialysis Given hemoglobin trend this morning, patient had packed red cells >> would now consider 1/2 NS w/ 75 mEq/L sodium bicarbonate at 80 mL an hour as tolerated and so ordered Care coordinated w/ Dr Gamble and w/ GI team via TText re venofer, MO etiology, IVF plan; we are in agreement. (2) Metabolic acidosis with normal anion gap and bicarbonate losses: Bicarbonate rich fluids will improve the acidosis; however patient needs appropriate GI workup to address diarrhea which is because of his volume depletion with severe renal failure and electrolyte disturbances; GI consult pending, particularly troublesome in setting of his UC/colectomy status (3) Acute anemia: Acute on chronic anemia with presenting hemoglobin 7.5 drifting down to 6.7 this morning. s/p 1 unit pRBC w/ improvement no clear cause for drop in hgb >> no h/o bleeding; that said all 3 cell lines did drop, so he was possibly simply quite dehydrated -suggest verify in epic status of last endoscopy, colonoscopy, GI OP progress note -can give venofer to start iron load; would hold off on DAVID pending eval of GI notes -consider ENT evaluation re nosebleeds History of Present Illness Reason for Consultation: MO on CKD Requesting Physician: Dr Barker Attending Physician: Ronnie Corcoran, History of Present Illness 69 y/o M whom I'm asked to see for MO on CKD was admitted yesterday with atypical chest pain, acute on chronic anemia and acute on chronic kidney failure. Past medical history includes type 2 diabetes on insulin pump with poor control, history of ulcerative colitis status post total colectomy, CKD 3B with recent class III acute kidney injury, hypertension, hypercholesterolemia, asthma, chronic anemia. He tells me he had an upper endoscopy at [facility] in July which did show an ulcer per his report (I'm unable to access [facility] currently for details). He has been having frequent nosebleeds, though none since admission. He was recently admitted here from October 25 to October 30 with stage III acute on chronic kidney injury after presenting to the ER with fevers and vomiting and diarrhea. Admission and peak BUN/creatinine 166/8.7, d/c BUN/creatinine 65/3.3; no hemodialysis required during this admission and acute kidney injury ascribed to severe prerenal process; hemoglobin thomas was 7.3. At hospital discharge, lisinopril 40 mg daily and chlorthalidone 25 mg daily were held and hydralazine 25 mg 3 times daily was started. Prior to October hospital admission, baseline creatinine 2.3. On arrival to ER yesterday, presenting BUN/creatinine 105 and 4.1. He had a liter of normal saline in the ER; was made n.p.o. Hemoglobin was 7.5 on admission and FOBT positive; started on PPI drip, made NPO. GI consulted and hematology consultation under consideration. Because of back pain radiating to the chest in the setting of slowly decreasing hemoglobin, CT abdomen pelvis was obtained. This AM, hemoglobin 6.7 and BUN/creatinine 94 and 3.6 with potassium 4.9. He had one unit of pRBC and hgb to 8.2. He feels well and repeatedly denies dyspnea including exertional dyspnea. no further chest pain. stable chronic diarrhea. no n/v/c; denies melena or hematochezia. no gross hematuria. no new/worrisome voiding sx. no f/c but some lower po intake since hospital d/c late last month d/t no appetite. no f/c or rash. Allergies Allergy/AdvReac Type Severity Reaction Status Date / Time Sulfa (Sulfonamide Allergy Verified 11/04/24 11:45 Antibiotics) Home Medications Medication Instructions Recorded Confirmed Type montelukast 10 mg tablet 10 mg PO DAILY ##0 04/15/06 11/04/24 History amlodipine 10 mg tablet 10 mg PO DAILY 10/25/24 11/04/24 History atorvastatin 40 mg tablet 40 mg PO DAILY 10/25/24 11/04/24 History fluticasone 250 mcg-salmeterol 50 1 inh inhalation BID 10/25/24 11/04/24 History mcg/dose blistr powdr for inhalation (Advair Diskus) ipratropium bromide 17 2 puff inhalation QID PRN 10/25/24 11/04/24 History mcg/actuation HFA aerosol inhaler SOB/WHEEZING (Atrovent HFA) chlorthalidone 25 mg tablet 25 mg PO DAILY 11/04/24 11/04/24 History insulin aspart U-100 100 unit/mL 1 sliding scale dose subcut 11/04/24 11/04/24 History subcutaneous solution (Novolog USEASDIRECTD U-100 Insulin aspart) lisinopril 40 mg tablet 40 mg PO DAILY 11/04/24 11/04/24 History Patient History Medical History Acoustic neuroma Moderate non-proliferative diabetic retinopathy Type 2 diabetes mellitus Stage 3b chronic kidney disease (CKD) Mild persistent asthma Environmental and seasonal allergies Dyslipidemia Hypertension Ulcerative colitis Surgical History History of cataract surgery Status post total colectomy age 30 for UC, has a J pouch Social History Smoking Status: Former smoker Hx Alcohol Use: No Hx Substance Use: No Preferred Language: Algerian Communication Ability: Effective Entry Level Paralegal Required: No Beliefs That Will Affect Care: None Current Living Situation: Alone Other Information That Helps Us Care for You: No Feels Safe at Home: Yes Safety Concerns: Feels Safe At This Time Assistive Devices: None, Denture - Upper, Glasses and Hearing Aid - Bilateral Review of Systems 2 Review of Systems: All systems reviewed & are unremarkable except as noted in HPI & below Physical Exam 2 Constitutional: well developed, + acute distress, + thin and cooperative Eyes: EOM intact bilaterally ENMT: Mouth: + dry oral mucous membranes Neck: no nuchal rigidity Respiratory: normal respiratory effort Auscultation: + diminished lung sounds, + rhonchi (R side) and + wheezes (R side); no crackles Cardiovascular: RRR, no murmur, no edema Gastrointestinal (Abdomen): Inspection/Auscultation: normal bowel sounds P ercussion/Palpation: abdomen soft; abdomen nontender Musculoskeletal: Extremities: strength 5/5 throughout Skin: no rashes, warm and dry Neurologic: bran, fluent speech, no tremor Psychiatric: Orientation: alert and oriented x 3 Results & Data Vital Signs (Past 12 Hours) Vital Signs Temp Pulse Pulse Resp BP BP BP 11/05/24 07:56 11/05/24 07:50 37.1 C 77 17 121/72 11/05/24 07:43 37.1 C 77 17 121/72 11/05/24 07:01 37.1 C 79 18 123/65 11/05/24 06:01 36.8 C 79 17 125/63 11/05/24 05:31 37.3 C 76 18 114/58 L 11/05/24 05:16 37.0 C 77 19 113/58 L 11/05/24 05:16 37.2 C 78 18 121/58 L 11/05/24 04:53 37 C 76 18 109/60 11/05/24 03:30 36.7 C 76 16 117/51 L 11/04/24 22:39 37.1 C 70 18 117/60 11/04/24 22:00 70 Pulse Ox O2 Del Method 11/05/24 07:56 Room Air 11/05/24 07:50 96 Room Air 11/05/24 07:43 96 11/05/24 07:01 98 11/05/24 06:01 97 11/05/24 05:31 94 11/05/24 05:16 97 11/05/24 05:16 95 11/05/24 04:53 96 11/05/24 03:30 96 Room Air 11/04/24 22:39 94 Room Air 11/04/24 22:00 Laboratory Results 11/05/24 04:01 11/05/24 04:[address] a/p non con 1. No evidence of acute intra-abdominal pathology in the current non-contrast study. 2. Interval stable mild rectal wall mucosal thickening. S/p colectomy. 3. Interval new finding of mild mucosal edema in the second part of the duodenum with mild mesenteric fat stranding. Clinical correlation is suggested to rule out infective/inflammatory etiology. Follow-up is advised. 4. Cholelithiasis without any signs of inflammation. 5. Interval stable small hyperdense focus in the right renal parenchyma that may suggest a complex cyst. Ultrasound correlation is suggested. Chest x-ray without acute cardiopulmonary process (image personally reviewed) (1) ARF (acute renal failure) Acute renal failure type: unspecified Qualified Code(s): N17.9 - Acute kidney failure, unspecified
[2024-11-05] MEDS: LANTUS PER UNIT CHARGE SC SCH ×2 (09:47→21:37)
[2024-11-05 10:41] LABS: Hematocrit (blood only) 24.4 % (42.0-52.0); Hemoglobin 8.2 g/dl (14.0-18.0)
--- NOTE | 2024-11-05 10:58 | Pharmacy Report ---
Pharmacy Glycemic Short Note 2 - Date of Service November 05, 2024 - Glycemic Short BSG Results (Last 24 hours): 11/04/24 11/04/24 11/04/24 10:37 13:11 17:17 Glucose 309 H* POC Glucose 209 H 90 11/04/24 11/04/24 11/05/24 20:09 23:49 04:01 Glucose 172 H POC Glucose 120 H 149 H 11/05/24 05:56 Glucose POC Glucose 203 H OUTPATIENT ANTIDIABETIC REGIMEN: * Novolog Omnipod Insulin pump * ~40 units/day total via pump per last documented outpatient MTM visit note HbA1c: * 9.4% (10/26/24) ASSESSMENT: 11/05: * Patient declined basal insulin that was ordered for him yesterday. * BSGs were elevated on admission but these came down into goal range with no insulin administered yesterday. * Fasting BSG today was elevated at 172 mg/dl. * NPO status this morning. Basal dose of 8 units based on stress of 1 was given this morning. * Novolog parameters ordered yesterday based on stress between 1 and 2. Pre-l unch BSG trended up to 253 mg/dl and a late lunch tray ordered. Tightened novolog parameters and ordered extra insulin to cover the lunch tray. * Additional basal insulin ordered at HS on a scale based on BSG. 11/04: * 69 yo M who presented with chest and back pain as well as severe hyperglycemia. * Pharmacy has been consulted to assist with inpatient glycemic management and transition to basal + bolus insulin. Initial dosing will be based on recent hospital admission data + home insulin pump usage. Will empirically reduce dosing for NPO status. PLAN FOR INPATIENT GLYCEMIC CONTROL: * Remove insulin pump * Basal insulin * Lantus 8 units SC QAM * Lantus 0/8/12 units based on BSG at HS * Bolus insulin * NovoLog per scale ACHS or Q6hrs while NPO * Goal Range: Low 110 mg/dL - High 140 mg/dL * Correction Factor: 25 mg/dL/unit * Nutritional / Prandial insulin per carb ratio of 1 unit per 7 grams CHO consumed
--- NOTE | 2024-11-05 11:27 | Gastrointestinal Consultation ---
Date of Consultation November 05, 2024 Assessment & Plan (1) Anemia: GI was asked to evaluate for acute on chronic anemia. he is not noticing any GI concerns, per patient. He has not seen blood in his stools or melena. his stools tested heme negative. Some of his anemia may stem from his frequent nosebleeds which he tells me at times can be significant. - would consider ENT evaluation of frequent nosebleeds. - follow Hgb/Hct and transfuse as needed. - in absence of active GI bleeding, would stop PPI drip and start protonix 40mg orally daily. - would recommend he follow up with his typical GI team at [facility] upon discharge. Supervising Physician Co-Signing Physician Notes I personally saw and examined the patient. I have reviewed the chart and agree with the documentation provided by the LEAD RAMP SERVICE MAN including discussion about the assessment, treatment and plan. Briefly, 69 year old male with insulin- requiring DM II on insulin pump, HTN, CKD, history of ulcerative colitis s/p total proctocolectomy with ileoanal pouch, hypercholesterolemia, asthma, chronic anemia who presented to the ED on 11/04 with complaints of chest pain and back pain that is suspected to be musculoskeletal. Hgb was found to have dropped form 9.1 to 7.5. He does report that he has had frequent nosebleeds since July that he attributes to the dry air and heat. He has not noted any increase in bowel movements, melena, or brbpr. stools tested heme negative.. I think the anemia is multi factorial from anemia of chronic disease is chronic UC and pouchitis, and epistaxis mainly contributing to his blood loss. He can get an outpatient ENT consult for his chronic epistaxis. As far as the diarrhea is concerned we had a long discussion about his normal bowel habits with the J- pouch I am with some mild pouchitis, he should aim for 3-4 bowel movements that are oatmeal or a little thicker in consistency. He can achieve this by using Imodium twice a day and organic psyllium husk or psyllium husk in general to thicken his stools. He does admit when he used to do this he was not having very liquid bowel movements in the past. I told him to go back to this regimen and follow-up with [facility] GI for his normal scopes. No acute role for endoluminal evaluation. History of Present Illness Reason for Consultation: acute on chronic anemia Requesting Physician: Yris Barker MD Attending Physician: Ronnie Corcoran DO History of Present Illness Patient is a 69 year old male with insulin-requiring DM II on insulin pump, HTN, CKD, history of ulcerative colitis s/p total proctocolectomy with ileoanal pouch, hypercholesterolemia, asthma, chronic anemia who presented to the ED on 11/04 with complaints of chest pain and back pain that is suspected to be musculoskeletal. Hgb was found to have dropped form 9.1 to 7.5. He does report that he has had frequent nosebleeds since July that he attributes to the dry air and heat. He has not noted any increase in bowel movements, melena, or brbpr. stools tested heme negative. CT 11/04 shown mild edema in duodenum and mild rectal wall thickening. He reports that he just had a scope to evaluate his pouch in July 2024 with [facility] that he reports was normal. I do not have records. He follows his GI care with [facility] typically. rest of GI ros are unremarkable. Allergies Allergy/AdvReac Type Severity Reaction Status Date / Time Sulfa (Sulfonamide Allergy Verified 11/04/24 11:45 Antibiotics) Home Medications Medication Instructions Recorded Confirmed Type montelukast 10 mg tablet 10 mg PO DAILY ##0 04/15/06 11/04/24 History amlodipine 10 mg tablet 10 mg PO DAILY 10/25/24 11/04/24 History atorvastatin 40 mg tablet 40 mg PO DAILY 10/25/24 11/04/24 History fluticasone 250 mcg-salmeterol 50 1 inh inhalation BID 10/25/24 11/04/24 History mcg/dose blistr powdr for inhalation (Advair Diskus) ipratropium bromide 17 2 puff inhalation QID PRN 10/25/24 11/04/24 History mcg/actuation HFA aerosol inhaler SOB/WHEEZING (Atrovent HFA) chlorthalidone 25 mg tablet 25 mg PO DAILY 11/04/24 11/04/24 History insulin aspart U-100 100 unit/mL 1 sliding scale dose subcut 11/04/24 11/04/24 History subcutaneous solution (Novolog USEASDIRECTD U-100 Insulin aspart) lisinopril 40 mg tablet 40 mg PO DAILY 11/04/24 11/04/24 History Patient History Medical History Acoustic neuroma Moderate non-proliferative diabetic retinopathy Type 2 diabetes mellitus Stage 3b chronic kidney disease (CKD) Mild persistent asthma Environmental and seasonal allergies Dyslipidemia Hypertension Ulcerative colitis Surgical History History of cataract surgery Status post total colectomy age 30 for UC, has a J pouch Social History Smoking Status: Former smoker Hx Alcohol Use: No Hx Substance Use: No Preferred Language: Dutch Communication Ability: Effective [employer]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 Required: No Beliefs That Will Affect Care: None Current Living Situation: Alone Other Information That Helps Us Care for You: No Feels Safe at Home: Yes Safety Concerns: Feels Safe At This Time Assistive Devices: None, Denture - Upper, Glasses and Hearing Aid - Bilateral Review of Systems Review of Systems: All systems reviewed & are unremarkable except as noted in HPI & below Physical Exam Constitutional: WD/WN, vitals as above Respiratory: normal respiratory effort, lungs clear to auscultation Cardiovascular: Rate/Rhythm: regular rate and regular rhythm Gastrointestinal (Abdomen): normal bowel sounds, soft, nontender, no hepatosplenomegaly Psychiatric: Orientation: alert and oriented x 3 Affect: euthymic affect Results & Data Vital Signs (Past 12 Hours) Vital Signs Temp Pulse Pulse Resp BP BP Pulse Ox 11/05/24 10:33 98.4 F 66 18 93/51 L 96 11/05/24 07:56 11/05/24 07:50 98.8 F 77 17 121/72 96 11/05/24 07:43 98.8 F 77 17 121/72 96 11/05/24 07:01 98.8 F 79 18 123/65 98 11/05/24 07:00 75 11/05/24 06:01 98.2 F 79 17 125/63 97 11/05/24 05:31 99.1 F 76 18 114/58 L 94 11/05/24 05:16 98.6 F 77 19 113/58 L 97 11/05/24 05:16 99.0 F 78 18 121/58 L 95 11/05/24 04:53 98.6 F 76 18 109/60 96 11/05/24 03:30 98.1 F 76 16 117/51 L 96 O2 Del Method 11/05/24 10:33 Room Air 11/05/24 07:56 Room Air 11/05/24 07:50 Room Air 11/05/24 07:43 11/05/24 07:01 11/05/24 07:00 11/05/24 06:01 11/05/24 05:31 11/05/24 05:16 11/05/24 05:16 11/05/24 04:53 11/05/24 03:30 Room Air Coding Level of Care Code 64420 INT INP/OBS CARE 255MIN Diagnoses Anemia D64.9 Anemia type: unspecified type (1) Anemia Anemia type: unspecified type Qualified Code(s): D64.9 - Anemia, unspecified
[2024-11-05] MEDS: PANTOprazole 40 MG TAB PO SCH (12:40)
[2024-11-05] MEDS: IRON SUCROSE 200 MG in SODIUM CHLORIDE 0.9% 100 ML IV SCH (12:52)
[2024-11-05] MEDS: SODIUM BICARBONATE 8.4% 75 MEQ in SODIUM CHLORIDE 0.45 % 1,000 ML IV SCH (13:27)
[2024-11-05] MEDS ORDERED: Nursing to Pharmacy Communication SCH (13:45)
--- NOTE | 2024-11-05 13:47 | Hospitalist Progress Note ---
Date of Service November 05, 2024 Assessment & Plan (1) Metabolic acidosis with normal anion gap and bicarbonate losses: (2) Acute on chronic anemia: (3) Iron deficiency anemia: (4) Chronic diarrhea: Plan: Due to total colectomy, exacerbated by recent norovirus infection (5) Type 2 diabetes mellitus: (6) Stage 3b chronic kidney disease (CKD): (7) Ulcerative colitis: (8) Status post total colectomy: Plan Patient presents with back and chest pain most likely due to his significant anemia. This is resolved after transfusion. Patient with acute on chronic anemia. Most likely multifactorial including iron deficiency, possible intermittent GI blood loss, poor production due to his renal failure Continue to transfuse as needed for hemoglobin less than 7 or significant symptoms Discussed with nephrology, additional IV iron today Patient with chronic gap metabolic acidosis due to chronic loss from his chronic diarrhea in the setting of post colectomy. Patient's diarrheal symptoms have exacerbated in the setting of recent norovirus infection. Patient has reported that Imodium has worked well for him in the past. Trial of Imodium Monitor renal function electrolytes Monitor hemoglobin Reviewed GI consultation. No plans for endoscopies. Advance diet Continue to monitor glucose, coverage with insulin Brother at bedside updated Admission and Anticipated Discharge Date Admission Date: November 04, 2024 Subjective Patient denies any shortness of breath. Feeling a bit stronger. No chest pain. Physical Exam Physical Exam: Constitutional: Alert, nontoxic HEENT: Mucous membranes moist. Lungs: Clear to auscultation, decreased, few crackles at bases CV: S1-S2, regular Abdomen: Soft, nontender, nondistended Extremities: No significant edema Neuro: No focal deficits Psych: Cooperative, normal mood Results & Data Results & Data Vital Signs (Past 12 Hours) Vital Signs Temp Pulse Pulse Resp BP BP Pulse Ox 11/05/24 10:33 36.9 C 66 18 93/51 L 96 11/05/24 07:56 11/05/24 07:50 37.1 C 77 17 121/72 96 11/05/24 07:43 37.1 C 77 17 121/72 96 11/05/24 07:01 37.1 C 79 18 123/65 98 11/05/24 07:00 75 11/05/24 06:01 36.8 C 79 17 125/63 97 11/05/24 05:31 37.3 C 76 18 114/58 L 94 04/04/25 05:16 37.0 C 77 19 113/58 L 97 11/05/24 05:16 37.2 C 78 18 121/58 L 95 11/05/24 04:53 37 C 76 18 109/60 96 11/05/24 03:30 36.7 C 76 16 117/51 L 96 O2 Del Method 11/05/24 10:33 Room Air 11/05/24 07:56 Room Air 11/05/24 07:50 Room Air 11/05/24 07:43 11/05/24 07:01 11/05/24 07:00 11/05/24 06:01 11/05/24 05:31 11/05/24 05:16 11/05/24 05:16 11/05/24 04:53 11/05/24 03:30 Room Air Diagnostic Findings Reviewed imaging, laboratory and diagnostic studies. Pertinent findings as below. Vitamin B12 784 Folate greater than 22.3 Stool for occult blood negative Iron studies reviewed, consistent with deficiency Creatinine 3.55 Sodium 133 Hemoglobin 8.2 posttransfusion improved (5) Type 2 diabetes mellitus Diabetes mellitus group home insulin use: with group home use Diabetes mellitus complication status: with ophthalmic complications Diabetes mellitus complication detail: with diabetic retinopathy Diabetic retinopathy severity: with moderate nonproliferative retinopathy Diabetes mellitus macular edema: with macular edema Laterality: unspecified laterality Qualified Code(s): E11.3319 - Type 2 diabetes mellitus with moderate nonproliferative diabetic retinopathy with macular edema, unspecified eye; Z79.4 - retirement (current) use of insulin
[2024-11-05] MEDS: INSULIN ASPART PER UNIT CHARGE SC SCH ×2 (14:32→17:26)
[2024-11-05] MEDS: LOPERAMIDE HCL 2 MG CAP PO SCH (14:35)
[2024-11-05 19:27] LABS: Hematocrit (blood only) 25.4 % (42.0-52.0); Hemoglobin 8.8 g/dl (14.0-18.0)
[2024-11-05] MEDS: INSULIN ASPART PER UNIT CHARGE SC ONE (19:50)
[2024-11-06 07:56] LABS: Hematocrit (blood only) 23.7 % (42.0-52.0); Hemoglobin 8.1 g/dl (14.0-18.0); Mean Corpuscular Hgb Conc 34.2 g/dL (32.0-36.0); Mean Platelet Volume 8.9 fL (9.4-12.4); Platelet Count 387 K/uL (130-400); RDW Standard Deviation 39.2 fL (36.4-46.3); Red Blood Count 2.89 M/uL (4.70-6.10); White Blood Count 6.41 K/ul (4.8-10.8)
[2024-11-06 08:13] LABS: BUN Creatinine Ratio 27.1 (10-20); Calcium 8.8 mg/dl (8.6-10.3); Creatinine Clr Calc Pharmacy 18.6 ml/min; Magnesium 1.8 mg/dl (1.7-2.4); Phosphorus 4.6 mg/dl (2.5-4.9); Potassium 4.9 mmol/L (3.5-5.1)
[2024-11-06] MEDS: ACETAMINOPHEN 325 MG TAB PO PRN (08:50)
[2024-11-06] MEDS: LANTUS PER UNIT CHARGE SC ONE (12:55)
--- NOTE | 2024-11-06 16:06 | Hospitalist Progress Note ---
Date of Service November 06, 2024 Assessment & Plan (1) Metabolic acidosis with normal anion gap and bicarbonate losses: (2) Acute on chronic anemia: (3) Iron deficiency anemia: (4) Chronic diarrhea: Plan: Due to total colectomy, exacerbated by recent norovirus infection (5) Type 2 diabetes mellitus: (6) Stage 3b chronic kidney disease (CKD): (7) Ulcerative colitis: (8) Status post total colectomy: Plan Patient significantly improved from his acute on chronic renal failure from volume loss associated with diarrhea. Metabolic acidosis has cleared. Hemoglobin has stabilized after transfusion. Discontinue bicarb IV fluids, monitor renal function and acidosis off bicarb in a.m. Patient continue to receive IV iron for his deficiency today Decrease Imodium to 2 times daily scheduled Encourage activity Check renal function and hemoglobin in a.m. if remains stable and continues to improve anticipate discharge home Communication with nephrology for follow-up recommendations. Admission and Anticipated Discharge Date Admission Date: November 04, 2024 Subjective Patient is feeling significantly improved. Reports has had good results with the initiation of Imodium. Significantly decreased stool. Eager to get home. Physical Exam Physical Exam: Constitutional: Alert HEENT: Mucous membranes moist. Lungs: Clear to auscultation, decreased, no wheezes rales or rhonchi CV: S1-S2, regular Abdomen: Soft, nontender, nondistended Extremities: No significant edema Neuro: No focal deficits Psych: Cooperative, normal mood Results & Data Results & Data Vital Signs (Past 12 Hours) Vital Signs Temp Pulse Pulse Resp BP Pulse Ox O2 Del Method 11/06/24 14:36 65 11/06/24 11:12 36.5 C 67 18 131/63 97 Room Air 11/06/24 08:55 Room Air 11/06/24 07:26 36.9 C 61 18 124/44 L 97 Room Air 11/06/24 07:00 63 Diagnostic Findings Reviewed imaging, laboratory and diagnostic studies. Pertinent findings as below. Hemoglobin 8.1 Potassium 4.9 Bicarb 22 Gap 6 Creatinine 3.39 slightly improved (5) Type 2 diabetes mellitus Diabetes mellitus assisted insulin use: with assisted use Diabetes mellitus complication status: with ophthalmic complications Diabetes mellitus complication detail: with diabetic retinopathy Diabetic retinopathy severity: with moderate nonproliferative retinopathy Diabetes mellitus macular edema: with macular edema Laterality: unspecified laterality Qualified Code(s): E11 .3319 - Type 2 diabetes mellitus with moderate nonproliferative diabetic retinopathy with macular edema, unspecified eye; 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
[2024-11-06 16:27] VITALS: PULSE 59; RESP 19; TEMP 97.5; O2SAT 98
--- NOTE | 2024-11-06 17:30 | Discharge Summary ---
Discharge Summary Date of Service November 06, 2024 Principal Dx & Hospital Course #1 = Principal Diagnosis (1) Metabolic acidosis with normal anion gap and bicarbonate losses: (2) Acute on chronic anemia: (3) Iron deficiency anemia: (4) Chronic diarrhea: Due to total colectomy, exacerbated by recent norovirus infection (5) Type 2 diabetes mellitus: (6) Stage 3b chronic kidney disease (CKD): (7) Ulcerative colitis: (8) Status post total colectomy: Plan Patient presented to the emergency room with complaints of back and chest pain. He also had continuing diarrhea after previous hospitalization for norovirus. In the emergency room noted to have acute on chronic anemia as well as acute on chronic renal failure. Patient was admitted for ongoing care. Patient was admitted to the hospital. Given IV fluid resuscitation. Nephrology consultation was obtained. Was evaluated by nephrology and placed on a bicarbonate IV fluid drip due to his metabolic acidosis. Metabolic acidosis was due to his bicarbonate losses were associated with his diarrhea. Patient has history of ulcerative colitis and status post colectomy has chronic diarrhea but had worsened in the setting of recent norovirus infection had not yet returned to his normal bowel habits. Patient was also noted to be more anemic. GI consultation was obtained due to concerns of ongoing blood loss. Stool tested heme-negative. Patient most likely combination of acute on chronic anemia associated with iron deficiency, nosebleeds, poor production from renal failure. He was transfused 1 unit of packed red blood cells. Hemoglobin improved and remained stable. He was also given IV iron x 2 doses. His renal function steadily improved through his hospitalization with some hydration and holding his AYO inhibitor and chlorthalidone. The patient states that he had used Imodium in the past. He was started on Imodium and this greatly improved his stool output. On the day of discharge his vital signs are stable. He is up and ambulatory. He was tolerating his diet. His stools were essentially back to his baseline habits. His laboratory studies had improved. He could be discharged home with outpatient follow-up with his providers. Notes For Next Care Provider Recommend CBC, BMP in 7 to 14 days May need ongoing IV iron infusions Medication Changes From Visit Imodium 2 times daily as needed Lisinopril discontinued Chlorthalidone discontinued Admission HPI Per Admitting Provider Pt is a 69 y/o male with insulin-requiring DM2, on insulin pump, HTN, CKDb3, hx of ulcerative colitis s/p total colectomy, hypercholesterolemia, asthma, chronic anemia presenting from home with concerning chest pain and back pain. Pt was recently discharged after an extended hospital course. pt states he has not yet had hospital followup after his last admission. States that the pain feels like it starts in the back and goes to his chest. Worse with positioning. Denies chest pain or SOB or palpitations. States the pain is constant Has chronic diarrhea symptoms, states non bloody. Notes he has been having frequent nosebleeds recently but thought the air was just dry. Denies melena/ hematochezia, hematuria, hemoptysis or hematemesis episodes. Agreeable to a blood transfusion if needed. Admission Exam Per Admitting Provider See H&P Discharge Exam Constitutional: Alert HEENT: Mucous membranes moist. Lungs: Clear to auscultation, decreased, no wheezes rales or rhonchi CV: S1-S2, regular Abdomen: Soft, nontender, nondistended Extremities: No significant edema Neuro: No focal deficits Psych: Cooperative, normal mood Updated Medication List Medication Instructions Recorded Confirmed Type montelukast 10 mg tablet 10 mg PO DAILY ##0 04/15/06 11/04/24 History amlodipine 10 mg tablet 10 mg PO DAILY 10/25/24 11/04/24 History atorvastatin 40 mg tablet 40 mg PO DAILY 10/25/24 11/04/24 History fluticasone 250 mcg-salmeterol 50 1 inh inhalation BID 10/25/24 11/04/24 History mcg/dose blistr powdr for inhalation (Advair Diskus) ipratropium bromide 17 2 puff inhalation QID PRN 10/25/24 11/04/24 History mcg/actuation HFA aerosol inhaler SOB/WHEEZING (Atrovent HFA) chlorthalidone 25 mg tablet 25 mg PO DAILY 11/04/24 11/04/24 History insulin aspart U-100 100 unit/mL 1 sliding scale dose subcut 11/04/24 11/04/24 History subcutaneous solution (Novolog USEASDIRECTD U-100 Insulin aspart) lisinopril 40 mg tablet 40 mg PO DAILY 11/04/24 11/04/24 History loperamide 2 mg capsule 2 mg PO BID #60 caps 11/06/24 Rx pantoprazole 40 mg tablet,delayed 40 mg PO QAM #30 tabs 11/06/24 Rx release Hospital Stay Data Consultations 11/04/24 11:41 ED Decision to Admit Stat 11/04/24 14:46 Consult Gastroenterology Routine 11/04/24 14:50 Consult Nephrology Routine Diagnostic Imagining Performed 11/04/24 19:37 CT Abd and Pelvis [CT abd pelvis wo con] Urgent Reviewed imaging, laboratory and diagnostic studies. Pertinent findings as below. Hemoglobin 8.1, posttransfusion Sodium 135 Potassium 4.9 Carbon dioxide 22 Anion gap 6 Creatinine 3.39, improved Stool for occult blood negative Prior to iron infusion: Iron 12 TIBC 209 Transferritin 149 %sat 6 Vitamin B12 and folate within normal ranges Troponins negative Pending Results Patient Have Any Pending Studies at Discharge: No Discharge Instructions Given to Patient (Per Discharging Provider) Follow-up with your PCP Monitor blood work through your PCP as an outpatient Follow-up with nephrology Total Time Total Time Spent Total Time Spent (In Minutes): 36
[2024-11-06 17:45] VITALS: BP 117/60
[2024-11-06] MEDS ORDERED: LOPERAMIDE HCL 2 MG CAP PO SCH (21:00)
[2024-11-07] MEDS ORDERED: LANTUS PER UNIT CHARGE SC SCH (09:00)
== END 2024-11-06 18:38 | disposition home or self-care (01) | DRG 683 ==
LOC: ED 10:20 → EDINP 11:52 → SUATTDRO 11:52 → EDINP 15:00 → 2S 16:57

== ENCOUNTER 2025-02-17 14:07 | Inpatient (IN) ==
--- NOTE | 2025-02-17 14:40 | Emergency Department Note ---
Impression & Plan MO (acute kidney injury), Anemia ED Provider Note NAME: ABHIJEET GONZALEZ AGE: 69 SEX: M : 1955 ARRIVES VIA: Walk-In INFORMANT: Patient, ED PROVIDER(S): Nilo Mojica DO CHIEF COMPLAINT: Generalized weakness HPI: The patient is a 69-year-old male who presented to the emergency department for generalized weakness and requesting IV fluids. The patient has a history of chronic renal insufficiency. He has routine laboratories drawn through nephrology. He was told to come to the emergency department for IV fluids as his creatinine was significantly elevated on his most recent laboratory draw. His creatinine was 4.7. That is up from 3.7 earlier this month. The patient denies having any nausea or vomiting. He denies having any difficulty breathing. He denies having any dysuria or frequency. ROS: See above HPI for pertinent positives & negatives. A total of 10 systems reviewed and were otherwise negative. PAST MEDICAL HISTORY: See Below PAST SURGICAL HISTORY: See Below FAMILY HISTORY: See Below SOCIAL HISTORY: See Below HOME MEDICATIONS: See Below ALLERGIES: See Below VITALS: See Below PHYSICAL EXAMINATION: GENERAL: Patient is awake alert in no acute distress patient is resting comfortably and showing no signs of anxiety EYES: The conjunctivae are clear. The pupils are round and reactive. EARS, NOSE, MOUTH AND THROAT: The nose is without any evidence of any deformity. NECK: The neck is nontender and supple. RESPIRATORY: Normal respiratory effort is noted there is no evidence of wheezing rhonchi or rales CARDIOVASCULAR: Regular rate and rhythm noted there no murmurs rubs or gallops normal S1 normal S2. GASTROINTESTINAL: The abdomen is soft. Abdomen is nontender. MUSCULOSKELETAL/EXTREMITIES: There is no evidence of gross deformity full range of motion is noted in the hips and shoulders. SKIN: There is no obvious evidence of any rash. There are no petechiae, pallor or cyanosis noted. NEUROLOGIC: Patient is awake alert and oriented x3 strength is symmetric patellar reflexes are 2+ bilaterally MEDICAL DECISION MAKING: The patient is a 69-year-old male who has a history of renal insufficiency. He presented to the emergency department because of outpatient labs that showed worsening of his creatinine. The patient was treated with IV fluids in the emergency department. He was reevaluated multiple times. I discussed the patient's condition with the on-call [facility] hospitalist group. They have agreed to evaluate the patient in the emergency department for further management and disposition. Triage Nursing notes reviewed. Prior medical records reviewed Vital Signs: reviewed and remarkable for no significant abnormalities Differential diagnosis: Infection, dehydration, metabolic abnormality, hypo/hyperglycemia, electrolyte disturbance, anemia, hypoxia, cardiac sources, intracerebral event, toxicologic, neurologic, as well as other pathologies. ER treatment provided: See below Diagnostics interpreted by me: ECG: EKG was obtained in the emergency department. My interpretation is normal sinus rhythm at 77 bpm. There is no ectopy. There is no acute ST segment abnormalities noted. This was compared to a tracing from November 04, 2024. No changes were noted. Cardiac Monitoring: An order was placed for continuous cardiac monitoring. The monitor shows a rate of 77 bpm with sinus rhythm. Laboratory studies: As stated above and show below. Imaging studies: See below. Radiographic imaging was reviewed by myself Consultation(s): I discussed this case [facility]. Past Med/Surg History Problem List (Updated 02/17/25 @ 16:02 by Nilo Mojica DO) MO (acute kidney injury) (Acute) Acute kidney injury superimposed on CKD History of total colectomy Chronic diarrhea Iron deficiency anemia Acute on chronic anemia Acute anemia Metabolic acidosis with normal anion gap and bicarbonate losses Acute hyperglycemia (Acute) Anemia (Acute) ARF (acute renal failure) (Acute) Hyperkalemia (Acute) High anion gap metabolic acidosis (Acute) Medical History Acoustic neuroma Moderate non-proliferative diabetic retinopathy Type 2 diabetes mellitus Stage 3b chronic kidney disease (CKD) Mild persistent asthma Environmental and seasonal allergies Dyslipidemia Hypertension Ulcerative colitis Surgical History History of cataract surgery Status post total colectomy age 30 for UC, has a J pouch Social History Smoking Status: Former smoker Hx Alcohol Use: No Hx Substance Use: No Preferred Language: Urdu Communication Ability: Effective [employer] Panels Plater Required: No Beliefs That Will Affect Care: None Current Living Situation: Alone Feels Safe at Home: Yes Assistive Devices: None Allergies Allergies Allergy/AdvReac Type Severity Reaction Status Date / Time Sulfa (Sulfonamide Allergy Intermediate Hives Verified 02/17/25 15:41 Antibiotics) Home Meds Home Medications Medication Instructions Recorded Confirmed montelukast 10 mg tablet 10 mg PO DAILY ##0 04/15/06 02/17/25 amlodipine 10 mg tablet 10 mg PO DAILY 10/25/24 02/17/25 atorvastatin 40 mg tablet 40 mg PO DAILY 10/25/24 02/17/25 fluticasone 250 mcg-salmeterol 50 1 inh inhalation BID 10/25/24 02/17/25 mcg/dose blistr powdr for inhalation (Advair Diskus) ipratropium bromide 17 2 puff inhalation QID PRN 10/25/24 02/17/25 mcg/actuation HFA aerosol inhaler SOB/WHEEZING (Atrovent HFA) insulin aspart U-100 100 unit/mL 1 sliding scale dose continuous 11/04/24 02/17/25 subcutaneous solution (Novolog subcutaneous infusion CONTINOUS U-100 Insulin aspart) loperamide 2 mg capsule 2 mg PO BID PRN Diarrhea 02/17/25 02/17/25 Previous Rx's Medication Instructions Recorded pantoprazole 40 mg tablet,delayed 40 mg PO QAM #30 tabs 11/06/24 release Results & Data (ED) Vital Signs Vital Signs - 24 hr 02/17/25 14:13 02/17/25 14:46 02/17/25 14:51 Temperature 36.7 C Temperature Source Temporal Artery Scan Pulse Rate 84 75 77 Pulse Rhythm Regular Pulse Strength Normal Respiratory Rate 16 19 Respiratory Effort / Characteristics Non-Labored Spontaneous Respiratory Depth Normal Blood Pressure 117/68 Blood Pressure Mean 84 Blood Pressure Position Sitting Pulse Oximetry 97 97 Oxygen Delivery Method Room Air Room Air Sepsis Recent Fever Within 48 Hours No Sepsis New/Unexplained Change in Mental Status N/A Sepsis Action Taken by Nursing No Action Required Home Medications Current Medication List: was personally reviewed by me Laboratory Data Attestation: I reviewed the patient's lab results. 02/17/25 14:40 02/17/25 14:40 Lab Results 02/17/25 Range/Units 14:40 WBC 8.16 (4.8-10.8) K/ul RBC 4.14 L (4.70-6.10) M/uL Hgb 11.3 L (14.0-18.0) g/dl Hct 34.6 L (42.0-52.0) % MCV 83.6 (80.0-100.0) fL MCH 27.3 (25.0-34.0) pg MCHC 32.7 (32.0-36.0) g/dL RDW Std Deviation 44.0 (36.4-46.3) fL RDW Coeff of Aline 14.5 (11.5-14.5) % Plt Count 276 (130-400) K/uL MPV 9.9 (9.4-12.4) fL Immature Gran % (Auto) 0.2 % Neut % (Auto) 75.7 % Lymph % (Auto) 13.1 % [place]edar % (Auto) 7.5 % Eos % (Auto) 2.8 % Baso % (Auto) 0.7 % Neut # (Auto) 6.17 (1.40-6.50) K/uL Lymph # (Auto) 1.07 L (1.20-3.40) K/uL [place] # (Auto) 0.61 H (0.11-0.59) K/uL Eos # (Auto) 0.23 (0.00-0.50) K/uL Baso # (Auto) 0.06 (0.00-0.20) K/uL Immature Gran # (Auto) 0.02 (0.01-0.20) K/uL PT 10.3 (9.0-12.0) Seconds INR 0.9 (0.9-1.1) APTT 23 (21-31) Seconds PTT Ratio 0.9 Sodium 134 L (136-145) mmol/L Potassium 4.5 (3.5-5.1) mmol/L Chloride 103 (98-107) mmol/L Carbon Dioxide 22 (21-32) mmol/L Anion Gap 9 (3-11) BUN 100 H (6-23) mg/dl Creatinine 3.98 H (0.6-1.4) mg/dl Est Cr Clr Drug Dosing 15.8 ml/min eGFR 15.53 BUN/Creatinine Ratio 25.1 H (10-20) Glucose 171 H (70-99(Fasting)) mg/dl Calcium 9.1 (8.6-10.3) mg/dl Phosphorus 5.0 H (2.5-4.9) mg/dl Magnesium 2.1 (1.7-2.4) mg/dl Total Bilirubin 0.4 (0.2-1.0) mg/dl AST 15 (13-39) U/L ALT 15 (7-52) U/L Alkaline Phosphatase 60 (34-104) U/L Troponin I High Sens 8.9 (0-20) pg/ml Total Protein 7.3 (6.0-8.3) gm/dl Albumin 4.1 (3.4-5.0) gm/dl Globulin 3.2 (2.5-4.0) gm/dl Albumin/Globulin Ratio 1.3 (0.9-2) Lipase 22 (11-82) U/L Administered Medications Discontinued Medications Sodium Chloride (Nss) 1,000 mls @ 999 mls/hr IV .Q1H1M ONE Stop: 02/17/25 15:32 Last Admin: 02/17/25 15:20 Dose: 999 mls/hr Documented By: BIN Imaging Data Attestation: I personally reviewed and interpreted this imaging study as follows: My Impression: 1 view chest x-ray was obtained in the emergency department. My interpretation is no free air or definite infiltrate, final report below. Radiologist's Impression: Chest X-Ray 02/17/25 14:23 XR chest 1V portable CLINICAL HISTORY: Acute renal failure COMPARISON STUDY: 11/04/2024 FINDINGS: Single view portable chest unchanged demonstrating no acute cardiopulmonary process. No airspace opacity or pleural effusion. There is no pneumothorax or atelectasis. Heart size and pulmonary vascularity are unremarkable. IMPRESSION: Stable exam; no acute process ACT 112: Negative or not required by law. Electronically signed by: Naila Coleman M.D. 02/17/2025 3:03 PM Discharge Plan Visit Data Chief Complaint: Abnormal Labs/Diagnostic Testing Stated Complaint: REF BY DOC, ABNORMAL BLOODWORK ED Provider: Nilo Mojica Discharge Problem: MO (acute kidney injury), Anemia Patient Disposition: Being Evaluated by Hospitalist Condition: Fair Forms Stand Alone Forms: My [facility] [employer] Prescriptions Prescriptions: No Action montelukast 10 mg Tablet 10 mg PO DAILY Qty: 0 atorvastatin 40 mg Tablet 40 mg PO DAILY fluticasone propion-salmeterol [Advair Diskus] 250-50 mcg/dose Blister With Device 1 inh INHALATION BID amlodipine 10 mg Tablet 10 mg PO DAILY Atrovent HFA 17 mcg/actuation Hfa Aerosol Inhaler 2 puff INHALATION QID PRN (Reason: SOB/WHEEZING) insulin aspart U-100 [Novolog U-100 Insulin aspart] 100 unit/mL Solution 1 sliding scale dose continuous subcutaneous infusion CONTINOUS Rx Instructions: Pt on insulin pump, pt unsure of max daily units. pantoprazole 40 mg Tablet,Delayed Release (Dr/Ec) 40 mg PO QAM Qty: 30 0RF loperamide 2 mg capsule 2 mg PO BID PRN (Reason: Diarrhea) Referrals Referrals: Luna Ahn MD [Primary Care Provider] -
[2025-02-17 14:52] LABS: Hematocrit (blood only) 34.6 % (42.0-52.0); Hemoglobin 11.3 g/dl (14.0-18.0); Immature Granulocytes # (auto) 0.02 K/uL (0.01-0.20); Immature Granulocytes % (auto) 0.2 %; Mean Corpuscular Hemoglobin 27.3 pg (25.0-34.0); Mean Corpuscular Volume 83.6 fL (80.0-100.0); Platelet Count 276 K/uL (130-400); RDW Standard Deviation 44.0 fL (36.4-46.3); Red Blood Count 4.14 M/uL (4.70-6.10); White Blood Count 8.16 K/ul (4.8-10.8)
--- NOTE | 2025-02-17 15:04 | XRay Report ---
XR chest 1V portable CLINICAL HISTORY: Acute renal failure COMPARISON STUDY: 11/04/2024 FINDINGS: Single view portable chest unchanged demonstrating no acute cardiopulmonary process. No air space opacity or pleural effusion. There is no pneumothorax or atelectasis. Heart size and pulmonary vascularity are unremarkable. IMPRESSION: Stable exam; no acute process ACT 112: Negative or not required by law. Electronically signed by: Naila Coleman M.D. 02/17/2025 3:03 PM
[2025-02-17 15:14] LABS: Alanine Aminotransferase 15.0 U/L (7-52); Albumin Globulin Ratio 1.3 (0.9-2); Alkaline Phosphatase 60.0 U/L (34-104); Anion Gap 9.0 (3-11); Bilirubin,Total 0.4 mg/dl (0.2-1.0); Blood Urea Nitrogen 100.0 mg/dl (6-23); Calcium 9.1 mg/dl (8.6-10.3); Carbon Dioxide 22.0 mmol/L (21-32); Chloride 103.0 mmol/L (98-107); Creatinine Clr Calc Pharmacy 15.8 ml/min; Globulin 3.2 gm/dl (2.5-4.0); Glucose 171.0 mg/dl (70-99(Fasting)); Lipase 22.0 U/L (11-82); Magnesium 2.1 mg/dl (1.7-2.4); Potassium 4.5 mmol/L (3.5-5.1); Sodium 134.0 mmol/L (136-145); Total Protein 7.3 gm/dl (6.0-8.3)
[2025-02-17] MEDS: SODIUM CHLORIDE 0.9% 1,000 ML IV ONE (15:20)
[2025-02-17 15:42] LABS: INR 0.9 (0.9-1.1); Partial Thromboplastin Time 23 Seconds (21-31); Prothrombin Time 10.3 Seconds (9.0-12.0)
--- NOTE | 2025-02-17 15:43 | History & Physical Report ---
Date of Service February 17, 2025 Assessment & Plan (1) Acute kidney injury superimposed on CKD: (2) Iron deficiency anemia: (3) Type 2 diabetes mellitus: (4) Moderate non-proliferative diabetic retinopathy: (5) Mild persistent asthma: (6) Hypertension: (7) Dyslipidemia: (8) Ulcerative colitis: Plan MO on CKD stage 3B - Admit to med surg - Consult nephrology as was sent in to hospital per their recommendations, they follow closely as an outpt - Dr. Schroeder - Obtain renal US - Noted that Cr at the beginning of January is 2.2, BUN 43, increased with repeat labs done on 02/14/25 to Cr./BUN 4.7/99 respectively. - UA ordered, follow for eval, obtain I/Os Qshift, bladder scan prn - Renally reduce medications and avoid nephrotoxins -- torsemide on outpt med list, will hold this - May continue amlodipine, HOLD lisinopril - Denies any recent med changes, illnesses, changes in diet that would affect prerenal. Iron deficiency Anemia - Cont supplementation, hgb 11.3/hct 34 on admission DM II - A1C 10/26/24= 9.4, 11/24/24 = 8.3, repeat with am labs - Consult diabetic education in regards to insulin pump, will hold that for now and do ISS with accuchecks achs while here. Need to confirm insulin dosing, Recent glucose of up to the 400s in the past few days. HTN HLD - As above , stable Ulcerative colitis H/O total colectomy Reports chronic diarrhea Will check stool studies DVT ppx: teds, scds Lines: 1 PIV FEN/GI: Renal diet, cont fluids x 1 more bag CODE: Full Dispo: From home, likely to remain in the hospital x 1-2 days I spent a total of 77 minutes with greater than 50% of that time face to face with the patient, personally reviewing all current laboratories, imaging studies, past medication reconciliation, outpatient chart review, and discussion with specialists to collaborate care for the patient excluding time spent in the performance of separately billed services or time spent by another provider/QHP. Please see attending documentation for corrections and/or additions. History of Present Illness Chief Complaint: Elevated Creatinine, sent per commercial intelligence manager from outpatient to hospital Primary Care Provider: Luna Ahn MD This is a 69-year-old male with PMHx of, diabetic macular degeneration, retinopathy, CKD stage IIIb due to diabetes, HTN, HLD, mild persistent asthma, anemia due to CKD, ulcerative colitis, who presents from outpatient clinic after being referred here by commercial intelligence manager earlier today due to elevated creatinine, poorly controlled blood glucose. He recently had outpatient labs conducted on 02/14/2025 showing a creatinine of 4.7, BUN 99, GFR of 13, and was instructed to come to the hospital. Today in the ER his creatinine is 3.98, BUN 100. He denies any acute symptoms today. Urinating without difficulty, reports clear y ellow urine. He has not yet provided a urine sample. Denies any other acute complaints. Lives at home with his . Patient has been taking all his routinely scheduled home medications including lisinopril 20 mg, amlodipine 10 mg, torsemide 40 mg daily.He notes that his CGM has read glucose up to the 400s in the past 3 days, he uses an insulin pump but does not know the dose that he receives. Allergies Allergy/AdvReac Type Severity Reaction Status Date / Time Sulfa (Sulfonamide Allergy Intermediate Hives Verified 02/17/25 15:41 Antibiotics) Home Medications Medication Instructions Recorded Confirmed Type montelukast 10 mg tablet 10 mg PO DAILY ##0 04/15/06 02/17/25 History amlodipine 10 mg tablet 10 mg PO DAILY 10/25/24 02/17/25 History atorvastatin 40 mg tablet 40 mg PO DAILY 10/25/24 02/17/25 History fluticasone 250 mcg-salmeterol 50 1 inh inhalation BID 10/25/24 02/17/25 History mcg/dose blistr powdr for inhalation (Advair Diskus) ipratropium bromide 17 2 puff inhalation QID PRN 10/25/24 02/17/25 History mcg/actuation HFA aerosol inhaler SOB/WHEEZING (Atrovent HFA) insulin aspart U-100 100 unit/mL 1 sliding scale dose continuous 11/04/24 02/17/25 History subcutaneous solution (Novolog subcutaneous infusion CONTINOUS U-100 Insulin aspart) pantoprazole 40 mg tablet,delayed 40 mg PO QAM #30 tabs 11/06/24 02/17/25 Rx release lisinopril 20 mg tablet 20 mg PO DAILY 02/17/25 02/17/25 History loperamide 2 mg capsule 2 mg PO BID PRN Diarrhea 02/17/25 02/17/25 History torsemide 40 mg tablet 40 mg PO DAILY 02/17/25 02/17/25 History Past Med/Surg History Problem List MO (acute kidney injury) (Acute) Acute kidney injury superimposed on CKD History of total colectomy Chronic diarrhea Iron deficiency anemia Acute on chronic anemia Acute anemia Metabolic acidosis with normal anion gap and bicarbonate losses Acute hyperglycemia (Acute) Anemia (Acute) ARF (acute renal failure) (Acute) Hyperkalemia (Acute) High anion gap metabolic acidosis (Acute) Medical History Acoustic neuroma Moderate non-proliferative diabetic retinopathy Type 2 diabetes mellitus Stage 3b chronic kidney disease (CKD) Mild persistent asthma Environmental and seasonal allergies Dyslipidemia Hypertension Ulcerative colitis Surgical History History of cataract surgery Status post total colectomy age 30 for UC, has a J pouch Social History Smoking Status: Former smoker Hx Alcohol Use: No Hx Substance Use: No Preferred Language: Citizen Of [place] Communication Ability: Effective Italian Teacher Required: No Beliefs That Will Affect Care: None Current Living Situation: Alone Feels Safe at Home: Yes Assistive Devices: None Review of Systems Review of Systems: Constitutional: No fever, sweats or chills Eyes: No diplopia, no worsening or blurred vision ENT: normal hearing, no trouble swallowing Respiratory: No cough, sputum, dyspnea at rest or on exertion Cardiovascular: No chest pain, tightness or palpitations Abdomen: No pain, nausea, vomiting, diarrhea or constipation : no urinary complaints, no frequency, no dysuria Musculoskeletal: No joint pain, calf pain, swelling Neurologic: No weakness, numbness/tingling, or balance problems Psychiatric: No anxiety or depression Skin: No rash or itch Physical Exam Physical Exam: General: awake, alert, no apparent distress, white male Head: Normocephalic, atraumatic ENT: PERRL, EOMI, no pharyngeal exudate, mucous membranes moist Chest: Clear to auscultation, on room air, no adventitious breath sounds Cardiac: Regular rate and rhythm, no murmur, no JVD, normal peripheral pulses, good capillary refill Abdominal: NABS x 4 quadrants, soft, nondistended, nontender to palpation, no r ebound or guarding Extremities: Normal inspection, no peripheral edema or erythema, calfs nontender to palpation Psych: Normal mood and affect Neuro: AAO x 3, strength intact bilaterally and rated 5/5, no motor deficits, speech is clear, no peripheral sensory deficits Results & Data Results & Data Vital Signs (Past 12 Hours) Vital Signs Temp Pulse Resp BP Pulse Ox O2 Del Method 02/17/25 14:51 77 02/17/25 14:46 75 19 97 Room Air 02/17/25 14:13 36.7 C 84 16 117/68 97 Room Air Laboratory Results 02/17/25 14:40 WBC 8.16 RBC 4.14 L Hgb 11.3 L Hct 34.6 L MCV 83.6 MCH 27.3 MCHC 32.7 RDW Std Deviation 44.0 RDW Coeff of Aline 14.5 Plt Count 276 MPV 9.9 Immature Gran % (Auto) 0.2 Neut % (Auto) 75.7 Lymph % (Auto) 13.1 [place] % (Auto) 7.5 Eos % (Auto) 2.8 Baso % (Auto) 0.7 Neut # (Auto) 6.17 Lymph # (Auto) 1.07 L [place] # (Auto) 0.61 H Eos # (Auto) 0.23 Baso # (Auto) 0.06 Immature Gran # (Auto) 0.02 PT 10.3 INR 0.9 APTT 23 PTT Ratio 0.9 Sodium 134 L Potassium 4.5 Chloride 103 Carbon Dioxide 22 Anion Gap 9 BUN 100 H Creatinine 3.98 H Est Cr Clr Drug Dosing 15.8 eGFR 15.53 BUN/Creatinine Ratio 25.1 H Glucose 171 H Calcium 9.1 Phosphorus 5.0 H Magnesium 2.1 Total Bilirubin 0.4 AST 15 ALT 15 Alkaline Phosphatase 60 Troponin I High Sens 8.9 Total Protein 7.3 Albumin 4.1 Globulin 3.2 Albumin/Globulin Ratio 1.3 Lipase 22 Diagnostic Findings Chest X-Ray 02/17/25 14:23 XR chest 1V portable CLINICAL HISTORY: Acute renal failure COMPARISON STUDY: 11/04/2024 FINDINGS: Single view portable chest unchanged demonstrating no acute cardiopulmonary process. No airspace opacity or pleural effusion. There is no pneumothorax or atelectasis. Heart size and pulmonary vascularity are unremarkable. IMPRESSION: Stable exam; no acute process ACT 112: Negative or not required by law. Electronically signed by: Naila Coleman M.D. 02/17/2025 3:03 PM Supervising Physician Co-Signing Physician Notes Patient is a 69-year-old male with history of diabetes mellitus, CKD stage stage IIIb, ulcerative colitis s/p total colectomy, anemia of chronic disease /iron d eficiency and other medical problems who was referred by his commercial intelligence manager for worsening renal function. Patient had outpatient blood work 3 days ago showed creatinine 4.7, BUN 99 and advised to go to ED for further evaluation. Patient admits to have chronic diarrhea which she attributes to colectomy for ulcerative colitis. He denies any recent NSAID use. He is on lisinopril, torsemide at home which she regularly takes. He denies any nausea, vomiting, abdominal pain. Denies any decreased urination. Please review HPI for complete details of presentation. I personally reviewed blood work. Physical Exam: Vitals signs as noted above General Appearance:Moderately built and nourished, no apparent distress Head: normocephalic, Atraumatic ,+ dry oral mucosa Eyes: normal inspection, EOMI Neck: supple, Trachea midline Respiratory/Chest: Normal breath sounds, CTA, No accessory muscle use Cardiovascular: S1, S2, No murmur Abdomen/GI:Soft, Non tender, Bowel sounds present Extremities/Musculoskeletal:normal inspection, no edema Neurologic/Psych:AAOX3, grossly no focal neurological deficits Skin: normal color, warm MO on CKD stage IIIb Anemia of chronic kidney disease Chronic diarrhea due to colectomy Hold lisinopril, torsemide Will give IV fluids Monitor for any urinary retention Check renal ultrasound Nephrology consulted Monitor I's and O's, urine output Avoid nephrotoxic agents as able Monitor renal function Check stool studies I personally interviewed and examined the patient at bedside. I have reviewed the advanced practitioner's documentation on the date of service referred in note and agree with plan. Patient's care is coordinated withDaphney Carey PA-C. Please refer to the documentation above for details of patient's presentation and for discussion of other issues. I spent a total [id number] coordinating, documenting, and providing care for this patient excluding time spent in the performance of separately billed services or time spent by another provider/QHP. (3) Type 2 diabetes mellitus Diabetes mellitus complication detail: with diabetic retinopathy Diabetes mellitus complication status: with ophthalmic complications Diabetes mellitus nursing home insulin use: with extermination inspector use Diabetes mellitus macular edema: with macular edema Diabetic retinopathy severity: with moderate nonproliferative retinopathy Laterality: unspecified laterality Qualified Code(s): E11.3319 - Type 2 diabetes mellitus with moderate nonproliferative diabetic retinopathy with macular edema, unspecified eye; Z79.4 - jail (current) use of insulin (5) Mild persistent asthma Asthma complication type: uncomplicated Qualified Code(s): J45.30 - Mild persistent asthma, uncomplicated (6) Hypertension Hypertension type: unspecified Qualified Code(s): I10 - Essential (primary) hypertension
[2025-02-17 16:55] LABS: Appearance Urine Clear (Clear); Glucose Urine UA Negative (Negative)
--- NOTE | 2025-02-17 18:24 | Ultrasound Report ---
EXAM: Ultrasound renal bladder retroperitoneal complete COMPARISON: Acute on chronic kidney disease, stage IIIb. CLINICAL HISTORY: TECHNIQUE: Ultrasound interrogation of the kidneys was performed with grayscale and color Doppler imaging. FINDINGS: The kidneys are normal in size, configuration and echogenicity. The right kidney measures 10.5 cm in length. Mild pelviectasis is noted. No hydronephrosis, calculus or mass. The left kidney measures 10.4 cm. Mild pelviectasis is noted. No hydronephrosis, calculus or mass. Urinary bladder unremarkable with distention and normal morphology. Bilateral ureteral jets are identified. Prostate is mildly enlarged. IMPRESSION: 1. No sonographic evidence of an acute renal abnormality, calculus or mass. 2. Mild prostamegaly, but not fully characterized. Electronically signed by Marcela Thomas 02-17-2025 6:23 PM
[2025-02-17] MEDS ORDERED: GLUCOSE 40% GEL 15 GM TUBE PO PRN (18:28)
[2025-02-17] MEDS ORDERED: ACETAMINOPHEN 325 MG TAB PO PRN (18:28)
[2025-02-17] MEDS ORDERED: ONDANSETRON INJ 2 MG/ML 2 ML VIAL IV PRN (18:28)
[2025-02-17] MEDS ORDERED: CARBOHYDRATES FOR HYPOGLYCEMIA PO PRN (18:28)
[2025-02-17] MEDS ORDERED: IPRATROPIUM BROMIDE HFA INHALER INH PRN (18:28)
[2025-02-17] MEDS ORDERED: GLUCOSE 10 TAB/TUBE PO PRN (18:28)
[2025-02-17] MEDS ORDERED: DEXTROSE 50% 50 ML SYRINGE IV PRN (18:28)
[2025-02-17] MEDS ORDERED: GLUCAGON FOR INJ 1 MG VIAL SQ PRN (18:28)
[2025-02-17] MEDS: LACTATED RINGER'S 1,000 ML IV SCH (19:52)
[2025-02-17] MEDS: INSULIN ASPART PER UNIT CHARGE SC SCH (20:42)
[2025-02-17] MEDS: FLUTICASONE/VILANTEROL 200/25MCG 14 PUFFS/INHALER INH SCH (21:48)
[2025-02-17] MEDS: HEPARIN SOD 5,000 UNIT/0.5 ML VIAL SQ SCH (21:50)
[2025-02-18 06:18] LABS: Cdiff Toxin B Gene (2yr or >) Negative Cdiff Gene (Neg)
[2025-02-18 06:39] LABS: Hematocrit (blood only) 33.1 % (42.0-52.0); Hemoglobin 11.1 g/dl (14.0-18.0); Mean Corpuscular Hemoglobin 28.0 pg (25.0-34.0); Mean Corpuscular Volume 83.4 fL (80.0-100.0); Platelet Count 242 K/uL (130-400); RDW Standard Deviation 43.4 fL (36.4-46.3); Red Blood Count 3.97 M/uL (4.70-6.10); White Blood Count 6.28 K/ul (4.8-10.8)
[2025-02-18 06:46] LABS: Adenovirus F 40/41 PCR Not Detected (NotDetected); Campylobacter PCR Not Detected (NotDetected); Enteroaggregative E.coli(EAEC) Not Detected (NotDetected); Shiga-like Toxin E.coli (STEC) Not Detected (NotDetected); Vibrio species PCR Not Detected (NotDetected)
[2025-02-18 07:14] LABS: Anion Gap 8.0 (3-11); Calcium 8.8 mg/dl (8.6-10.3); Carbon Dioxide 23.0 mmol/L (21-32); Chloride 104.0 mmol/L (98-107); Magnesium 1.9 mg/dl (1.7-2.4); Potassium 5.3 mmol/L (3.5-5.1); Sodium 135.0 mmol/L (136-145)
[2025-02-18 07:17] LABS: Hemoglobin A1C 8.7 % (4.5-5.6)
[2025-02-18 07:23] LABS: Blood Urea Nitrogen 90.0 mg/dl (6-23); Creatinine Clr Calc Pharmacy 18.4 ml/min; Glucose 362.0 mg/dl (70-99(Fasting))
[2025-02-18] MEDS: MONTELUKAST SODIUM 10 MG TABLET PO SCH (08:29)
[2025-02-18] MEDS: ATORVASTATIN 40 MG TAB PO SCH (08:29)
--- NOTE | 2025-02-18 10:21 | Hospitalist Progress Note ---
Date of Service February 18, 2025 Assessment & Plan (1) Acute kidney injury superimposed on CKD: (2) Iron deficiency anemia: (3) Type 2 diabetes mellitus: (4) Moderate non-proliferative diabetic retinopathy: (5) Mild persistent asthma: (6) Hypertension: (7) Dyslipidemia: (8) Ulcerative colitis: Plan 69 year old male that presents to the ED as recommended by nephrology for MO and uncontrolled hyperglycemia. Uncontrolled IDDM2: Likely pseudohyponatremia and hyperkalemia (5.3) A1C 10/26/24= 9.4, 11/24/24 = 8.3, A1C today 8.7 CDE consult placed in regards to uncontrolled A1C/non-compliance with carb coverage ACHS FSBS and SSI coverage Add on Lantus BID dosing Recent blood sugars in high 300's-low 400's Glycemic pharmacy consult placed MO on CKD stage 3B Admit to med surg Consult nephrology (known as an OPT) Renal ultrasound negative Creatinine in 01/2025; 2.2. / Cr./BUN 4.7/99 respectively. UA ordered, follow for eval, I/Os Qshift Bladder scan this AM: prevoid 250; PVR 86. Avoid nephrotoxins and renally dose as able; hold Torsemide and Lisinopril for now May continue amlodipine Denies any recent med changes, illnesses, changes in diet that would affect prerenal. IVF LR ordered for fluid challenge; continue x2 bags and reassess renal fx in AM Iron deficiency Anemia Cont supplementation, hgb 11.3/hct 34 on admission HTN HLD Takes Amlodipine; continue; no LE swelling noted Hold Lisinopril given MO Ulcerative colitis H/O total colectomy in 1994 Reports chronic diarrhea Stool cultures negative Disposition: DVT ppx: teds, scds Lines: 1 PIV FEN/GI: Renal diet, cont fluids x 2 more bags CODE: Full Dispo: From home, likely to remain in the hospital x 1-2 days I spent a total of 58 minutes with greater than 50% of that time face to face with the patient, personally reviewing all current laboratories, imaging studies, past medication reconciliation, outpatient chart review, and discussion with specialists to collaborate care for the patient excluding time spent in the performance of separately billed services or time spent by another provider/QHP. Please see attending documentation for corrections and/or additions. Admission and Anticipated Discharge Date Admission Date: February 17, 2025 Supervising Physician Co-Signing Physician Notes Attending addendum: The patient was seen and examined in medical floor He does not have any complaints and worried about deteriorating kidney function On examination Lying in bed without any acute distress Hemodynamically stable with unremarkable systemic examination His labs, imaging studies and medications reviewed Has MO on CKD likely complicated by hyperglycemia and has been under care of fire equipment operator Agree with assessment and plan as outlined above by Annamarie PINA and take the full responsible to care in the hospital Dr Milagros Padgett Subjective Pt is a maximus gentleman sitting in his hospital bed in no apparent distress. He explained that he works at the [employer] for the past 30 years. Hr states he eats the same thing for breakfast every morning, but throughout the day becomes a little less focused on his intake; and 'relies on the pump'. He does claim to do carb coverage, but admits to noncompliance. Denies HERNANDEZ, dizziness, visual or auditory changes, chest pain, SOB, abdominal pain or tenderness. See A/P for further details. Review of Systems Review of Systems: Neuro: (-) Falls, trauma, slurred speech HEENT: (-) HERNANDEZ, dizziness, dysphagia, visual or auditory changes CV: (-) CP, palpitations, swelling Resp: (-) SOB GI: (-) appetite changes, N/V/D, bowel changes : (-) urinary changes Skin: (-) rashes Psych: (-) anxiety, depression Physical Exam Physical Exam: Neuro: AAOx4, PERRLA, no aphagia, memory changes, CNII-XII grossly intact HEENT: head normocephalic, moist mucus membranes CV: S1/S2, (-) M/G/R, (-) edema, cap refill < 3 seconds Resp: Lungs CTA in all kelly. On RA GI: Abdomen S/NT/ND, Ax4 bowel sounds, (-) CVA tenderness Musculoskeletal: 5/5 B/L UE strength, 5/5 B/L LE strength. No gait disturbance Skin: (-) rashes , (-) erythema. Psych: euthymic mood Results & Data Results & Data Vital Signs (Past 12 Hours) Vital Signs Temp Pulse Resp BP Pulse Ox O2 Del Method 07/18/25 08:24 36.7 C 76 15 126/69 97 Room Air Laboratory Results Short CBC 02/17/25 02/18/25 Range/Units 14:40 06:02 WBC 8.16 6.28 (4.8-10.8) K/ul Hgb 11.3 L 11.1 L (14.0-18.0) g/dl Hct 34.6 L 33.1 L (42.0-52.0) % Plt Count 276 242 (130-400) K/uL BMP 02/17/25 02/18/25 14:40 06:02 Sodium 134 L 135 L Potassium 4.5 5.3 H Chloride 103 104 Carbon Dioxide 22 23 BUN 100 H 90 H Creatinine 3.98 H 3.42 H D Glucose 171 H 362 H* Calcium 9.1 8.8 Liver Function 02/17/25 Range/Units 14:40 Total Bilirubin 0.4 (0.2-1.0) mg/dl AST 15 (13-39) U/L ALT 15 (7-52) U/L Alkaline Phosphatase 60 (34-104) U/L Albumin 4.1 (3.4-5.0) gm/dl Urine 02/17/25 Range/Units 16:46 Urine Color Yellow Urine Appearance Clear (Clear) Urine pH 5.0 (4.5-7.5) Ur Specific [place] 1.007 (1.000-1.030) Urine Protein Negative (Negative) Urine Glucose (UA) Negative (Negative) (3) Type 2 diabetes mellitus Diabetes mellitus complication detail: with diabetic retinopathy Diabetes mellitus complication status: with ophthalmic complications Diabetes mellitus senior care insulin use: with senior care use Diabetes mellitus macular edema: with macular edema Diabetic retinopathy severity: with moderate nonproliferative retinopathy Laterality: unspecified laterality Qualified Code(s): E11.3319 - Type 2 diabetes mellitus with moderate nonproliferative diabetic retinopathy with macular edema, unspecified eye; Z79.4 - watermelon inspector (current) use of insulin (5) Mild persistent asthma Asthma complication type: uncomplicated Qualified Code(s): J45.30 - Mild persistent asthma, uncomplicated (6) Hypertension Hypertension type: unspecified Qualified Code(s): I10 - Essential (primary) hypertension
--- NOTE | 2025-02-18 10:56 | Nephrology Consultation ---
Date of Consultation February 18, 2025 Assessment & Plan (1) Acute kidney injury superimposed on CKD: He has baseline CKD 3 B sec to DM--baseline creat 2.2. Peak Creat 4.7 and now trending down with IVF and holding meds to 3.43 this AM. Urine was bland. he has Chronic Diarrhea and is on torsemide + AYO. Most likely etiology of MO is hemodynamic--Most likely uncontrolled glucose last 1 week--glu > 400 likely made him volume deplteted and caused MO. [place] noting he does seem very prone to MO and had severe MO in also with peak creat of 8+ but recovered without dialysis. Continue to hold torsemide, Lisinopril for now. Continue IVF till AM at least even this AM glucose was almost 400 and caused some pseudohyponatremia and hyperkalemia. we have to have better glucose control so he does not get into this situation again. Renal US done already and urine is bland so no need for further workup. 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 He had outpatient labs on 02/14/2025 showing a creatinine of 4.7, BUN 99, GFR of 13, and was instructed to come to the hospital. In the ER his creatinine is 3.98, BUN 100. Since admission IVF given, torsemide and Lisinopril held. Creat improving. Still has high glucose. He denies any acute symptoms today. Urinating without difficulty, reports clear yellow urine. Denies any other acute complaints. Lives at home with his . Patient has been taking all his routinely scheduled home medications. He notes that his CGM has been reading high glucose up to the 400s in the past 3 days, he uses an insulin pump but does not know the dose that he receives. ROS--12 Systems reviewed and negative Physical Exam Physical Exam: General: awake, alert, no apparent distress, white male Head: Normocephalic, atraumatic ENT: PERRL, EOMI, no pharyngeal exudate, mucous membranes moist Chest: Clear to auscultation, on room air, no adventitious breath sounds Cardiac: Regular rate and rhythm, no murmur, no JVD, normal peripheral pulses, good capillary refill Abdominal: NABS x 4 quadrants, soft, nondistended, nontender to palpation, no rebound or guarding Extremities: Normal inspection, no peripheral edema or erythema, calfs nontender to palpation Psych: Normal mood and affect Neuro: AAO x 3, strength intact bilaterally and rated 5/5, no motor deficits, speech is clear, no peripheral sensory deficits Allergies Allergy/AdvReac Type Severity Reaction Status Date / Time Sulfa (Sulfonamide Allergy Intermediate Hives Verified 02/17/25 15:41 Antibiotics) Home Medications Medication Instructions Recorded Confirmed Type montelukast 10 mg tablet 10 mg PO DAILY ##0 04/15/06 02/17/25 History amlodipine 10 mg tablet 10 mg PO DAILY 10/25/24 02/17/25 History atorvastatin 40 mg tablet 40 mg PO DAILY 10/25/24 02/17/25 History fluticasone 250 mcg-salmeterol 50 1 inh inhalation BID 10/25/24 02/17/25 History mcg/dose blistr powdr for inhalation (Advair Diskus) ipratropium bromide 17 2 puff inhalation QID PRN 10/25/24 02/17/25 History mcg/actuation HFA aerosol inhaler SOB/WHEEZING (Atrovent HFA) insulin aspart U-100 100 unit/mL 1 sliding scale dose continuous 11/04/24 02/17/25 History subcutaneous solution (Novolog subcutaneous infusion CONTINOUS U-100 Insulin aspart) pantoprazole 40 mg tablet,delayed 40 mg PO QAM #30 tabs 11/06/24 02/17/25 Rx release lisinopril 20 mg tablet 20 mg PO DAILY 02/17/25 02/17/25 History loperamide 2 mg capsule 2 mg PO BID PRN Diarrhea 02/17/25 02/17/25 History torsemide 40 mg tablet 40 mg PO DAILY 02/17/25 02/17/25 History Patient History Medical History Acoustic neuroma Moderate non-proliferative diabetic retinopathy Type 2 diabetes mellitus Stage 3b chronic kidney disease (CKD) Mild persistent asthma Environmental and seasonal allergies Dyslipidemia Hypertension Ulcerative colitis Surgical History History of cataract surgery Status post total colectomy age 30 for UC, has a J pouch Social History Smoking Status: Former smoker Hx Alcohol Use: No Hx Substance Use: No Preferred Language: Albanian Communication Ability: Effective Mail Sorter Required: No Beliefs That Will Affect Care: None Current Living Situation: Spouse Feels Safe at Home: Yes Assistive Devices: Glasses and Hearing Aid - Bilateral Results & Data Vital Signs (Past 12 Hours) Vital Signs Temp Pulse Resp BP Pulse Ox O2 Del Method 02/18/25 08:24 36.7 C 76 15 126/69 97 Room Air Laboratory Results Outpt and inpt labs from both [facility] and [facility] reviewed. CBC, renal panel, CXR Diagnostic Findings CXR--No CHF. renal US--negtive for Obstruction
[2025-02-18] MEDS: LANTUS PER UNIT CHARGE SQ SCH (12:07)
[2025-02-18] MEDS: INSULIN ASPART PER UNIT CHARGE SC ONE (13:01)
[2025-02-18 13:04] VITALS: RESP 16
[2025-02-18 14:46] LABS: Anion Gap 8.0 (3-11); Blood Urea Nitrogen 91.0 mg/dl (6-23); Calcium 9.2 mg/dl (8.6-10.3); Carbon Dioxide 23.0 mmol/L (21-32); Chloride 104.0 mmol/L (98-107); Creatinine Clr Calc Pharmacy 18.4 ml/min; Glucose 264.0 mg/dl (70-99(Fasting)); Potassium 4.8 mmol/L (3.5-5.1); Sodium 135.0 mmol/L (136-145)
[2025-02-18 21:00] VITALS: O2SAT 98
[2025-02-18] MEDS ORDERED: LANTUS PER UNIT CHARGE SQ SCH (21:00)
[2025-02-18] MEDS: LOPERAMIDE HCL 2 MG CAP PO STA (21:53)
[2025-02-19 06:22] LABS: Hematocrit (blood only) 31.9 % (42.0-52.0); Hemoglobin 11.0 g/dl (14.0-18.0); Mean Corpuscular Hemoglobin 28.4 pg (25.0-34.0); Mean Corpuscular Volume 82.2 fL (80.0-100.0); Platelet Count 250 K/uL (130-400); RDW Standard Deviation 41.4 fL (36.4-46.3); Red Blood Count 3.88 M/uL (4.70-6.10); White Blood Count 7.15 K/ul (4.8-10.8)
[2025-02-19 06:41] LABS: Alanine Aminotransferase 12.0 U/L (7-52); Albumin Globulin Ratio 1.3 (0.9-2); Alkaline Phosphatase 50.0 U/L (34-104); Anion Gap 7.0 (3-11); Bilirubin,Total 0.3 mg/dl (0.2-1.0); Blood Urea Nitrogen 79.0 mg/dl (6-23); Calcium 9.0 mg/dl (8.6-10.3); Carbon Dioxide 24.0 mmol/L (21-32); Chloride 108.0 mmol/L (98-107); Creatinine Clr Calc Pharmacy 22.7 ml/min; Globulin 2.6 gm/dl (2.5-4.0); Glucose 96.0 mg/dl (70-99(Fasting)); Potassium 4.5 mmol/L (3.5-5.1); Sodium 139.0 mmol/L (136-145); Total Protein 6.1 gm/dl (6.0-8.3)
--- NOTE | 2025-02-19 07:01 | Hospitalist Progress Note ---
Date of Service February 19, 2025 Assessment & Plan (1) Acute kidney injury superimposed on CKD: (2) Iron deficiency anemia: (3) Type 2 diabetes mellitus: (4) Moderate non-proliferative diabetic retinopathy: (5) Mild persistent asthma: (6) Hypertension: (7) Dyslipidemia: (8) Ulcerative colitis: Plan 69 year old male that presents to the ED as recommended by nephrology for MO and uncontrolled hyperglycemia. Uncontrolled IDDM2: Likely pseudohyponatremia and hyperkalemia (5.3) A1C 10/26/24= 9.4, 11/24/24 = 8.3, A1C today 8.7 CDE consult placed in regards to uncontrolled A1C/non-compliance with carb coverage ACHS FSBS and SSI coverage Add on Lantus BID dosing Recent blood sugars in high 300's-low 400's Glycemic pharmacy consult placed MO on CKD stage 3B Admit to med surg Consult nephrology (known as an OPT) Renal ultrasound negative Creatinine in 01/2025; 2.2. / Cr./BUN 4.7/99 respectively. UA ordered, follow for eval, I/Os Qshift Bladder scan this AM: prevoid 250; PVR 86. Avoid nephrotoxins and renally dose as able; hold Torsemide and Lisinopril for now May continue amlodipine Denies any recent med changes, illnesses, changes in diet that would affect prerenal. IVF LR ordered for fluid challenge; continue x2 bags and reassess renal fx in AM Iron deficiency Anemia Cont supplementation, hgb 11.3/hct 34 on admission HTN HLD Takes Amlodipine; continue; no LE swelling noted Hold Lisinopril given MO Ulcerative colitis H/O total colectomy in 1994 Reports chronic diarrhea Stool cultures negative Disposition: DVT ppx: teds, scds Lines: 1 PIV FEN/GI: Renal diet, cont fluids x 2 more bags CODE: Full Dispo: From home, likely to remain in the hospital x 1-2 days I spent a total of 58 minutes with greater than 50% of that time face to face with the patient, personally reviewing all current laboratories, imaging studies, past medication reconciliation, outpatient chart review, and discussion with specialists to collaborate care for the patient excluding time spent in the performance of separately billed services or time spent by another provider/QHP. Please see attending documentation for corrections and/or additions. Admission and Anticipated Discharge Date Admission Date: February 17, 2025 Supervising Physician Co-Signing Physician Notes Attending addendum: The patient was seen and examined in medical floor He has been feeling much better and denies any significant symptoms He has been ambulating in the hallway without difficulties His blood sugar has remained stable On examination Remains hemodynamically stable with blood pressure on the upper side at 156/69 Systemic examination is unremarkable His labs were noted and the medications reviewed MO on CKDremains stable and has improved MO Uncontrolled diabetesdiabetic education and also advised to have insulin to be taken regularly as advised with follow-ups Agree with assessment plan as outlined above by YOVANI Tapia and take the full responsibility of care in the hospital Dr Milagros Padgett Review of Systems Review of Systems: Neuro: (-) Falls, trauma, slurred speech HEENT: (-) HERNANDEZ, dizziness, dysphagia, visual or auditory changes CV: (-) CP, palpitations, swelling Resp: (-) SOB GI: (-) appetite changes, N/V/D, bowel changes : (-) urinary changes Skin: (-) rashes Psych: (-) anxiety, depression Physical Exam Physical Exam: Neuro: AAOx4, PERRLA, no aphagia, memory changes, CNII-XII grossly intact HEENT: head normocephalic, moist mucus membranes CV: S1/S2, (-) M/G/R, (-) edema, cap refill < 3 seconds Resp: Lungs CTA in all kelly. On RA GI: Abdomen S/NT/ND, Ax4 bowel sounds, (-) CVA tenderness Musculoskeletal: 5/5 B/L UE strength, 5/5 B/L LE strength. No gait disturbance Skin: (-) rashes , (-) erythema. Psych: euthymic mood Results & Data Results & Data Vital Signs (Past 12 Hours) Vital Signs Temp Pulse Resp BP Pulse Ox O2 Del Method 02/18/25 21:24 Room Air 02/18/25 20:59 36.9 C 74 16 157/66 H 98 Room Air (3) Type 2 diabetes mellitus Diabetes mellitus complication detail: with diabetic retinopathy Diabetes mellitus complication status: with ophthalmic complications Diabetes mellitus [facility] insulin use: with [facility] use Diabetes mellitus macular edema: with macular edema Diabetic retinopathy severity: with moderate nonproliferative retinopathy Laterality: unspecified laterality Qualified Code(s): E11.3319 - Type 2 diabetes mellitus with moderate nonproliferative diabetic retinopathy with macular edema, unspecified eye; Z79.4 - remote computer terminal operator (current) use of insulin (5) Mild persistent asthma Asthma complication type: uncomplicated Qualified Code(s): J45.30 - Mild persistent asthma, uncomplicated (6) Hypertension Hypertension type: unspecified Qualified Code(s): I10 - Essential (primary) hypertension
[2025-02-19 07:39] VITALS: BP 156/69; PULSE 68; TEMP 97.7
[2025-02-19] MEDS: LOPERAMIDE HCL 2 MG CAP PO ONE (10:34)
--- NOTE | 2025-02-19 13:34 | Nephrology Progress Note ---
Date of Service February 19, 2025 Assessment & Plan (1) Acute kidney injury superimposed on CKD: Plan: He has baseline CKD 3 B sec to DM--baseline creat 2.2. Peak Creat 4.7 and now trending down with IVF and holding meds(HCTZ and lisinopril) Urine was bland. he has Chronic Diarrhea and is on torsemide + AYO. Most likely etiology of MO was hemodynamic--Most likely uncontrolled glucose last 1 week--glu > 400 likely made him volume depletedand caused MO. [place] noting he does seem very prone to MO and had severe MO in also with peak creat of 8+ but recovered without dialysis. - Renal fucntions have improved and back to baseline. - Continue to hold torsemide, Lisinopril can be restarted. AM glucose is better ia. we have to have better glucose control so he does not get into this situation again. Renal US done already and urine is bland so no need for further workup. If discharged , needs to follow with Nephrology in 2 weeks with [facility] (2) Acute hyperglycemia: Plan: Likely the precipitating cause of the MO (3) Chronic diarrhea: Plan: S/p total colectomy Plan time spent is 65 mins Admission and Anticipated Discharge Date Admission Date: February 17, 2025 Subjective Comfortable, in no apparent distress. Review of Systems 2 Review of Systems: All systems reviewed & are unremarkable except as noted in HPI & below Physical Exam 2 Physical Exam: General: awake, alert, no apparent distress, white male Head: Normocephalic, atraumatic ENT: PERRL, EOMI, no pharyngeal exudate, mucous membranes moist Chest: Clear to auscultation, on room air, no adventitious breath sounds Cardiac: Regular rate and rhythm, no murmur, no JVD, normal peripheral pulses, good capillary refill Abdominal: NABS x 4 quadrants, soft, nondistended, nontender to palpation, no rebound or guarding Extremities: Normal inspection, no peripheral edema or erythema, calfs nontender to palpation Psych: Normal mood and affect Neuro: AAO x 3, strength intact bilaterally and rated 5/5, no motor deficits, speech is clear, no peripheral sensory defici Results & Data Vital Signs (Past 12 Hours) Vital Signs Temp Pulse Resp BP Pulse Ox O2 Del Method 02/19/25 07:38 36.5 C 68 16 156/69 H 98 Room Air Laboratory Results 02/19/25 05:40 02/19/25 05:40
--- NOTE | 2025-02-19 14:06 | Discharge Summary ---
Date of Service February 19, 2025 Admission HPI Per Admitting Provider This is a 69-year-old male with PMHx of, diabetic macular degeneration, retinopathy, CKD stage IIIb due to diabetes, HTN, HLD, mild persistent asthma, anemia due to CKD, ulcerative colitis, who presents from outpatient clinic after being referred here by rural route carrier earlier today due to elevated creatinine, poorly controlled blood glucose. He recently had outpatient labs conducted on 02/14/2025 showing a creatinine of 4.7, BUN 99, GFR of 13, and was instructed to come to the hospital. Today in the ER his creatinine is 3.98, BUN 100. He denies any acute symptoms today. Urinating without difficulty, reports clear yellow urine. He has not yet provided a urine sample. Denies any other acute complaints. Lives at home with his . Patient has been taking all his routinely scheduled home medications including lisinopril 20 mg, amlodipine 10 mg, torsemide 40 mg daily.He notes that his CGM has read glucose up to the 400s in the past 3 days, he uses an insulin pump but does not know the dose that he receives. Admission Exam Per Admitting Provider General: awake, alert, no apparent distress, white male Head: Normocephalic, atraumatic ENT: PERRL, EOMI, no pharyngeal exudate, mucous membranes moist Chest: Clear to auscultation, on room air, no adventitious breath sounds Cardiac: Regular rate and rhythm, no murmur, no JVD, normal peripheral pulses, good capillary refill Abdominal: NABS x 4 quadrants, soft, nondistended, nontender to palpation, no rebound or guarding Extremities: Normal inspection, no peripheral edema or erythema, calfs nontender to palpation Psych: Normal mood and affect Neuro: AAO x 3, strength intact bilaterally and rated 5/5, no motor deficits, speech is clear, no peripheral sensory deficits Principal Diagnosis MO; uncontrolled diabetes mellitus Discharge Exam Neuro: AAOx4, PERRLA, no aphagia, memory changes, CNII-XII grossly intact HEENT: head normocephalic, moist mucus membranes CV: S1/S2, (-) M/G/R, (-) edema, cap refill < 3 seconds Resp: Lungs CTA in all kelly. On RA GI: Abdomen S/NT/ND, Ax4 bowel sounds, (-) CVA tenderness Musculoskeletal: 5/5 B/L UE strength, 5/5 B/L LE strength. No gait disturbance Skin: (-) rashes , (-) erythema. Psych: euthymic mood Discharge Data Allergies Allergy/AdvReac Type Severity Reaction Status Date / Time Sulfa (Sulfonamide Allergy Intermediate Hives Verified 02/17/25 15:41 Antibiotics) Consultations 02/17/25 15:40 ED Decision to Admit Stat 02/17/25 16:11 Consult Nephrology Routine Ordered Studies 02/17/25 16:28 US Renal Bladder [US renal/blad retro comp] Stat FINDINGS: The kidneys are normal in size, configuration and echogenicity. The right kidney measures 10.5 cm in length. Mild pelviectasis is noted. No hydronephrosis, calculus or mass. The left kidney measures 10.4 cm. Mild pelviectasis is noted. No hydronephrosis, calculus or mass. Urinary bladder unremarkable with distention and normal morphology. Bilateral ureteral jets are identified. Prostate is mildly enlarged. IMPRESSION: 1. No sonographic evidence of an acute renal abnormality, calculus or mass. 2. Mild prostamegaly, but not fully characterized. 02/17/25: CXR: FINDINGS: Single view portable chest unchanged demonstrating no acute cardiopulmonary process. No airspace opacity or pleural effusion. There is no pneumothorax or atelectasis. Heart size and pulmonary vascularity are unremarkable. IMPRESSION: Stable exam; no acute process Hospital Course (1) MO (acute kidney injury): (2) History of total colectomy: (3) Acute hyperglycemia: Plan Mr. Ann is a 69 year old male who has a longstanding history consistent of diabetes mellitus type 2 with CKD stage III, diabetic retinopathy, HTN, HLD, asthma, anemia due to CKD, chronic ulcerative colitis status post total colectomy chronic diarrhea. This gentleman presented from the outpatient clinic after being advised by his rural route carrier that his creatinine continued to elevate along with having poorly controlled blood glucose. He had outpatient labs on 02/14/2025 indicating his creatinine level was elevated at 7 and a GFR of 13. In the ED his creatinine level was 3.98, BUN 100. Nephrology was consulted and a total of 4 L IVF was given along with nephrotoxic agents being held including torsemide and lisinopril. His creatinine showed marked improvement back to his near baseline status; today's creatinine is 2.77. No leukocytosis. Initially, his potassium level was 5.3, this has also returned to normal levels. Significant conversations have been held around his uncontrolled hyperglycemia. He does have the OmniPod and is instructed to follow closely with his parent educator. He does admit to not covering his carbs around his mealtimes. He reportedly admitted that his CGM has been reading high glucose in the low 400s a few days prior to him coming to the hospital. While here he did meet with the physician assistant certified and we controlled his blood sugars with SSI and added long-acting Lantus. A renal ultrasound was obtained and no hydronephrosis, calculi or renal masses were identified. It is suspected that MO is likely in the setting of uncontrolled hyperglycemia. At discharge, it is recommended to continue to hold his Torsemide and restart his Lisinopril and follow up with Nephrology, his PCP and physician assistant certified. He was deemed stable for discharge home with the instructions outlined below. Total Time Total Time Spent Total Time Spent (In Minutes): I spent a total of 48 minutes coordinating, documenting, and providing care for this patient excluding time spent inthe performance of separately billed services or time spent by another provider/QHP. Discharge Plan Discharge Items Patient Disposition: Home - Self-Care Reason For Visit: REF BY DOC, ABNORMAL BLOODWORK Discharge Diagnosis: MO Uncontrolled diabetes Condition on Discharge: Fair Activity: Resume your previous activity Non-emergency contact: Primary Care Provider and Bottle Tester Call non-emergency contact if: you have any medication questions and your pain is unusual for you Follow-up/Referrals: Luna Ahn MD [Primary Care Provider] - Diet: Carb Consistent or DM2 Addtl Attending Provider Instructions: Mr. Ann, You were admitted to the [facility] as recommended by your Bottle Tester due to worsening kidney function. This has improved with intravenous fluids. While you were here, a renal ultrasound was obtained without any signs of kidney stones or masses. Incidentally, it was identified that your glucose levels are not controlled. Your A1C result is 8.7%, which indicates that your glucose levels are not well controlled. Since you are using an insulin pump, it is essential that you are accurately covering your carbohydrate intake with additional short acting insulin. If not, sustained high blood sugars can lead to serious complications, including damage to your eyes, kidneys, nerves, and heart. Please continue to work closely with your parent educator. They can help fine- tune your pump settings, review your carb counting strategies, and ensure you're on the right path. Your health and long-term well being are important, and there are resources and support to help get you back on track. MEDICATION CHANGES: 1. Due to your kidney function, your Lisinopril was held while you were here. Please restart this at discharge, starting Lisinopril 20 mg daily starting tomorrow 02/20/25. 2. Please continue to hold your Torsemide until further recommendations are made at your Nephrology follow up appointment. SUMMARY OF TEST RESULTS: 1. 02/17/25: Renal Ultrasound: IMPRESSION: No sonographic evidence of an acute renal abnormality, calculus or mass. Mild prostamegaly, but not fully characterized. RECOMMENDATIONS FOR FOLLOW-UP: 1. It is recommended that you follow up with your PCP office this coming week; with Dr. Ahn; you will receive a call on Friday with an appointment date. It is important for you to have repeat blood work ordered after your follow up to monitor your kidney function. 2. Nephrology would like to see you for follow up in two weeks which will be arranged. 3. It is recommended that you continue to follow up with your physician assistant certified which is scheduled for FridayFebruary 22 to ensure better glucose control. 4. Please download the [employer] kelby or similar glucose support kelby for visual guidance on carbohydrate coverage. Discuss with your Horse Farm Manager on Friday. Per the inpatient parent educator visit with you; Please: * Restart insulin pump ~22 hours after last Lantus dose. In the meantime, will need to provide bolus for meals using syringe. * Focus on bolusing before meals. * Needs to increase carbs entering for dinner meal vs. cutting back on carbs with dinner meal to help minimize late day highs. OTHER INSTRUCTIONS: Seek medical attention if you have: * temperature above 101 * chest pain or trouble breathing * abdominal pain, nausea, vomiting * diarrhea, dark stools or bloody stools * any unanswered questions or concerns Call 911 if symptoms are severe. Please take good care of yourself. It has been a pleasure taking care of you. Please take care of yourself. If you have any questions regarding your recent hospitalization please contact [facility] and request Kathi Schilling @ [phone]. Pending Studies at Discharge: No Stand-Alone Forms: My [facility], Smoking Cessation Medications and DC Order Prescriptions: Continued montelukast 10 mg Tablet 10 mg PO DAILY Qty: 0 atorvastatin 40 mg Tablet 40 mg PO DAILY fluticasone propion-salmeterol [Advair Diskus] 250-50 mcg/dose Blister With Device 1 inh INHALATION BID amlodipine 10 mg Tablet 10 mg PO DAILY Atrovent HFA 17 mcg/actuation Hfa Aerosol Inhaler 2 puff INHALATION QID PRN (Reason: SOB/WHEEZING) insulin aspart U-100 [Novolog U-100 Insulin aspart] 100 unit/mL Solution 1 sliding scale dose continuous subcutaneous infusion CONTINOUS Rx Instructions: Pt on insulin pump, pt unsure of max daily units. pantoprazole 40 mg Tablet,Delayed Release (Dr/Ec) 40 mg PO QAM Qty: 30 0RF loperamide 2 mg capsule 2 mg PO BID PRN (Reason: Diarrhea) lisinopril 20 mg Tablet 20 mg PO DAILY Discontinued torsemide 40 mg Tablet 40 mg PO DAILY Discharge Orders: Discharge Order (Routine); Ordered 02/19/25 Ordered By: Annamarie Jimenez/Other Patient Handouts: Hypertension and Kidney Disease, Diabetes and Kidney Disease, Diabetes Kidney Disease Glucose Admission Data Admit Date/Time: 02/17/25 16:11 Attending Provider: Casandra Padgett Admit Provider: Federico Nickerson Primary Care Provider: Luna Ahn Other Providers: Berenice Schroeder; Federico Nickerson Other Interventions: Discharge Summary Assessment (RN) Last Done: 02/19/25 14:27 Supervising Physician Co-Signing Physician Notes Attending addendum: The patient was seen and examined in medical floor He does not have any complaints and worried about deteriorating kidney function On examination Lying in bed without any acute distress Hemodynamically stable with unremarkable systemic examination His labs, imaging studies and medications reviewed Has MO on CKD likely complicated by hyperglycemia and has been under care of rural route carrier Agree with assessment and plan as outlined above by Annamarie PINA and take the full responsible to care in the hospital Dr Milagros Padgett 02/19/2025 The patient was seen and examined in medical floor He remains asymptomatic and has been ambulating in the hallway without difficulties His examination remains unremarkable His medications and labs reviewed Kidney function is improved and blood sugar seems to be stable Strongly advised to follow diabetic diet and take insulin as advised He will be discharged home this afternoon Agree with assessment plan as outlined above by Annamarie PINA and take the full responsibility of care in the hospital Dr Milagros Padgett
== END 2025-02-19 15:06 | disposition home or self-care (01) | DRG 683 ==
LOC: ED 14:07 → SUATTDRO 16:11 → 3E 16:11